=== PATIENT | female | born 1940 | race Caucasian/White ===

== ENCOUNTER 2016-11-22 22:32 | Emergency (ER) | payer MEDICARE, MEDICAID ==
--- NOTE | 2016-11-22 23:09 | ER Document Report ---
ED General - General Stated Complaint: FEVER Time Seen by Provider: 11/22/16 22:40 Notes: Patient is a 76-year-old female presents with complaint of fever. She had surgery done at [facility] on October 30. She has a history of a ileostomy. 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 She scheduled to have her rectum removed and then have it closed. They found when she was noted she also had a bowel obstruction therefore they also performed a surgery on the ileostomy itself. She was in the hospital for a week. She is on discharge on November 13. Since that she was therefore allowed for having issues with her blood pressure and she also developed UTI. She was discharged on antibiotics which she finished. Since than she has not been eating or drinking well since leaving [facility]. Denies she was more weak than usual and then developed a fever of. Fever for the paramedics was 101.8. She was given Tylenol by them. She denies any cough or congestion. She denies any dysuria but says she has been having difficulty getting urine out. She denies any change in ostomy output. She denies abdominal pain. No other complaints at this time. TRAVEL OUTSIDE OF THE [place] IN LAST 30 DAYS: No - Related Data Allergies/Adverse Reactions: ciprofloxacin [From Cipro] Allergy (Verified 04/07/15 13:57) diltiazem HCl [From Cardizem] Allergy (Verified 04/07/15 13:57) Unknown reaction ketorolac tromethamine [From Toradol] Allergy (Verified 04/07/15 13:57) levofloxacin [From Levaquin] Allergy (Verified 04/07/15 13:57) meperidine HCl [From Demerol] Allergy (Verified 04/07/15 13:57) nitrofurantoin macrocrystalline [From Macrodantin] Allergy (Verified 04/07/15 13 :57) propoxyphene napsylate [From Darvocet-N 100] Allergy (Verified 04/07/15 13:57) sumatriptan [From Imitrex] Allergy (Verified 04/07/15 13:57) Past Medical History - Social History Smoking Status: Unknown if Ever Smoked Frequency of alcohol use: None Drug Abuse: None Family History: Arthritis, CAD, DM, Hyperlipidemia, Hypertension - Past Medical History Cardiac Medical History: Reports: Hx Coronary Artery Disease, Hx Hypercholesterolemia, Hx Hypertension Pulmonary Medical History: Denies: Hx Tuberculosis Neurological Medical History: Reports: Hx Migraine, Hx Seizures Renal/ Medical History: Reports: Hx Renal Insufficiency GI Medical History: Reports: Hx Gastroesophageal Reflux Disease, Hx Irritable Bowel, Hx Colonoscopy, Hx Endoscopy Musculoskeltal Medical History: Reports Hx Arthritis, Reports Hx Musculoskeletal Deformity, Reports Hx Musculoskeletal Trauma Psychiatric Medical History: Reports: Hx Depression Traumatic Medical History: Reports: Hx Fractures - left shoulder Past Surgical History: Reports: Hx Appendectomy, Hx Bowel Surgery - 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 bowel injury, Hx Section, Hx Cholecystectomy, Hx Coronary Artery Bypass Graft, Hx Hysterectomy, Hx Ileostomy, Hx Orthopedic Surgery - left shoulder x2, Hx Tonsillectomy - Immunizations Immunizations up to date: Yes Hx Diphtheria, Pertussis, Tetanus Vaccination: Yes - 2012 Hx Pneumococcal Vaccination: 05/11/11 Review of Systems - Review of Systems Notes: My Normal Review Basic REVIEW OF SYSTEMS: CONSTITUTIONAL : Fevers EENT: Denies eye, ear, throat, or mouth pain or symptoms. Denies nasal or sinus congestion. CARDIOVASCULAR: Denies chest pain. RESPIRATORY: Denies cough, cold, or chest congestion. Denies shortness of breath, difficulty breathing, or wheezing. GASTROINTESTINAL: Denies abdominal pain. Denies nausea, vomiting, or diarrhea. GENITOURINARY: Denies painful urination, burning, frequency, or blood in urine. MUSCULOSKELETAL: Denies neck or back pain or joint pain or swelling. SKIN: Denies rash or skin lesions. NEUROLOGICAL: Denies altered mental status or loss of consciousness. Denies headache. Denies weakness or paralysis or loss of use of either side. Denies problems with gait or speech. Denies sensory or motor loss. ALL OTHER SYSTEMS REVIEWED AND NEGATIVE. Physical Exam - Vital signs Vitals: Temp Resp Pulse Ox 98.4 F 14 95 11/22/16 22:52 11/22/16 22:52 11/22/16 22:52 - Notes Notes: General Appearance: Thin, alert, cooperative, no acute distress, no obvious discomfort. Vitals: reviewed, See vital signs table. Head: no swelling or tenderness to the head Eyes: PERRL, EOMI, Conjuctiva clear Mouth: No decreasd moisture Neck: Supple, no neck tenderness, No thyromegaly Lungs: No wheezing, No rales, No rhonci, No accessory muscle use, good air exchange bilaterally. Heart: Normal rate, Regular rythm, No murmur, no rub Abdomen: Normal BS, soft, No rigidity, mild diffuse abdominal tenderness to palpation, No guarding, no rebound, no abdominal masses, no organomegaly. Ostomy bag in right lower quadrant has output of maroon colored stool. Rectal exam: Patient does have some whitish discharge from the surgical rectal site. The surgery of the rectum is slightly open. Sutures are still in place. There is no redness or spreading erythema from the area. Extremities: strength 5/5 in all extremities, good pulses in all extremities, no swelling or tenderness in the extremities, no edema. Skin: warm, dry, appropriate color, no rash Neuro: speech clear, oriented x 3, normal affect, responds appropriately to questions. Course - Re-evaluation Re-evalutation: 11/23/16 05:22 Spoke with [facility] over an hour ago for transfer. They said they would page out the surgeon. I called back to have not heard back. They said they are still try to get in touch with Dr. Jett, GI surgery. 11/23/16 05:30 Dr. Jett from [facility]. She accepts the patient on behalf of Dr. Hopson. 11/24/16 02:43 I have reevaluated the patient. She is resting comfortably. She is in no distress. Heart and lung marsh are clear. Vital signs are currently normal. I have ordered her vancomycin pharmacy to dose to start this morning. I have ordered Vanco peak and trough levels. Will order repeat CBC and BMP for the morning. She did spike a fever again. I have given her Tylenol. We are still awaiting transfer to [facility]. - Vital Signs Vital signs: Temp Pulse Resp BP Pulse Ox 98.6 F 59 L 15 95/65 L 97 11/24/16 02:41 11/23/16 08:40 11/24/16 02:01 11/24/16 02:00 11/24/16 02:01 - Laboratory Result Diagrams: 11/23/16 12:47 11/23/16 12:47 Laboratory results interpreted by me: 11/22/16 11/22/16 11/23/16 22:56 22:56 00:20 RBC 2.61 L Hgb 7.0 L Hct 21.9 L MCH 26.7 L MCHC 31.9 L RDW 16.5 H Seg Neutrophils % 79.0 H Lymphocytes % 7.1 L Sodium 133.4 L Carbon Dioxide 21 L BUN 25 H Creatinine 2.28 H Est GFR ( Amer) 25 L Est GFR (Non-Af Amer) 21 L Total Protein 6.2 L Albumin 2.9 L Urine Protein Urine Blood Ur Leukocyte Esterase Crossmatch See Detail 11/23/16 11/23/16 11/23/16 03:28 12:47 12:47 RBC Hgb 11.2 L D Hct 34.9 L MCH 26.9 L MCHC RDW 16.1 H Seg Neutrophils % 78.8 H Lymphocytes % 7.6 L Sodium Carbon Dioxide 20 L BUN 21 H Creatinine 1.95 H Est GFR ( Amer) 30 L Est GFR (Non-Af Amer) 25 L Total Protein Albumin Urine Protein 100 H Urine Blood MODERATE H Ur Leukocyte Esterase LARGE H Crossmatch - EKG Interpretation by Me Additional EKG results interpreted by me: 11/23/16 01:17 EKG is reviewed and interpreted by me. EKG shows normal sinus rhythm with rate of [address] segment elevation or depression. No ischemic T-wave inversions. OH interval, QRS duration, QTc intervals are within normal range. Old EKG for comparison is from January 25, 2016. Discharge - Discharge Clinical Impression: Rectal abscess Fever Qualifiers: Fever type: unspecified Qualified Code(s): R50.9 - Fever, unspecified Anemia Qualifiers: Anemia type: unspecified type Qualified Code(s): D64.9 - Anemia, unspecified Condition: Stable Disposition: [place] Referrals: BOBBI MACKAY DO [Primary Care Provider] - Follow up as needed
[2016-11-22 23:22] LABS: ABSOLUTE EOSINOPHILS # (AUTO) 0.1 10^3/uL (0.0-0.6); ABSOLUTE LYMPHOCYTES (AUTO) 0.5 10^3/uL (0.5-4.7); BASOPHILS % (AUTO) 0.4 % (0-2); EOSINOPHILS % (AUTO) 0.7 % (0-6); HEMATOCRIT 21.9 % (36.0-47.0); HGB HCT DIFFERENCE -0.9; LYMPHOCYTES % (AUTO) 7.1 % (13-45); MEAN CORPUSCULAR HEMOGLOBIN 26.7 pg (27.0-33.4); MEAN CORPUSCULAR HGB CONC 31.9 g/dL (32.0-36.0); MEAN CORPUSCULAR VOLUME 84 fl (80-97); MONOCYTES % (AUTO) 12.8 % (3-13); RED BLOOD COUNT 2.61 10^6/uL (3.72-5.28); RED CELL DISTRIBUTION WIDTH 16.5 % (11.5-14.0); WHITE BLOOD COUNT 7.6 10^3/uL (4.0-10.5)
[2016-11-22 23:40] LABS: ALANINE AMINOTRANSFERASE 28 U/L (9-52); ALBUMIN 2.9 g/dL (3.5-5.0); ALKALINE PHOSPHATASE 86 U/L (38-126); ANION GAP 12 (5-19); ASPARTATE AMINO TRANSFERASE 23 U/L (14-36); BILIRUBIN,DIRECT 0.3 mg/dL (0.0-0.4); BILIRUBIN,TOTAL 0.3 mg/dL (0.2-1.3); BLOOD UREA NITROGEN 25 mg/dL (7-20); CALCIUM 8.6 mg/dL (8.4-10.2); CARBON DIOXIDE 21 mmol/L (22-30); CHLORIDE 100 mmol/L (98-107); CREATININE RESULT 2.28 mg/dL (0.52-1.25); GLUCOSE 104 mg/dL (75-110); LIPASE 47.2 U/L (23-300); POTASSIUM 4.6 mmol/L (3.6-5.0); SODIUM 133.4 mmol/L (137-145); TOTAL PROTEIN 6.2 g/dL (6.3-8.2)
[2016-11-22] MEDS ORDERED: NORMAL SALINE 250 ML IV PRN (23:49)
[2016-11-23] MEDS ORDERED: PIPERACILLIN/TAZOBACTAM 3.375 GM VIAL IV ONE (00:23)
[2016-11-23] MEDS ORDERED: VANCOMYCIN HCL INJ 1000 MG VIAL IV ONE (00:23)
--- NOTE | 2016-11-23 00:54 | RADIOLOGY REPORT (SQ) ---
EXAM DESCRIPTION: CHEST SINGLE VIEW COMPLETED DATE/TIME: 11/23/2016 12:31 am REASON FOR STUDY: fever COMPARISON: Chest x-ray 01/25/2016 EXAM PARAMETERS: NUMBER OF VIEWS: One view. TECHNIQUE: Single frontal radiographic view of the chest acquired. RADIATION DOSE: NA LIMITATIONS: None. FINDINGS: LUNGS AND PLEURA: No consolidation, pneumothorax or pleural effusion. MEDIASTINUM AND HILAR STRUCTURES: No masses. Contour normal. HEART AND VASCULAR STRUCTURES: Heart normal in size. No overt vascular congestion. BONES: No acute findings. HARDWARE: None in the chest. IMPRESSION: No acute radiographic finding in the chest. TECHNICAL DOCUMENTATION: JOB ID: [id number]
[2016-11-23] MEDS ORDERED: NORMAL SALINE 1000 ML 1,000 ML IV ONE ×3 (01:25→21:17)
--- NOTE | 2016-11-23 01:51 | RADIOLOGY REPORT (SQ) ---
EXAM DESCRIPTION: CT ABD/PELVIS NO ORAL OR IV COMPLETED DATE/TIME: 11/23/2016 1:14 am REASON FOR STUDY: post op fever, h/o ileostomy, diffuse abdominal pain. Prior appendectomy, hystere ctomy and cholecystectomy. COMPARISON: CT abdomen and pelvis 12/19/2014. TECHNIQUE: CT scan of the abdomen and pelvis performed without intravenous or oral contrast. Images reviewed with lung, soft tissue, and bone windows. Reconstructed coronal and sagittal MPR images revi ewed. All images stored on PACS. All CT scanners at this facility use dose modulation, iterative reconstruction, and/or weight based d osing when appropriate to reduce radiation dose to as low as reasonably achievable (ALARA). [facility]: Dose Right [facility]: CareDose [facility]: Dose Right [facility]: Teradose 4D [facility]: [employer] RADIATION DOSE: Up-to-date CT equipment and radiation dose reduction techniques were employed. CTDIv ol: 4.8 mGy. DLP: 228 mGy-cm.mGy. LIMITATIONS: None. FINDINGS: LOWER CHEST: Mild bibasilar atelectasis. No pleural effusion. There is a moderate hiatal hernia. NON-CONTRASTED LIVER, SPLEEN, ADRENALS: Evaluation limited by lack of IV contrast. No identified sign ificant masses. PANCREAS: No peripancreatic inflammatory changes. GALLBLADDER: Surgically absent. RIGHT KIDNEY AND URETER: Assessment for masses limited by lack of IV contrast. No significant calci fications. No hydronephrosis or hydroureter. LEFT KIDNEY AND URETER: Assessment for masses limited by lack of IV contrast. No significant calcif ications. No hydronephrosis or hydroureter. AORTA AND RETROPERITONEUM: No abdominal aortic aneurysm. No retroperitoneal masses or hemorrhage. BOWEL AND PERITONEAL CAVITY: The stomach is partially distended. Multiple air-fluid levels are seen within small bowel loops. There is a right lower quadrant ostomy. No free fluid or free air. APPENDIX: Surgically absent. PELVIS, BLADDER, AND ABDOMINAL WALL:The urinary bladder is distended. The uterus is surgically absen t. No obvious pelvic mass. BONES: Multilevel degenerative changes in the spine. OTHER: There is presacral edema. Soft tissue stranding with small amount of subcutaneous emphysema in the soft tissues in the right perianal region, measuring approximately 1.9 x 1.2 cm. IMPRESSION: Presacral edema and soft tissue stranding with small amount of subcutaneous emphysema in the soft tissues in the right perianal region, worrisome for a fistula with abscess development. Th is can be better evaluated with dedicated MRI. Air-fluid levels within small bowel loops, may represent ileus; developing obstruction is not excluda ble. Clinical correlation recommended. Moderate hiatal hernia. Mild bibasilar atelectasis. TECHNICAL DOCUMENTATION: JOB ID: [id number] [facility] Quality ID # [id number]: Final reports with documentation of one or more dose reduction techniques (e.g., Au tomated exposure control, adjustment of the mA and/or kV according to patient size, use of iterative reconstruction technique) 2010 [employer]- All Rights Reserved
[2016-11-23 04:19] LABS: APPEARANCE,URINE TURBID; BILIRUBIN,URINE NEGATIVE (NEGATIVE); GLUCOSE, URINE NEGATIVE (NEGATIVE); KETONES,URINE NEGATIVE (NEGATIVE); LEUKOCYTE ESTERASE,URINE LARGE (NEGATIVE); NITRITE,URINE NEGATIVE (NEGATIVE); PROTEIN,URINE 100 mg/dL (NEGATIVE); URINE SPECIFIC GRAVITY 1.009; UROBILINOGEN,URINE NEGATIVE mg/dL (<2.0)
[2016-11-23] MEDS ORDERED: FENTANYL CITRATE INJ/PF 100 MCG/2 ML AMPUL IV ONE ×2 (06:13→10:52)
[2016-11-23] MEDS ORDERED: PIPERACILLIN/TAZOBACTAM 3.375 GM VIAL IV SCH (08:00)
--- NOTE | 2016-11-23 10:03 | EKG REPORT ---
SEVERITY:- NORMAL ECG - SINUS RHYTHM : Confirmed by: Ron Tinsley MD 23-Nov-2016 10:02:42
[2016-11-23 13:02] LABS: ABSOLUTE EOSINOPHILS # (AUTO) 0.2 10^3/uL (0.0-0.6); ABSOLUTE LYMPHOCYTES (AUTO) 0.7 10^3/uL (0.5-4.7); ABSOLUTE MONOCYTES (AUTO) 0.9 10^3/uL (0.1-1.4); ABSOLUTE NEUT (AUTO) 7.2 10^3/uL (1.7-8.2); BASOPHILS % (AUTO) 0.5 % (0-2); EOSINOPHILS % (AUTO) 2.7 % (0-6); HEMATOCRIT 34.9 % (36.0-47.0); HGB HCT DIFFERENCE -1.3; LYMPHOCYTES % (AUTO) 7.6 % (13-45); MEAN CORPUSCULAR HEMOGLOBIN 26.9 pg (27.0-33.4); MEAN CORPUSCULAR HGB CONC 32.1 g/dL (32.0-36.0); MEAN CORPUSCULAR VOLUME 84 fl (80-97); MONOCYTES % (AUTO) 10.4 % (3-13); RED BLOOD COUNT 4.16 10^6/uL (3.72-5.28); RED CELL DISTRIBUTION WIDTH 16.1 % (11.5-14.0); SEGMENTED NEUTROPHILS % (AUTO) 78.8 % (42-78); WHITE BLOOD COUNT 9.1 10^3/uL (4.0-10.5)
[2016-11-23 13:09] LABS: ANION GAP 14 (5-19); BLOOD UREA NITROGEN 21 mg/dL (7-20); CALCIUM 8.8 mg/dL (8.4-10.2); CARBON DIOXIDE 20 mmol/L (22-30); CHLORIDE 105 mmol/L (98-107); CREATININE RESULT 1.95 mg/dL (0.52-1.25); GLUCOSE 110 mg/dL (75-110); HEMOGLOBIN 11.2 g/dL (12.0-15.5); POTASSIUM 4.2 mmol/L (3.6-5.0); SODIUM 138.5 mmol/L (137-145)
[2016-11-23] MEDS: FENTANYL CITRATE INJ/PF 100 MCG/2 ML AMPUL IV PRN ×3 (14:10→22:51)
[2016-11-23] MEDS ORDERED: ACETAMINOPHEN 325 MG TABLET PO ONE (22:39)
[2016-11-24] MEDS: PIPERACILLIN/TAZOBACTAM 3.375 GM VIAL IV SCH ×2 (00:52→06:45)
[2016-11-24] MEDS ORDERED: PHARMACY COMMUNICATION ORDER MC NR (02:45)
[2016-11-24] MEDS ORDERED: VANCOMYCIN HCL INJ 1000 MG VIAL IV PRN (02:59)
[2016-11-24] MEDS ORDERED: VANCOMYCIN HCL 750 MG in DEXTROSE 5%-WATER 250 ML IV ONE (04:00)
[2016-11-24] MEDS: FENTANYL CITRATE INJ/PF 100 MCG/2 ML AMPUL IV PRN ×4 (07:11→20:13)
[2016-11-24 08:01] LABS: ABSOLUTE BASOPHILS # (AUTO) 0.1 10^3/uL (0.0-0.2); ABSOLUTE EOSINOPHILS # (AUTO) 0.2 10^3/uL (0.0-0.6); ABSOLUTE LYMPHOCYTES (AUTO) 1.6 10^3/uL (0.5-4.7); ABSOLUTE MONOCYTES (AUTO) 1.3 10^3/uL (0.1-1.4); BASOPHILS % (AUTO) 0.6 % (0-2); EOSINOPHILS % (AUTO) 2.1 % (0-6); HEMATOCRIT 34.2 % (36.0-47.0); HGB HCT DIFFERENCE -1.2; LYMPHOCYTES % (AUTO) 15.4 % (13-45); MEAN CORPUSCULAR VOLUME 84 fl (80-97); MONOCYTES % (AUTO) 12.8 % (3-13); RED BLOOD COUNT 4.05 10^6/uL (3.72-5.28); RED CELL DISTRIBUTION WIDTH 16.2 % (11.5-14.0); SEGMENTED NEUTROPHILS % (AUTO) 69.1 % (42-78); WHITE BLOOD COUNT 10.1 10^3/uL (4.0-10.5)
[2016-11-24 09:32] LABS: ANION GAP 11 (5-19); BLOOD UREA NITROGEN 14 mg/dL (7-20); CALCIUM 8.2 mg/dL (8.4-10.2); CARBON DIOXIDE 16 mmol/L (22-30); CHLORIDE 111 mmol/L (98-107); CREATININE RESULT 1.39 mg/dL (0.52-1.25); GLUCOSE 92 mg/dL (75-110); POTASSIUM 4.3 mmol/L (3.6-5.0); SODIUM 138.2 mmol/L (137-145)
[2016-11-24] MEDS ORDERED: PIPERACILLIN/TAZOBACTAM 2.25 GM VIAL IV SCH (12:00)
--- NOTE | 2016-11-24 20:29 | ER Document Report ---
Doctor's Note Notes: 11/24/16 20:00 Patient is resting comfortably. Vitals are stable. Patient lost IV access. Patient had a line started by nurse. Patient has been getting IV antibiotics and fluids. She does not have a fever at this time. 11/25/16 01:01 Patient is a 76-year-old female who is being transferred to [facility] for a colon infection versus fistula. Patient is stable for transfer. Resting comfortably.
[2016-11-25 00:26] VITALS: BP 123/55
[2016-11-25] MEDS ORDERED: VANCOMYCIN HCL 500 MG in DEXTROSE 5%-WATER 100 ML IV SCH (17:00)
== END 2016-11-25 00:40 | disposition short-term general hospital (02) ==
LOC: ER 22:32
DX: T81.4XXA Infection following a procedure, initial encounter (principal); K61.1 Rectal abscess; Y83.8 Other surgical procedures as the cause of abnormal reaction of the patient, or of later complication, without mention of misadventure at the time of the procedure; D64.9 Anemia, unspecified; R50.9 Fever, unspecified; R53.1 Weakness; R39.9 Unspecified symptoms and signs involving the genitourinary system; I25.10 Atherosclerotic heart disease of native coronary artery without angina pectoris; I10 Essential (primary) hypertension; Z90.49 Acquired absence of other specified parts of digestive tract; Z93.2 Ileostomy status; Z85.00 Personal history of malignant neoplasm of unspecified digestive organ; Z88.1 Allergy status to other antibiotic agents; Z88.8 Allergy status to other drugs, medicaments and biological substances; Z88.5 Allergy status to narcotic agent; Z88.6 Allergy status to analgesic agent; Z95.1 Presence of aortocoronary bypass graft
CPT/HCPCS: 93005; 96376; 99285; 96361; 96375; 96365; 96366; 96367; 86900; 86901; 36415; 87040; 87070; 87205; 36430; 86850; 83690; 85025; 82272; 87075; 87077; 80048; 80053; 81001; 87186; 80202 ×2; 86920; 83605; 71010; 74176; 93010; P9016; A9270; J3010 ×2; J3370 ×3; J7060; J7030; J2543 ×2

== ENCOUNTER 2017-06-13 12:24 | Emergency (ER) | payer MEDICARE, MEDICAID ==
--- NOTE | 2017-06-13 12:53 | ER Document Report ---
ED Medical Screen (RME) - General Chief Complaint: Flu Symptoms Stated Complaint: FLU LIKE SYMPTOMS Time Seen by Provider: 06/13/17 12:48 TRAVEL OUTSIDE OF THE [place] IN LAST 30 DAYS: No - HPI Patient complains to provider of: cough Onset: Yesterday Notes: 06/13/17 12:51 Patient presents with her son [facility] cough fever and chills for the last 2 days. Since T-max was 103. She states she has not been feeling well for several days with a cough and mild diarrhea. She lives at home with her son who is with her today. Has had mild diarrhea as well as decreased appetite and generalized malaise. Patient has a history of anxiety dementia and GERD she also has a history of a colostomy although she denies colon cancer. Vital signs urgent care included a blood pressure of 161/ 87 a heart rate of 99 a respiratory rate 18 and O2 sat of 81 a temperature of 100.1 patient was 92 pounds I have greeted and performed a rapid initial assessment of this patient. A comprehensive ED assessment and evaluation of the patient, analysis of test results and completion of the medical decision making process will be conducted by additional ED providers. PHYSICAL EXAMINATION: GENERAL: Frail ill-appearing elderly female HEAD: Atraumatic, normocephalic. EYES: Pupils equal round extraocular movements intact, conjunctiva are normal. ENT: Nares patent NECK: Normal range of motion LUNGS: Basilar crackles with rhonchi right greater than left chest Musculoskeletal: Normal range of motion NEUROLOGICAL: Normal speech, normal gait. PSYCH: Normal mood, normal affect. SKIN: Warm, Dry, normal turgor, no rashes or lesions noted. - Related Data Allergies/Adverse Reactions: ciprofloxacin [From Cipro] Allergy (Verified 06/13/17 12:26) diltiazem HCl [From Cardizem] Allergy (Verified 06/13/17 12:26) Unknown reaction ketorolac tromethamine [From Toradol] Allergy (Verified 06/13/17 12:26) levofloxacin [From Levaquin] Allergy (Verified 06/13/17 12:26) meperidine HCl [From Demerol] Allergy (Verified 06/13/17 12:26) nitrofurantoin macrocrystalline [From Macrodantin] Allergy (Verified 06/13/17 12 :26) propoxyphene napsylate [From Darvocet-N 100] Allergy (Verified 06/13/17 12:26) sumatriptan [From Imitrex] Allergy (Verified 06/13/17 12:26) Past Medical History - Social History Chew tobacco use (# tins/day): No Frequency of alcohol use: None Drug Abuse: None Family history: Reviewed & Not Pertinent - Past Medical History Cardiac Medical History: Reports: Hx Coronary Artery Disease, Hx Hypercholesterolemia, Hx Hypertension Pulmonary Medical History: Denies: Hx Tuberculosis Neurological Medical History: Reports: Hx Migraine, Hx Seizures Renal/ Medical History: Reports: Hx Renal Insufficiency. Denies: Hx Peritoneal Dialysis GI Medical History: Reports: Hx Gastroesophageal Reflux Disease, Hx Irritable Bowel, Hx Colonoscopy, Hx Endoscopy Musculoskeltal Medical History: Reports Hx Arthritis, Reports Hx Musculoskeletal Deformity, Reports Hx Musculoskeletal Trauma Psychiatric Medical History: Reports: Hx Depression Traumatic Medical History: Reports: Hx Fractures - left shoulder Past Surgical History: Reports: Hx Appendectomy, Hx Bowel Surgery - 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 bowel injury, Hx Section, Hx Cholecystectomy, Hx Coronary Artery Bypass Graft, Hx Hysterectomy, Hx Ileostomy, Hx Orthopedic Surgery - left shoulder x2, Hx Tonsillectomy - Immunizations Immunizations up to date: Yes Hx Diphtheria, Pertussis, Tetanus Vaccination: Yes - 2012 Physical Exam - Vital signs Vitals: Temp Pulse Resp BP Pulse Ox 98.1 F 97 16 150/76 H 95 06/13/17 12:33 06/13/17 12:33 06/13/17 12:33 06/13/17 12:33 06/13/17 12:33 Course - Vital Signs Vital signs: Temp Pulse Resp BP Pulse Ox 98.1 F 97 16 150/76 H 95 06/13/17 12:33 06/13/17 12:33 06/13/17 12:33 06/13/17 12:33 06/13/17 12:33
--- NOTE | 2017-06-13 13:46 | RADIOLOGY REPORT (SQ) ---
EXAM DESCRIPTION: CHEST PA/LAT COMPLETED DATE/TIME: 06/13/2017 1:05 pm REASON FOR STUDY: cough COMPARISON: 01/25/2016 NUMBER OF VIEWS: Two view TECHNIQUE: Frontal and lateral radiographic images of the chest acquired. LIMITATIONS: None. FINDINGS: LUNGS AND PLEURA: Emphysematous changes. Reticulonodular pattern in the lower right lung. No effusions. MEDIASTINUM AND HILAR STRUCTURES: Stable heart size and mediastinal structures. HEART AND VASCULAR STRUCTURES: Stable appearance. BONES: No acute findings. HARDWARE: None in the chest. OTHER: No other significant finding. IMPRESSION: COPD. Suspect superimposed pneumonia in the right lower lobe. Follow-up is recommended . TECHNICAL DOCUMENTATION: JOB ID: [id number] [employer]- All Rights Reserved
[2017-06-13] MEDS ORDERED: AZITHROMYCIN 250 MG TABLET PO ONE (14:36)
--- NOTE | 2017-06-13 14:39 | ER Document Report ---
ED General - General Chief Complaint: Flu Symptoms Stated Complaint: FLU LIKE SYMPTOMS Time Seen by Provider: 06/13/17 12:48 Mode of Arrival: Medic Information source: Patient, Relative Notes: 76-year-old female presents with complaints of productive cough over 3 day duration. Patient was sent in from urgent care with concerns of hypoxemia but was satting well on arrival, she was admitting to chills denies any nausea vomiting TRAVEL OUTSIDE OF THE [place] IN LAST 30 DAYS: No - HPI Onset: Other - 3 day duration Onset/Duration: Persistent Quality of pain: Achy Severity: Mild Pain Level: 1 Associated symptoms: Productive cough, Shortness of breath Exacerbated by: Walking Relieved by: Denies Similar symptoms previously: Yes Recently seen / treated by doctor: Yes - Related Data Allergies/Adverse Reactions: ciprofloxacin [From Cipro] Allergy (Verified 06/13/17 12:26) diltiazem HCl [From Cardizem] Allergy (Verified 06/13/17 12:26) Unknown reaction ketorolac tromethamine [From Toradol] Allergy (Verified 06/13/17 12:26) levofloxacin [From Levaquin] Allergy (Verified 06/13/17 12:26) meperidine HCl [From Demerol] Allergy (Verified 06/13/17 12:26) nitrofurantoin macrocrystalline [From Macrodantin] Allergy (Verified 06/13/17 12 :26) propoxyphene napsylate [From Darvocet-N 100] Allergy (Verified 06/13/17 12:26) sumatriptan [From Imitrex] Allergy (Verified 06/13/17 12:26) Past Medical History - Social History Smoking Status: Never Smoker Cigarette use (# per day): No Chew tobacco use (# tins/day): No Smoking Education Provided: No Frequency of alcohol use: None Drug Abuse: None Family History: Arthritis, CAD, DM, Hyperlipidemia, Hypertension Patient has suicidal ideation: No Patient has homicidal ideation: No - Past Medical History Cardiac Medical History: Reports: Hx Coronary Artery Disease, Hx Hypercholesterolemia, Hx Hypertension Pulmonary Medical History: Denies: Hx Tuberculosis Neurological Medical History: Reports: Hx Migraine, Hx Seizures Renal/ Medical History: Reports: Hx Renal Insufficiency. Denies: Hx Peritoneal Dialysis GI Medical History: Reports: Hx Gastroesophageal Reflux Disease, Hx Irritable Bowel, Hx Colonoscopy, Hx Endoscopy Musculoskeltal Medical History: Reports Hx Arthritis, Reports Hx Musculoskeletal Deformity, Reports Hx Musculoskeletal Trauma Psychiatric Medical History: Reports: Hx Depression Traumatic Medical History: Reports: Hx Fractures - left shoulder Past Surgical History: Reports: Hx Appendectomy, Hx Bowel Surgery - 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 bowel injury, Hx Section, Hx Cholecystectomy, Hx Coronary Artery Bypass Graft, Hx Hysterectomy, Hx Ileostomy, Hx Orthopedic Surgery - left shoulder x2, Hx Tonsillectomy - Immunizations Immunizations up to date: Yes Hx Diphtheria, Pertussis, Tetanus Vaccination: Yes - 2012 Hx Pneumococcal Vaccination: 05/11/11 Review of Systems - Review of Systems Notes: REVIEW OF SYSTEMS: CONSTITUTIONAL : Denies fever, chills, or sweats. Denies recent illness. EENT: Denies eye, ear, throat, or mouth pain or symptoms. Denies nasal or sinus congestion or discharge. Denies throat, tongue, or mouth swelling or difficulty swallowing. CARDIOVASCULAR: Denies chest pain. Denies palpitations or racing or irregular heart beat. Denies ankle edema. RESPIRATORY: Admits to cough shortness of breath GASTROINTESTINAL: Denies abdominal pain or distention. Denies nausea, vomiting , or diarrhea. Denies blood in vomitus, stools, or per rectum. Denies black, tarry stools. Denies constipation. GENITOURINARY: Denies difficulty urinating, painful urination, burning, frequency, blood in urine, or discharge. FEMALE GENITOURINARY: Denies vaginal bleeding, heavy or abnormal periods, irregular periods. Denies vaginal discharge or odor. MUSCULOSKELETAL: Denies back or neck pain or stiffness. Denies joint pain or swelling. SKIN: Denies rash, lesions or sores. HEMATOLOGIC : Denies easy bruising or bleeding. LYMPHATIC: Denies swollen, enlarged glands. NEUROLOGICAL: Denies confusion or altered mental status. Denies passing out or loss of consciousness. Denies dizziness or lightheadedness. Denies headache. Denies weakness or paralysis or loss of use of either side. Denies problems with gait or speech. Denies sensory loss, numbness, or tingling. Denies seizures. PSYCHIATRIC: Denies anxiety or stress. Denies depression, suicidal ideation, or homicidal ideation. ALL OTHER SYSTEMS REVIEWED AND NEGATIVE. PHYSICAL EXAMINATION: GENERAL: Well-appearing, well-nourished and in no acute distress. HEAD: Atraumatic, normocephalic. EYES: Pupils equal round and reactive to light, extraocular movements intact, conjunctiva are normal. ENT: Nares patent, oropharynx clear without exudates. Moist mucous membranes. NECK: Normal range of motion, supple without lymphadenopathy LUNGS: Coarse rhonchi in the right upper lobe HEART: Regular rate and rhythm without murmurs ABDOMEN: Soft, nontender, nondistended abdomen. No guarding, no rebound. No masses appreciated. Female : deferred Musculoskeletal: Normal range of motion, no pitting or edema. No cyanosis. NEUROLOGICAL: Cranial nerves grossly intact. Normal speech, normal gait. Normal sensory, motor exams PSYCH: Normal mood, normal affect. SKIN: Warm, Dry, normal turgor, no rashes or lesions noted. Dictation was performed using [employer] recognition software Physical Exam - Vital signs Vitals: Temp Pulse Resp BP Pulse Ox 98.1 F 97 16 150/76 H 95 06/13/17 12:33 06/13/17 12:33 06/13/17 12:33 06/13/17 12:33 06/13/17 12:33 Course - Re-evaluation Re-evalutation: 06/13/17 16:28 Patient's presentation is consistent with pneumonia this was confirmed on x-ray , patient was ambulated throughout the emergency department and her O2 sats went between 92-96% with no elevation in heart rate. Patient looks extremely well, we unfortunately failed to get IV access her blood work multiple times I did offer to continue attempts but family wishes to defer at this time, patient wishes to be discharged home, I explained to them that there is concerns that this may worsen in the respiratory distress or further renal failure could occur , family states they understand and son states she lives with him and he will bring her back immediately if there are any other concerns. I provided my business card and explained for them to return immediately if there are any other concerns After performing a Medical Screening Examination, I estimate there is LOW risk for ACUTE CORONARY SYNDROME, PULMONARY EMBOLI, RESPIRATORY FAILURE, SEPSIS OR MENINGITIS, thus I consider the discharge disposition reasonable. I have reevaluated this patient multiple times and no significant life threatening changes are noted. The patient and I have discussed the diagnosis and risks, and we agree with discharging home with close follow-up. We also discussed returning to the Emergency Department immediately if new or worsening symptoms occur. We have discussed the symptoms which are most concerning (e.g., changing or worsening pain, trouble swallowing or breathing, neck stiffness, fever) that necessitate immediate return. - Vital Signs Vital signs: Temp Pulse Resp BP Pulse Ox 98.0 F 83 18 111/66 94 06/13/17 15:07 06/13/17 15:07 06/13/17 15:07 06/13/17 15:07 06/13/17 15:07 - Laboratory Laboratory results interpreted by me: 06/13/17 14:32 Urine Protein 30 H - Diagnostic Test Radiology reviewed: Image reviewed, Reports reviewed - pneumonia Discharge - Discharge Clinical Impression: Pneumonia Qualifiers: Pneumonia type: due to unspecified organism Laterality: right Lung location: upper lobe of lung Qualified Code(s): J18.1 - Lobar pneumonia, unspecified organism Condition: Stable Disposition: HOME, SELF-CARE Instructions: Pneumonia ([facility]) Prescriptions: Azithromycin [Zithromax] 250 mg PO DAILY #4 tablet Referrals: BOBBI MACKAY DO [Primary Care Provider] - Follow up as needed
[2017-06-13 14:47] LABS: APPEARANCE,URINE CLOUDY; BILIRUBIN,URINE NEGATIVE (NEGATIVE); COLOR,URINE YELLOW; GLUCOSE, URINE NEGATIVE (NEGATIVE); KETONES,URINE NEGATIVE (NEGATIVE); LEUKOCYTE ESTERASE,URINE NEGATIVE (NEGATIVE); NITRITE,URINE NEGATIVE (NEGATIVE); PROTEIN,URINE 30 mg/dL (NEGATIVE); URINE SPECIFIC GRAVITY 1.012; UROBILINOGEN,URINE NEGATIVE mg/dL (<2.0)
[2017-06-13] MEDS ORDERED: ALBUTEROL SULFATE HFA (90 MCG/PUFF) 8 GM MDI (1 MDI/ER DISP) IH PRN (14:56)
[2017-06-13 15:10] VITALS: BP 111/66
--- NOTE | 2017-06-13 17:38 | EKG REPORT ---
SEVERITY:- NORMAL ECG - SINUS RHYTHM : Confirmed by: Ron Tinsley MD 13-Jun-2017 17:37:46
== END 2017-06-13 15:07 | disposition home or self-care (01) ==
LOC: ER 12:24
DX: J18.1 Lobar pneumonia, unspecified organism (principal); R05 Cough; R06.02 Shortness of breath
CPT/HCPCS: 93005; 99284; 87205; 81001; 71046; 93010; A9270; J3490; 87070

== ENCOUNTER 2017-06-14 14:32 | Inpatient (IN) | payer MEDICARE, MEDICAID ==
[2017-06-14] MEDS ORDERED: CEFTRIAXONE 1 GM/D5W RTU 1 GM/50 ML RTUPB IV ONE (14:35)
--- NOTE | 2017-06-14 14:35 | ER Document Report ---
ED General - General Stated Complaint: BREATHING DIFFICULTY Time Seen by Provider: 06/14/17 14:35 Mode of Arrival: Medic Information source: Patient, [facility] Records Cannot obtain history due to: Other Notes: 76-year-old female who was diagnosed by myself as pneumonia yesterday and given admission option but chose to leave presents with complaints of difficulty breathing. Patient was started on azithromycin notes the cough and shortness of breath is worsened patient has not been hydrating well TRAVEL OUTSIDE OF THE [place] IN LAST 30 DAYS: No - HPI Onset: Last week Onset/Duration: Persistent Quality of pain: Achy Severity: Mild Pain Level: 1 Associated symptoms: Body/muscle aches, Productive cough, Shortness of breath Exacerbated by: Movement, Walking Relieved by: Denies Similar symptoms previously: Yes Recently seen / treated by doctor: Yes - Related Data Allergies/Adverse Reactions: ciprofloxacin [From Cipro] Allergy (Verified 06/13/17 12:26) diltiazem HCl [From Cardizem] Allergy (Verified 06/13/17 12:26) Unknown reaction ketorolac tromethamine [From Toradol] Allergy (Verified 06/13/17 12:26) levofloxacin [From Levaquin] Allergy (Verified 06/13/17 12:26) meperidine HCl [From Demerol] Allergy (Verified 06/13/17 12:26) nitrofurantoin macrocrystalline [From Macrodantin] Allergy (Verified 06/13/17 12 :26) propoxyphene napsylate [From Darvocet-N 100] Allergy (Verified 06/13/17 12:26) sumatriptan [From Imitrex] Allergy (Verified 06/13/17 12:26) Past Medical History - Social History Smoking Status: Never Smoker Cigarette use (# per day): No Chew tobacco use (# tins/day): No Smoking Education Provided: No Family History: Arthritis, CAD, DM, Hyperlipidemia, Hypertension - Past Medical History Cardiac Medical History: Reports: Hx Coronary Artery Disease, Hx Hypercholesterolemia, Hx Hypertension Pulmonary Medical History: Denies: Hx Tuberculosis Neurological Medical History: Reports: Hx Migraine, Hx Seizures Renal/ Medical History: Reports: Hx Renal Insufficiency. Denies: Hx Peritoneal Dialysis GI Medical History: Reports: Hx Gastroesophageal Reflux Disease, Hx Irritable Bowel, Hx Colonoscopy, Hx Endoscopy Musculoskeltal Medical History: Reports Hx Arthritis, Reports Hx Musculoskeletal Deformity, Reports Hx Musculoskeletal Trauma Psychiatric Medical History: Reports: Hx Depression Traumatic Medical History: Reports: Hx Fractures - left shoulder Past Surgical History: Reports: Hx Appendectomy, Hx Bowel Surgery - 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 bowel injury, Hx Section, Hx Cholecystectomy, Hx Coronary Artery Bypass Graft, Hx Hysterectomy, Hx Ileostomy, Hx Orthopedic Surgery - left shoulder x2, Hx Tonsillectomy - Immunizations Immunizations up to date: Yes Hx Diphtheria, Pertussis, Tetanus Vaccination: Yes - 2012 Hx Pneumococcal Vaccination: 05/11/11 Review of Systems - Review of Systems Notes: REVIEW OF SYSTEMS: CONSTITUTIONAL : Denies fever, chills, or sweats. Denies recent illness. EENT: Denies eye, ear, throat, or mouth pain or symptoms. Denies nasal or sinus congestion or discharge. Denies throat, tongue, or mouth swelling or difficulty swallowing. CARDIOVASCULAR: Denies chest pain. Denies palpitations or racing or irregular heart beat. Denies ankle edema. RESPIRATORY: Admits to cough GASTROINTESTINAL: Denies abdominal pain or distention. Denies nausea, vomiting , or diarrhea. Denies blood in vomitus, stools, or per rectum. Denies black, tarry stools. Denies constipation. GENITOURINARY: Denies difficulty urinating, painful urination, burning, frequency, blood in urine, or discharge. FEMALE GENITOURINARY: Denies vaginal bleeding, heavy or abnormal periods, irregular periods. Denies vaginal discharge or odor. MUSCULOSKELETAL: Denies back or neck pain or stiffness. Denies joint pain or swelling. SKIN: Denies rash, lesions or sores. HEMATOLOGIC : Denies easy bruising or bleeding. LYMPHATIC: Denies swollen, enlarged glands. NEUROLOGICAL: Admits to generalized weakness PSYCHIATRIC: Denies anxiety or stress. Denies depression, suicidal ideation, or homicidal ideation. ALL OTHER SYSTEMS REVIEWED AND NEGATIVE. PHYSICAL EXAMINATION: GENERAL: Thin elderly female in mild respiratory distress HEAD: Atraumatic, normocephalic. EYES: Pupils equal round and reactive to light, extraocular movements intact, conjunctiva are normal. ENT: Nares patent, oropharynx clear without exudates. Moist mucous membranes. NECK: Normal range of motion, supple without lymphadenopathy LUNGS: Rhonchi right upper lobe HEART: Regular rate and rhythm without murmurs ABDOMEN: Soft, nontender, nondistended abdomen. No guarding, no rebound. No masses appreciated. Female : deferred Musculoskeletal: Normal range of motion, no pitting or edema. No cyanosis. NEUROLOGICAL: Cranial nerves grossly intact. Normal speech, normal gait. Normal sensory, motor exams baseline tremors PSYCH: Normal mood, normal affect. SKIN: Warm, Dry, normal turgor, no rashes or lesions noted. Dictation was performed using [employer] voice recognition software Course - Re-evaluation Re-evalutation: 06/14/17 16:14 I had attempted to contact the patient this morning to check on her, I expected her decompensation but she had refused to be admitted yesterday, she presents today now with the shortness of breath. Lab work notes worsening renal failure , ultrasound IV was placed by myself in the left antecubital given the difficulty that they had yesterday with blood work, she will be started on antibiotics and admitted to the hospitalist service - Laboratory Result Diagrams: 06/14/17 15:00 06/14/17 15:00 Laboratory results interpreted by me: 06/14/17 06/14/17 06/14/17 15:00 15:00 15:20 Hgb 11.2 L Hct 33.7 L RDW 15.7 H Seg Neuts % (Manual) 86 H Band Neutrophils % 7 H Lymphocytes % (Manual) 5 L Monocytes % (Manual) 2 L Abs Neuts (Manual) 8.8 H VBG pH 7.17 L* VBG HCO3 12.9 L Chloride 110 H Carbon Dioxide 12 L BUN 66 H Creatinine 2.77 H Est GFR ( Amer) 20 L Est GFR (Non-Af Amer) 17 L - Diagnostic Test Radiology reviewed: Image reviewed, Reports reviewed Discharge - Discharge Clinical Impression: Acute worsening of stage 3 chronic kidney disease, General weakness Pneumonia Qualifiers: Pneumonia type: due to unspecified organism Laterality: right Lung location: upper lobe of lung Qualified Code(s): J18.1 - Lobar pneumonia, unspecified organism Condition: Stable Disposition: ADMITTED INPATIENT Admitting Provider: Hospitalist Unit Admitted: Telemetry
[2017-06-14 15:14] LABS: HEMATOCRIT 33.7 % (36.0-47.0); HEMOGLOBIN 11.2 g/dL (12.0-15.5); MEAN CORPUSCULAR HEMOGLOBIN 29.2 pg (27.0-33.4); MEAN CORPUSCULAR HGB CONC 33.3 g/dL (32.0-36.0); MEAN CORPUSCULAR VOLUME 88 fl (80-97); PLATELET COUNT 210 10^3/uL (150-450); RED BLOOD COUNT 3.85 10^6/uL (3.72-5.28); RED CELL DISTRIBUTION WIDTH 15.7 % (11.5-14.0); WHITE BLOOD COUNT 9.5 10^3/uL (4.0-10.5)
[2017-06-14 15:21] LABS: INTERNATIONAL RATION (INR) 1.11; PROTHROMBIN TIME 15.1 SEC (11.4-15.4)
[2017-06-14 15:29] LABS: ALANINE AMINOTRANSFERASE 24 U/L (9-52); ALKALINE PHOSPHATASE 80 U/L (38-126); ANION GAP 17 (5-19); ASPARTATE AMINO TRANSFERASE 28 U/L (14-36); BILIRUBIN,DIRECT 0.4 mg/dL (0.0-0.4); BILIRUBIN,TOTAL 0.4 mg/dL (0.2-1.3); BLOOD UREA NITROGEN 66 mg/dL (7-20); CALCIUM 9.1 mg/dL (8.4-10.2); CARBON DIOXIDE 12 mmol/L (22-30); CHLORIDE 110 mmol/L (98-107); GLUCOSE 107 mg/dL (75-110); POTASSIUM 4.9 mmol/L (3.6-5.0); SODIUM 138.7 mmol/L (137-145); TOTAL PROTEIN 7.1 g/dL (6.3-8.2)
[2017-06-14] MEDS ORDERED: IPRATROPIUM/ALBUTEROL 0.5-2.5 MG/3 ML AMPUL NEB ONE ×2 (15:37→18:45)
[2017-06-14] MEDS ORDERED: NORMAL SALINE 1000 ML 1,000 ML IV ONE (15:37)
[2017-06-14 15:39] LABS: ABSOLUTE LYMPHOCYTES# (MANUAL) 0.5 10^3/uL (0.5-4.7); ABSOLUTE MONOCYTES # (MANUAL) 0.2 10^3/uL (0.1-1.4); ABSOLUTE NEUTROPHILS# (MANUAL) 8.8 10^3/uL (1.7-8.2); BAND NEUTROPHILS % (MANUAL) 7 % (3-5); BASOPHILS % (MANUAL) 0 % (0-2); EOSINOPHILS % (MANUAL) 0 % (0-6); LYMPHOCYTES % (MANUAL) 5 % (13-45); MONOCYTES % (MANUAL) 2 % (3-13); SEGMENTED NEUTROPHILS % (MAN) 86 % (42-78); TOTAL CELLS COUNTED 100
[2017-06-14 15:40] LABS: ANISOCYTOSIS SLIGHT; HYPOCHROMASIA SLIGHT; OVALOCYTES SLIGHT; POIKILOCYTOSIS 1+; TEAR DROP CELLS SLIGHT
[2017-06-14 15:41] LABS: PLATELET COMMENT ADEQUATE
[2017-06-14 15:42] LABS: VENOUS BLOOD BASE EXCESS -14.6 mmol/L; VENOUS BLOOD HCO3 12.9 mmol/L (20-32); VENOUS BLOOD PCO2 36.1 mmHg (35-63)
[2017-06-14 15:44] LABS: VENOUS BLOOD PH 7.17 (7.30-7.42)
[2017-06-14] MEDS ORDERED: MORPHINE SULFATE 10 MG/ML INJ IV ONE (16:10)
--- NOTE | 2017-06-14 16:12 | EKG REPORT ---
SEVERITY:- DEFECTIVE ECG - SINUS RHYTHM CONSIDER ANTEROSEPTAL INFARCT DEFECTIVE AVF LEAD. : Confirmed by: Ron Tinsley MD 14-Jun-2017 16:11:55
--- NOTE | 2017-06-14 16:49 | PDOC H&P ---
History of Present Illness Admission Date/PCP: BOBBI MACKAY DO Patient complains of: cough, fever, generalized weakness History of Present Illness: SHAKA GOMEZ is a 76 year old female with history of CKD and chornic pain who presents to ED on 06/14/17 with weakness, shortness of breath, and cough. Patient was in the ED on 06/13 and found to have a RLL pneumonia. Patient was offered to be admitted however chose to go home with [facility]. Over the last day, she has felt worse and developed worsening SOB. Associated symptom include subjective fevers and chills. She also feels weaker and has had poor PO intake over same period of time. Cough is productive with butcher sputum. Denies CP, abdominal pain, NV, urinary symptoms. Her son, who she lives with also had been sick. Hospitalist medicine to admit patient for further care. Past Medical History Cardiac Medical History: Reports: Coronary Artery Disease, Hyperlipidema, Hypertension Pulmonary Medical History: Denies: Tuberculosis Neurological Medical History: Reports: Migraine, Seizures GI Medical History: Reports: Gastroesophageal Reflux Disease Musculoskeltal Medical History: Reports: Arthritis Psychiatric Medical History: Reports: Depression Hematology: Reports: Anemia Past Surgical History Past Surgical History: Reports: Appendectomy, Section, Cholecystectomy , Coronary Artery Bypass Graft, Hysterectomy, Ileostomy, Orthopedic Surgery - left shoulder x2, Tonsillectomy Social History Smoking Status: Never Smoker Frequency of Alcohol Use: None Hx Recreational Drug Use: No Hx Prescription Drug Abuse: No Family History Family History: Arthritis, CAD, DM, Hyperlipidemia, Hypertension Family History: Non contributory Parental Family History Reviewed: No Children Family History Reviewed: Yes - Son who is also sick with URI symptoms Sibling(s) Family History Reviewed.: NA Medication/Allergy Home Medications: Clonazepam [Klonopin] 0.5 mg PO BIDP PRN 05/25/13 Esomeprazole Magnesium [Nexium] 40 mg PO BID 05/25/13 Ondansetron [Zofran Odt 4 mg Tablet] 8 mg PO DAILY PRN 05/25/13 Tizanidine HCl 4 mg PO Q8 PRN 05/25/13 Dicyclomine HCl 20 mg PO Q6HP PRN 12/21/14 Diphenoxylate HCl/Atropine [Diphenoxylate-Atrop 2.5-0.025] 1 tab PO Q4 PRN 12/21 Fluticasone Propionate [Flonase Nasal Holloway 50 Mcg/Holloway 16 gm] 1 spray NASL Q12 12/21/14 Gabapentin 400 mg PO BID 12/21/14 Hydrocodone Bit/Acetaminophen [Hydrocodon-Acetaminophen 5-325] 1 each PO BIDP PRN 12/21/14 Bacitracin [Bacitacin Oph Oint 3.5 gm] 1 applic OP Q4 #1 tube 03/26/15 Azithromycin [Zithromax] 250 mg PO DAILY #4 tablet 06/13/17 Allergies/Adverse Reactions: ciprofloxacin [From Cipro] Allergy (Verified 06/13/17 12:26) diltiazem HCl [From Cardizem] Allergy (Verified 06/13/17 12:26) Unknown reaction ketorolac tromethamine [From Toradol] Allergy (Verified 06/13/17 12:26) levofloxacin [From Levaquin] Allergy (Verified 06/13/17 12:26) meperidine HCl [From Demerol] Allergy (Verified 06/13/17 12:26) nitrofurantoin macrocrystalline [From Macrodantin] Allergy (Verified 06/13/17 12 :26) propoxyphene napsylate [From Darvocet-N 100] Allergy (Verified 06/13/17 12:26) sumatriptan [From Imitrex] Allergy (Verified 06/13/17 12:26) Review of Systems All systems: reviewed and no additional remarkable complaints except as stated Results Laboratory Results: 06/14/17 15:00 06/14/17 15:00 06/14/17 06/14/17 06/14/17 15:00 15:00 15:20 WBC 9.5 RBC 3.85 Hgb 11.2 L Hct 33.7 L MCV 88 MCH 29.2 MCHC 33.3 RDW 15.7 H Plt Count 210 Seg Neutrophils % Not Reportable Lymphocytes % Not Reportable Monocytes % Not Reportable Eosinophils % Not Reportable Basophils % Not Reportable Absolute Neutrophils Not Reportable Absolute Lymphocytes Not Reportable Absolute Monocytes Not Reportable Absolute Eosinophils Not Reportable Absolute Basophils Not Reportable VBG pH VBG pCO2 VBG HCO3 VBG Base Excess Sodium 138.7 Potassium 4.9 Chloride 110 H Carbon Dioxide 12 L Anion Gap 17 BUN 66 H Creatinine 2.77 H Est GFR ( Amer) 20 L Est GFR (Non-Af Amer) 17 L Glucose 107 Lactic Acid 0.7 Calcium 9.1 Total Bilirubin 0.4 AST 28 ALT 24 Alkaline Phosphatase 80 Total Protein 7.1 Albumin 4.0 06/14/17 15:20 WBC RBC Hgb Hct MCV MCH MCHC RDW Plt Count Seg Neutrophils % Lymphocytes % Monocytes % Eosinophils % Basophils % Absolute Neutrophils Absolute Lymphocytes Absolute Monocytes Absolute Eosinophils Absolute Basophils VBG pH 7.17 L* VBG pCO2 36.1 VBG HCO3 12.9 L VBG Base Excess -14.6 Sodium Potassium Chloride Carbon Dioxide Anion Gap BUN Creatinine Est GFR ( Amer) Est GFR (Non-Af Amer) Glucose Lactic Acid Calcium Total Bilirubin AST ALT Alkaline Phosphatase Total Protein Albumin Impressions: CXR: COPD and evidence of right lower lobe PNA Assessment & Plan - Diagnosis (1) CAP (community acquired pneumonia) Qualifiers: Laterality: right Lung location: lower lobe of lung Qualified Code(s): J18.1 - Lobar pneumonia, unspecified organism Is this a current diagnosis for this admission?: Yes Plan: CXR on 06/13 with RLL PNA. Was on PO Azithro without improvement in symptoms. Now with SOB and new O2 requirement - Will check Rapid Flu - Start on IV Ceftriaxone and IV Azithro - Follow up on blood cultures - Continue to wean O2 as tolerated, goal O2>90% - RT care, Duonebs q4 hours PRN, mucinex (2) JES (acute kidney injury) Is this a current diagnosis for this admission?: Yes Plan: Cr 2.77, baseline around 1.5 - Likely pre-renal due to poor PO intake and illness - Start IV NS 100cc/hour - Recheck BMP in AM (3) CKD (chronic kidney disease) Qualifiers: Chronic kidney disease stage: stage 3 (moderate) Qualified Code(s): N18.3 - Chronic kidney disease, stage 3 (moderate) Is this a current diagnosis for this admission?: Yes Plan: Per above (4) COPD (chronic obstructive pulmonary disease) Qualifiers: COPD type: unspecified COPD Qualified Code(s): J44.9 - Chronic obstructive pulmonary disease, unspecified Is this a current diagnosis for this admission?: Yes Plan: Seen on CXR from 06/13 - Pt denies smoking history to me today in ED - Unclear etiology, will need further evaluation - Dujoebs ordered - Time Time Spent: 30 to 50 Minutes Critical Time spent with patient: Less than 15 minutes Anticipated discharge: Home with Homehealth Within: within 72 hours
[2017-06-14 17:07] LABS: APPEARANCE,URINE SLIGHTLY-CLOUDY; BILIRUBIN,URINE NEGATIVE (NEGATIVE); COLOR,URINE YELLOW; GLUCOSE, URINE NEGATIVE (NEGATIVE); KETONES,URINE NEGATIVE (NEGATIVE); LEUKOCYTE ESTERASE,URINE MODERATE (NEGATIVE); NITRITE,URINE NEGATIVE (NEGATIVE); PROTEIN,URINE NEGATIVE (NEGATIVE); URINE SPECIFIC GRAVITY 1.013; UROBILINOGEN,URINE NEGATIVE mg/dL (<2.0)
[2017-06-14 17:48] LABS: A TYPE INFLUENZA AG NEGATIVE (NEGATIVE); B INFLUENZA AG NEGATIVE (NEGATIVE)
[2017-06-14] MEDS ORDERED: AZITHROMYCIN INJ 500 MG VIAL IV SCH (18:00)
[2017-06-14] MEDS ORDERED: CEFTRIAXONE INJ 1000 MG VIAL ONE (18:45)
[2017-06-14] MEDS: LANSOPRAZOLE 30 MG TAB.RAP.DR PO SCH (18:52)
[2017-06-14] MEDS: IPRATROPIUM/ALBUTEROL 0.5-2.5 MG/3 ML AMPUL NEB SCH (20:46)
[2017-06-14] MEDS ORDERED: ACETAMINOPHEN 325 MG TABLET PO PRN (21:57)
[2017-06-14] MEDS: GUAIFENESIN 600 MG TABLET.SA PO SCH (23:34)
[2017-06-14] MEDS: ZOLPIDEM TARTRATE 5 MG TABLET PO PRN (23:36)
[2017-06-14] MEDS: HEPARIN SOD (PORCINE) 5,000 UNIT/ML 1 ML SYRINGE SUBCUT SCH (23:37)
[2017-06-15] MEDS ORDERED: ACETAMINOPHEN 325 MG TABLET PO PRN (00:08)
[2017-06-15] MEDS: ACETAMINOPHEN 325 MG TABLET PO PRN ×2 (00:26→23:35)
[2017-06-15] MEDS: NORMAL SALINE 1000 ML 1,000 ML IV PRN ×2 (02:00→13:53)
[2017-06-15] MEDS: HEPARIN SOD (PORCINE) 5,000 UNIT/ML 1 ML SYRINGE SUBCUT SCH ×3 (05:16→23:37)
[2017-06-15 07:58] LABS: HEMATOCRIT 31.3 % (36.0-47.0); HEMOGLOBIN 10.2 g/dL (12.0-15.5); MEAN CORPUSCULAR HEMOGLOBIN 28.7 pg (27.0-33.4); MEAN CORPUSCULAR HGB CONC 32.7 g/dL (32.0-36.0); MEAN CORPUSCULAR VOLUME 88 fl (80-97); PLATELET COUNT 168 10^3/uL (150-450); RED BLOOD COUNT 3.57 10^6/uL (3.72-5.28); RED CELL DISTRIBUTION WIDTH 15.6 % (11.5-14.0); WHITE BLOOD COUNT 6.9 10^3/uL (4.0-10.5)
[2017-06-15] MEDS: IPRATROPIUM/ALBUTEROL 0.5-2.5 MG/3 ML AMPUL NEB SCH ×3 (09:02→20:17)
[2017-06-15] MEDS: GUAIFENESIN 600 MG TABLET.SA PO SCH ×2 (10:11→23:33)
[2017-06-15] MEDS: LANSOPRAZOLE 30 MG TAB.RAP.DR PO SCH ×2 (10:12→17:08)
[2017-06-15 10:22] LABS: ANION GAP 14 (5-19); BLOOD UREA NITROGEN 49 mg/dL (7-20); CALCIUM 8.3 mg/dL (8.4-10.2); CARBON DIOXIDE 11 mmol/L (22-30); CHLORIDE 112 mmol/L (98-107); GLUCOSE 142 mg/dL (75-110); POTASSIUM 4.2 mmol/L (3.6-5.0); SODIUM 136.7 mmol/L (137-145)
--- NOTE | 2017-06-15 11:43 | PDOC PROGRESS REPORT ---
Subjective Progress Note for:: 06/15/17 Subjective:: Patient refers still having cough and pain. Review of systems All organ systems evaluated and negative except as in subjective All significant diagnostics and laboratories have been checked Reason For Visit: PNEUMONIA Physical Exam Vital Signs: Temp Pulse Resp BP Pulse Ox 98.1 F 74 17 112/61 98 06/15/17 04:07 06/15/17 04:07 06/15/17 04:07 06/15/17 04:07 06/15/17 04:07 Intake & Output 06/14/17 06/15/17 06/16/17 06:59 06:59 06:59 Intake Total 520 Balance 520 Weight 39.9 kg Assessment & Plan - Diagnosis (1) Severe protein-calorie malnutrition Is this a current diagnosis for this admission?: Yes Plan: Date patient consulted (2) JES (acute kidney injury) Is this a current diagnosis for this admission?: Yes Plan: Continue IV fluids (3) CAP (community acquired pneumonia) Qualifiers: Laterality: right Lung location: lower lobe of lung Qualified Code(s): J18.1 - Lobar pneumonia, unspecified organism Is this a current diagnosis for this admission?: Yes Plan: To place on Rocephin and Zithromax (4) COPD (chronic obstructive pulmonary disease) Qualifiers: COPD type: unspecified COPD Qualified Code(s): J44.9 - Chronic obstructive pulmonary disease, unspecified Is this a current diagnosis for this admission?: Yes Plan: To place on DuoNeb's, Pulmicort and continue mucinex - Time Time Spent with patient: 15-24 minutes Medications reviewed and adjusted accordingly: Yes Anticipated discharge: Home Within: within 48 hours - Inpatient Certification Based on my medical assessment, after consideration of the patient's comorbidities, presenting symptoms, or acuity I expect that the services needed warrant INPATIENT care.: Yes I certify that my determination is in accordance with my understanding of Medicare's requirements for reasonable and necessary INPATIENT services [42 CFR 412.3e].: Yes Medical Necessity: Need Close Monitoring Due to Risk of Patient Decompensation, Need for Nebulizer Therapy and Monitoring of Response, Need for IV Antibiotics
[2017-06-15] MEDS ORDERED: CEFTRIAXONE 1 GM/D5W RTU 1 GM/50 ML RTUPB IV SCH (12:00)
[2017-06-15] MEDS ORDERED: AZITHROMYCIN 250 MG TABLET PO ONE (13:00)
[2017-06-15] MEDS: BENZONATATE 100 MG CAPSULE PO PRN ×2 (13:23→23:35)
[2017-06-15] MEDS ORDERED: CEFTRIAXONE SODIUM 1,000 MG in NORMAL SALINE 50 ML IV SCH (14:00)
[2017-06-15] MEDS ORDERED: BUDESONIDE NEB 0.5 MG/2 ML AMPUL NEB SCH (14:00)
[2017-06-15] MEDS: HYDROCODONE BIT/HOMATROPINE 5-1.5 MG TABLET PO PRN ×2 (14:10→20:09)
[2017-06-15] MEDS: BUDESONIDE NEB 0.5 MG/2 ML AMPUL NEB SCH (20:17)
[2017-06-15] MEDS: ZOLPIDEM TARTRATE 5 MG TABLET PO PRN (23:31)
[2017-06-16] MEDS: HYDROCODONE BIT/HOMATROPINE 5-1.5 MG TABLET PO PRN ×2 (01:52→13:58)
[2017-06-16 04:39] LABS: ABSOLUTE LYMPHOCYTES (AUTO) 0.7 10^3/uL (0.5-4.7); ABSOLUTE MONOCYTES (AUTO) 0.5 10^3/uL (0.1-1.4); ABSOLUTE NEUT (AUTO) 4.3 10^3/uL (1.7-8.2); BASOPHILS % (AUTO) 0.3 % (0-2); EOSINOPHILS % (AUTO) 0.2 % (0-6); HEMATOCRIT 26.9 % (36.0-47.0); HEMOGLOBIN 9.2 g/dL (12.0-15.5); LYMPHOCYTES % (AUTO) 13.4 % (13-45); MEAN CORPUSCULAR HEMOGLOBIN 29.2 pg (27.0-33.4); MEAN CORPUSCULAR VOLUME 86 fl (80-97); MONOCYTES % (AUTO) 8.5 % (3-13); PLATELET COUNT 183 10^3/uL (150-450); RED BLOOD COUNT 3.14 10^6/uL (3.72-5.28); RED CELL DISTRIBUTION WIDTH 15.5 % (11.5-14.0); SEGMENTED NEUTROPHILS % (AUTO) 77.6 % (42-78); TOTAL CELLS COUNTED % (AUTO) 100 %; WHITE BLOOD COUNT 5.5 10^3/uL (4.0-10.5)
[2017-06-16 05:03] LABS: ANION GAP 11 (5-19); BLOOD UREA NITROGEN 32 mg/dL (7-20); CALCIUM 8.6 mg/dL (8.4-10.2); CARBON DIOXIDE 12 mmol/L (22-30); CHLORIDE 116 mmol/L (98-107); GLUCOSE 97 mg/dL (75-110); MAGNESIUM 1.5 mg/dL (1.6-2.3); POTASSIUM 3.6 mmol/L (3.6-5.0)
[2017-06-16] MEDS: LANSOPRAZOLE 30 MG TAB.RAP.DR PO SCH ×2 (05:45→17:46)
[2017-06-16] MEDS: HEPARIN SOD (PORCINE) 5,000 UNIT/ML 1 ML SYRINGE SUBCUT SCH ×3 (05:45→21:44)
[2017-06-16] MEDS: IPRATROPIUM/ALBUTEROL 0.5-2.5 MG/3 ML AMPUL NEB SCH ×3 (08:54→20:54)
[2017-06-16] MEDS: BUDESONIDE NEB 0.5 MG/2 ML AMPUL NEB SCH ×2 (08:54→20:54)
[2017-06-16] MEDS ORDERED: PROMETHAZINE HCL 25 MG TABLET PO PRN (09:15)
[2017-06-16] MEDS ORDERED: ONDANSETRON HCL INJ/PF 4 MG/2 ML SDV IV PRN (09:15)
[2017-06-16] MEDS ORDERED: AZITHROMYCIN 250 MG TABLET PO SCH (10:00)
--- NOTE | 2017-06-16 13:09 | PDOC PROGRESS REPORT ---
Subjective Progress Note for:: 06/16/17 Subjective:: Patient refers is having nausea and having poor appetite. Nurse reported confusion at night and cleared up in AM Review of systems All organ systems evaluated and negative except as in subjective All significant diagnostics and laboratories have been checked Reason For Visit: PNEUMONIA Physical Exam Vital Signs: Temp Pulse Resp BP Pulse Ox 98.3 F 75 18 145/63 H 97 06/16/17 00:00 06/16/17 02:00 06/16/17 00:00 06/16/17 00:00 06/16/17 00:00 Intake & Output 06/15/17 06/16/17 06/17/17 06:59 06:59 06:59 Intake Total 520 2842 Balance 520 2842 Weight 39.9 kg 42.1 kg General appearance: PRESENT: cooperative, thin Head exam: PRESENT: atraumatic, normocephalic Eye exam: PRESENT: conjunctiva pink, EOMI, PERRLA Ear exam: PRESENT: normal external ear exam Mouth exam: PRESENT: moist Neck exam: PRESENT: full ROM. ABSENT: JVD, lymphadenopathy, tenderness Respiratory exam: PRESENT: clear to auscultation yamilet Cardiovascular exam: PRESENT: RRR. ABSENT: diastolic murmur, systolic murmur Vascular exam: PRESENT: normal capillary refill GI/Abdominal exam: PRESENT: normal bowel sounds, soft. ABSENT: tenderness Extremities exam: PRESENT: full ROM. ABSENT: clubbing Musculoskeletal exam: PRESENT: ambulatory Neurological exam: PRESENT: alert, awake, oriented to person, oriented to place , oriented to time, oriented to situation, CN II-XII grossly intact Psychiatric exam: PRESENT: appropriate affect, normal mood Skin exam: PRESENT: intact, normal color Results Laboratory Results: 06/16/17 04:11 06/16/17 04:11 06/15/17 06/15/17 06/16/17 07:19 09:26 04:11 WBC 6.9 5.5 RBC 3.57 L 3.14 L Hgb 10.2 L 9.2 L Hct 31.3 L 26.9 L MCV 88 86 MCH 28.7 29.2 MCHC 32.7 34.0 RDW 15.6 H 15.5 H Plt Count 168 183 Seg Neutrophils % 77.6 Lymphocytes % 13.4 Monocytes % 8.5 Eosinophils % 0.2 Basophils % 0.3 Absolute Neutrophils 4.3 Absolute Lymphocytes 0.7 Absolute Monocytes 0.5 Absolute Eosinophils 0.0 Absolute Basophils 0.0 Sodium 136.7 L Potassium 4.2 Chloride 112 H Carbon Dioxide 11 L Anion Gap 14 BUN 49 H Creatinine 1.66 H Est GFR ( Amer) 36 L Est GFR (Non-Af Amer) 30 L Glucose 142 H Calcium 8.3 L Magnesium 06/16/17 04:11 WBC RBC Hgb Hct MCV MCH MCHC RDW Plt Count Seg Neutrophils % Lymphocytes % Monocytes % Eosinophils % Basophils % Absolute Neutrophils Absolute Lymphocytes Absolute Monocytes Absolute Eosinophils Absolute Basophils Sodium 139.0 Potassium 3.6 Chloride 116 H Carbon Dioxide 12 L Anion Gap 11 BUN 32 H Creatinine 1.25 Est GFR ( Amer) 51 L Est GFR (Non-Af Amer) 42 L Glucose 97 Calcium 8.6 Magnesium 1.5 L Assessment & Plan - Diagnosis (1) Severe protein-calorie malnutrition Is this a current diagnosis for this admission?: Yes Plan: Dietitian consulted. Bouts of nausea contributing to poor oral intake (2) JES (acute kidney injury) Is this a current diagnosis for this admission?: Yes Plan: Continue IV fluids. Continues improving (3) CAP (community acquired pneumonia) Qualifiers: Laterality: right Lung location: lower lobe of lung Qualified Code(s): J18.1 - Lobar pneumonia, unspecified organism Is this a current diagnosis for this admission?: Yes Plan: Change to Ceftin due to poor IV access and continue Zithromax (4) COPD (chronic obstructive pulmonary disease) Qualifiers: COPD type: unspecified COPD Qualified Code(s): J44.9 - Chronic obstructive pulmonary disease, unspecified Is this a current diagnosis for this admission?: Yes Plan: Continue present treatment (5) Confusion Is this a current diagnosis for this admission?: Yes Plan: Trial of low dose zyprexa (6) Anemia Qualifiers: Anemia type: unspecified type Qualified Code(s): D64.9 - Anemia, unspecified Is this a current diagnosis for this admission?: Yes Plan: Downward trending likely relates to dilutional issues due to inital volume contraction. Trend - Time Time Spent with patient: 15-24 minutes Medications reviewed and adjusted accordingly: Yes Anticipated discharge: Home with Homehealth Within: within 48 hours - Inpatient Certification Based on my medical assessment, after consideration of the patient's comorbidities, presenting symptoms, or acuity I expect that the services needed warrant INPATIENT care.: Yes I certify that my determination is in accordance with my understanding of Medicare's requirements for reasonable and necessary INPATIENT services [42 CFR 412.3e].: Yes Medical Necessity: Need Close Monitoring Due to Risk of Patient Decompensation, Need For IV Fluids
[2017-06-16] MEDS ORDERED: HYDRALAZINE HCL INJ/PF 20 MG/1 ML SDV IV PRN (13:29)
[2017-06-16] MEDS: CEFUROXIME 500 MG TABLET PO SCH ×2 (13:58→21:43)
[2017-06-16] MEDS: GUAIFENESIN 600 MG TABLET.SA PO SCH ×2 (13:59→21:45)
[2017-06-16] MEDS ORDERED: LORATADINE 10 MG TABLET PO ONE (14:30)
[2017-06-16] MEDS ORDERED: AMLODIPINE BESYLATE 5 MG TABLET PO ONE (14:30)
[2017-06-16] MEDS ORDERED: TRAZODONE HCL 50 MG TABLET PO ONE (21:45)
[2017-06-16] MEDS ORDERED: OLANZAPINE 2.5 MG TABLET PO SCH (22:00)
[2017-06-16] MEDS: ACETAMINOPHEN 325 MG TABLET PO PRN (23:22)
[2017-06-17] MEDS: HEPARIN SOD (PORCINE) 5,000 UNIT/ML 1 ML SYRINGE SUBCUT SCH (05:15)
[2017-06-17] MEDS: LANSOPRAZOLE 30 MG TAB.RAP.DR PO SCH (05:47)
[2017-06-17 06:11] LABS: BASOPHILS % (AUTO) 0.5 % (0-2); EOSINOPHILS % (AUTO) 0.8 % (0-6); HEMATOCRIT 29.6 % (36.0-47.0); HEMOGLOBIN 10.1 g/dL (12.0-15.5); LYMPHOCYTES % (AUTO) 21.1 % (13-45); MEAN CORPUSCULAR HEMOGLOBIN 29.2 pg (27.0-33.4); MEAN CORPUSCULAR HGB CONC 34.2 g/dL (32.0-36.0); MEAN CORPUSCULAR VOLUME 85 fl (80-97); MONOCYTES % (AUTO) 10.5 % (3-13); PLATELET COUNT 247 10^3/uL (150-450); RED BLOOD COUNT 3.47 10^6/uL (3.72-5.28); RED CELL DISTRIBUTION WIDTH 15.4 % (11.5-14.0); SEGMENTED NEUTROPHILS % (AUTO) 67.1 % (42-78); TOTAL CELLS COUNTED % (AUTO) 100 %; WHITE BLOOD COUNT 3.7 10^3/uL (4.0-10.5)
[2017-06-17 06:12] LABS: ABSOLUTE LYMPHOCYTES (AUTO) 0.8 10^3/uL (0.5-4.7); ABSOLUTE MONOCYTES (AUTO) 0.4 10^3/uL (0.1-1.4); ABSOLUTE NEUT (AUTO) 2.5 10^3/uL (1.7-8.2)
[2017-06-17 06:32] LABS: ANION GAP 12 (5-19); BLOOD UREA NITROGEN 22 mg/dL (7-20); CALCIUM 9.4 mg/dL (8.4-10.2); CARBON DIOXIDE 13 mmol/L (22-30); CHLORIDE 119 mmol/L (98-107); GLUCOSE 112 mg/dL (75-110); MAGNESIUM 1.6 mg/dL (1.6-2.3); POTASSIUM 4.1 mmol/L (3.6-5.0); SODIUM 144.2 mmol/L (137-145)
[2017-06-17] MEDS: BENZONATATE 100 MG CAPSULE PO PRN (06:46)
[2017-06-17] MEDS ORDERED: (PENDING PHARMACY ID) (Clonazepam [Klonopin] 0.5 MG) PO PRN (06:53)
[2017-06-17] MEDS ORDERED: HYDROXYZINE HCL 50 MG PO PRN (06:53)
[2017-06-17] MEDS ORDERED: CLONAZEPAM 1 MG TABLET PO PRN (07:12)
[2017-06-17] MEDS ORDERED: HYDROXYZINE PAMOATE 50 MG CAPSULE PO PRN (07:14)
[2017-06-17] MEDS: BUDESONIDE NEB 0.5 MG/2 ML AMPUL NEB SCH (08:38)
[2017-06-17] MEDS: IPRATROPIUM/ALBUTEROL 0.5-2.5 MG/3 ML AMPUL NEB SCH (08:38)
[2017-06-17 09:36] VITALS: BP 149/75
[2017-06-17] MEDS ORDERED: AMLODIPINE BESYLATE 5 MG TABLET PO SCH (10:00)
[2017-06-17] MEDS ORDERED: GABAPENTIN 300 MG CAPSULE PO SCH (10:00)
[2017-06-17] MEDS ORDERED: PROMETHAZINE HCL 25 MG TABLET PO SCH (10:00)
[2017-06-17] MEDS ORDERED: LORATADINE 10 MG TABLET PO SCH (10:00)
[2017-06-17] MEDS ORDERED: DIPHENOXYLATE HCL/ATROP SULF 2.5-0.025 MG TABLET PO SCH (12:00)
[2017-06-17] MEDS ORDERED: DICYCLOMINE HCL 20 MG TABLET PO SCH (12:00)
--- NOTE | 2017-06-17 18:21 | PDOC DISCHARGE SUMMARY ---
General - Admit/Disc Date/PCP Admission Date/Primary Care Provider: 06/14/17 16:54 BOBBI THOMPSON, Discharge Date: 06/17/17 - Discharge Diagnosis (1) CAP (community acquired pneumonia) Is this a current diagnosis for this admission?: Yes (2) JES (acute kidney injury) Is this a current diagnosis for this admission?: Yes (3) COPD (chronic obstructive pulmonary disease) Is this a current diagnosis for this admission?: Yes (4) Severe protein-calorie malnutrition Is this a current diagnosis for this admission?: Yes (5) Confusion Is this a current diagnosis for this admission?: Yes (6) Anemia Is this a current diagnosis for this admission?: Yes - Additional Information Resuscitation Status: Full Code Discharge Diet: As Tolerated, Regular Discharge Activity: Activity As Tolerated Prescriptions: Amlodipine Besylate [Norvasc 5 mg Tablet] 5 mg PO DAILY #30 tablet Azithromycin [Zithromax 250 mg Tablet] 500 mg PO DAILY #6 tablet Cefuroxime Axetil [Ceftin 500 mg Tablet] 500 mg PO Q12 #14 tablet Home Medications: Clonazepam [Klonopin] 0.5 mg PO Q12HP PRN 06/15/17 Dicyclomine HCl [Bentyl 20 mg Tablet] 20 mg PO Q6 06/15/17 Diphenoxylate HCl/Atrop Sulf [Lomotil 2.5 mg Tablet] 2 tab PO Q6 06/15/17 Donepezil HCl [Aricept] 10 mg PO QHS 06/15/17 Ergocalciferol (Vitamin D2) [Drisdol 50,000 unit (1.25MG) Capsule] 50,000 unit PO BINGHAM@1000 06/15/17 Gabapentin [Neurontin 300 mg Capsule] 300 mg PO Q12 06/15/17 Hydroxyzine HCl [Atarax 25 mg Tablet] 50 mg PO HSP PRN 06/15/17 Promethazine HCl [Phenergan 25 mg Tablet] 25 mg PO Q12 06/15/17 Ramelteon [Rozerem] 8 mg PO HSP PRN 06/15/17 Sertraline HCl [Zoloft] 100 mg PO DAILY 06/15/17 Suvorexant [Belsomra] 15 mg PO HSP PRN 06/15/17 Tizanidine HCl [Zanaflex 4 mg Tablet] 4 mg PO QHS 06/15/17 Amlodipine Besylate [Norvasc 5 mg Tablet] 5 mg PO DAILY #30 tablet 06/17/17 Azithromycin [Zithromax 250 mg Tablet] 500 mg PO DAILY #6 tablet 06/17/17 Cefuroxime Axetil [Ceftin 500 mg Tablet] 500 mg PO Q12 #14 tablet 06/17/17 History of Present Illness History of Present Illness: SHAKA GOMEZ is a 76 year old female with a history of CKD and chornic pain who presented to ED on 06/14/17 with weakness, shortness of breath, and cough. Patient was in the ED on 06/13 and found to have a RLL pneumonia. Patient was offered to be admitted however chose to go home with [facility]. Patient felt worse felt worse and developed worsening shortness of breath. Associated symptoms included subjective fevers and chills. She also felt weaker and has had poor oral intake over same period of time. Cough was productive with butcher sputum. Patient denies chest pain, abdominal pain, nausea, vomiting or urinary symptoms. Hospitalist service was consulted to admit patient for further care. Hospital Course Hospital Course: Patient was admitted to med floor. She responded to hydration, nebulizer treatments and IV antibiotic. Patient was discharged on Zithromax and Ceftin for the treatment of pneumonia. The day prior to discharge she complained of having nausea however we found out this is a chronic problem that is a major contributor to her severe protein calorie malnutrition. While in-house patient was seen by the dietitian to address this issue. We also noted that patient experienced some confusion mostly at night and responded to Zyprexa. Patient overall medical condition improved and prompted to discharge. She has been advised as to follow-up with her primary care provider within 1 week. Physical Exam Vital Signs: Temp Pulse Resp BP Pulse Ox 97.6 F 68 16 149/75 H 97 06/17/17 09:28 06/17/17 09:28 06/17/17 09:28 06/17/17 09:28 06/17/17 09:28 Intake & Output 06/16/17 06/17/17 06/18/17 06:59 06:59 06:59 Intake Total 2842 2462 Balance 2842 2462 Weight 42.1 kg 41.1 kg General appearance: PRESENT: cooperative, thin Head exam: PRESENT: atraumatic, normocephalic Eye exam: PRESENT: conjunctiva pink, EOMI, PERRLA Ear exam: PRESENT: normal external ear exam Mouth exam: PRESENT: moist Neck exam: PRESENT: full ROM. ABSENT: JVD, lymphadenopathy, tenderness Respiratory exam: PRESENT: clear to auscultation yamilet Cardiovascular exam: PRESENT: RRR. ABSENT: diastolic murmur, systolic murmur Vascular exam: PRESENT: normal capillary refill GI/Abdominal exam: PRESENT: normal bowel sounds, soft. ABSENT: tenderness Extremities exam: PRESENT: full ROM. ABSENT: joint swelling, pedal edema Musculoskeletal exam: PRESENT: ambulatory Neurological exam: PRESENT: alert, awake, oriented to person, oriented to place , oriented to time, oriented to situation, CN II-XII grossly intact Skin exam: PRESENT: intact, normal color Results Laboratory Results: 06/17/17 05:30 06/17/17 05:30 06/17/17 06/17/17 05:30 05:30 WBC 3.7 L RBC 3.47 L Hgb 10.1 L Hct 29.6 L MCV 85 MCH 29.2 MCHC 34.2 RDW 15.4 H Plt Count 247 Seg Neutrophils % 67.1 Lymphocytes % 21.1 Monocytes % 10.5 Eosinophils % 0.8 Basophils % 0.5 Absolute Neutrophils 2.5 Absolute Lymphocytes 0.8 Absolute Monocytes 0.4 Absolute Eosinophils 0.0 Absolute Basophils 0.0 Sodium 144.2 Potassium 4.1 Chloride 119 H Carbon Dioxide 13 L Anion Gap 12 BUN 22 H Creatinine 1.12 Est GFR ( Amer) 57 L Est GFR (Non-Af Amer) 47 L Glucose 112 H Calcium 9.4 Magnesium 1.6 Plan Discharge Plan: Discharge home Time Spent: Less than 30 Minutes
[2017-06-17] MEDS ORDERED: TIZANIDINE HCL 4 MG TABLET PO SCH (22:00)
[2017-06-17] MEDS ORDERED: (PENDING PHARMACY ID) (Donepezil Hcl [Aricept] 10 MG) PO SCH (22:00)
[2017-06-17] MEDS ORDERED: DONEPEZIL HCL 5 MG TABLET PO SCH (22:00)
== END 2017-06-17 10:17 | disposition home or self-care (01) | DRG 193 ==
LOC: ER 14:32 → EH 16:54 → 5 06-15 01:53
PROVIDERS: ADMIT Student in an Organized Health Care Education/Training Program; ATTEND Student in an Organized Health Care Education/Training Program
DX: J18.1 Lobar pneumonia, unspecified organism (principal); E43 Unspecified severe protein-calorie malnutrition; N17.9 Acute kidney failure, unspecified; Z68.1 Body mass index [BMI] 19.9 or less, adult; G89.29 Other chronic pain; N18.3 Chronic kidney disease, stage 3 (moderate); J44.9 Chronic obstructive pulmonary disease, unspecified; I12.9 Hypertensive chronic kidney disease with stage 1 through stage 4 chronic kidney disease, or unspecified chronic kidney disease; D64.9 Anemia, unspecified; I25.10 Atherosclerotic heart disease of native coronary artery without angina pectoris; E78.2 Mixed hyperlipidemia; K21.9 Gastro-esophageal reflux disease without esophagitis; M19.90 Unspecified osteoarthritis, unspecified site; F32.9 Major depressive disorder, single episode, unspecified; Z90.49 Acquired absence of other specified parts of digestive tract; Z95.1 Presence of aortocoronary bypass graft; Z82.61 Family history of arthritis; Z82.49 Family history of ischemic heart disease and other diseases of the circulatory system; Z83.3 Family history of diabetes mellitus; Z88.1 Allergy status to other antibiotic agents; Z88.8 Allergy status to other drugs, medicaments and biological substances
CPT/HCPCS: 36415; 71046; 80048; 80053; 81001; 82803; 82962; 83605; 83735; 85025; 85027; 85610; 87040; 87086; 87088; 87205; 87804; 93005; 93010; 94640; 99285; J0696; J1644; J2270; J3490; J7030; J7620

== ENCOUNTER 2017-07-04 16:27 | Emergency (ER) | payer MEDICARE, MEDICAID ==
[2017-07-04] MEDS ORDERED: NORMAL SALINE 1000 ML 1,000 ML IV ONE (16:53)
[2017-07-04] MEDS ORDERED: ONDANSETRON HCL INJ/PF 4 MG/2 ML SDV IV ONE (16:53)
--- NOTE | 2017-07-04 16:58 | ER Document Report ---
ED Medical Screen (RME) - General Chief Complaint: Nausea/Vomiting Stated Complaint: NAUSEA,VOMITING Time Seen by Provider: 07/04/17 16:53 Mode of Arrival: Wheelchair Information source: Patient, Relative TRAVEL OUTSIDE OF THE [place] IN LAST 30 DAYS: No - HPI Patient complains to provider of: N/V/D Onset: This afternoon - pt. with recent h/o PNA with c/o N/V/D and weakness for the past few days. - Related Data Allergies/Adverse Reactions: ciprofloxacin [From Cipro] Allergy (Verified 06/13/17 12:26) diltiazem HCl [From Cardizem] Allergy (Verified 06/13/17 12:26) Unknown reaction ketorolac tromethamine [From Toradol] Allergy (Verified 06/13/17 12:26) levofloxacin [From Levaquin] Allergy (Verified 06/13/17 12:26) meperidine HCl [From Demerol] Allergy (Verified 06/13/17 12:26) nitrofurantoin macrocrystalline [From Macrodantin] Allergy (Verified 06/13/17 12 :26) propoxyphene napsylate [From Darvocet-N 100] Allergy (Verified 06/13/17 12:26) sumatriptan [From Imitrex] Allergy (Verified 06/13/17 12:26) Past Medical History - Social History Family history: Reviewed & Not Pertinent - Past Medical History Cardiac Medical History: Reports: Hx Coronary Artery Disease, Hx Hypercholesterolemia, Hx Hypertension Pulmonary Medical History: Denies: Hx Tuberculosis Neurological Medical History: Reports: Hx Migraine, Hx Seizures Renal/ Medical History: Reports: Hx Renal Insufficiency. Denies: Hx Peritoneal Dialysis GI Medical History: Reports: Hx Gastroesophageal Reflux Disease, Hx Irritable Bowel, Hx Colonoscopy, Hx Endoscopy Musculoskeltal Medical History: Reports Hx Arthritis, Reports Hx Musculoskeletal Deformity, Reports Hx Musculoskeletal Trauma Psychiatric Medical History: Reports: Hx Depression Traumatic Medical History: Reports: Hx Fractures - left shoulder Past Surgical History: Reports: Hx Appendectomy, Hx Bowel Surgery - 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 bowel injury, Hx Section, Hx Cholecystectomy, Hx Coronary Artery Bypass Graft, Hx Hysterectomy, Hx Ileostomy, Hx Orthopedic Surgery - left shoulder x2, Hx Tonsillectomy - Immunizations Immunizations up to date: Yes Hx Diphtheria, Pertussis, Tetanus Vaccination: Yes - 2012 History of Influenza Vaccine for 02/2017 - 07/2017 Season: Refused Physical Exam - Vital signs Vitals: Temp Pulse Resp BP Pulse Ox 98.4 F 80 16 122/65 95 07/04/17 16:33 07/04/17 16:33 07/04/17 16:33 07/04/17 16:33 07/04/17 16:33 Course - Vital Signs Vital signs: Temp Pulse Resp BP Pulse Ox 98.4 F 80 16 122/65 95 07/04/17 16:33 07/04/17 16:33 07/04/17 16:33 07/04/17 16:33 07/04/17 16:33
[2017-07-04 17:45] LABS: ABSOLUTE BASOPHILS # (AUTO) 0.1 10^3/uL (0.0-0.2); ABSOLUTE EOSINOPHILS # (AUTO) 0.1 10^3/uL (0.0-0.6); ABSOLUTE LYMPHOCYTES (AUTO) 1.1 10^3/uL (0.5-4.7); ABSOLUTE MONOCYTES (AUTO) 0.5 10^3/uL (0.1-1.4); ABSOLUTE NEUT (AUTO) 5.1 10^3/uL (1.7-8.2); BASOPHILS % (AUTO) 1.1 % (0-2); EOSINOPHILS % (AUTO) 0.9 % (0-6); HEMATOCRIT 37.6 % (36.0-47.0); HEMOGLOBIN 12.2 g/dL (12.0-15.5); LYMPHOCYTES % (AUTO) 16.4 % (13-45); MEAN CORPUSCULAR HEMOGLOBIN 28.8 pg (27.0-33.4); MEAN CORPUSCULAR HGB CONC 32.5 g/dL (32.0-36.0); MEAN CORPUSCULAR VOLUME 88 fl (80-97); MONOCYTES % (AUTO) 7.6 % (3-13); PLATELET COUNT 290 10^3/uL (150-450); RED BLOOD COUNT 4.26 10^6/uL (3.72-5.28); TOTAL CELLS COUNTED % (AUTO) 100 %; WHITE BLOOD COUNT 6.9 10^3/uL (4.0-10.5)
[2017-07-04 17:55] LABS: ALANINE AMINOTRANSFERASE 12 U/L (9-52); ALBUMIN 4.5 g/dL (3.5-5.0); ALKALINE PHOSPHATASE 105 U/L (38-126); ANION GAP 14 (5-19); ASPARTATE AMINO TRANSFERASE 17 U/L (14-36); BILIRUBIN,DIRECT 0.2 mg/dL (0.0-0.4); BILIRUBIN,TOTAL 0.2 mg/dL (0.2-1.3); BLOOD UREA NITROGEN 30 mg/dL (7-20); CALCIUM 9.9 mg/dL (8.4-10.2); CARBON DIOXIDE 13 mmol/L (22-30); CHLORIDE 116 mmol/L (98-107); GLUCOSE 130 mg/dL (75-110); POTASSIUM 5.9 mmol/L (3.6-5.0); SODIUM 142.9 mmol/L (137-145); TOTAL PROTEIN 7.4 g/dL (6.3-8.2)
[2017-07-04] MEDS ORDERED: PROMETHAZINE HCL INJ 25 MG/1 ML VIAL IV ONE (19:03)
--- NOTE | 2017-07-04 19:20 | RADIOLOGY REPORT (SQ) ---
EXAM DESCRIPTION: ACUTE ABDOMEN SERIES COMPLETED DATE/TIME: 07/04/2017 6:46 pm REASON FOR STUDY: weakness; abd pain COMPARISON: 12/21/2014 NUMBER OF VIEWS: Three views. TECHNIQUE: Frontal chest, supine abdomen and upright/decubitus abdomen radiographic images acquired. LIMITATIONS: None. FINDINGS: CHEST: Mild subsegmental atelectasis in the left medial lung base. FREE AIR: None. No abnormal gas collections. BOWEL GAS PATTERN: Nonobstructive pattern. No dilated loops or air fluid levels. CALCIFICATIONS: No suspicious calcifications. HARDWARE: Cholecystectomy and GE junction clips. Ostomy right lower quadrant. SOFT TISSUES: No gross mass or suggestion of organomegaly. BONES: No acute fracture. No worrisome bone lesions. OTHER: No other significant finding. IMPRESSION: NO RADIOGRAPHIC EVIDENCE FOR ACUTE ABDOMINAL DISEASE. Mild subsegmental atelectasis in the left medial lung base. TECHNICAL DOCUMENTATION: JOB ID: [id number] [employer]- All Rights Reserved Reading location - IP/workstation name: [email or web address]
[2017-07-04] MEDS ORDERED: ONDANSETRON ODT 4 MG TAB (6 TAB/ER DISP) PO PRN (21:41)
--- NOTE | 2017-07-04 21:41 | ER Document Report ---
ED General - General Chief Complaint: Nausea/Vomiting Stated Complaint: NAUSEA,VOMITING Time Seen by Provider: 07/04/17 16:53 Mode of Arrival: Wheelchair Notes: Patient is a 77-year-old female who presents with 3 days of persistent vomiting. Patient has an ostomy in place and notes that the ostomy output, contrary to triage assessment, has not actually worsened from baseline. She notes that the vomiting is been so severe that she is unable to tolerate any form of oral intake for the past 24 hours. Nothing improves or worsens her symptoms. She denies any history of similar symptoms in the past. She continues to pass flatus into the ostomy bag and have a normal quantity of stool output. She notes intermittent associated generalized abdominal cramping but denies any otherwise localized abdominal pain. She denies any pain at time of my assessment. She denies any fever, chest pain, shortness of breath, cough , or syncope. She has not followed up with her primary care doctor regarding today's concerns. No known sick contacts. TRAVEL OUTSIDE OF THE [place] IN LAST 30 DAYS: No - Related Data Allergies/Adverse Reactions: ciprofloxacin [From Cipro] Allergy (Verified 07/04/17 16:56) diltiazem HCl [From Cardizem] Allergy (Verified 07/04/17 16:56) Unknown reaction ketorolac tromethamine [From Toradol] Allergy (Verified 07/04/17 16:56) levofloxacin [From Levaquin] Allergy (Verified 07/04/17 16:56) meperidine HCl [From Demerol] Allergy (Verified 07/04/17 16:56) nitrofurantoin macrocrystalline [From Macrodantin] Allergy (Verified 07/04/17 16 :56) propoxyphene napsylate [From Darvocet-N 100] Allergy (Verified 07/04/17 16:56) sumatriptan [From Imitrex] Allergy (Verified 07/04/17 16:56) Past Medical History - General Information source: Patient, Relative - Social History Smoking Status: Never Smoker Chew tobacco use (# tins/day): No Frequency of alcohol use: None Drug Abuse: None Lives with: Family Family History: Arthritis, CAD, DM, Hyperlipidemia, Hypertension Patient has suicidal ideation: No Patient has homicidal ideation: No - Past Medical History Cardiac Medical History: Reports: Hx Coronary Artery Disease, Hx Hypercholesterolemia, Hx Hypertension Pulmonary Medical History: Denies: Hx Tuberculosis Neurological Medical History: Reports: Hx Migraine, Hx Seizures Renal/ Medical History: Reports: Hx Renal Insufficiency. Denies: Hx Peritoneal Dialysis GI Medical History: Reports: Hx Gastroesophageal Reflux Disease, Hx Irritable Bowel, Hx Colonoscopy, Hx Endoscopy Musculoskeltal Medical History: Reports Hx Arthritis, Reports Hx Musculoskeletal Deformity, Reports Hx Musculoskeletal Trauma Psychiatric Medical History: Reports: Hx Depression Traumatic Medical History: Reports: Hx Fractures - left shoulder Past Surgical History: Reports: Hx Appendectomy, Hx Bowel Surgery - 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 bowel injury, Hx Section, Hx Cholecystectomy, Hx Coronary Artery Bypass Graft, Hx Hysterectomy, Hx Ileostomy, Hx Orthopedic Surgery - left shoulder x2, Hx Tonsillectomy - Immunizations Immunizations up to date: Yes Hx Diphtheria, Pertussis, Tetanus Vaccination: Yes - 2012 Hx Pneumococcal Vaccination: 05/11/11 Review of Systems - Review of Systems Notes: Constitutional: Negative for fever. HENT: Negative for sore throat. Eyes: Negative for visual changes. Cardiovascular: Negative for chest pain. Respiratory: Negative for shortness of breath. Gastrointestinal: Positive for intermittent abdominal cramping and vomiting Genitourinary: Negative for dysuria. Musculoskeletal: Negative for back pain. Skin: Negative for rash. Neurological: Negative for headaches, weakness or numbness. 10 point ROS negative except as marked above and in HPI. Physical Exam - Vital signs Vitals: Temp Pulse Resp BP Pulse Ox 98.4 F 80 16 122/65 95 07/04/17 16:33 07/04/17 16:33 07/04/17 16:33 07/04/17 16:33 07/04/17 16:33 Interpretation: Normal Notes: PHYSICAL EXAMINATION: GENERAL: Cachectic, chronically ill in appearance but in no acute distress HEAD: Atraumatic, normocephalic. EYES: Pupils equal round and reactive to light, extraocular movements intact, sclera anicteric, conjunctiva are normal. ENT: nares patent, oropharynx clear without exudates. Moderately dry mucous membranes. NECK: Normal range of motion, supple without lymphadenopathy LUNGS: Breath sounds clear to auscultation bilaterally and equal. No wheezes rales or rhonchi. HEART: Regular rate and rhythm without murmurs ABDOMEN: Soft, nontender, normoactive bowel sounds. No guarding, no rebound. No masses appreciated. Ostomy in place with brown stool output EXTREMITIES: Normal range of motion, no pitting or edema. No cyanosis. NEUROLOGICAL: No focal neurological deficits. Moves all extremities spontaneously and on command. PSYCH: Normal mood, normal affect. SKIN: Warm, Dry, normal turgor, no rashes or lesions noted. Course - Re-evaluation Re-evalutation: 07/04/17 21:38 Patient presents with nausea and persistent vomiting over the last 3 days but no increased stool output from her ostomy. At time of my assessment patient states she overall feels much better and is actually asking to go home. Her exam is only notable for mild dehydration as well as right-sided CVA tenderness although patient denies any dysuria. Three-view of the abdomen does not demonstrate any evidence of an acute bowel obstruction and patient is now tolerating oral intake without difficulty. She also notes that she has continued to pass flatus into her ostomy bag and pass stool without difficulty making an acute obstruction unlikely. She has no focal abdominal tenderness and denies any abdominal pain that would suggest any acute appendicitis, biliary pathology or acute pancreatitis. Her labs are overall unremarkable with exception of mild hyperkalemia as well as mild acute kidney injury of which patient does have some underlying chronic kidney disease. BUN/creatinine ratio is consistent with a prerenal azotemia and she is receiving IV fluids here in the emergency department. Patient is also been able to tolerate oral intake after receiving IV promethazine. I have requested that she remain in the emergency department allow urinalysis today to be completed to it she is agreeable. If this is normal will plan for discharge home with close outpatient follow-up and return precautions. The patient and her son at the bedside are agreeable to this plan. 07/04/17 22:43 Patient is continuing to tolerate oral intake without difficulty. Urinalysis is clear. She continues to deny any abdominal pain. At this time will discharge with return precautions and follow-up recommendations. Verbal discharge instructions given a the bedside and opportunity for questions given. Medication warnings reviewed. Patient is in agreement with this plan and has verbalized understanding of return precautions and the need for primary care follow-up in the next 24-72 hours. - Vital Signs Vital signs: Temp Pulse Resp BP Pulse Ox 98.2 F 84 20 121/68 96 07/04/17 23:31 07/04/17 23:31 07/04/17 23:31 07/04/17 23:31 07/04/17 23:31 - Laboratory Result Diagrams: 07/04/17 17:10 07/04/17 17:10 Laboratory results interpreted by me: 07/04/17 07/04/17 07/04/17 17:10 17:10 22:05 RDW 16.0 H Potassium 5.9 H Chloride 116 H Carbon Dioxide 13 L BUN 30 H Creatinine 1.64 H Est GFR ( Amer) 37 L Est GFR (Non-Af Amer) 30 L Glucose 130 H Urine Blood SMALL H Ur Leukocyte Esterase SMALL H Urine Ascorbic Acid 20 H - Diagnostic Test Radiology reviewed: Image reviewed, Reports reviewed Radiology results interpreted by me: 07/04/17 21:40 Abdominal series: No evidence of obstruction or perforation Discharge - Discharge Clinical Impression: JES (acute kidney injury), Dehydration CKD (chronic kidney disease) Qualifiers: Chronic kidney disease stage: unspecified stage Qualified Code(s): N18.9 - Chronic kidney disease, unspecified Vomiting Qualifiers: Vomiting type: unspecified Vomiting Intractability: non-intractable Nausea presence: with nausea Qualified Code(s): R11.2 - Nausea with vomiting, unspecified Condition: Stable Disposition: HOME, SELF-CARE Additional Instructions: You have been seen in the Emergency Department (ED) today for nausea and vomiting. Your work up today has not shown a clear cause for your symptoms. You have been prescribed Zofran; please use as prescribed as needed for your nausea. Follow up with your doctor as soon as possible regarding today's emergent visit and your symptoms of nausea. Return to the Emergency Department (ED) if you develop abdominal pain, bloody vomiting, bloody diarrhea, if you are unable to tolerate fluids due to vomiting , or if you develop other symptoms that concern you. Referrals: NELLY MACKAY MD [Primary Care Provider] - Follow up as needed
[2017-07-04 22:30] LABS: APPEARANCE,URINE CLEAR; BILIRUBIN,URINE NEGATIVE (NEGATIVE); COLOR,URINE YELLOW; GLUCOSE, URINE NEGATIVE (NEGATIVE); KETONES,URINE NEGATIVE (NEGATIVE); LEUKOCYTE ESTERASE,URINE SMALL (NEGATIVE); NITRITE,URINE NEGATIVE (NEGATIVE); PROTEIN,URINE NEGATIVE (NEGATIVE); URINE SPECIFIC GRAVITY 1.012; UROBILINOGEN,URINE NEGATIVE mg/dL (<2.0)
[2017-07-04 23:32] VITALS: BP 121/68
== END 2017-07-04 23:32 | disposition home or self-care (01) ==
LOC: ER 16:27
DX: R11.2 Nausea with vomiting, unspecified (principal); E86.0 Dehydration; I12.9 Hypertensive chronic kidney disease with stage 1 through stage 4 chronic kidney disease, or unspecified chronic kidney disease; N18.9 Chronic kidney disease, unspecified; N17.9 Acute kidney failure, unspecified; R10.84 Generalized abdominal pain; I25.10 Atherosclerotic heart disease of native coronary artery without angina pectoris; Z93.2 Ileostomy status; Z90.49 Acquired absence of other specified parts of digestive tract; Z88.1 Allergy status to other antibiotic agents; Z88.8 Allergy status to other drugs, medicaments and biological substances; Z88.5 Allergy status to narcotic agent; Z88.6 Allergy status to analgesic agent; Z87.19 Personal history of other diseases of the digestive system; Z95.1 Presence of aortocoronary bypass graft
CPT/HCPCS: 99284; 96361; 96374; 96375; 36415; 85025; 80053; 81001; 74022; J2550; J2405; J7030; A9270

== ENCOUNTER 2017-09-24 21:44 | Inpatient (IN) | payer MEDICARE, MEDICAID ==
[2017-09-24] MEDS ORDERED: NORMAL SALINE 500 ML IV ONE (22:16)
--- NOTE | 2017-09-24 22:54 | RADIOLOGY REPORT (SQ) ---
EXAM DESCRIPTION: CHEST SINGLE VIEW COMPLETED DATE/TIME: 09/24/2017 10:44 pm REASON FOR STUDY: cough COMPARISON: 06/13/2017 EXAM PARAMETERS: NUMBER OF VIEWS: One view. TECHNIQUE: Single frontal radiographic view of the chest acquired. RADIATION DOSE: NA LIMITATIONS: None. FINDINGS: LUNGS AND PLEURA: Underlying emphysema. No new opacities, masses or pneumothorax. No pleu ral effusion. MEDIASTINUM AND HILAR STRUCTURES: No masses. Contour normal. HEART AND VASCULAR STRUCTURES: Heart normal in size. Normal vasculature. BONES: No acute findings. HARDWARE: None in the chest. OTHER: No other significant finding. IMPRESSION: NO ACUTE CARDIOPULMONARY PROCESS. NO SIGNIFICANT CHANGE FROM PRIOR STUDY. TECHNICAL DOCUMENTATION: JOB ID: [id number] [employer]- All Rights Reserved Reading location - IP/workstation name: [email or web address]
--- NOTE | 2017-09-24 22:59 | ER Document Report ---
ED General - General Chief Complaint: Weakness Stated Complaint: WEAKNESS Time Seen by Provider: 09/24/17 22:01 Notes: Patient is a 77-year-old female presents with complaint of weakness. She says she has been weak now for over a month. Is very unclear exactly what brought her to the ER today. She just says that she feels unwell. She complains of some dysuria. Some cough. No fevers. She does have history of colon cancer and does have a colostomy. She says she did vomit once earlier. Colostomy bag said normal output. No blood in the bag that she is aware of. She says she does have some abdominal pain but this does not appear to be new and appears to be chronic. She denies being on chemotherapy any longer. She thinks her oncologist is Dr. Jiménez. She lives with her son. TRAVEL OUTSIDE OF THE [place] IN LAST 30 DAYS: No - Related Data Allergies/Adverse Reactions: ciprofloxacin [From Cipro] Allergy (Verified 07/04/17 16:56) diltiazem HCl [From Cardizem] Allergy (Verified 07/04/17 16:56) Unknown reaction ketorolac tromethamine [From Toradol] Allergy (Verified 07/04/17 16:56) levofloxacin [From Levaquin] Allergy (Verified 07/04/17 16:56) meperidine HCl [From Demerol] Allergy (Verified 07/04/17 16:56) nitrofurantoin macrocrystalline [From Macrodantin] Allergy (Verified 07/04/17 16 :56) propoxyphene napsylate [From Darvocet-N 100] Allergy (Verified 07/04/17 16:56) sumatriptan [From Imitrex] Allergy (Verified 07/04/17 16:56) Past Medical History - Social History Smoking Status: Never Smoker Chew tobacco use (# tins/day): No Frequency of alcohol use: None Drug Abuse: None Family History: Arthritis, CAD, DM, Hyperlipidemia, Hypertension Patient has suicidal ideation: No Patient has homicidal ideation: No - Past Medical History Cardiac Medical History: Reports: Hx Coronary Artery Disease, Hx Hypercholesterolemia, Hx Hypertension Pulmonary Medical History: Denies: Hx Tuberculosis Neurological Medical History: Reports: Hx Migraine, Hx Seizures Renal/ Medical History: Reports: Hx Renal Insufficiency. Denies: Hx Peritoneal Dialysis GI Medical History: Reports: Hx Gastroesophageal Reflux Disease, Hx Irritable Bowel, Hx Colonoscopy, Hx Endoscopy Musculoskeltal Medical History: Reports Hx Arthritis, Reports Hx Musculoskeletal Deformity, Reports Hx Musculoskeletal Trauma Psychiatric Medical History: Reports: Hx Depression Traumatic Medical History: Reports: Hx Fractures - left shoulder Past Surgical History: Reports: Hx Appendectomy, Hx Bowel Surgery - 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 bowel injury, Hx Section, Hx Cholecystectomy, Hx Coronary Artery Bypass Graft, Hx Hysterectomy, Hx Ileostomy, Hx Orthopedic Surgery - left shoulder x2, Hx Tonsillectomy - Immunizations Immunizations up to date: Yes Hx Diphtheria, Pertussis, Tetanus Vaccination: Yes - 2012 Hx Pneumococcal Vaccination: 05/11/11 Review of Systems - Review of Systems Notes: My Normal Review Basic REVIEW OF SYSTEMS: CONSTITUTIONAL : Denies fever, chills, or sweats. Has felt weak. EENT: Denies eye, ear, throat, or mouth pain or symptoms. Denies nasal or sinus congestion. CARDIOVASCULAR: Denies chest pain. RESPIRATORY: Cough GASTROINTESTINAL: Denies abdominal pain. Denies nausea, vomiting, or diarrhea. GENITOURINARY: Dysuria. FEMALE GENITOURINARY: Denies vaginal bleeding, abnormal or irregular periods. LMP: MUSCULOSKELETAL: Denies neck or back pain or joint pain or swelling. SKIN: Denies rash or skin lesions. NEUROLOGICAL: Denies altered mental status or loss of consciousness. Denies headache. Denies weakness or paralysis or loss of use of either side. Denies problems with gait or speech. Denies sensory or motor loss. ALL OTHER SYSTEMS REVIEWED AND NEGATIVE. Physical Exam - Vital signs Vitals: Temp Pulse Resp BP Pulse Ox 98.9 F 80 20 133/78 H 91 L 09/24/17 21:51 09/24/17 21:51 09/24/17 21:51 09/24/17 21:51 09/24/17 21:51 Course - Re-evaluation Re-evalutation: 09/25/17 05:54 Patient initially did not want to be admitted. Then talked to the patient's son who was kind and came in and also spoke with the patient. Patient has significant dehydration determine what appears to be metabolic acidosis. Suspect is related to the fact she has not been eating or drinking probably has now high output from her ostomy. I did speak with Dr. Fountain, hospitalist, who agrees to admit the patient. Dictation of this chart was performed using voice recognition software; therefore, there may be some unintended grammatical errors. - Vital Signs Vital signs: Temp Pulse Resp BP Pulse Ox 97.9 F 80 16 111/55 L 94 09/25/17 03:18 09/24/17 21:51 09/25/17 04:03 09/25/17 03:01 09/25/17 04:03 - Laboratory Result Diagrams: 09/24/17 23:45 09/24/17 23:45 Laboratory results interpreted by me: 09/24/17 09/24/17 09/24/17 23:45 23:45 23:45 RBC 3.44 L Hgb 9.8 L Hct 30.7 L MCHC 31.8 L RDW 17.3 H VBG pH VBG HCO3 Chloride 119 H Carbon Dioxide 11 L BUN 22 H Creatinine 1.88 H Est GFR ( Amer) 31 L Est GFR (Non-Af Amer) 26 L Glucose 70 L Total Bilirubin 0.1 L Free T4 0.67 L Urine Protein Urine Blood Ur Leukocyte Esterase 09/25/17 09/25/17 01:16 01:33 RBC Hgb Hct MCHC RDW VBG pH 7.10 L* VBG HCO3 13.8 L Chloride Carbon Dioxide BUN Creatinine Est GFR ( Amer) Est GFR (Non-Af Amer) Glucose Total Bilirubin Free T4 Urine Protein 30 H Urine Blood SMALL H Ur Leukocyte Esterase TRACE H - EKG Interpretation by Me Additional EKG results interpreted by me: 09/24/17 22:59 EKG is reviewed and interpreted by me. EKG shows sinus arrhythmia with a rate of [address] segment elevation or depression. No ischemic T-wave inversions. VT interval slightly prolonged. QRS duration and QTc intervals are within normal range. Old EKG for comparison is from June 14, 2017.
--- NOTE | 2017-09-24 23:12 | EKG REPORT ---
SEVERITY:- OTHERWISE NORMAL ECG - SINUS RHYTHM LOW VOLTAGE IN FRONTAL LEADS : Confirmed by: Freedom Muro 24-Sep-2017 20:11:38
[2017-09-24 23:58] LABS: ABSOLUTE EOSINOPHILS # (AUTO) 0.2 10^3/uL (0.0-0.6); ABSOLUTE LYMPHOCYTES (AUTO) 1.2 10^3/uL (0.5-4.7); ABSOLUTE MONOCYTES (AUTO) 0.4 10^3/uL (0.1-1.4); ABSOLUTE NEUT (AUTO) 3.8 10^3/uL (1.7-8.2); BASOPHILS % (AUTO) 0.5 % (0-2); HEMATOCRIT 30.7 % (36.0-47.0); HEMOGLOBIN 9.8 g/dL (12.0-15.5); LYMPHOCYTES % (AUTO) 21.1 % (13-45); MEAN CORPUSCULAR HEMOGLOBIN 28.4 pg (27.0-33.4); MEAN CORPUSCULAR HGB CONC 31.8 g/dL (32.0-36.0); MEAN CORPUSCULAR VOLUME 89 fl (80-97); MONOCYTES % (AUTO) 7.6 % (3-13); PLATELET COUNT 158 10^3/uL (150-450); RED BLOOD COUNT 3.44 10^6/uL (3.72-5.28); RED CELL DISTRIBUTION WIDTH 17.3 % (11.5-14.0); SEGMENTED NEUTROPHILS % (AUTO) 67.8 % (42-78); TOTAL CELLS COUNTED % (AUTO) 100 %; WHITE BLOOD COUNT 5.6 10^3/uL (4.0-10.5)
[2017-09-25 00:14] LABS: ALANINE AMINOTRANSFERASE 23 U/L (9-52); ALBUMIN 3.8 g/dL (3.5-5.0); ALKALINE PHOSPHATASE 102 U/L (38-126); ANION GAP 13 (5-19); ASPARTATE AMINO TRANSFERASE 21 U/L (14-36); BILIRUBIN,DIRECT 0.1 mg/dL (0.0-0.4); BILIRUBIN,TOTAL 0.1 mg/dL (0.2-1.3); BLOOD UREA NITROGEN 22 mg/dL (7-20); CALCIUM 9.3 mg/dL (8.4-10.2); CARBON DIOXIDE 11 mmol/L (22-30); CHLORIDE 119 mmol/L (98-107); GLUCOSE 70 mg/dL (75-110); SODIUM 143.3 mmol/L (137-145); TOTAL PROTEIN 6.4 g/dL (6.3-8.2)
[2017-09-25 00:23] LABS: FREE T3 3.11 pg/mL (2.77-5.27); FREE T4 (FREE THYROXINE) 0.67 ng/dL (0.78-2.19)
[2017-09-25 00:36] LABS: THYROID STIMULATING HORMONE 2.37 uIU/mL (0.47-4.68)
[2017-09-25 01:35] LABS: APPEARANCE,URINE CLEAR; BILIRUBIN,URINE NEGATIVE (NEGATIVE); COLOR,URINE YELLOW; GLUCOSE, URINE NEGATIVE (NEGATIVE); KETONES,URINE NEGATIVE (NEGATIVE); LEUKOCYTE ESTERASE,URINE TRACE (NEGATIVE); NITRITE,URINE NEGATIVE (NEGATIVE); PROTEIN,URINE 30 mg/dL (NEGATIVE); URINE SPECIFIC GRAVITY 1.012; UROBILINOGEN,URINE NEGATIVE mg/dL (<2.0)
[2017-09-25 01:47] LABS: VENOUS BLOOD BASE EXCESS -15.3 mmol/L; VENOUS BLOOD HCO3 13.8 mmol/L (20-32); VENOUS BLOOD PCO2 45.7 mmHg (35-63)
[2017-09-25 01:54] LABS: VENOUS BLOOD PH 7.1 (7.30-7.42)
[2017-09-25] MEDS ORDERED: ONDANSETRON HCL INJ/PF 4 MG/2 ML SDV IV PRN (03:02)
--- NOTE | 2017-09-25 03:27 | PDOC H&P ---
History of Present Illness History of Present Illness: SHAKA GOMEZ is a 77 year old female patient brought by her son for acute confusional state. Due to her altered mental status patient is not source of history. History is obtained from the ER attending note and her son who lives with her. Her son reports this patient has been confused and she has decreased appetite and poor oral intake. At her baseline patient is independent for her activities of daily living but the last 3 days patient has decreased activity. There is report of dysuria and cough. No chills, fever, chest pain or palpitation. Past medical history significant for hypertension, hyperlipidemia, coronary artery disease and history of colon cancer and she is status post total colectomy and colostomy placement. Her son states, output from colostomy is normal. Her initial labs shows pH of 7.1 bicarb of 11 and creatinine of 1.88 higher than her baseline creatinine. Further detailed history and review of systems unobtainable. Past Medical History Cardiac Medical History: Reports: Coronary Artery Disease, Hyperlipidema, Hypertension Pulmonary Medical History: Denies: Tuberculosis Neurological Medical History: Reports: Migraine, Seizures GI Medical History: Reports: Gastroesophageal Reflux Disease Musculoskeltal Medical History: Reports: Arthritis Psychiatric Medical History: Reports: Depression Hematology: Reports: Anemia Past Surgical History Past Surgical History: Reports: Appendectomy, Section, Cholecystectomy , Coronary Artery Bypass Graft, Hysterectomy, Ileostomy, Orthopedic Surgery - left shoulder x2, Tonsillectomy Social History Smoking Status: Never Smoker Frequency of Alcohol Use: None Hx Recreational Drug Use: No Hx Prescription Drug Abuse: No - Advance Directive Resuscitation Status: Full Code Family History Family History: Arthritis, CAD, DM, Hyperlipidemia, Hypertension Parental Family History Reviewed: Yes Children Family History Reviewed: Yes Sibling(s) Family History Reviewed.: Yes Medication/Allergy Home Medications: Clonazepam [Klonopin] 0.5 mg PO Q12HP PRN 06/15/17 Dicyclomine HCl [Bentyl 20 mg Tablet] 20 mg PO Q6 06/15/17 Diphenoxylate HCl/Atrop Sulf [Lomotil 2.5 mg Tablet] 2 tab PO Q6 06/15/17 Donepezil HCl [Aricept] 10 mg PO QHS 06/15/17 Ergocalciferol (Vitamin D2) [Drisdol 50,000 unit (1.25MG) Capsule] 50,000 unit PO BINGHAM@1000 06/15/17 Gabapentin [Neurontin 300 mg Capsule] 300 mg PO Q12 06/15/17 Hydroxyzine HCl [Atarax 25 mg Tablet] 50 mg PO HSP PRN 06/15/17 Promethazine HCl [Phenergan 25 mg Tablet] 25 mg PO Q12 06/15/17 Ramelteon [Rozerem] 8 mg PO HSP PRN 06/15/17 Sertraline HCl [Zoloft] 100 mg PO DAILY 06/15/17 Suvorexant [Belsomra] 15 mg PO HSP PRN 06/15/17 Tizanidine HCl [Zanaflex 4 mg Tablet] 4 mg PO QHS 06/15/17 Amlodipine Besylate [Norvasc 5 mg Tablet] 5 mg PO DAILY #30 tablet 06/17/17 Azithromycin [Zithromax 250 mg Tablet] 500 mg PO DAILY #6 tablet 06/17/17 Cefuroxime Axetil [Ceftin 500 mg Tablet] 500 mg PO Q12 #14 tablet 06/17/17 Allergies/Adverse Reactions: ciprofloxacin [From Cipro] Allergy (Verified 07/04/17 16:56) diltiazem HCl [From Cardizem] Allergy (Verified 07/04/17 16:56) Unknown reaction ketorolac tromethamine [From Toradol] Allergy (Verified 07/04/17 16:56) levofloxacin [From Levaquin] Allergy (Verified 07/04/17 16:56) meperidine HCl [From Demerol] Allergy (Verified 07/04/17 16:56) nitrofurantoin macrocrystalline [From Macrodantin] Allergy (Verified 07/04/17 16 :56) propoxyphene napsylate [From Darvocet-N 100] Allergy (Verified 07/04/17 16:56) sumatriptan [From Imitrex] Allergy (Verified 07/04/17 16:56) Review of Systems ROS unobtainable: Due to mental status Physical Exam Vital Signs: Temp Pulse Resp BP Pulse Ox 98.9 F 80 24 H 114/69 94 09/24/17 21:51 09/24/17 21:51 09/25/17 01:00 09/25/17 02:01 09/25/17 02:01 General appearance: PRESENT: no acute distress Head exam: PRESENT: atraumatic, normocephalic Mouth exam: PRESENT: dry mucosa - Very dry oral mucous membranes Respiratory exam: PRESENT: clear to auscultation yamilet. ABSENT: rales, rhonchi, wheezes Cardiovascular exam: PRESENT: RRR. ABSENT: diastolic murmur, rubs, systolic murmur Results Laboratory Results: 09/24/17 23:45 09/24/17 23:45 09/24/17 09/24/17 09/24/17 23:45 23:45 23:45 WBC 5.6 RBC 3.44 L Hgb 9.8 L Hct 30.7 L MCV 89 MCH 28.4 MCHC 31.8 L RDW 17.3 H Plt Count 158 Seg Neutrophils % 67.8 Lymphocytes % 21.1 Monocytes % 7.6 Eosinophils % 3.0 Basophils % 0.5 Absolute Neutrophils 3.8 Absolute Lymphocytes 1.2 Absolute Monocytes 0.4 Absolute Eosinophils 0.2 Absolute Basophils 0.0 VBG pH VBG pCO2 VBG HCO3 VBG Base Excess Sodium 143.3 Potassium 5.0 Chloride 119 H Carbon Dioxide 11 L Anion Gap 13 BUN 22 H Creatinine 1.88 H Est GFR ( Amer) 31 L Est GFR (Non-Af Amer) 26 L Glucose 70 L Calcium 9.3 Total Bilirubin 0.1 L AST 21 ALT 23 Alkaline Phosphatase 102 Total Protein 6.4 Albumin 3.8 TSH 2.37 Free T4 0.67 L Free T3 pg/mL 3.11 Urine Color Urine Appearance Urine pH Ur Specific Swain Urine Protein Urine Glucose (UA) Urine Ketones Urine Blood Urine Nitrite Ur Leukocyte Esterase Urine WBC (Auto) Urine RBC (Auto) 09/25/17 09/25/17 01:16 01:33 WBC RBC Hgb Hct MCV MCH MCHC RDW Plt Count Seg Neutrophils % Lymphocytes % Monocytes % Eosinophils % Basophils % Absolute Neutrophils Absolute Lymphocytes Absolute Monocytes Absolute Eosinophils Absolute Basophils VBG pH 7.10 L* VBG pCO2 45.7 VBG HCO3 13.8 L VBG Base Excess -15.3 Sodium Potassium Chloride Carbon Dioxide Anion Gap BUN Creatinine Est GFR ( Amer) Est GFR (Non-Af Amer) Glucose Calcium Total Bilirubin AST ALT Alkaline Phosphatase Total Protein Albumin TSH Free T4 Free T3 pg/mL Urine Color YELLOW Urine Appearance CLEAR Urine pH 5.0 Ur Specific Swain 1.012 Urine Protein 30 H Urine Glucose (UA) NEGATIVE Urine Ketones NEGATIVE Urine Blood SMALL H Urine Nitrite NEGATIVE Ur Leukocyte Esterase TRACE H Urine WBC (Auto) 8 Urine RBC (Auto) 1 09/24/17 23:45 Troponin I < 0.012 Impressions: Chest X-Ray 09/24/17 22:16 IMPRESSION: NO ACUTE CARDIOPULMONARY PROCESS. NO SIGNIFICANT CHANGE FROM PRIOR STUDY. Assessment & Plan - Diagnosis (1) Metabolic acidosis Is this a current diagnosis for this admission?: Yes Plan: Cautiously hydrate her with bicarb D5W. BMP in a.m. (2) Dehydration Is this a current diagnosis for this admission?: Yes Plan: As #1 (3) Altered mental status Qualifiers: Altered mental status type: disorientation Qualified Code(s): R41.0 - Disorientation, unspecified Is this a current diagnosis for this admission?: Yes Plan: His most probably due to dehydration and metabolic acidosis (4) Hypertension Qualifiers: Hypertension type: essential hypertension Qualified Code(s): I10 - Essential (primary) hypertension Is this a current diagnosis for this admission?: Yes Plan: Continue her home medication (6) Acute worsening of stage 3 chronic kidney disease Is this a current diagnosis for this admission?: Yes Plan: Cautious hydration, avoid nephrotoxic agents and monitor renal function test - Time Time Spent: 30 to 50 Minutes - Inpatient Certification Medical Necessity: Need Close Monitoring Due to Risk of Patient Decompensation, Need For IV Fluids
--- NOTE | 2017-09-25 03:37 | RADIOLOGY REPORT (SQ) ---
EXAM DESCRIPTION: CT of the head without contrast CLINICAL HISTORY: confusion COMPARISON: 04/07/2015 TECHNIQUE: Axial CT of the head obtained from the skull apex to the skull base without contrast. FINDINGS: No acute intracranial hemorrhage identified. No mass, mass effect, shift of the midline, abnormal extra-axial fluid collection or CT evidence of acute ischemic change identified. The ventricular system and sulcal spaces are mildly enlarged compatible with mild cerebral atrophy. Scattered areas of hypodensity throughout the supratentorial white matter are nonspecific and may be related to chronic small vessel ischemic change. The visualized paranasal sinuses and the mastoids are clear. No skull fracture identified. Visualized orbits and globes are unremarkable. Atherosclerotic calcification of the intracranial internal carotid arteries. DLP: 973.56 mGy-cm IMPRESSION: 1. No acute intracranial abnormality by CT criteria. This exam was performed according to our departmental dose-optimization program, which includes automated exposure control, adjustment of the mA and/or kV according to patient size and/or use of iterative reconstruction technique.
[2017-09-25] MEDS ORDERED: SODIUM BICARBONATE 8.4% INJ 50 MEQ/50 ML DISP.SYRIN ONE ×2 (04:59→05:00)
[2017-09-25] MEDS: DEXTROSE 5%-WATER 1000 ML 1,000 ML with SODIUM BICARBONATE 150 MEQ IV PRN ×4 (05:16→20:31)
[2017-09-25] MEDS: LANSOPRAZOLE 30 MG TAB.RAP.DR PO SCH (06:22)
[2017-09-25] MEDS: HEPARIN SOD (PORCINE) 5,000 UNIT/ML 1 ML SYRINGE SUBCUT SCH ×3 (06:22→21:25)
[2017-09-25 06:59] LABS: ANION GAP 13 (5-19); BLOOD UREA NITROGEN 21 mg/dL (7-20); CARBON DIOXIDE 13 mmol/L (22-30); CHLORIDE 119 mmol/L (98-107); GLUCOSE 77 mg/dL (75-110); PHOSPHORUS 4.5 mg/dL (2.5-4.5); POTASSIUM 4.7 mmol/L (3.6-5.0); SODIUM 144.8 mmol/L (137-145)
[2017-09-25] MEDS ORDERED: (PENDING PHARMACY ID) (Clonazepam [Klonopin] 0.5 MG) PO PRN (10:07)
--- NOTE | 2017-09-25 11:46 | RADIOLOGY REPORT (SQ) ---
EXAM DESCRIPTION: PICC INSERTION; FLUORO/CV PLACEMENT; U/S GUIDE FOR VASCULAR ACCESS COMPLETED DATE/TIME: 09/25/2017 11:24 am REASON FOR STUDY: no iv access; IV ACCESS COMPARISON: Two-view chest 09/24/2017 FLUOROSCOPY TIME: 19 seconds 1 digital chest images and 1 ultrasound image saved to PACS. TECHNIQUE: Fluoroscopic and ultrasound guided PICC placement. LIMITATIONS: None. PROCEDURE: After written consent and assessment were obtained, the patient was brought into the fluo roscopy room and place supine on the table. Ultrasound evaluation of potential access sites were perf ormed. After successfully identifying a patent left basilic vein, the left arm was prepped and draped in a sterile fashion along with the ultrasound probe. The entry site was anesthetized with 1% lidoca ine. A 21 gauge 7 cm needle was advanced through the skin and into the basilic vein under live ultras ound guidance. An ultrasound image was saved to PACS confirming access site. A .018 guide wire was then inserted through the needle and into the venous system. The needle was the removed and an 11 shawn de scalpel was used to make a 1cm skin incision. A 5 fr peel-away sheath was advanced over the wire and into the venous system. A measurement was then made using the existing wire and live fluoroscopic guidance. The wire was then removed and the trimmed. The PICC was advanced through the peel-away she ath and into the venous system. The peel-away sheath was removed and the catheter was adhered to the patients arm with a stat lock. The catheter was then aspirated and flushed and a sterile bandage was placed over the access site. A fluoroscopic spot image was saved to PACS confirming the catheter tip within the superior vena cava. IMPRESSION: SUCCESSFUL PLACEMENT OF A 5 FR DUAL LUMEN 38 CM PICC IN THE LEFT BASILIC VEIN. COMMENT: Patient medication list reviewed: Yes- Quality ID# 130:Eligible professional attests to doc umenting in the medical record they obtained, updated, or reviewed the patient's current medications. . Quality ID 145: Final reports for procedures using fluoroscopy that document radiation exposure ceasar yen, or exposure time and number of fluorographic images (if radiation exposure indices are not avail able) Quality ID #76: The patient was prepped and draped using maximum sterile barrier technique including cap, mask, sterile gown, sterile gloves, a large sterile sheet, hand hygiene, and 2% Chlorhexidine fo r cutaneous antisepsis. When ultrasound is used, sterile ultrasound techniques are followed requiring sterile gel and sterile probes. TECHNICAL DOCUMENTATION: JOB ID: [id number] [employer]- All Rights Reserved rev-09/25 Reading location - IP/workstation name: [email or web address]
[2017-09-25] MEDS ORDERED: SERTRALINE HCL 50 MG TABLET PO ONE (12:00)
[2017-09-25 12:18] LABS: ARTERIAL BLOOD BASE EXCESS -10.2 mmol/L; ARTERIAL BLOOD HCO3 16.5 mmol/L (20-26); ARTERIAL BLOOD O2 SATURATION 95.6 % (94-98); ARTERIAL BLOOD PH 7.23 (7.35-7.45); ARTERIAL BLOOD PO2 91.5 mmHg (80-100); ARTERIAL BLOOD TOTAL CO2 17.8 mmol/L (21-25)
[2017-09-25 12:19] LABS: ARTERIAL BLOOD FIO2 ROOM AIR
[2017-09-25] MEDS ORDERED: LORAZEPAM INJ 2 MG/1 ML VIAL IV PRN (13:54)
[2017-09-25] MEDS ORDERED: LORAZEPAM INJ 2 MG/1 ML VIAL ONE (14:03)
[2017-09-25] MEDS ORDERED: HALOPERIDOL LACTATE INJ 5 MG/1 ML VIAL IV ONE (15:20)
[2017-09-25] MEDS ORDERED: (PENDING PHARMACY ID) (Ramelteon [Rozerem] 8 MG) PO PRN (15:27)
[2017-09-25] MEDS ORDERED: DIPHENHYDRAMINE HCL 50 MG/ML VIAL IV ONE (15:27)
[2017-09-25] MEDS ORDERED: HYDROXYZINE HCL 50 MG PO PRN (15:27)
[2017-09-25] MEDS ORDERED: DIPHENHYDRAMINE HCL 50 MG/ML VIAL ONE (15:30)
[2017-09-25] MEDS ORDERED: HALOPERIDOL LACTATE INJ 5 MG/1 ML VIAL ONE (15:31)
[2017-09-25] MEDS ORDERED: HYDROXYZINE HCL 10 MG TABLET PO PRN (15:50)
[2017-09-25] MEDS ORDERED: NORMAL SALINE 10 ML SDV (AFTER EACH USE) IV PRN (18:31)
[2017-09-25] MEDS: NORMAL SALINE 10 ML SDV (SCHEDULED) IV SCH (21:24)
[2017-09-25] MEDS: DONEPEZIL HCL 5 MG TABLET PO SCH (21:24)
[2017-09-25] MEDS: GABAPENTIN 300 MG CAPSULE PO SCH (21:25)
[2017-09-25] MEDS ORDERED: (PENDING PHARMACY ID) (Donepezil Hcl [Aricept] 10 MG) PO SCH (22:00)
[2017-09-26] MEDS: HALOPERIDOL LACTATE INJ 5 MG/1 ML VIAL IV PRN ×2 (03:49→21:16)
[2017-09-26 04:05] LABS: HEMATOCRIT 27.3 % (36.0-47.0); MEAN CORPUSCULAR HEMOGLOBIN 28.7 pg (27.0-33.4); MEAN CORPUSCULAR VOLUME 87 fl (80-97); PLATELET COUNT 156 10^3/uL (150-450); RED BLOOD COUNT 3.14 10^6/uL (3.72-5.28); RED CELL DISTRIBUTION WIDTH 16.6 % (11.5-14.0); WHITE BLOOD COUNT 4.6 10^3/uL (4.0-10.5)
[2017-09-26 04:20] LABS: ANION GAP 7 (5-19); BLOOD UREA NITROGEN 17 mg/dL (7-20); CALCIUM 8.7 mg/dL (8.4-10.2); CHLORIDE 108 mmol/L (98-107); GLUCOSE 127 mg/dL (75-110); SODIUM 143.2 mmol/L (137-145)
[2017-09-26 04:38] LABS: POTASSIUM 3.7 mmol/L (3.6-5.0)
[2017-09-26 04:39] LABS: CARBON DIOXIDE 28 mmol/L (22-30)
[2017-09-26] MEDS: LANSOPRAZOLE 30 MG TAB.RAP.DR PO SCH (05:32)
[2017-09-26] MEDS: HEPARIN SOD (PORCINE) 5,000 UNIT/ML 1 ML SYRINGE SUBCUT SCH ×3 (05:32→21:10)
[2017-09-26] MEDS: DEXTROSE 5%-WATER 1000 ML 1,000 ML with SODIUM BICARBONATE 150 MEQ IV PRN ×2 (08:20)
[2017-09-26] MEDS: SERTRALINE HCL 50 MG TABLET PO SCH (10:23)
[2017-09-26] MEDS: GABAPENTIN 300 MG CAPSULE PO SCH ×2 (10:24→21:11)
[2017-09-26] MEDS: NORMAL SALINE 10 ML SDV (SCHEDULED) IV SCH ×2 (10:27→21:12)
[2017-09-26] MEDS: NORMAL SALINE 1000 ML 1,000 ML IV PRN ×2 (10:31→20:57)
[2017-09-26] MEDS: HYDRALAZINE HCL INJ/PF 20 MG/1 ML SDV IV PRN ×2 (14:06→21:11)
--- NOTE | 2017-09-26 17:58 | PDOC PROGRESS REPORT ---
Subjective Progress Note for:: 09/26/17 Subjective:: SHAKA GOMEZ is a 77 year old female who presented with AMD secondary to metabolic acidosis stemming from poor PO intake, dehydration, and loose watery stool. PMH includes hypertension, hyperlipidemia, coronary artery disease and history of colon cancer and she is status post total colectomy and colostomy placement. The patient was seen this morning on rounds, she is resting comfortably in bed on room air. She is arousable and answers some questions appropriately (person, year), she is otherwise very confused. According to her son she is normally independent and able to care for herself, but her level of confusion has been getting worse over the last week. Last night, the patient was attempting to pull out her PICC line and was screaming "let me out of here." She required soft wrist restraints, IV haldol, and a sitter. Reason For Visit: ALTERED MENTAL STATUS, JES ON CKD, Physical Exam Vital Signs: Temp Pulse Resp BP Pulse Ox 97.8 F 79 14 168/77 H 97 09/26/17 15:21 09/26/17 15:21 09/26/17 15:21 09/26/17 15:21 09/26/17 15:21 Intake & Output 09/25/17 09/26/17 09/27/17 06:59 06:59 06:59 Intake Total 100 2409 150 Output Total 600 500 Balance 100 1809 -350 Weight 40.7 kg 45.1 kg General appearance: PRESENT: no acute distress, thin Eye exam: PRESENT: conjunctiva pink, PERRLA Mouth exam: PRESENT: moist Neck exam: PRESENT: full ROM Respiratory exam: PRESENT: clear to auscultation yamilet, symmetrical, unlabored Cardiovascular exam: PRESENT: +S1, +S2 Pulses: PRESENT: normal radial pulses, normal dorsalis pedis pul GI/Abdominal exam: PRESENT: normal bowel sounds, soft. ABSENT: tenderness Rectal exam: PRESENT: deferred Extremities exam: PRESENT: full ROM Musculoskeletal exam: PRESENT: ambulatory, full ROM Neurological exam: PRESENT: alert, awake, oriented to person, oriented to time. ABSENT: oriented to place, oriented to situation Psychiatric exam: PRESENT: anxious Skin exam: PRESENT: intact, normal color, other - poor skin turgor Results Laboratory Results: 09/26/17 03:55 09/26/17 03:55 09/26/17 09/26/17 09/26/17 03:55 03:55 03:55 WBC 4.6 RBC 3.14 L Hgb 9.0 L Hct 27.3 L MCV 87 MCH 28.7 MCHC 33.0 RDW 16.6 H Plt Count 156 Sodium 143.2 Potassium 3.7 D Chloride 108 H Carbon Dioxide 28 D Anion Gap 7 BUN 17 Creatinine 1.21 Est GFR ( Amer) 52 L Est GFR (Non-Af Amer) 43 L Glucose 127 H Calcium 8.7 Phosphorus 3.0 TSH 1.49 Impressions: Chest X-Ray 09/24/17 22:16 IMPRESSION: NO ACUTE CARDIOPULMONARY PROCESS. NO SIGNIFICANT CHANGE FROM PRIOR STUDY. Guidance Fluoroscopy 09/25/17 00:00 IMPRESSION: SUCCESSFUL PLACEMENT OF A 5 FR DUAL LUMEN 38 CM PICC IN THE LEFT BASILIC VEIN. Interventional Vascular Procedure 09/25/17 00:00 IMPRESSION: SUCCESSFUL PLACEMENT OF A 5 FR DUAL LUMEN 38 CM PICC IN THE LEFT BASILIC VEIN. PICC Line Insertion 09/25/17 00:00 IMPRESSION: SUCCESSFUL PLACEMENT OF A 5 FR DUAL LUMEN 38 CM PICC IN THE LEFT BASILIC VEIN. Head CT 09/25/17 02:34 IMPRESSION: 1. No acute intracranial abnormality by CT criteria. This exam was performed according to our departmental dose-optimization program, which includes automated exposure control, adjustment of the mA and/or kV according to patient size and/or use of iterative reconstruction technique. Status: Imported from PACS Assessment & Plan - Diagnosis (1) Metabolic acidosis Is this a current diagnosis for this admission?: Yes Plan: Resolving. pH 7.1 -> 7.23 Secondary to dehydration likely stemming from diarrhea. Stool output in colostomy bag is liquid brown. Initially rehydrated with Bicarb D5W, acidosis improving so switched to NS today Check ABG in AM to evaluate acidosis status (2) Dehydration Is this a current diagnosis for this admission?: Yes Plan: Improving. Dehydration as evidence by elevated BUN and JES (Cr 1.65) stemming from diarrhea, malabsorption symdrome, poor PO intake BUN and creatinine improved today following IV hydration. Stool negative for C.diff. Continue IVF hydration, evaluate chemistry in AM. Encourage PO intake (3) Altered mental status Qualifiers: Altered mental status type: disorientation Qualified Code(s): R41.0 - Disorientation, unspecified Is this a current diagnosis for this admission?: Yes Plan: Likely secondary to metabolic acidosis stemming from poor PO intake, malabsorption, and diarrhea. Head CT negative The patient is not taking any new medications that would result in AMS No signs of active infection to account for confusion Plan for rehydration, correction of metabolic acidosis, and encourage PO intake (4) Hypertension Qualifiers: Hypertension type: essential hypertension Qualified Code(s): I10 - Essential (primary) hypertension Is this a current diagnosis for this admission?: Yes Plan: Son endorses a history of HTN Continue home dose Norvasc PRN IV Hydralazine Patient has remained relatively NORMOtensive during admission - Time Time Spent with patient: 15-24 minutes Medications reviewed and adjusted accordingly: Yes Anticipated discharge: Home - Inpatient Certification Based on my medical assessment, after consideration of the patient's comorbidities, presenting symptoms, or acuity I expect that the services needed warrant INPATIENT care.: Yes I certify that my determination is in accordance with my understanding of Medicare's requirements for reasonable and necessary INPATIENT services [42 CFR 412.3e].: Yes Medical Necessity: Risk of Complication if Not Cared For in Hospital - Plan Summary Plan Summary: Ultimately, the plan is to discharge the patient home
[2017-09-26] MEDS: DONEPEZIL HCL 5 MG TABLET PO SCH (21:10)
[2017-09-26] MEDS: CLONAZEPAM 1 MG TABLET PO PRN (21:52)
[2017-09-27] MEDS: ACETAMINOPHEN 325 MG TABLET PO PRN (02:07)
[2017-09-27] MEDS: HEPARIN SOD (PORCINE) 5,000 UNIT/ML 1 ML SYRINGE SUBCUT SCH ×3 (05:35→21:28)
[2017-09-27] MEDS: LANSOPRAZOLE 30 MG TAB.RAP.DR PO SCH (05:35)
[2017-09-27 06:06] LABS: HEMATOCRIT 26.8 % (36.0-47.0); MEAN CORPUSCULAR HEMOGLOBIN 28.9 pg (27.0-33.4); MEAN CORPUSCULAR HGB CONC 33.6 g/dL (32.0-36.0); MEAN CORPUSCULAR VOLUME 86 fl (80-97); PLATELET COUNT 160 10^3/uL (150-450); RED BLOOD COUNT 3.12 10^6/uL (3.72-5.28); RED CELL DISTRIBUTION WIDTH 16.5 % (11.5-14.0); WHITE BLOOD COUNT 4.8 10^3/uL (4.0-10.5)
[2017-09-27 06:08] LABS: ARTERIAL BLOOD BASE EXCESS 1.5 mmol/L; ARTERIAL BLOOD FIO2 ROOM AIR; ARTERIAL BLOOD H2CO3 0.98 mmol/L (1.05-1.35); ARTERIAL BLOOD HCO3 24.5 mmol/L (20-26); ARTERIAL BLOOD O2 SATURATION 97.6 % (94-98); ARTERIAL BLOOD PCO2 32.7 mmHg (35-45); ARTERIAL BLOOD PH 7.49 (7.35-7.45); ARTERIAL BLOOD PO2 90.8 mmHg (80-100); ARTERIAL BLOOD TOTAL CO2 25.5 mmol/L (21-25)
[2017-09-27 06:21] LABS: ANION GAP 11 (5-19); BLOOD UREA NITROGEN 14 mg/dL (7-20); CALCIUM 8.5 mg/dL (8.4-10.2); CARBON DIOXIDE 26 mmol/L (22-30); CHLORIDE 107 mmol/L (98-107); GLUCOSE 123 mg/dL (75-110); POTASSIUM 3.6 mmol/L (3.6-5.0); SODIUM 143.9 mmol/L (137-145)
[2017-09-27] MEDS: HYDRALAZINE HCL INJ/PF 20 MG/1 ML SDV IV PRN ×3 (07:47→18:01)
[2017-09-27] MEDS: NORMAL SALINE 1000 ML 1,000 ML IV PRN ×2 (07:47→18:27)
[2017-09-27] MEDS: SERTRALINE HCL 50 MG TABLET PO SCH (09:13)
[2017-09-27] MEDS: GABAPENTIN 300 MG CAPSULE PO SCH ×2 (09:14→21:28)
[2017-09-27] MEDS: NORMAL SALINE 10 ML SDV (SCHEDULED) IV SCH ×2 (09:15→21:32)
[2017-09-27] MEDS ORDERED: ERGOCALCIFEROL (VITAMIN D2) 50000 UNIT (1.25 MG) CAPSULE PO SCH (10:00)
[2017-09-27] MEDS ORDERED: METOPROLOL SUCCINATE 25 MG TAB.SR.24H PO SCH (10:00)
[2017-09-27] MEDS ORDERED: LISINOPRIL 5 MG TABLET PO SCH ×2 (10:00→13:18)
[2017-09-27] MEDS ORDERED: METOPROLOL TARTRATE PF/INJ 5 MG/5 ML SDV IV ONE ×2 (11:40→11:57)
[2017-09-27] MEDS ORDERED: METOPROLOL TARTRATE PF/INJ 5 MG/5 ML SDV IV PRN (13:24)
[2017-09-27] MEDS ORDERED: CLONIDINE HCL 0.1 MG TABLET PO ONE (17:04)
--- NOTE | 2017-09-27 17:40 | PDOC PROGRESS REPORT ---
Subjective Progress Note for:: 09/27/17 Subjective:: SHAKA GOMEZ is a 77 year old female who presented with AMD secondary to metabolic acidosis stemming from poor PO intake, dehydration, and loose watery stool. PMH includes hypertension, hyperlipidemia, coronary artery disease and history of colon cancer and she is status post total colectomy and colostomy placement. The patient was seen this morning on rounds, she is resting comfortably in bed on room air. She is arousable and answers most questions appropriately (person, year, location), she is otherwise confused about why she is at the hospital. According to her son she is normally independent and able to care for herself, but her level of confusion has been getting worse over the last week. This morning, the patient's blood pressure was significantly elevated (SBP 180- 195). IV PRN medication initiated. Looking back through her old records, it appears the patient was prescribed amlodipine upon discharge from [facility] 06/17/2017 but it is not currently listed as a home medication. Unclear if the patient has been compliant with her antihypertensive medications. Reason For Visit: ALTERED MENTAL STATUS, JES ON CKD, Physical Exam Vital Signs: Temp Pulse Resp BP Pulse Ox 98.5 F 73 16 188/90 H 97 09/27/17 15:36 09/27/17 15:36 09/27/17 15:36 09/27/17 17:09 09/27/17 15:36 Intake & Output 09/26/17 09/27/17 09/28/17 06:59 06:59 06:59 Intake Total 2409 3409 Output Total 600 700 Balance 1809 2709 Weight 45.1 kg 49 kg General appearance: PRESENT: no acute distress, thin Eye exam: PRESENT: conjunctiva pink, PERRLA Teeth exam: PRESENT: poor dentation Neck exam: PRESENT: full ROM Respiratory exam: PRESENT: clear to auscultation yamilet, symmetrical, unlabored Cardiovascular exam: PRESENT: +S1, +S2 Pulses: PRESENT: normal radial pulses, +1 pedal pulses bilateral GI/Abdominal exam: PRESENT: normal bowel sounds, soft, other - Colostomy draining brown watery stool. ABSENT: tenderness Rectal exam: PRESENT: deferred Extremities exam: PRESENT: full ROM. ABSENT: pedal edema Musculoskeletal exam: PRESENT: ambulatory, full ROM Neurological exam: PRESENT: alert, awake, oriented to person, oriented to place , oriented to time. ABSENT: oriented to situation Skin exam: PRESENT: intact, warm Results Laboratory Results: 09/27/17 05:44 09/27/17 05:44 09/27/17 09/27/17 09/27/17 05:44 05:44 05:44 WBC 4.8 RBC 3.12 L Hgb 9.0 L Hct 26.8 L MCV 86 MCH 28.9 MCHC 33.6 RDW 16.5 H Plt Count 160 Carbonic Acid 0.98 L HCO3/H2CO3 Ratio 25:1 ABG pH 7.49 H ABG pCO2 32.7 L ABG pO2 90.8 ABG HCO3 24.5 ABG O2 Saturation 97.6 ABG Base Excess 1.5 FiO2 ROOM AIR Sodium 143.9 Potassium 3.6 Chloride 107 Carbon Dioxide 26 Anion Gap 11 BUN 14 Creatinine 0.98 Est GFR ( Amer) > 60 Est GFR (Non-Af Amer) 55 L Glucose 123 H Calcium 8.5 Impressions: Chest X-Ray 09/24/17 22:16 IMPRESSION: NO ACUTE CARDIOPULMONARY PROCESS. NO SIGNIFICANT CHANGE FROM PRIOR STUDY. Guidance Fluoroscopy 09/25/17 00:00 IMPRESSION: SUCCESSFUL PLACEMENT OF A 5 FR DUAL LUMEN 38 CM PICC IN THE LEFT BASILIC VEIN. Interventional Vascular Procedure 09/25/17 00:00 IMPRESSION: SUCCESSFUL PLACEMENT OF A 5 FR DUAL LUMEN 38 CM PICC IN THE LEFT BASILIC VEIN. PICC Line Insertion 09/25/17 00:00 IMPRESSION: SUCCESSFUL PLACEMENT OF A 5 FR DUAL LUMEN 38 CM PICC IN THE LEFT BASILIC VEIN. Head CT 09/25/17 02:34 IMPRESSION: 1. No acute intracranial abnormality by CT criteria. This exam was performed according to our departmental dose-optimization program, which includes automated exposure control, adjustment of the mA and/or kV according to patient size and/or use of iterative reconstruction technique. Status: Imported from PACS Assessment & Plan - Diagnosis (1) Metabolic acidosis Is this a current diagnosis for this admission?: Yes Plan: Resolved. pH 7.1 -> 7.4 Secondary to dehydration likely stemming from diarrhea. Stool output in colostomy bag is liquid brown. Initially rehydrated with Bicarb D5W, acidosis improving so switched to NS Patient's p.o. intake remains poor, requires quite a bit of encouragement. Will continue maintenance IV fluids at this time (2) Dehydration Is this a current diagnosis for this admission?: Yes Plan: Improving. Dehydration as evidence by elevated BUN and JES (Cr 1.65) stemming from diarrhea, malabsorption symdrome, poor PO intake BUN (14) and creatinine (0.98) continue to improve today Stool negative for C.diff. Patient's p.o. intake remains poor, requires quite a bit of encouragement Continue IVF hydration, evaluate chemistry in AM. (3) Altered mental status Qualifiers: Altered mental status type: disorientation Qualified Code(s): R41.0 - Disorientation, unspecified Is this a current diagnosis for this admission?: Yes Plan: Likely secondary to mild dementia exacerbated by metabolic acidosis stemming from poor PO intake, malabsorption, and diarrhea. Head CT negative The patient is not taking any new medications that would result in AMS No signs of active infection to account for confusion Plan for rehydration, correction of metabolic acidosis, and encourage PO intake (4) Hypertension Qualifiers: Hypertension type: essential hypertension Qualified Code(s): I10 - Essential (primary) hypertension Is this a current diagnosis for this admission?: Yes Plan: Patient has become increasingly hypertensive over the last 48 hours, this morning her SBP was 195. Spoke with Dr. Riggs of cardiology, who did not recommend echocardiogram, simply to treat the hypertension. Son endorses a history of HTN Patient was prescribed Norvasc upon discharge from [facility] on 06/17/2017, but it is not listed on her home medications. Will need to follow-up with son regarding compliance with antihypertensives. Continue Norvasc 5mg daily Initiate metoprolol 25 mg twice daily PRN IV Hydralazine PRN IV Lopressor If hypertension remains refractory to treatment, may need to consider Cardene gtt - Time Time Spent with patient: 15-24 minutes Medications reviewed and adjusted accordingly: Yes Anticipated discharge: Home - Inpatient Certification Based on my medical assessment, after consideration of the patient's comorbidities, presenting symptoms, or acuity I expect that the services needed warrant INPATIENT care.: Yes I certify that my determination is in accordance with my understanding of Medicare's requirements for reasonable and necessary INPATIENT services [42 CFR 412.3e].: Yes Medical Necessity: Risk of Complication if Not Cared For in Hospital - Plan Summary Plan Summary: Ultimately, the plan is to discharge the patient back to her home under the care of her son.
[2017-09-27] MEDS: HYDROXYZINE HCL 10 MG TABLET PO PRN (18:00)
[2017-09-27] MEDS: METOPROLOL TARTRATE 25 MG TABLET PO SCH (21:28)
[2017-09-27] MEDS: CLONAZEPAM 1 MG TABLET PO PRN (21:29)
[2017-09-27] MEDS: DONEPEZIL HCL 5 MG TABLET PO SCH (21:30)
[2017-09-28] MEDS: ACETAMINOPHEN 325 MG TABLET PO PRN (01:25)
[2017-09-28] MEDS: HALOPERIDOL LACTATE INJ 5 MG/1 ML VIAL IV PRN (01:26)
[2017-09-28] MEDS: HEPARIN SOD (PORCINE) 5,000 UNIT/ML 1 ML SYRINGE SUBCUT SCH ×3 (05:28→22:51)
[2017-09-28] MEDS: LANSOPRAZOLE 30 MG TAB.RAP.DR PO SCH (05:28)
[2017-09-28] MEDS: NORMAL SALINE 1000 ML 1,000 ML IV PRN (06:16)
[2017-09-28 06:35] LABS: HEMATOCRIT 25.3 % (36.0-47.0); HEMOGLOBIN 8.4 g/dL (12.0-15.5); MEAN CORPUSCULAR HEMOGLOBIN 28.7 pg (27.0-33.4); MEAN CORPUSCULAR HGB CONC 33.2 g/dL (32.0-36.0); MEAN CORPUSCULAR VOLUME 86 fl (80-97); PLATELET COUNT 166 10^3/uL (150-450); RED BLOOD COUNT 2.93 10^6/uL (3.72-5.28); RED CELL DISTRIBUTION WIDTH 16.7 % (11.5-14.0); WHITE BLOOD COUNT 4.5 10^3/uL (4.0-10.5)
[2017-09-28 06:57] LABS: ANION GAP 8 (5-19); BLOOD UREA NITROGEN 13 mg/dL (7-20); CALCIUM 8.5 mg/dL (8.4-10.2); CARBON DIOXIDE 24 mmol/L (22-30); CHLORIDE 110 mmol/L (98-107); GLUCOSE 119 mg/dL (75-110); POTASSIUM 3.4 mmol/L (3.6-5.0); SODIUM 142.2 mmol/L (137-145)
[2017-09-28] MEDS ORDERED: NORMAL SALINE 1000 ML 1,000 ML IV PRN (08:01)
[2017-09-28] MEDS: AMLODIPINE BESYLATE 10 MG TABLET PO SCH (08:20)
[2017-09-28] MEDS: METOPROLOL TARTRATE 25 MG TABLET PO SCH ×2 (08:20→22:38)
[2017-09-28] MEDS: SERTRALINE HCL 50 MG TABLET PO SCH (09:02)
[2017-09-28] MEDS: GABAPENTIN 300 MG CAPSULE PO SCH ×2 (09:02→22:39)
[2017-09-28] MEDS: NORMAL SALINE 10 ML SDV (SCHEDULED) IV SCH ×2 (09:03→22:50)
[2017-09-28] MEDS ORDERED: LISINOPRIL 10 MG TABLET PO SCH (10:00)
[2017-09-28] MEDS ORDERED: AMLODIPINE BESYLATE 5 MG TABLET PO SCH (10:00)
[2017-09-28] MEDS: HYDROXYZINE HCL 10 MG TABLET PO PRN ×2 (11:50→20:23)
[2017-09-28] MEDS ORDERED: POTASSIUM CHLORIDE 20 MEQ/15 ML UDCUP PO ONE (12:30)
[2017-09-28] MEDS ORDERED: CLONIDINE HCL 0.1 MG TABLET PO ONE (13:30)
--- NOTE | 2017-09-28 21:08 | PDOC PROGRESS REPORT ---
<MARISAISABELLA A - Last Filed: 09/28/17 21:01> Subjective Progress Note for:: 09/28/17 Subjective:: SHAKA GOMEZ is a 77 year old female who presented with AMS secondary to metabolic acidosis stemming from poor PO intake, dehydration, and loose watery stool. PMH includes hypertension, hyperlipidemia, coronary artery disease and history of colon cancer and she is status post total colectomy and colostomy placement. The patient was seen this morning on rounds, she is resting comfortably in bed on room air. She is arousable and answers most questions appropriately (person, location), she is otherwise confused about why she is at the hospital. According to her son she is normally independent and able to care for herself. This morning, the patient's blood pressure was elevated (SBP 170s), however it' s an improvement from yesterday. Her BID metoprolol dose was increased last night, as well as her daily lisinopril dose. Looking back through her old records, it appears the patient was prescribed amlodipine upon discharge from [facility] 06/17/2017 but it is not currently listed as a home medication. The patient states she would check her BP at home and "didn't think she needed to take" the amlodipine. Reason For Visit: ALTERED MENTAL STATUS, JES ON CKD, Physical Exam Vital Signs: Temp Pulse Resp BP Pulse Ox 98.0 F 55 L 22 H 167/78 H 100 09/28/17 19:59 09/28/17 19:59 09/28/17 19:59 09/28/17 19:59 09/28/17 19:59 Intake & Output 09/27/17 09/28/17 09/29/17 06:59 06:59 06:59 Intake Total 3409 3171 1944 Output Total 700 600 600 Balance 7829 7981 1344 Weight 49 kg 47.8 kg General appearance: PRESENT: no acute distress Eye exam: PRESENT: conjunctiva pink, PERRLA Mouth exam: PRESENT: moist Neck exam: PRESENT: full ROM Respiratory exam: PRESENT: clear to auscultation yamilet, symmetrical, unlabored Cardiovascular exam: PRESENT: +S1, +S2 Pulses: PRESENT: normal radial pulses, normal dorsalis pedis pul GI/Abdominal exam: PRESENT: soft, other - +ILEOSTOMY DRAINING LIQUID BROWN STOOL. ABSENT: tenderness Rectal exam: PRESENT: deferred Extremities exam: PRESENT: full ROM Musculoskeletal exam: PRESENT: ambulatory, full ROM Neurological exam: PRESENT: alert, awake, oriented to person, oriented to place. ABSENT: oriented to time, oriented to situation Psychiatric exam: PRESENT: appropriate affect Skin exam: PRESENT: dry, intact, normal color Results Laboratory Results: 09/28/17 05:30 09/28/17 05:30 18 09/28/17 05:30 05:30 WBC 4.5 RBC 2.93 L Hgb 8.4 L Hct 25.3 L MCV 86 MCH 28.7 MCHC 33.2 RDW 16.7 H Plt Count 166 Sodium 142.2 Potassium 3.4 L Chloride 110 H Carbon Dioxide 24 Anion Gap 8 BUN 13 Creatinine 1.04 Est GFR ( Amer) > 60 Est GFR (Non-Af Amer) 52 L Glucose 119 H Calcium 8.5 Impressions: Chest X-Ray 09/24/17 22:16 IMPRESSION: NO ACUTE CARDIOPULMONARY PROCESS. NO SIGNIFICANT CHANGE FROM PRIOR STUDY. Guidance Fluoroscopy 09/25/17 00:00 IMPRESSION: SUCCESSFUL PLACEMENT OF A 5 FR DUAL LUMEN 38 CM PICC IN THE LEFT BASILIC VEIN. Interventional Vascular Procedure 09/25/17 00:00 IMPRESSION: SUCCESSFUL PLACEMENT OF A 5 FR DUAL LUMEN 38 CM PICC IN THE LEFT BASILIC VEIN. PICC Line Insertion 09/25/17 00:00 IMPRESSION: SUCCESSFUL PLACEMENT OF A 5 FR DUAL LUMEN 38 CM PICC IN THE LEFT BASILIC VEIN. Head CT 09/25/17 02:34 IMPRESSION: 1. No acute intracranial abnormality by CT criteria. This exam was performed according to our departmental dose-optimization program, which includes automated exposure control, adjustment of the mA and/or kV according to patient size and/or use of iterative reconstruction technique. Status: Imported from PACS Assessment & Plan - Diagnosis (1) Metabolic acidosis Is this a current diagnosis for this admission?: Yes Plan: Resolved. pH 7.1 -> 7.4 Secondary to dehydration likely stemming from diarrhea. Stool output in colostomy bag is liquid brown. Initially rehydrated with Bicarb D5W, acidosis improving so switched to NS. Patient's p.o. intake remains poor, requires quite a bit of encouragement, but she is tolerating food/water. Continue IVF but decrease rate from 100mL/hr to 50mL/hr. (2) Dehydration Is this a current diagnosis for this admission?: Yes Plan: Resolved. Dehydration as evidence by elevated BUN and JES (Cr 1.65) stemming from diarrhea, malabsorption symdrome, poor PO intake BUN (13) and creatinine (1.04) continue to improve today Stool negative for C.diff. Patient's p.o. intake remains poor, requires quite a bit of encouragement Continue IVF hydration, evaluate chemistry in AM. (3) Altered mental status QualifierTitle: Altered mental status type: disorientation Qualified Code (s): R41.0 - Disorientation, unspecified Is this a current diagnosis for this admission?: Yes Plan: Improving, she is now A&O x 2 (person, location), occasionally oriented to year. Likely secondary to mild dementia exacerbated by metabolic acidosis stemming from poor PO intake, malabsorption, and diarrhea. Head CT negative The patient is not taking any new medications that would result in AMS No signs of active infection to account for confusion Plan for rehydration, correction of metabolic acidosis, and encourage PO intake (4) Hypertension QualifierTitle: Hypertension type: essential hypertension Qualified Code( s): I10 - Essential (primary) hypertension Is this a current diagnosis for this admission?: Yes Plan: Patient has become increasingly hypertensive over the last 48 hours, this morning her SBP was 170s (previously 190s). Spoke with Dr. Riggs of cardiology, who did not recommend echocardiogram, simply to treat the hypertension. Son endorses a history of HTN Patient was prescribed Norvasc upon discharge from [facility] on 06/17/2017, but was non- compliant with therapy because she "felt she didn't need" the medication. Has not seen her PMD since her last hospital discharge in June. Continue Norvasc 5mg daily Continue metoprolol 25 mg twice daily Inititate lisinopril 20mg BID PRN IV Hydralazine PRN IV Lopressor - Time Time Spent with patient: 15-24 minutes Smoking Cessation Education: 3 to 10 minutes Anticipated discharge: Home - Inpatient Certification Based on my medical assessment, after consideration of the patient's comorbidities, presenting symptoms, or acuity I expect that the services needed warrant INPATIENT care.: Yes I certify that my determination is in accordance with my understanding of Medicare's requirements for reasonable and necessary INPATIENT services [42 CFR 412.3e].: Yes Medical Necessity: Risk of Complication if Not Cared For in Hospital - Plan Summary Plan Summary: PLAN FOR BP CONTROL TODAY/TONIGHT WITH [facility], LIKELY D/C TOMORROW <AMADOUSEPTEMBER C - Last Filed: 09/29/17 15:22> Subjective Reason For Visit: ALTERED MENTAL STATUS, JES ON CKD, Physical Exam Vital Signs: Temp Pulse Resp BP Pulse Ox 97.4 F 64 16 154/67 H 95 09/29/17 12:19 09/29/17 14:00 09/29/17 12:19 09/29/17 12:19 09/29/17 12:19 Intake & Output 09/28/17 09/29/17 09/30/17 06:59 06:59 06:59 Intake Total 3171 2759 100 Output Total 600 700 Balance 2571 2059 100 Weight 47.8 kg 49 kg Results Laboratory Results: 09/29/17 04:45 09/29/17 04:45 09/29/17 09/29/17 04:45 04:45 WBC 6.7 RBC 3.34 L Hgb 9.6 L Hct 29.1 L MCV 87 MCH 28.6 MCHC 32.9 RDW 16.4 H Plt Count 208 Sodium 144.3 Potassium 3.9 Chloride 111 H Carbon Dioxide 24 Anion Gap 9 BUN 12 Creatinine 1.00 Est GFR ( Amer) > 60 Est GFR (Non-Af Amer) 54 L Glucose 120 H Calcium 9.4 Phosphorus 3.2 Magnesium 1.5 L Impressions: Chest X-Ray 09/24/17 22:16 IMPRESSION: NO ACUTE CARDIOPULMONARY PROCESS. NO SIGNIFICANT CHANGE FROM PRIOR STUDY. Guidance Fluoroscopy 09/25/17 00:00 IMPRESSION: SUCCESSFUL PLACEMENT OF A 5 FR DUAL LUMEN 38 CM PICC IN THE LEFT BASILIC VEIN. Interventional Vascular Procedure 09/25/17 00:00 IMPRESSION: SUCCESSFUL PLACEMENT OF A 5 FR DUAL LUMEN 38 CM PICC IN THE LEFT BASILIC VEIN. PICC Line Insertion 09/25/17 00:00 IMPRESSION: SUCCESSFUL PLACEMENT OF A 5 FR DUAL LUMEN 38 CM PICC IN THE LEFT BASILIC VEIN. Head CT 09/25/17 02:34 IMPRESSION: 1. No acute intracranial abnormality by CT criteria. This exam was performed according to our departmental dose-optimization program, which includes automated exposure control, adjustment of the mA and/or kV according to patient size and/or use of iterative reconstruction technique. Assessment & Plan - Plan Summary Plan Summary: Co signing the note for Isabella Sam NP.
[2017-09-28] MEDS: CLONAZEPAM 1 MG TABLET PO PRN (22:37)
[2017-09-28] MEDS: DONEPEZIL HCL 5 MG TABLET PO SCH (22:39)
[2017-09-28] MEDS: LISINOPRIL 10 MG TABLET PO SCH (22:39)
[2017-09-28] MEDS: HYDRALAZINE HCL INJ/PF 20 MG/1 ML SDV IV PRN (23:58)
[2017-09-29 05:18] LABS: HEMATOCRIT 29.1 % (36.0-47.0); HEMOGLOBIN 9.6 g/dL (12.0-15.5); MEAN CORPUSCULAR HEMOGLOBIN 28.6 pg (27.0-33.4); MEAN CORPUSCULAR HGB CONC 32.9 g/dL (32.0-36.0); MEAN CORPUSCULAR VOLUME 87 fl (80-97); PLATELET COUNT 208 10^3/uL (150-450); RED BLOOD COUNT 3.34 10^6/uL (3.72-5.28); RED CELL DISTRIBUTION WIDTH 16.4 % (11.5-14.0); WHITE BLOOD COUNT 6.7 10^3/uL (4.0-10.5)
[2017-09-29] MEDS: LANSOPRAZOLE 30 MG TAB.RAP.DR PO SCH (05:31)
[2017-09-29] MEDS: HEPARIN SOD (PORCINE) 5,000 UNIT/ML 1 ML SYRINGE SUBCUT SCH ×2 (05:33→13:47)
[2017-09-29 05:44] LABS: ANION GAP 9 (5-19); BLOOD UREA NITROGEN 12 mg/dL (7-20); CALCIUM 9.4 mg/dL (8.4-10.2); CARBON DIOXIDE 24 mmol/L (22-30); CHLORIDE 111 mmol/L (98-107); GLUCOSE 120 mg/dL (75-110); PHOSPHORUS 3.2 mg/dL (2.5-4.5); POTASSIUM 3.9 mmol/L (3.6-5.0); SODIUM 144.3 mmol/L (137-145)
[2017-09-29] MEDS: HYDROXYZINE HCL 10 MG TABLET PO PRN (06:46)
[2017-09-29] MEDS: HYDRALAZINE HCL INJ/PF 20 MG/1 ML SDV IV PRN (08:31)
[2017-09-29] MEDS: GABAPENTIN 300 MG CAPSULE PO SCH (10:27)
[2017-09-29] MEDS: SERTRALINE HCL 50 MG TABLET PO SCH (10:27)
[2017-09-29] MEDS: AMLODIPINE BESYLATE 10 MG TABLET PO SCH (10:27)
[2017-09-29] MEDS: LISINOPRIL 10 MG TABLET PO SCH (10:28)
[2017-09-29] MEDS: METOPROLOL TARTRATE 25 MG TABLET PO SCH (10:28)
[2017-09-29] MEDS: NORMAL SALINE 10 ML SDV (SCHEDULED) IV SCH (10:29)
[2017-09-29] MEDS: CLONAZEPAM 1 MG TABLET PO PRN (10:42)
[2017-09-29] MEDS ORDERED: CLONIDINE HCL 0.1 MG TABLET PO SCH (14:00)
[2017-09-29 16:17] VITALS: BP 151/67
--- NOTE | 2017-09-29 16:43 | PDOC DISCHARGE SUMMARY ---
General - Admit/Disc Date/PCP Admission Date/Primary Care Provider: 09/25/17 03:50 Discharge Date: 09/29/17 - Discharge Diagnosis (1) Altered mental status Is this a current diagnosis for this admission?: Yes Summary: Resolved. Secondary to metabolic acidosis and dehydration in the setting of dementia. The patient is now alert oriented to person and location, occasionally the year, and is reported to be at her baseline mental status per family member. Head CT was negative. No evidence of infectious process as a contributing cause of increased confusion ; afebrile with a normal white count. (2) Dehydration Is this a current diagnosis for this admission?: Yes Summary: Resolved. Dehydration was evidenced by an elevated BUN and AK I (creatinine 1.65) on admission related to diarrhea, malabsorption syndrome, and poor p.o. intake. Stool was negative for C. difficile. She received IV fluid rehydration. She continues to require encouragement for p.o. intake. This is likely related to her advanced dementia and will be an ongoing issue. At time of discharge, the patient's BUN is 12 and her creatinine is 1.00 (3) Hypertension Is this a current diagnosis for this admission?: Yes Summary: The patient has been persistently hypertensive throughout this admission with blood pressure elevated to 187/73. Cardiology was consulted; Dr. Riggs did not recommend echocardiogram at this time. Review of previous hospital admission demonstrates that the patient was noncompliant with antihypertensives at that time. She has not followed up with her primary care provider since her time of discharge in June. The patient was placed on Norvasc 10 mg daily, metoprolol 25 mg twice daily, and lisinopril 20 mg twice daily with resultant improvement in blood pressures, however, she remained hypertensive. Therefore, the patient was started on clonidine 0.1 mg 3 times daily with improved blood pressure control. At time of discharge, the patient's blood pressure is 151/67 with a heart rate of 61. She is agreeable to home health nursing to assist with disease management and medication compliance. (4) Metabolic acidosis Is this a current diagnosis for this admission?: Yes Summary: Resolved; secondary to dehydration resulting from poor p.o. intake and diarrhea. She was initially rehydrated with bicarb D5W and as acidosis improved was switched to normal saline. The patient's p.o. intake remains poor and she does require encouraging, however she is tolerating food and water without abdominal pain, nausea, and increased diarrhea. - Additional Information Resuscitation Status: Full Code Discharge Diet: Regular Discharge Activity: Activity As Tolerated, Balance Activity w/Rest Prescriptions: Amlodipine Besylate [Norvasc 10 mg Tablet] 10 mg PO DAILY #30 tablet Clonidine HCl [Catapres 0.1 mg Tablet] 0.1 mg PO Q8 #90 tablet Home Medications: Clonazepam [Klonopin] 0.5 mg PO Q12HP PRN 09/25/17 Dicyclomine HCl [Bentyl 20 mg Tablet] 20 mg PO Q6HP PRN 09/25/17 Diphenoxylate HCl/Atrop Sulf [Lomotil 2.5 mg Tablet] 2 tab PO QIDP PRN 09/25/17 Ergocalciferol (Vitamin D2) [Drisdol 50,000 unit (1.25MG) Capsule] 50,000 unit PO BINGHAM@1000 09/25/17 Gabapentin [Neurontin 300 mg Capsule] 300 mg PO Q12 09/25/17 Hydroxyzine HCl [Atarax 25 mg Tablet] 50 mg PO Q4HP PRN 09/25/17 Ibuprofen [Motrin 800 mg Tablet] 800 mg PO Q8HP PRN 09/25/17 Promethazine HCl [Phenergan 25 mg Tablet] 25 mg PO Q12HP PRN 09/25/17 Ramelteon [Rozerem] 8 mg PO HSP PRN 09/25/17 Sertraline HCl [Zoloft] 100 mg PO DAILY 09/25/17 Tizanidine HCl [Zanaflex 4 mg Tablet] 4 mg PO QHS 09/25/17 Acetaminophen [Tylenol 325 mg Tablet] 650 mg PO Q4HP PRN tablet 09/29/17 Amlodipine Besylate [Norvasc 10 mg Tablet] 10 mg PO DAILY #30 tablet 09/29/17 Clonidine HCl [Catapres 0.1 mg Tablet] 0.1 mg PO Q8 #90 tablet 09/29/17 Donepezil HCl [Aricept] 10 mg PO QHS #0 09/29/17 Lisinopril [Prinivil 10 mg Tablet] 20 mg PO Q12 tablet 09/29/17 Metoprolol Tartrate [Lopressor 25 mg Tablet] 25 mg PO Q12 tablet 09/29/17 History of Present Illness History of Present Illness: Per H&P by Dr. Ray: SHAKA GOMEZ is a 77 year old female patient brought by her son for acute confusional state. Due to her altered mental status patient is not source of history. History is obtained from the ER attending note and her son who lives with her. Her son reports this patient has been confused and she has decreased appetite and poor oral intake. At her baseline patient is independent for her activities of daily living but the last 3 days patient has decreased activity. There is report of dysuria and cough. No chills, fever, chest pain or palpitation. Past medical history significant for hypertension, hyperlipidemia, coronary artery disease and history of colon cancer and she is status post total colectomy and colostomy placement. Her son states, output from colostomy is normal. Her initial labs shows pH of 7.1 bicarb of 11 and creatinine of 1.88 higher than her baseline creatinine. Further detailed history and review of systems unobtainable. Hospital Course Hospital Course: The patient was admitted with altered mental status related to metabolic acidosis and dehydration. She was provided IV fluid hydration and is now tolerating p.o. fluids. Stool was negative for C. difficile. The patient was also hypertensive requiring multiple antihypertensive medications; she is discharged on amlodipine, lisinopril, metoprolol, and clonidine. She is strongly advised to follow-up with her primary care provider within 1 week of discharge. She is agreeable to home health nursing, physical therapy, and occupational therapy which hopefully will improve her compliance with medication regiment. At time of discharge, the patient is in stable condition, maintaining oxygen saturations on room air, and at her baseline mental status. Blood pressure at time of discharge is 151/67 with a HR of 61. Physical Exam Vital Signs: Temp Pulse Resp BP Pulse Ox 97.3 F 61 20 151/67 H 97 09/29/17 15:40 09/29/17 15:40 09/29/17 15:40 09/29/17 15:40 09/29/17 15:40 Intake & Output 09/28/17 09/29/17 09/30/17 06:59 06:59 06:59 Intake Total 3171 2759 100 Output Total 600 700 Balance 2571 2059 100 Weight 47.8 kg 49 kg General appearance: PRESENT: no acute distress, cooperative, thin, well- developed, well-nourished Head exam: PRESENT: atraumatic, normocephalic Eye exam: PRESENT: conjunctiva pink, EOMI, PERRLA. ABSENT: scleral icterus Ear exam: PRESENT: normal external ear exam Mouth exam: PRESENT: moist, tongue midline Neck exam: ABSENT: carotid bruit, JVD, lymphadenopathy, thyromegaly Respiratory exam: PRESENT: clear to auscultation yamilet, symmetrical, unlabored. ABSENT: rales, rhonchi, wheezes Cardiovascular exam: PRESENT: RRR, +S1, +S2. ABSENT: diastolic murmur, rubs, systolic murmur Pulses: PRESENT: normal dorsalis pedis pul Vascular exam: PRESENT: normal capillary refill GI/Abdominal exam: PRESENT: normal bowel sounds, soft, other - Ileostomy draining brown liquid stools. ABSENT: distended, guarding, mass, organolmegaly , rebound, tenderness Rectal exam: PRESENT: deferred Extremities exam: PRESENT: full ROM. ABSENT: calf tenderness, clubbing, pedal edema Neurological exam: PRESENT: alert, awake, oriented to person, oriented to place , CN II-XII grossly intact, other - At baseline per family member. ABSENT: oriented to time, oriented to situation, motor sensory deficit Psychiatric exam: PRESENT: appropriate affect, normal mood. ABSENT: homicidal ideation, suicidal ideation Skin exam: PRESENT: dry, intact, warm. ABSENT: cyanosis, rash Results Laboratory Results: 09/29/17 04:45 09/29/17 04:45 09/29/17 09/29/17 04:45 04:45 WBC 6.7 RBC 3.34 L Hgb 9.6 L Hct 29.1 L MCV 87 MCH 28.6 MCHC 32.9 RDW 16.4 H Plt Count 208 Sodium 144.3 Potassium 3.9 Chloride 111 H Carbon Dioxide 24 Anion Gap 9 BUN 12 Creatinine 1.00 Est GFR ( Amer) > 60 Est GFR (Non-Af Amer) 54 L Glucose 120 H Calcium 9.4 Phosphorus 3.2 Magnesium 1.5 L Impressions: Chest X-Ray 09/24/17 22:16 IMPRESSION: NO ACUTE CARDIOPULMONARY PROCESS. NO SIGNIFICANT CHANGE FROM PRIOR STUDY. Guidance Fluoroscopy 09/25/17 00:00 IMPRESSION: SUCCESSFUL PLACEMENT OF A 5 FR DUAL LUMEN 38 CM PICC IN THE LEFT BASILIC VEIN. Interventional Vascular Procedure 09/25/17 00:00 IMPRESSION: SUCCESSFUL PLACEMENT OF A 5 FR DUAL LUMEN 38 CM PICC IN THE LEFT BASILIC VEIN. PICC Line Insertion 09/25/17 00:00 IMPRESSION: SUCCESSFUL PLACEMENT OF A 5 FR DUAL LUMEN 38 CM PICC IN THE LEFT BASILIC VEIN. Head CT 09/25/17 02:34 IMPRESSION: 1. No acute intracranial abnormality by CT criteria. This exam was performed according to our departmental dose-optimization program, which includes automated exposure control, adjustment of the mA and/or kV according to patient size and/or use of iterative reconstruction technique. Qualifiers - * PATIENT BEING DISCHARGED WITH ANY OF THE FOLLOWING DIAGNOSIS: No Plan Discharge Plan: Discharge to home with home health nursing, physical therapy, and Occupational Therapy. Recommend follow-up with primary care provider within 1 week. Time Spent: Less than 30 Minutes
== END 2017-09-29 17:20 | disposition home health service (06) | DRG 641 ==
LOC: ER 21:44 → EH 09-25 03:50 → 3W 09-25 05:41
PROVIDERS: ADMIT Internal Medicine; ATTEND Internal Medicine
PROC: 02HV33Z Insertion of Infusion Device into Superior Vena Cava, Percutaneous Approach (ICD-10-PCS; principal; 2017-09-25)
PROC: B548ZZA Ultrasonography of Superior Vena Cava, Guidance (ICD-10-PCS; 2017-09-25)
DX: E87.2 Acidosis (principal); N17.9 Acute kidney failure, unspecified; K90.9 Intestinal malabsorption, unspecified; E86.0 Dehydration; N18.3 Chronic kidney disease, stage 3 (moderate); E78.5 Hyperlipidemia, unspecified; I12.9 Hypertensive chronic kidney disease with stage 1 through stage 4 chronic kidney disease, or unspecified chronic kidney disease; I25.10 Atherosclerotic heart disease of native coronary artery without angina pectoris; D64.9 Anemia, unspecified; F32.9 Major depressive disorder, single episode, unspecified; K21.9 Gastro-esophageal reflux disease without esophagitis; Z93.3 Colostomy status; Z85.038 Personal history of other malignant neoplasm of large intestine; Z92.21 Personal history of antineoplastic chemotherapy; Z90.49 Acquired absence of other specified parts of digestive tract; Z98.891 History of uterine scar from previous surgery; Z90.710 Acquired absence of both cervix and uterus; Z82.49 Family history of ischemic heart disease and other diseases of the circulatory system; Z82.61 Family history of arthritis; Z83.3 Family history of diabetes mellitus; Z79.899 Other long term (current) drug therapy; Z88.1 Allergy status to other antibiotic agents; Z88.8 Allergy status to other drugs, medicaments and biological substances; Z78.1 Physical restraint status
CPT/HCPCS: 36415; 36569; 70450; 71045; 76937; 77001; 80048; 80053; 81001; 82803; 82962; 83735; 84100; 84439; 84443; 84481; 84484; 85025; 85027; 93005; 93010; 96360; 99285; J0360; J1200; J1630; J1642; J1644; J2060; J3490; J7030; J7040; J7060

== ENCOUNTER 2018-05-24 14:38 | Emergency (ER) | payer MEDICARE, MEDICAID ==
[2018-05-24 14:56] VITALS: BP 133/67
--- NOTE | 2018-05-24 16:07 | ER Document Report ---
ED Medical Screen (RME) - General Chief Complaint: Urinary Problem Stated Complaint: PAINFUL URINATION Time Seen by Provider: 05/24/18 16:02 Mode of Arrival: Ambulatory Information source: Patient, Friend, [facility] Records Notes: This 77-year-old female patient comes emergency room complaining of a 2-day history of frequency and dysuria. She is a little confused, but her quarantine inspector with her states this is no different than her baseline. TRAVEL OUTSIDE OF THE [place] IN LAST 30 DAYS: No - Related Data Allergies/Adverse Reactions: ciprofloxacin [From Cipro] Allergy (Verified 05/24/18 15:43) diltiazem HCl [From Cardizem] Allergy (Verified 05/24/18 15:43) Unknown reaction ketorolac tromethamine [From Toradol] Allergy (Verified 05/24/18 15:43) levofloxacin [From Levaquin] Allergy (Verified 05/24/18 15:43) meperidine HCl [From Demerol] Allergy (Verified 05/24/18 15:43) nitrofurantoin macrocrystalline [From Macrodantin] Allergy (Verified 05/24/18 15:43) propoxyphene napsylate [From Darvocet-N 100] Allergy (Verified 05/24/18 15:43) sumatriptan [From Imitrex] Allergy (Verified 05/24/18 15:43) Past Medical History - General Information source: Patient, Friend - Social History Cigarette use (# per day): No - Unknown if ever smoked Chew tobacco use (# tins/day): No Frequency of alcohol use: None Drug Abuse: None Lives with: Family Family history: Reviewed & Not Pertinent - Past Medical History Cardiac Medical History: Reports: Hx Coronary Artery Disease, Hx Hypercholesterolemia, Hx Hypertension Neurological Medical History: Reports: Hx Migraine, Hx Seizures Renal/ Medical History: Reports: Hx Renal Insufficiency GI Medical History: Reports: Hx Gastroesophageal Reflux Disease, Hx Irritable Bowel, Hx Colonoscopy, Hx Endoscopy Musculoskeltal Medical History: Reports Hx Arthritis, Reports Hx Musculoskeletal Deformity, Reports Hx Musculoskeletal Trauma Psychiatric Medical History: Reports: Hx Depression Traumatic Medical History: Reports: Hx Fractures - left shoulder Past Surgical History: Reports: Hx Appendectomy, Hx Bowel Surgery - 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 bowel injury, Hx Section, Hx Cholecystectomy, Hx Coronary Artery Bypass Graft, Hx Hysterectomy, Hx Ileostomy, Hx Orthopedic Surgery - left shoulder x2, Hx Tonsillectomy - Immunizations Immunizations up to date: Yes Hx Diphtheria, Pertussis, Tetanus Vaccination: Yes - 2012 History of Influenza Vaccine for 02/2017 - 07/2017 Season: Refused Review of Systems - Review of Systems Constitutional: No symptoms reported EENT: No symptoms reported Cardiovascular: No symptoms reported Respiratory: No symptoms reported Gastrointestinal: No symptoms reported Genitourinary: See HPI, Burning, Dysuria, Frequency Female Genitourinary: Post menopausal Musculoskeletal: No symptoms reported Skin: No symptoms reported Hematologic/Lymphatic: No symptoms reported Neurological/Psychological: Confusion, Dementia Physical Exam - Vital signs Vitals: Temp Pulse Resp BP Pulse Ox 97.7 F 55 L 16 133/67 H 100 05/24/18 14:55 05/24/18 14:55 05/24/18 14:55 05/24/18 14:55 05/24/18 14:55 Interpretation: Normal - Notes Notes: PHYSICAL EXAMINATION: GENERAL: Well-appearing, well-nourished and in no acute distress. She does seem a little confused, but her quarantine inspector reports that she is at her baseline. HEAD: Atraumatic, normocephalic. EYES: Pupils equal round and reactive to light, extraocular movements intact, sclera anicteric, conjunctiva are normal. ENT: nares patent, oropharynx clear without exudates. Moist mucous membranes. NECK: Normal range of motion, supple without lymphadenopathy LUNGS: Breath sounds clear to auscultation bilaterally and equal. No wheezes rales or rhonchi. HEART: Regular rate and rhythm without murmurs ABDOMEN: Soft, minimal suprapubic tender, normoactive bowel sounds. No guarding, no rebound. No masses appreciated. EXTREMITIES: Normal range of motion, no pitting or edema. No cyanosis. NEUROLOGICAL: Cranial nerves grossly intact. Normal speech, normal gait. Normal sensory, motor, and reflex exams. PSYCH: Normal mood, normal affect. SKIN: Warm, Dry, normal turgor, no rashes or lesions noted. Course - Vital Signs Vital signs: Temp Pulse Resp BP Pulse Ox 97.7 F 55 L 16 133/67 H 100 05/24/18 14:55 05/24/18 14:55 05/24/18 15:39 05/24/18 14:55 05/24/18 14:55 - Laboratory Laboratory results interpreted by me: 05/24/18 16:31 Ur Leukocyte Esterase LARGE H Doctor's Discharge - Discharge Clinical Impression: Urinary tract infection Qualifiers: Urinary tract infection type: acute cystitis Hematuria presence: with hematuria Qualified Code(s): N30.01 - Acute cystitis with hematuria Condition: Stable Disposition: HOME, SELF-CARE Additional Instructions: Urinary Tract Infection Your evaluation indicates that you have a urinary tract infection. This is due to germs growing in the bladder. This is a common problem. This infection usually responds quickly to antibiotics. Your antibiotic should be taken exactly as prescribed. Drink plenty of fluids -- three to four quarts a day. Occasionally, a bladder anesthetic will be prescribed to help stop the feeling of urgency until the antibiotic has a chance to clear the infection. This may cause your urine to be dark orange. Certain urine infections require a culture. If the doctor obtained a culture, the results will be back in two days. You should call to see if a change in treatment is needed. A repeat urinalysis after you finish treatment is often recommended. The physician will let you know if further testing is required. Call the doctor if you develop fever, chills, flank pain, inability to urinate, or blood in the urine. Take the medication as prescribed. Drink plenty of fluids. Follow-up with your doctor this week if not improving. RETURN TO THE EMERGENCY ROOM IF ANY NEW OR WORSENING SYMPTOMS. Prescriptions: Cephalexin Monohydrate [Keflex 500 mg Capsule] 500 mg PO TID #15 capsule Phenazopyridine HCl [Pyridium 100 Mg Tablet] 100 mg PO Q8 #8 tablet
[2018-05-24 16:59] LABS: APPEARANCE,URINE SLIGHTLY-CLOUDY; BILIRUBIN,URINE NEGATIVE (NEGATIVE); COLOR,URINE YELLOW; GLUCOSE, URINE NEGATIVE (NEGATIVE); KETONES,URINE NEGATIVE (NEGATIVE); LEUKOCYTE ESTERASE,URINE LARGE (NEGATIVE); NITRITE,URINE NEGATIVE (NEGATIVE); PROTEIN,URINE NEGATIVE (NEGATIVE); URINE SPECIFIC GRAVITY 1.011; UROBILINOGEN,URINE NEGATIVE mg/dL (<2.0)
[2018-05-24] MEDS ORDERED: CEPHALEXIN 500 MG CAPSULE PO ONE (17:23)
[2018-05-24] MEDS ORDERED: PHENAZOPYRIDINE HCL 100 MG TABLET PO ONE (17:25)
== END 2018-05-24 18:07 | disposition home or self-care (01) ==
LOC: ER 14:38
DX: N30.01 Acute cystitis with hematuria (principal); R35.0 Frequency of micturition; R30.0 Dysuria; I25.10 Atherosclerotic heart disease of native coronary artery without angina pectoris; I10 Essential (primary) hypertension
CPT/HCPCS: 99283; 87086; 81001; A9270 ×2; J3490

== ENCOUNTER 2018-07-14 15:14 | Inpatient (IN) | payer MEDICARE, MEDICAID ==
--- NOTE | 2018-07-14 16:17 | ER Document Report ---
ED Medical Screen (RME) - General Chief Complaint: General Weakness Stated Complaint: WEAKNESS Time Seen by Provider: 07/14/18 16:16 Notes: 78-year-old female to emergency department for evaluation of generalized weakness. States that she was in the hospital recently in [place] for UTI but was discharged. Currently is on antibiotics. Keeps falling one side, no appetite. Getting weak. I have greeted and performed a rapid initial assessment of this patient. A comprehensive ED assessment and evaluation of the patient, analysis of test results and completion of the medical decision making process will be conducted by additional ED providers. TRAVEL OUTSIDE OF THE [place] IN LAST 30 DAYS: No - Related Data Allergies/Adverse Reactions: ciprofloxacin [From Cipro] Allergy (Verified 05/24/18 15:43) diltiazem HCl [From Cardizem] Allergy (Verified 05/24/18 15:43) Unknown reaction ketorolac tromethamine [From Toradol] Allergy (Verified 05/24/18 15:43) levofloxacin [From Levaquin] Allergy (Verified 05/24/18 15:43) meperidine HCl [From Demerol] Allergy (Verified 05/24/18 15:43) nitrofurantoin macrocrystalline [From Macrodantin] Allergy (Verified 05/24/18 15 :43) propoxyphene napsylate [From Darvocet-N 100] Allergy (Verified 05/24/18 15:43) sumatriptan [From Imitrex] Allergy (Verified 05/24/18 15:43) Past Medical History - Social History Family history: Reviewed & Not Pertinent - Past Medical History Cardiac Medical History: Reports: Hx Coronary Artery Disease, Hx Hypercholesterolemia, Hx Hypertension Pulmonary Medical History: Denies: Hx Tuberculosis Neurological Medical History: Reports: Hx Migraine, Hx Seizures Renal/ Medical History: Reports: Hx Renal Insufficiency. Denies: Hx Peritoneal Dialysis GI Medical History: Reports: Hx Gastroesophageal Reflux Disease, Hx Irritable Bowel, Hx Colonoscopy, Hx Endoscopy Musculoskeltal Medical History: Reports Hx Arthritis, Reports Hx Musculoskeletal Deformity, Reports Hx Musculoskeletal Trauma Psychiatric Medical History: Reports: Hx Depression Traumatic Medical History: Reports: Hx Fractures - left shoulder Past Surgical History: Reports: Hx Appendectomy, Hx Bowel Surgery - 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 bowel injury, Hx Section, Hx Cholecystectomy, Hx Coronary Artery Bypass Graft, Hx Hysterectomy, Hx Ileostomy, Hx Orthopedic Surgery - left shoulder x2, Hx Tonsillectomy - Immunizations Immunizations up to date: Yes Hx Diphtheria, Pertussis, Tetanus Vaccination: Yes - 2012 History of Influenza Vaccine for 02/2017 - 07/2017 Season: Refused Physical Exam - Vital signs Vitals: Temp Pulse Resp BP Pulse Ox 98.0 F 95 20 130/61 H 100 07/14/18 15:21 07/14/18 15:21 07/14/18 15:21 07/14/18 15:21 07/14/18 15:21 Course - Vital Signs Vital signs: Temp Pulse Resp BP Pulse Ox 98.0 F 95 20 130/61 H 100 07/14/18 15:21 07/14/18 15:21 07/14/18 15:21 07/14/18 15:21 07/14/18 15:21
[2018-07-14 18:34] LABS: ABSOLUTE EOSINOPHILS # (AUTO) 0.1 10^3/uL (0.0-0.6); ABSOLUTE LYMPHOCYTES (AUTO) 0.6 10^3/uL (0.5-4.7); ABSOLUTE MONOCYTES (AUTO) 0.5 10^3/uL (0.1-1.4); BASOPHILS % (AUTO) 0.3 % (0-2); EOSINOPHILS % (AUTO) 1.1 % (0-6); HEMATOCRIT 29.1 % (36.0-47.0); HEMOGLOBIN 9.4 g/dL (12.0-15.5); LYMPHOCYTES % (AUTO) 8.2 % (13-45); MEAN CORPUSCULAR HEMOGLOBIN 28.9 pg (27.0-33.4); MEAN CORPUSCULAR HGB CONC 32.2 g/dL (32.0-36.0); MEAN CORPUSCULAR VOLUME 90 fl (80-97); MONOCYTES % (AUTO) 6.6 % (3-13); PLATELET COUNT 186 10^3/uL (150-450); RED BLOOD COUNT 3.24 10^6/uL (3.72-5.28); SEGMENTED NEUTROPHILS % (AUTO) 83.8 % (42-78); TOTAL CELLS COUNTED % (AUTO) 100 %; WHITE BLOOD COUNT 7.2 10^3/uL (4.0-10.5)
[2018-07-14 19:09] LABS: ALANINE AMINOTRANSFERASE 23 U/L (9-52); ALBUMIN 3.9 g/dL (3.5-5.0); ALKALINE PHOSPHATASE 97 U/L (38-126); ANION GAP 13 (5-19); ASPARTATE AMINO TRANSFERASE 29 U/L (14-36); BILIRUBIN,TOTAL 0.3 mg/dL (0.2-1.3); BLOOD UREA NITROGEN 44 mg/dL (7-20); CALCIUM 8.8 mg/dL (8.4-10.2); CARBON DIOXIDE 13 mmol/L (22-30); CHLORIDE 117 mmol/L (98-107); GLUCOSE 85 mg/dL (75-110); POTASSIUM 4.5 mmol/L (3.6-5.0); SODIUM 143.2 mmol/L (137-145); TOTAL PROTEIN 6.5 g/dL (6.3-8.2)
[2018-07-14 20:44] LABS: APPEARANCE,URINE CLEAR; BILIRUBIN,URINE NEGATIVE (NEGATIVE); GLUCOSE, URINE NEGATIVE (NEGATIVE); KETONES,URINE NEGATIVE (NEGATIVE); LEUKOCYTE ESTERASE,URINE TRACE (NEGATIVE); NITRITE,URINE POSITIVE (NEGATIVE); PROTEIN,URINE NEGATIVE (NEGATIVE); URINE SPECIFIC GRAVITY 1.009
[2018-07-14 20:46] LABS: COLOR,URINE YELLOW
[2018-07-14] MEDS ORDERED: NORMAL SALINE 1000 ML 500 ML IV ONE (21:08)
[2018-07-14] MEDS ORDERED: CEFTRIAXONE 1 GM/D5W RTU 1 GM/50 ML RTUPB IV ONE (21:55)
--- NOTE | 2018-07-14 22:30 | RADIOLOGY REPORT (SQ) ---
EXAM DESCRIPTION: CT ABDOMEN PELVIS WITHOUT IV CONTRAST COMPLETED DATE/TME: 07/14/2018 21:07 CLINICAL HISTORY: 78 years, Female, pain. COMPARISON: 11/23/2016 CT TECHNIQUE: [id number] Images stored on PACS. All CT scanners at this facility use dose modulation, iterative reconstruction, and/or weight based dosing when appropriate to reduce radiation dose to as low as reasonably achievable (ALARA). [facility]: Dose Right [facility]: CareDose [facility]: Dose Right [facility]: Teradose 4D [facility]: [employer] LIMITATIONS: None. FINDINGS: Limited evaluation of the lung bases demonstrates areas of scarring and bronchiectasis within the left lung base. Subsegmental atelectasis bilaterally. Thick-walled, distended appearance to the distal esophagus/proximal stomach with surgical clips in the posterior mediastinum. Correlate with surgical history. Limited evaluation of the liver, spleen, adrenal glands, pancreas, kidneys is unremarkable. There is a hyperdense 5 x 5 mm nodular focus of the left kidney likely reflecting hyperdense/proteinaceous left renal cyst. Status post cholecystectomy. Moderate atheromatous changes. Right lower quadrant ostomy. No gross evidence for bowel obstruction. No free air or free fluid. Osseous structures of the abdomen/pelvis are grossly intact. IMPRESSION: Distended appearance to the distal esophagus/GE junction which has a thick-walled appearance as before. Multiple surgical clips. Correlate with surgical history. Fibrotic changes with bronchiectasis in the left lung base. Scarring in each lung base. Right lower quadrant ostomy. No gross evidence for bowel obstruction. 5 mm hyperdense left renal cyst. TECHNICAL DOCUMENTATION: Quality ID # [id number]: Final reports with documentation of one or more dose reduction techniques (e.g., Automated exposure control, adjustment of the mA and/or kV according to patient size, use of iterative reconstruction technique) copyright 2010 [employer]- All Rights Reserved
[2018-07-14] MEDS ORDERED: MAGNESIUM HYDROXIDE SUSP 30 ML UDCUP PO PRN (22:48)
[2018-07-14] MEDS ORDERED: ONDANSETRON 4 MG TAB.RAPDIS PO PRN (22:48)
[2018-07-14] MEDS ORDERED: MAG HYDROX/AL HYDROX/SIMETH SUSP 30 ML UDCUP PO PRN (22:48)
[2018-07-14] MEDS ORDERED: ONDANSETRON HCL INJ/PF 4 MG/2 ML SDV IV PRN (22:48)
--- NOTE | 2018-07-14 22:48 | ER Document Report ---
ED General - General Chief Complaint: General Weakness Stated Complaint: WEAKNESS Time Seen by Provider: 07/14/18 16:16 Notes: Patient is a 78-year-old female presents to the emergency department with her son chief complaint weakness, G, "not acting herself." Son states the patient was recently diagnosed with a urinary tract infection at [facility] 2 days ago. States she was given a dose of Rocephin and also prescribed Bactrim. Son states the patient has been taking her medications as prescribed but he feels as though she is not getting any better so they present to the emergency room. Patient is conscious alert and oriented x4 and currently denying all complaints. Patient does have a colonoscopy bag which has been placed "so many years ago." States it was due to a bowel obstruction. TRAVEL OUTSIDE OF THE [place] IN LAST 30 DAYS: No - Related Data Allergies/Adverse Reactions: ciprofloxacin [From Cipro] Allergy (Verified 05/24/18 15:43) diltiazem HCl [From Cardizem] Allergy (Verified 05/24/18 15:43) Unknown reaction ketorolac tromethamine [From Toradol] Allergy (Verified 05/24/18 15:43) levofloxacin [From Levaquin] Allergy (Verified 05/24/18 15:43) meperidine HCl [From Demerol] Allergy (Verified 05/24/18 15:43) nitrofurantoin macrocrystalline [From Macrodantin] Allergy (Verified 05/24/18 15:43) propoxyphene napsylate [From Darvocet-N 100] Allergy (Verified 05/24/18 15:43) sumatriptan [From Imitrex] Allergy (Verified 05/24/18 15:43) Past Medical History - General Information source: Patient - Social History Smoking Status: Never Smoker Family History: Arthritis, CAD, DM, Hyperlipidemia, Hypertension Patient has suicidal ideation: No Patient has homicidal ideation: No - Past Medical History Cardiac Medical History: Reports: Hx Coronary Artery Disease, Hx Hypercholesterolemia, Hx Hypertension Pulmonary Medical History: Denies: Hx Tuberculosis Neurological Medical History: Reports: Hx Migraine, Hx Seizures Renal/ Medical History: Reports: Hx Renal Insufficiency. Denies: Hx Peritoneal Dialysis GI Medical History: Reports: Hx Gastroesophageal Reflux Disease, Hx Irritable Bowel, Hx Colonoscopy, Hx Endoscopy Musculoskeletal Medical History: Reports Hx Arthritis, Reports Hx Musculoskeletal Deformity, Reports Hx Musculoskeletal Trauma Psychiatric Medical History: Reports: Hx Depression Traumatic Medical History: Reports: Hx Fractures - left shoulder Past Surgical History: Reports: Hx Appendectomy, Hx Bowel Surgery - 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 bowel injury, Hx Section, Hx Cholecystectomy, Hx Coronary Artery Bypass Graft, Hx Hysterectomy, Hx Ileostomy, Hx Orthopedic Surgery - left shoulder x2, Hx Tonsillectomy - Immunizations Immunizations up to date: Yes Hx Diphtheria, Pertussis, Tetanus Vaccination: Yes - 2012 Hx Pneumococcal Vaccination: 05/11/11 Review of Systems - Review of Systems Constitutional: See HPI, Weakness. denies: Fever EENT: No symptoms reported Cardiovascular: No symptoms reported Respiratory: No symptoms reported Gastrointestinal: No symptoms reported. denies: Vomiting Genitourinary: No symptoms reported Female Genitourinary: No symptoms reported Musculoskeletal: No symptoms reported Skin: No symptoms reported Hematologic/Lymphatic: No symptoms reported Neurological/Psychological: See HPI Physical Exam - Vital signs Vitals: Temp Pulse Resp BP Pulse Ox 98.0 F 95 20 130/61 H 100 07/14/18 15:21 07/14/18 15:21 07/14/18 15:21 07/14/18 15:21 07/14/18 15:21 - Notes Notes: GENERAL: Alert, interacts well. No acute distress. HEAD: Normocephalic, atraumatic. EYES: Pupils equal, round, and reactive to light. Extraocular movements intact. ENT: Oral mucosa moist, tongue midline. NECK: Full range of motion. Supple. Trachea midline. LUNGS: Clear to auscultation bilaterally, no wheezes, rales, or rhonchi. No respiratory distress. HEART: Regular rate and rhythm. No murmur ABDOMEN: Soft, non-tender. Non-distended. Bowel sounds present in all 4 quadrants. Colostomy noted right upper and lower abdomen marsh. EXTREMITIES: Moves all 4 extremities spontaneously. No edema, normal radial and dorsalis pedis pulses bilaterally. No cyanosis. BACK: no cervical, thoracic, lumbar midline tenderness. No saddle anesthesia, normal distal neurovascular exam. NEUROLOGICAL: Alert and oriented x3. Normal speech. cranial nerves II through XII grossly intact PSYCH: Normal affect, normal mood. SKIN: Warm, dry, normal turgor. No rashes or lesions noted. Course - Re-evaluation Re-evalutation: 07/14/18 22:55 Patient's labs reveal no signs of leukocytosis, she has been afebrile and non- tachycardic her entire stay in the emergency department. Patient's BUN, creatinine, GFR 44, 5.26, 10 respectively. Patient's urine does show signs of infection, sent for culture. Patient CT abdomen pelvis shows a 5 mm hyperdense left renal cyst but otherwise is relatively unremarkable. Discussed patient's elevated kidney function which patient has had elevated kidney function in the past but never this extensive. Patient's son states she used to see a Dr. Mahmood in [place] for kidney failure but states her kidneys had "recovered." Discussed this case with Dr. Kohli, my attending in the emergency department who suggests blood culture, 500 cc bolus and a dose of ceftriaxone. Discussed this case with hospitalist Dr. Ovalles who will admit the patient to the medical floor observation. Nursing staff states they will ask the patient to sign paperwork in order to get a urine cultures that were hopefully obtained at [facility]. - Vital Signs Vital signs: Temp Pulse Resp BP Pulse Ox 97.8 F 76 18 131/84 H 80 L 07/14/18 20:35 07/14/18 20:35 07/14/18 20:35 07/14/18 20:35 07/14/18 20:35 - Laboratory Result Diagrams: 07/14/18 18:18 07/14/18 18:18 Laboratory results interpreted by me: 07/14/18 07/14/18 07/14/18 18:18 18:18 18:18 RBC 3.24 L Hgb 9.4 L Hct 29.1 L RDW 17.0 H Seg Neutrophils % 83.8 H Lymphocytes % 8.2 L Chloride 117 H Carbon Dioxide 13 L BUN 44 H Creatinine 5.26 H Est GFR ( Amer) 10 L Est GFR (Non-Af Amer) 8 L Creatine Kinase 468 H Urine Blood Urine Nitrite Urine Urobilinogen Ur Leukocyte Esterase 07/14/18 20:20 RBC Hgb Hct RDW Seg Neutrophils % Lymphocytes % Chloride Carbon Dioxide BUN Creatinine Est GFR ( Amer) Est GFR (Non-Af Amer) Creatine Kinase Urine Blood SMALL H Urine Nitrite POSITIVE H Urine Urobilinogen 2.0 H Ur Leukocyte Esterase TRACE H Discharge - Discharge Clinical Impression: Acute renal failure Qualifiers: Acute renal failure type: unspecified Qualified Code(s): N17.9 - Acute kidney failure, unspecified Urinary tract infection Qualifiers: Urinary tract infection type: site unspecified Hematuria presence: without hematuria Qualified Code(s): N39.0 - Urinary tract infection, site not specified Condition: Stable Disposition: ADMITTED OBSERVATION Admitting Provider: Hospitalist - Dr. Ovalles Unit Admitted: Medical Floor
[2018-07-14] MEDS ORDERED: MEROPENEM 1 GM VIAL IV ONE (23:05)
[2018-07-14] MEDS ORDERED: ACETAMINOPHEN 325 MG TABLET PO PRN (23:05)
[2018-07-15] MEDS: RINGERS SOLUTION,LACTATED 1,000 ML IV PRN ×4 (02:43→19:30)
--- NOTE | 2018-07-15 03:11 | PDOC H&P ---
History of Present Illness Admission Date/PCP: 07/14/2018 Patient complains of: Lethargy and weakness History of Present Illness: SHAKA GOMEZ is a 78 year old female who presents the emergency room with her son and claims a 5-day history of gradually worsening lethargy and weakness. Her son took her to the emergency room in [facility] 2 days ago and she was treated for a urinary tract infection with a dose of Rocephin in the emergency room followed by oral Bactrim DS twice daily. She has not improved since that time and is continuing to show gradual worsening of symptoms. Associated with the lethargy and weakness which are becoming severe is mildly increased confusion over her baseline minimal dementia. She has experienced similar symptoms on numerous occasions, generally related to urinary tract infections and often associated with acute kidney failure. No known aggravating or ameliorating factors have been identified for her symptoms. In the emergency room she was found to have a BUN of 44 with a creatinine of 5.6 and a GFR of 8. Her urine was positive for nitrite. She was also noted to have a moderate anemia. With these findings patient was admitted to the hospital for further evaluation and treatment of her acute kidney injury and urinary tract infection. Past Medical History Cardiac Medical History: Reports: Coronary Artery Disease, Hyperlipidema, Hypertension Pulmonary Medical History: Denies: Asthma, Chronic Obstructive Pulmonary Disease (COPD), Tuberculosis EENT Medical History: Reports: None Neurological Medical History: Reports: Migraine, Seizures Denies: Hemorrhagic CVA, Ischemic CVA Endocrine Medical History: Denies: Diabetes Mellitus Type 1, Diabetes Mellitus Type 2, Hyperthyroidism, Hypothyroidism, Obesity Renal/ Medical History: Reports: Other - urinary tract infections with frequent episodes of acute renal failure Denies: Chronic Kidney Disease, Nephrolithiasis Malignancy Medical History: Reports: Colorectal Cancer - Had a total colectomy because there "was something wrong in her colon" GI Medical History: Reports: Gastroesophageal Reflux Disease Denies: Cirrhosis, Hepatitis Musculoskeltal Medical History: Reports: Arthritis Denies: Gout Skin Medical History: Denies: Eczema, Psoriasis Psychiatric Medical History: Reports: Depression Denies: Alcohol Dependency, Substance Abuse, Tobacco Dependency Traumatic Medical History: Reports: None Hematology: Reports: Anemia Denies: Bleeding Tendencies Infectious Medical History: Reports: None Past Surgical History Past Surgical History: Reports: Appendectomy, Section, Cholecystectomy, Coronary Artery Bypass Graft, Hysterectomy, Ileostomy - After a total colectomy, Orthopedic Surgery - left shoulder x2, Tonsillectomy Social History Information Source: Patient, Relative - Son Lives with: Family Smoking Status: Never Smoker Frequency of Alcohol Use: Rare Hx Recreational Drug Use: No Drugs: None Hx Prescription Drug Abuse: No - Advance Directive Resuscitation Status: Full Code Surrogate healthcare decision maker:: Sudden Family History Family History: Arthritis, CAD, DM, Hyperlipidemia, Hypertension Parental Family History Reviewed: Yes Children Family History Reviewed: No Sibling(s) Family History Reviewed.: Yes Medication/Allergy Home Medications: Clonazepam [Klonopin] 0.5 mg PO Q12HP PRN 09/25/17 Dicyclomine HCl [Bentyl 20 mg Tablet] 20 mg PO Q6HP PRN 09/25/17 Diphenoxylate HCl/Atrop Sulf [Lomotil 2.5 mg Tablet] 2 tab PO QIDP PRN 09/25/17 Ergocalciferol (Vitamin D2) [Drisdol 50,000 unit (1.25MG) Capsule] 50,000 unit PO BINGHAM@1000 09/25/17 Gabapentin [Neurontin 300 mg Capsule] 300 mg PO Q12 09/25/17 Hydroxyzine HCl [Atarax 25 mg Tablet] 50 mg PO Q4HP PRN 09/25/17 Ibuprofen [Motrin 800 mg Tablet] 800 mg PO Q8HP PRN 09/25/17 Promethazine HCl [Phenergan 25 mg Tablet] 25 mg PO Q12HP PRN 09/25/17 Ramelteon [Rozerem] 8 mg PO HSP PRN 09/25/17 Sertraline HCl [Zoloft] 100 mg PO DAILY 09/25/17 Tizanidine HCl [Zanaflex 4 mg Tablet] 4 mg PO QHS 09/25/17 Acetaminophen [Tylenol 325 mg Tablet] 650 mg PO Q4HP PRN tablet 09/29/17 Amlodipine Besylate [Norvasc 5 mg Tablet] 5 mg PO QHS #30 tablet 09/29/17 Clonidine HCl [Catapres 0.1 mg Tablet] 0.1 mg PO Q8 #90 tablet 09/29/17 Donepezil HCl [Aricept] 10 mg PO QHS #0 09/29/17 Lisinopril [Zestril] 20 mg PO BID #60 tablet 09/29/17 Metoprolol Tartrate 25 mg PO BID #60 tablet 09/29/17 Cephalexin Monohydrate [Keflex 500 mg Capsule] 500 mg PO TID #15 capsule 05/24/18 Phenazopyridine HCl [Pyridium 100 Mg Tablet] 100 mg PO Q8 #8 tablet 05/24/18 Allergies/Adverse Reactions: ciprofloxacin [From Cipro] Allergy (Verified 05/24/18 15:43) diltiazem HCl [From Cardizem] Allergy (Verified 05/24/18 15:43) Unknown reaction ketorolac tromethamine [From Toradol] Allergy (Verified 05/24/18 15:43) levofloxacin [From Levaquin] Allergy (Verified 05/24/18 15:43) meperidine HCl [From Demerol] Allergy (Verified 05/24/18 15:43) nitrofurantoin macrocrystalline [From Macrodantin] Allergy (Verified 05/24/18 15:43) propoxyphene napsylate [From Darvocet-N 100] Allergy (Verified 05/24/18 15:43) sumatriptan [From Imitrex] Allergy (Verified 05/24/18 15:43) Review of Systems Constitutional: PRESENT: as per HPI, fatigue, weakness, other - Lethargy. ABSENT: chills, fever(s) Eyes: ABSENT: visual disturbances, other - Eye pain Ears: ABSENT: hearing changes, other - Ear pain Nose, Mouth, and Throat: ABSENT: mouth pain, sore throat Cardiovascular: ABSENT: chest pain, palpitations Respiratory: ABSENT: cough, dyspnea Gastrointestinal: ABSENT: abdominal pain, constipation, diarrhea, nausea, vomiting Genitourinary: ABSENT: dysuria, hematuria Musculoskeletal: ABSENT: deformity, joint swelling Integumentary: ABSENT: pruritus, rash Neurological: PRESENT: as per HPI, confusion. ABSENT: convulsions, focal weakness, memory loss Psychiatric: ABSENT: anxiety, depression Endocrine: ABSENT: cold intolerance, heat intolerance Hematologic/Lymphatic: ABSENT: easy bleeding, easy bruising Physical Exam Vital Signs: Temp Pulse Resp BP Pulse Ox 97.8 F 76 18 131/84 H 80 L 07/14/18 20:35 07/14/18 20:35 07/14/18 20:35 07/14/18 20:35 03/06/19 20:35 Intake & Output 07/12/18 07/13/18 07/14/18 23:59 23:59 23:59 Intake Total 19 Balance 19 Weight 45.8 kg General appearance: PRESENT: no acute distress, cooperative, thin Head exam: PRESENT: atraumatic, normocephalic Eye exam: PRESENT: conjunctiva pink. ABSENT: scleral icterus Ear exam: PRESENT: normal external ear exam. ABSENT: bleeding, drainage Mouth exam: PRESENT: dry mucosa, neck supple Neck exam: ABSENT: thyromegaly, tracheal deviation Respiratory exam: PRESENT: clear to auscultation yamilet, symmetrical, unlabored Cardiovascular exam: PRESENT: RRR. ABSENT: clicks, gallop, rubs Pulses: PRESENT: normal radial pulses, normal dorsalis pedis pul Vascular exam: PRESENT: normal capillary refill. ABSENT: pallor GI/Abdominal exam: PRESENT: normal bowel sounds, soft Rectal exam: PRESENT: deferred Extremities exam: ABSENT: joint swelling, pedal edema Musculoskeletal exam: ABSENT: deformity, dislocation Neurological exam: PRESENT: alert, oriented to person, oriented to place, oriented to time, oriented to situation, CN II-XII grossly intact. ABSENT: motor sensory deficit Psychiatric exam: PRESENT: appropriate affect, normal mood Skin exam: PRESENT: dry, intact, warm. ABSENT: jaundice, rash, urticaria Results Laboratory Results: 07/14/18 18:18 07/14/18 18:18 07/14/18 07/14/18 07/14/18 18:18 18:18 20:20 WBC 7.2 RBC 3.24 L Hgb 9.4 L Hct 29.1 L MCV 90 MCH 28.9 MCHC 32.2 RDW 17.0 H Plt Count 186 Seg Neutrophils % 83.8 H Lymphocytes % 8.2 L Monocytes % 6.6 Eosinophils % 1.1 Basophils % 0.3 Absolute Neutrophils 6.0 Absolute Lymphocytes 0.6 Absolute Monocytes 0.5 Absolute Eosinophils 0.1 Absolute Basophils 0.0 Sodium 143.2 Potassium 4.5 Chloride 117 H Carbon Dioxide 13 L Anion Gap 13 BUN 44 H Creatinine 5.26 H Est GFR ( Amer) 10 L Est GFR (Non-Af Amer) 8 L Glucose 85 Calcium 8.8 Total Bilirubin 0.3 AST 29 ALT 23 Alkaline Phosphatase 97 Total Protein 6.5 Albumin 3.9 Urine Color YELLOW Urine Appearance CLEAR Urine pH 5.0 Ur Specific Griffin 1.009 Urine Protein NEGATIVE Urine Glucose (UA) NEGATIVE Urine Ketones NEGATIVE Urine Blood SMALL H Urine Nitrite POSITIVE H Ur Leukocyte Esterase TRACE H Urine WBC (Auto) 15 Urine RBC (Auto) 0 07/14/18 18:18 Creatine Kinase 468 H Impressions: Abdomen/Pelvis CT 07/14/18 21:07 IMPRESSION: Distended appearance to the distal esophagus/GE junction which has a thick-walled appearance as before. Multiple surgical clips. Correlate with surgical history. Fibrotic changes with bronchiectasis in the left lung base. Scarring in each lung base. Right lower quadrant ostomy. No gross evidence for bowel obstruction. 5 mm hyperdense left renal cyst. TECHNICAL DOCUMENTATION: Quality ID # 436: Final reports with documentation of one or more dose reduction techniques (e.g., Automated exposure control, adjustment of the mA and/or kV according to patient size, use of iterative reconstruction technique) copyright 2011 [employer]- All Rights Reserved Assessment & Plan - Diagnosis (1) Acute renal failure Qualifiers: Acute renal failure type: unspecified Qualified Code(s): N17.9 - Acute kidney failure, unspecified Is this a current diagnosis for this admission?: Yes Plan: Patient's acute renal failure be treated with IV fluid rehydration and careful monitoring of her electrolyte and renal status. Daily CBCs and metabolic profiles as well as serum magnesium levels will be obtained. Further intervention will be undertaken as required. (2) Urinary tract infection Qualifiers: Urinary tract infection type: site unspecified Hematuria presence: without hematuria Qualified Code(s): N39.0 - Urinary tract infection, site not specified Is this a current diagnosis for this admission?: Yes Plan: Patient's urinary tract infection was treated with symptomatic and supportive cares as well as IV antibiotics utilizing meropenem due to her history of frequent prior urinary tract infections resulting in acute renal failure. (3) Confusion Is this a current diagnosis for this admission?: Yes Plan: Patient's confusion will be treated with supportive and symptomatic care as required throughout her hospital course. Further evaluation and treatment will be provided as required. (4) General weakness Is this a current diagnosis for this admission?: Yes Plan: Patient's generalized weakness to be treated with IV fluids and other supportive and symptomatic cares as needed throughout her hospital course. (5) Lethargy Is this a current diagnosis for this admission?: Yes Plan: Patient's lethargy will be treated with IV fluids and other symptomatic and supportive care as is required throughout her hospital care. - Time Time Spent: 30 to 50 Minutes Critical Time spent with patient: Less than 15 minutes Medications reviewed and adjusted accordingly: Yes Anticipated discharge: Home - Inpatient Certification Based on my medical assessment, after consideration of the patient's comorbidities, presenting symptoms, or acuity I expect that the services needed warrant INPATIENT care.: Yes I certify that my determination is in accordance with my understanding of Medicare's requirements for reasonable and necessary INPATIENT services [42 CFR 412.3e].: Yes Medical Necessity: Failure to Improve With Outpatient Therapy, Significant Comorbidiites Make Outpatient Treatment Too Risky, Need Close Monitoring Due to Risk of Patient Decompensation, Need For IV Fluids, Need for IV Antibiotics, Risk of Complication if Not Cared For in Hospital
[2018-07-15] MEDS: HEPARIN SOD (PORCINE) 5,000 UNIT/ML 1 ML SYRINGE SUBCUT SCH ×3 (05:07→21:34)
[2018-07-15 06:41] LABS: HEMATOCRIT 25.6 % (36.0-47.0); HEMOGLOBIN 8.4 g/dL (12.0-15.5); MEAN CORPUSCULAR HEMOGLOBIN 29.3 pg (27.0-33.4); MEAN CORPUSCULAR HGB CONC 32.8 g/dL (32.0-36.0); MEAN CORPUSCULAR VOLUME 90 fl (80-97); PLATELET COUNT 180 10^3/uL (150-450); RED BLOOD COUNT 2.87 10^6/uL (3.72-5.28); WHITE BLOOD COUNT 6.4 10^3/uL (4.0-10.5)
[2018-07-15 07:07] LABS: ANION GAP 9 (5-19); BLOOD UREA NITROGEN 39 mg/dL (7-20); CARBON DIOXIDE 14 mmol/L (22-30); CHLORIDE 119 mmol/L (98-107); GLUCOSE 75 mg/dL (75-110); SODIUM 142.2 mmol/L (137-145)
[2018-07-15 07:24] LABS: FREE T3 2.88 pg/mL (2.77-5.27); FREE T4 (FREE THYROXINE) 0.85 ng/dL (0.78-2.19)
[2018-07-15 07:37] LABS: THYROID STIMULATING HORMONE 1.8 uIU/mL (0.47-4.68)
[2018-07-15] MEDS ORDERED: ACETAMINOPHEN 325 MG TABLET PO PRN (08:52)
[2018-07-15] MEDS ORDERED: ONDANSETRON 4 MG TAB.RAPDIS PO PRN (09:00)
[2018-07-15] MEDS ORDERED: ONDANSETRON HCL INJ/PF 4 MG/2 ML SDV IV PRN (09:00)
[2018-07-15] MEDS: DOCUSATE SODIUM 100 MG CAPSULE PO SCH ×2 (10:08→17:32)
--- NOTE | 2018-07-15 12:44 | EKG REPORT ---
SEVERITY:- NORMAL ECG - SINUS RHYTHM : Confirmed by: Teresa Riggs MD 15-Jul-2018 12:43:52
--- NOTE | 2018-07-15 12:46 | EKG REPORT ---
SEVERITY:- DEFECTIVE ECG - SINUS RHYTHM. BASELINE ARTIFACT.REPEAT EKG. : Confirmed by: Teresa Riggs MD 15-Jul-2018 12:45:07
[2018-07-15] MEDS: MEROPENEM 500 MG in NORMAL SALINE 50 ML IV SCH (21:34)
[2018-07-15] MEDS ORDERED: MEROPENEM 500 MG VIAL IV SCH (22:00)
[2018-07-15] MEDS: MELATONIN 5 MG TABLET PO PRN (23:20)
[2018-07-16] MEDS: DIAZEPAM INJ 10 MG/2 ML DISP.SYRIN IV PRN ×3 (01:14→21:46)
[2018-07-16] MEDS: HEPARIN SOD (PORCINE) 5,000 UNIT/ML 1 ML SYRINGE SUBCUT SCH ×3 (05:09→21:16)
--- NOTE | 2018-07-16 05:11 | PDOC PROGRESS REPORT ---
Subjective Progress Note for:: 07/16/18 Subjective:: 78 y.o. F with a PMH HTN, CAD, depression, dementia, presents to [facility] with AMS, UTI and ARF. She was admitted to the hospitalist service on IV meropenem and maintenance IVF. The patient was seen this morning on rounds, she is resting in bed on room air. She is A&O x 3 and remembers that her son brought her to the hospital, but she is unclear why. Physical exam is relatively benign. No history of kidney disease (per the patient) but her Creatinine remains eleva maryjo above 4.0 Reason For Visit: JES Physical Exam Vital Signs: Temp Pulse Resp BP Pulse Ox 98.4 F 71 17 125/52 L 94 07/16/18 00:46 07/16/18 00:46 07/16/18 00:46 07/16/18 00:46 07/16/18 00:46 Intake & Output 07/14/18 07/15/18 07/16/18 06:59 06:59 06:59 Intake Total 550 3164 Output Total 400 Balance 550 2764 Weight 46.4 kg General appearance: PRESENT: no acute distress, thin Head exam: PRESENT: atraumatic Eye exam: PRESENT: conjunctiva pink, PERRLA Mouth exam: PRESENT: tongue midline Teeth exam: PRESENT: poor dentation Respiratory exam: PRESENT: clear to auscultation yamilet, symmetrical, unlabored Cardiovascular exam: PRESENT: RRR Pulses: PRESENT: normal radial pulses, normal dorsalis pedis pul Vascular exam: PRESENT: normal capillary refill GI/Abdominal exam: PRESENT: soft. ABSENT: distended, tenderness Rectal exam: PRESENT: deferred Extremities exam: PRESENT: full ROM. ABSENT: pedal edema Musculoskeletal exam: PRESENT: ambulatory, full ROM Neurological exam: PRESENT: alert, awake, oriented to person, oriented to place, oriented to time, oriented to situation Psychiatric exam: PRESENT: appropriate affect Skin exam: PRESENT: dry, intact Results Laboratory Results: 07/15/18 06:18 07/15/18 06:18 07/15/18 07/15/18 07/15/18 06:18 06:18 06:18 WBC 6.4 RBC 2.87 L Hgb 8.4 L Hct 25.6 L MCV 90 MCH 29.3 MCHC 32.8 RDW 17.0 H Plt Count 180 Sodium 142.2 Potassium 4.0 Chloride 119 H Carbon Dioxide 14 L Anion Gap 9 BUN 39 H Creatinine 4.43 H Est GFR ( Amer) 12 L Est GFR (Non-Af Amer) 10 L Glucose 75 Calcium 8.0 L Magnesium 1.6 TSH 1.80 Free T4 0.85 Free T3 pg/mL 2.88 07/14/18 07/15/18 18:18 06:18 Creatine Kinase 468 H NT-Pro-B Natriuret Pep 4950 H Impressions: Abdomen/Pelvis CT 07/14/18 21:07 IMPRESSION: Distended appearance to the distal esophagus/GE junction which has a thick-walled appearance as before. Multiple surgical clips. Correlate with surgical history. Fibrotic changes with bronchiectasis in the left lung base. Scarring in each lung base. Right lower quadrant ostomy. No gross evidence for bowel obstruction. 5 mm hyperdense left renal cyst. TECHNICAL DOCUMENTATION: Quality ID # 436: Final reports with documentation of one or more dose reduction techniques (e.g., Automated exposure control, adjustment of the mA and/or kV according to patient size, use of iterative reconstruction technique) copyright 2011 [employer]- All Rights Reserved Status: Imported from PACS Assessment & Plan - Diagnosis (1) Urinary tract infection Qualifiers: Urinary tract infection type: site unspecified Hematuria presence: without hematuria Qualified Code(s): N39.0 - Urinary tract infection, site not sp ecified Is this a current diagnosis for this admission?: Yes Plan: UA (+) nitrites and small amount of leuk esterase Urine culture pending Patient with MANY drug allergies Will continue meropenem for now with a plan to downgrade to antibiotics once patient has clinically improved (2) Acute renal failure Qualifiers: Acute renal failure type: unspecified Qualified Code(s): N17.9 - Acute kidney failure, unspecified Is this a current diagnosis for this admission?: Yes Plan: Secondary to dehyration and poor nutritional status Treat with maintenance IVF Daily chemistries (3) Altered mental status Qualifiers: Altered mental status type: disorientation Qualified Code(s): R41.0 - Disorientation, unspecified Is this a current diagnosis for this admission?: Yes Plan: Resolved Secondary to infection Improved with appropriate abx treatment - Time Time Spent with patient: 15-24 minutes Medications reviewed and adjusted accordingly: Yes Anticipated discharge: Home Within: within 48 hours - Inpatient Certification Based on my medical assessment, after consideration of the patient's comorbidities, presenting symptoms, or acuity I expect that the services needed warrant INPATIENT care.: Yes I certify that my determination is in accordance with my understanding of Medicare's requirements for reasonable and necessary INPATIENT services [42 CFR 412.3e].: Yes Medical Necessity: Need for IV Antibiotics
[2018-07-16] MEDS: RINGERS SOLUTION,LACTATED 1,000 ML IV PRN ×2 (05:12→16:48)
[2018-07-16 05:40] LABS: HEMATOCRIT 23.8 % (36.0-47.0); MEAN CORPUSCULAR HEMOGLOBIN 29.9 pg (27.0-33.4); MEAN CORPUSCULAR HGB CONC 33.7 g/dL (32.0-36.0); MEAN CORPUSCULAR VOLUME 89 fl (80-97); PLATELET COUNT 189 10^3/uL (150-450); RED BLOOD COUNT 2.68 10^6/uL (3.72-5.28); RED CELL DISTRIBUTION WIDTH 16.3 % (11.5-14.0); WHITE BLOOD COUNT 5.2 10^3/uL (4.0-10.5)
[2018-07-16 06:29] LABS: BLOOD UREA NITROGEN 33 mg/dL (7-20); CALCIUM 8.6 mg/dL (8.4-10.2); CHLORIDE 122 mmol/L (98-107); GLUCOSE 79 mg/dL (75-110); POTASSIUM 4.3 mmol/L (3.6-5.0); SODIUM 142.1 mmol/L (137-145)
[2018-07-16 06:46] LABS: URINE CREATININE 76.8 mg/dL (15-278)
[2018-07-16 07:04] LABS: ANION GAP 11 (5-19)
[2018-07-16 07:07] LABS: CARBON DIOXIDE 9 mmol/L (22-30)
[2018-07-16] MEDS: DOCUSATE SODIUM 100 MG CAPSULE PO SCH ×2 (11:57→19:55)
[2018-07-16 14:44] LABS: ARTERIAL BLOOD BASE EXCESS -14.5 mmol/L; ARTERIAL BLOOD H2CO3 0.71 mmol/L (1.05-1.35); ARTERIAL BLOOD HCO3 10.7 mmol/L (20-24); ARTERIAL BLOOD O2 SATURATION 95.9 % (94-98); ARTERIAL BLOOD PCO2 23.7 mmHg (35-45); ARTERIAL BLOOD PH 7.27 (7.35-7.45); ARTERIAL BLOOD PO2 88.9 mmHg (80-100); ARTERIAL BLOOD TOTAL CO2 11.5 mmol/L (21-25)
[2018-07-16 14:46] LABS: ARTERIAL BLOOD FIO2 ROOM AIR
[2018-07-16] MEDS ORDERED: SODIUM BICARBONATE 8.4% INJ 50 MEQ/50 ML DISP.SYRIN IV ONE (17:20)
[2018-07-16] MEDS ORDERED: DEXTROSE 5%-1/2 NORMAL SALINE 1,000 ML IV PRN (17:22)
--- NOTE | 2018-07-16 17:27 | PDOC PROGRESS REPORT ---
Subjective Progress Note for:: 07/16/18 Subjective:: 78 y.o. F with a PMH HTN, CAD, depression, dementia, presents to [facility] with AMS, UTI and ARF. She was admitted to the hospitalist service on IV meropenem and maintenance IVF. The patient was seen this morning on rounds, she is resting in bed on room air. She is A&O x 3 and remembers that her son brought her to the hospital, but she is unclear why. Physical exam is relatively benign. No history of kidney disease (per the patient) but her Creatinine remains eleva maryjo to 3.08. Metabolic acidosis noted on lab work (see below), changed IVF today. Reason For Visit: JES Physical Exam Vital Signs: Temp Pulse Resp BP Pulse Ox 98.2 F 61 16 154/65 H 96 07/16/18 15:40 07/16/18 15:40 07/16/18 15:40 07/16/18 15:40 07/16/18 15:40 Intake & Output 07/15/18 07/16/18 07/17/18 06:59 06:59 06:59 Intake Total 550 4164 1000 Output Total 400 Balance 550 3764 1000 Weight 46.4 kg 48.1 kg General appearance: PRESENT: thin Eye exam: PRESENT: conjunctiva pink, PERRLA Mouth exam: PRESENT: moist Teeth exam: PRESENT: poor dentation Neck exam: PRESENT: full ROM Respiratory exam: PRESENT: clear to auscultation yamilet, symmetrical, unlabored Cardiovascular exam: PRESENT: RRR Pulses: PRESENT: normal radial pulses, normal dorsalis pedis pul GI/Abdominal exam: PRESENT: soft. ABSENT: distended, tenderness Rectal exam: PRESENT: deferred Extremities exam: PRESENT: full ROM. ABSENT: pedal edema Musculoskeletal exam: PRESENT: ambulatory, full ROM, normal inspection Neurological exam: PRESENT: alert, awake, oriented to person, oriented to place, oriented to time, oriented to situation Psychiatric exam: PRESENT: appropriate affect Skin exam: PRESENT: dry, intact, normal color Results Laboratory Results: 07/16/18 04:28 07/16/18 04:28 07/16/18 07/16/18 07/16/18 04:28 04:28 14:30 WBC 5.2 RBC 2.68 L Hgb 8.0 L Hct 23.8 L MCV 89 MCH 29.9 MCHC 33.7 RDW 16.3 H Plt Count 189 Carbonic Acid 0.71 L HCO3/H2CO3 Ratio 15:1 ABG pH 7.27 L ABG pCO2 23.7 L ABG pO2 88.9 ABG HCO3 10.7 L ABG O2 Saturation 95.9 ABG Base Excess -14.5 FiO2 ROOM AIR Sodium 142.1 Potassium 4.3 Chloride 122 H Carbon Dioxide 9 L* Anion Gap 11 BUN 33 H Creatinine 3.08 H Est GFR ( Amer) 18 L Est GFR (Non-Af Amer) 15 L Glucose 79 Calcium 8.6 Magnesium 1.5 L 07/14/18 20:20 Clean Catch Midstream Urine Culture - Final NO GROWTH 2 DAYS 07/14/18 07/15/18 18:18 06:18 Creatine Kinase 468 H NT-Pro-B Natriuret Pep 4950 H Impressions: Abdomen/Pelvis CT 07/14/18 21:07 IMPRESSION: Distended appearance to the distal esophagus/GE junction which has a thick-walled appearance as before. Multiple surgical clips. Correlate with surgical history. Fibrotic changes with bronchiectasis in the left lung base. Scarring in each lung base. Right lower quadrant ostomy. No gross evidence for bowel obstruction. 5 mm hyperdense left renal cyst. TECHNICAL DOCUMENTATION: Quality ID # 436: Final reports with documentation of one or more dose reduction techniques (e.g., Automated exposure control, adjustment of the mA and/or kV according to patient size, use of iterative reconstruction technique) copyright 2011 [employer]- All Rights Reserved Status: Imported from PACS Assessment & Plan - Diagnosis (1) Metabolic acidosis Is this a current diagnosis for this admission?: Yes Plan: Metabolic acidosis pH7.27 HCO3 10.7 Calculated anion gap 15.3 Delta-delta is only 0.22 suggesting hyperchloremic normal anion gap acidosis Switched IVF from LR to D5 1/2 NS @ 75ml/hr (2) Urinary tract infection Qualifiers: Urinary tract infection type: site unspecified Hematuria presence: without hematuria Qualified Code(s): N39.0 - Urinary tract infection, site not specified Is this a current diagnosis for this admission?: Yes Plan: UA (+) nitrites and small amount of leuk esterase Urine culture pending Patient with MANY drug allergies Will continue meropenem for now with a plan to downgrade to antibiotics once patient has clinically improved (3) Acute renal failure Qualifiers: Acute renal failure type: unspecified Qualified Code(s): N17.9 - Acute kidney failure, unspecified Is this a current diagnosis for this admission?: Yes Plan: Secondary to dehyration and poor nutritional status Treat with maintenance IVF Daily chemistries Patient's son reports that the patient has a history of CKD, unclear of staging. 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 (4) Altered mental status Qualifiers: Altered mental status type: disorientation Qualified Code(s): R41.0 - Disorientation, unspecified Is this a current diagnosis for this admission?: Yes Plan: Resolved Secondary to infection and uremia Improved with appropriate abx treatment - Time Time Spent with patient: 15-24 minutes Medications reviewed and adjusted accordingly: Yes Anticipated discharge: Home Within: within 72 hours - Inpatient Certification Based on my medical assessment, after consideration of the patient's comorbidities, presenting symptoms, or acuity I expect that the services needed warrant INPATIENT care.: Yes I certify that my determination is in accordance with my understanding of Medicare's requirements for reasonable and necessary INPATIENT services [42 CFR 412.3e].: Yes Medical Necessity: Need For IV Fluids, Need for IV Antibiotics, Risk of Complication if Not Cared For in Hospital
[2018-07-16] MEDS ORDERED: SODIUM BICARBONATE 8.4% INJ 50 MEQ/50 ML DISP.SYRIN ONE (19:56)
[2018-07-16] MEDS: MELATONIN 5 MG TABLET PO PRN (21:17)
[2018-07-16] MEDS: MEROPENEM 500 MG in NORMAL SALINE 50 ML IV SCH (21:19)
[2018-07-16] MEDS ORDERED: DIAZEPAM INJ 10 MG/2 ML DISP.SYRIN ONE (21:34)
[2018-07-17] MEDS: HEPARIN SOD (PORCINE) 5,000 UNIT/ML 1 ML SYRINGE SUBCUT SCH (05:53)
[2018-07-17 06:36] LABS: HEMATOCRIT 24.3 % (36.0-47.0); HEMOGLOBIN 8.2 g/dL (12.0-15.5); MEAN CORPUSCULAR HEMOGLOBIN 29.5 pg (27.0-33.4); MEAN CORPUSCULAR HGB CONC 33.8 g/dL (32.0-36.0); MEAN CORPUSCULAR VOLUME 87 fl (80-97); PLATELET COUNT 222 10^3/uL (150-450); RED BLOOD COUNT 2.79 10^6/uL (3.72-5.28); RED CELL DISTRIBUTION WIDTH 15.9 % (11.5-14.0); WHITE BLOOD COUNT 3.9 10^3/uL (4.0-10.5)
[2018-07-17 07:04] LABS: ANION GAP 10 (5-19); BLOOD UREA NITROGEN 28 mg/dL (7-20); CALCIUM 8.7 mg/dL (8.4-10.2); CARBON DIOXIDE 13 mmol/L (22-30); CHLORIDE 117 mmol/L (98-107); GLUCOSE 119 mg/dL (75-110); SODIUM 140.4 mmol/L (137-145)
[2018-07-17] MEDS ORDERED: MAGNESIUM SULFATE 4 GM/100 ML RTUPB IV ONE (09:00)
[2018-07-17] MEDS: DOCUSATE SODIUM 100 MG CAPSULE PO SCH (12:04)
[2018-07-17 13:58] VITALS: BP 177/71
--- NOTE | 2018-07-23 08:28 | PDOC DISCHARGE SUMMARY ---
General - Admit/Disc Date/PCP Admission Date/Primary Care Provider: 07/14/18 23:04 Discharge Date: 07/17/18 - Discharge Diagnosis (1) Metabolic acidosis Is this a current diagnosis for this admission?: Yes (2) Urinary tract infection Is this a current diagnosis for this admission?: Yes (3) Acute renal failure Is this a current diagnosis for this admission?: Yes (4) Altered mental status Is this a current diagnosis for this admission?: Yes - Additional Information Resuscitation Status: Full Code Discharge Diet: As Tolerated Discharge Activity: Activity As Tolerated Prescriptions: Amoxicillin/Potassium Clav [Augmentin 500-125 Tablet] 1 each PO Q12 #10 tablet Home Medications: Betamet Diprop/Prop Gly [Betamethasone Dp Aug 0.05% Cream] 1 applic TP BID 07/15/18 Clonazepam [Klonopin] 0.5 mg PO BIDP PRN 07/15/18 Donepezil HCl [Aricept] 10 mg PO QHS 07/15/18 Gabapentin [Neurontin 300 mg Capsule] 300 mg PO Q12 07/15/18 Omeprazole 40 mg PO DAILY 07/15/18 Promethazine HCl [Phenergan 25 mg Tablet] 25 mg PO BID 07/15/18 Ramelteon [Rozerem] 8 mg PO HSP PRN 07/15/18 Sertraline HCl [Zoloft] 100 mg PO DAILY 07/15/18 Tizanidine HCl [Zanaflex 4 mg Tablet] 4 mg PO QHS 07/15/18 Amoxicillin/Potassium Clav [Augmentin 500-125 Tablet] 1 each PO Q12 #10 tablet 07/17/18 History of Present Illness History of Present Illness: SHAKA GOMEZ is a 78 year old female who presents the emergency room with her son and claims a 5-day history of gradually worsening lethargy and weakness. Her son took her to the emergency room in [facility] 2 days ago and she was treated for a urinary tract infection with a dose of Rocephin in the emergency room followed by oral Bactrim DS twice daily. She has not improved since that time and is continuing to show gradual worsening of symptoms. Associated with the lethargy and weakness which are becoming severe is mildly increased confusion over her baseline minimal dementia. She has experienced similar symptoms on numerous occasions, generally related to urinary tract infections and often associated with acute kidney failure. No known aggravating or ameliorating factors have been identified for her symptoms. In the emergency room she was found to have a BUN of 44 with a creatinine of 5.6 and a GFR of 8. Her urine was positive for nitrite. She was also noted to have a moderate anemia. With these findings patient was admitted to the hospital for further evaluation and treatment of her acute kidney injury and urinary tract infection. Hospital Course Hospital Course: 78 y.o. F with a PMH HTN, CAD, depression, dementia, presents to [facility] with AMS, UTI and ARF. The patient was previously seen at [facility] for a UTI and was treated with Bactrim. According to her son, her symptoms continued to get worse, so he brought her to [facility]. She was treated with Meropenem based on her history of fr equent UTIs and many antibiotic allergies. Her creatinine upon admission was 5.2, significantly higher than her baseline (based on previous records). Her Creatinine range has been anywhere from 1.1- 3.5. The son reports a history of kidney disease but unclear about the stage of her disease. Her creatinine of 5.2 is likely the result of acute on chronic renal failure. It resolved with IVF and by hospital day #4 it had decreased to 1.9. As her JES resolved, so did her AMS. Upon the day of discharge, the son reported that the patient was 'back to her normal self,' which meant she was alert & oriented but occasionally had periods of confusion (repeating the same questions/difficulty recalling details about medical history/etc). On hospital day 4 the patient was deemed safe for discharge. Her mental status and renal function were back to baseline. The patient and son were very eager to go home. The patient was sent home with a prescription for Augmentin to finish her antibiotic regimen (again, based on her many antibiotic allergies). She was instructed to follow up with her PCP and a valve technician. For further information regarding this patient's hospitalization, please refer to the EMR. Physical Exam Vital Signs: Temp Pulse Resp BP Pulse Ox 98.4 F 66 16 177/71 H 95 07/17/18 13:53 07/17/18 13:53 07/17/18 13:53 07/17/18 13:53 07/17/18 13:53 Results Laboratory Results: 07/17/18 05:56 07/17/18 05:56 07/14/18 07/15/18 18:18 06:18 Creatine Kinase 468 H NT-Pro-B Natriuret Pep 4950 H Impressions: Abdomen/Pelvis CT 07/14/18 21:07 IMPRESSION: Distended appearance to the distal esophagus/GE junction which has a thick-walled appearance as before. Multiple surgical clips. Correlate with surgical history. Fibrotic changes with bronchiectasis in the left lung base. Scarring in each lung base. Right lower quadrant ostomy. No gross evidence for bowel obstruction. 5 mm hyperdense left renal cyst. TECHNICAL DOCUMENTATION: Quality ID # 436: Final reports with documentation of one or more dose reduction techniques (e.g., Automated exposure control, adjustment of the mA and/or kV according to patient size, use of iterative reconstruction technique) copyright 2011 [employer]- All Rights Reserved Status: Imported from PACS Qualifiers - * PATIENT BEING DISCHARGED WITH ANY OF THE FOLLOWING DIAGNOSIS: No
== END 2018-07-17 14:12 | disposition home or self-care (01) | DRG 683 ==
LOC: ER 15:14 → EH 23:04 → OBSVTOIN 23:04 → 5 07-15 02:00
PROVIDERS: ADMIT Emergency Medicine; ATTEND Emergency Medicine
DX: N17.9 Acute kidney failure, unspecified (principal); N39.0 Urinary tract infection, site not specified; E87.2 Acidosis; E86.0 Dehydration; F03.90 Unspecified dementia, unspecified severity, without behavioral disturbance, psychotic disturbance, mood disturbance, and anxiety; D64.9 Anemia, unspecified; I25.10 Atherosclerotic heart disease of native coronary artery without angina pectoris; F32.9 Major depressive disorder, single episode, unspecified; I12.9 Hypertensive chronic kidney disease with stage 1 through stage 4 chronic kidney disease, or unspecified chronic kidney disease; N18.9 Chronic kidney disease, unspecified; E78.5 Hyperlipidemia, unspecified; K21.9 Gastro-esophageal reflux disease without esophagitis; M19.90 Unspecified osteoarthritis, unspecified site; Z87.440 Personal history of urinary (tract) infections; Z88.1 Allergy status to other antibiotic agents; Z85.038 Personal history of other malignant neoplasm of large intestine; Z90.49 Acquired absence of other specified parts of digestive tract; Z95.1 Presence of aortocoronary bypass graft; Z82.61 Family history of arthritis; Z82.49 Family history of ischemic heart disease and other diseases of the circulatory system; Z88.6 Allergy status to analgesic agent; Z88.8 Allergy status to other drugs, medicaments and biological substances; Z93.3 Colostomy status
CPT/HCPCS: 36415; 36600; 74176; 80048; 80053; 81001; 82550; 82570; 82803; 83735; 83880; 84300; 84439; 84443; 84481; 85025; 85027; 87040; 87086; 93005; 93010; 96361; 96365; 96366; 96367; 99285; J0696; J1644; J2185; J3360; J3475; J3490; J7030; J7120

== ENCOUNTER 2019-01-23 02:12 | Emergency (ER) | payer MEDICARE, MEDICAID ==
[2019-01-23] MEDS ORDERED: NORMAL SALINE 1000 ML 1,000 ML IV ONE (02:34)
--- NOTE | 2019-01-23 02:39 | ER Document Report ---
ED GI/ - General Stated Complaint: GI ISSUES Time Seen by Provider: 01/23/19 02:33 Mode of Arrival: Ambulatory Information source: Patient Notes: Chief complaint: abdominal pain: History of complain:( obtained from----patient) 78 years old female with a history of an ileostomy, performed 15 years ago, presents today with no drainage from the ileostomy bag since this morning. Also having diffuse abdominal discom fort/pain. Denies any nausea vomiting. Denies any fever chills or other constitutional symptoms. Onset: As above Duration: As above Severity: Moderate Quality: Crampy Context: As above Exacerbating factor and relieving factors: None REVIEW OF SYSTEMS: CONSTITUTIONAL : Denies fever, chills, or sweats. Denies recent illness. EENT: Denies eye, ear, throat, or mouth pain or symptoms. Denies nasal or sinus congestion or discharge. Denies throat, tongue, or mouth swelling or difficulty swallowing. CARDIOVASCULAR: Denies chest pain. Denies palpitations or racing or irregular heart beat. Denies ankle edema. RESPIRATORY: Denies cough, cold, or chest congestion. Denies shortness of breath, difficulty breathing, or wheezing. GASTROINTESTINAL: Denies distention. Denies nausea, vomiting, or diarrhea. Denies blood in vomitus, stools, or per rectum. Denies black, tarry stools. Denies constipation. GENITOURINARY: Denies difficulty urinating, painful urination, burning, frequ ency, blood in urine, or discharge. FEMALE GENITOURINARY: Denies vaginal bleeding, heavy or abnormal periods, irregular periods. Denies vaginal discharge or odor. MUSCULOSKELETAL: Denies back or neck pain or stiffness. Denies joint pain or swelling. SKIN: Denies rash, lesions or sores. HEMATOLOGIC : Denies easy bruising or bleeding. LYMPHATIC: Denies swollen, enlarged glands. NEUROLOGICAL: Denies confusion or altered mental status. Denies passing out or loss of consciousness. Denies dizziness or lightheadedness. Denies headache. Denies weakness or paralysis or loss of use of either side. Denies problems with gait or speech. Denies sensory loss, numbness, or tingling. Denies seizures. PSYCHIATRIC: Denies anxiety or stress. Denies depression, suicidal ideation, or homicidal ideation. ALL OTHER SYSTEMS REVIEWED AND NEGATIVE. PHYSICAL EXAMINATION: GENERAL: Well-appearing, well-nourished and in no acute distress. HEAD: Atraumatic, normocephalic. EYES: Pupils equal round and reactive to light, extraocular movements intact, conjunctiva are normal. ENT: Nares patent, oropharynx clear without exudates. Moist mucous membranes. NECK: Normal range of motion, supple without lymphadenopathy LUNGS: Breath sounds clear to auscultation bilaterally and equal. No wheezes rales or rhonchi. HEART: Regular rate and rhythm without murmurs ABDOMEN: Soft, high ileostomy bag is on the right side, no drainage noted. Stoma appears normal. No bleeding or extensive erythema noted. Abdomen is diffusely tender with mild to moderate. Positive bowel sounds no guarding, no rebound. No masses appreciated. Female : deferred Musculoskeletal: Normal range of motion, no pitting or edema. No cyanosis. NEUROLOGICAL: Cranial nerves grossly intact. Normal speech, normal gait. Normal sensory, motor exams PSYCH: Normal mood, normal affect. SKIN: Warm, Dry, normal turgor, no rashes or lesions noted. Dictation was performed using [employer] voice recognition software TRAVEL OUTSIDE OF THE [place] IN LAST 30 DAYS: No - HPI Notes: 01/23/19 02:38 Dictated - Related Data Allergies/Adverse Reactions: ciprofloxacin [From Cipro] Allergy (Verified 01/23/19 04:08) diltiazem HCl [From Cardizem] Allergy (Verified 01/23/19 04:08) Unknown reaction ketorolac tromethamine [From Toradol] Allergy (Verified 01/23/19 04:08) levofloxacin [From Levaquin] Allergy (Verified 01/23/19 04:08) meperidine HCl [From Demerol] Allergy (Verified 01/23/19 04:08) nitrofurantoin macrocrystalline [From Macrodantin] Allergy (Verified 01/23/19 04:08) propoxyphene napsylate [From Darvocet-N 100] Allergy (Verified 01/23/19 04:08) sumatriptan [From Imitrex] Allergy (Verified 01/23/19 04:08) Past Medical History - Social History Smoking Status: Never Smoker Frequency of alcohol use: None Drug Abuse: None Lives with: Family Family History: Arthritis, CAD, DM, Hyperlipidemia, Hypertension - Past Medical History Cardiac Medical History: Reports: Hx Coronary Artery Disease, Hx Hypercholesterolemia, Hx Hypertension Pulmonary Medical History: Denies: Hx Asthma, Hx COPD, Hx Tuberculosis Neurological Medical History: Reports: Hx Migraine, Hx Seizures Endocrine Medical History: Denies: Hx Diabetes Mellitus Type 1, Hx Diabetes Mellitus Type 2, Hx Hyperthyroidism, Hx Hypothyroidism Renal/ Medical History: Reports: Hx Renal Insufficiency. Denies: Hx Periton eal Dialysis Malignancy Medical History: Reports: Hx Colorectal Cancer - Had a total colectomy because there "was something wrong in her colon" GI Medical History: Reports: Hx Gastroesophageal Reflux Disease, Hx Irritable Bowel, Hx Colonoscopy, Hx Endoscopy. Denies: Hx Cirrhosis, Hx Hepatitis Musculoskeletal Medical History: Reports Hx Arthritis, Denies Hx Gout, Reports Hx Musculoskeletal Deformity, Reports Hx Musculoskeletal Trauma Skin Medical History: Denies Hx Eczema, Denies Hx Psoriasis Psychiatric Medical History: Reports: Hx Depression Traumatic Medical History: Reports: Hx Fractures - left shoulder Infectious Medical History: Denies: Hx Hepatitis Past Surgical History: Reports: Hx Appendectomy, Hx Bowel Surgery - 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 bowel injury, Hx Section, Hx Cholecystectomy, Hx Coronary Artery Bypass Graft, Hx Hysterectomy, Hx Ileostomy, Hx Orthopedic Surgery - left shoulder x2, Hx Tonsillectomy - Immunizations Immunizations up to date: Yes Hx Diphtheria, Pertussis, Tetanus Vaccination: Yes - 2012 Hx Pneumococcal Vaccination: 05/11/11 Review of Systems - Review of Systems Notes: Dictated Physical Exam - Vital signs Vitals: Resp BP Pulse Ox 14 159/99 H 97 01/23/19 02:28 01/23/19 02:28 01/23/19 02:28 - Notes Notes: Dictated Course - Re-evaluation Re-evalutation: 01/23/19 06:37 Patient started to pass stool from the ileostomy bag and feeling comfortable wish to go home - Vital Signs Vital signs: Temp Pulse Resp BP Pulse Ox 10 L 148/70 H 96 01/23/19 06:31 01/23/19 06:31 01/23/19 06:31 - Laboratory Result Diagrams: 01/23/19 03:36 01/23/19 03:36 Laboratory results interpreted by me: 01/23/19 01/23/19 01/23/19 03:04 03:36 03:36 RBC 3.53 L Hgb 10.3 L Hct 30.9 L RDW 15.7 H Chloride 110 H Carbon Dioxide 19 L BUN 21 H Creatinine 1.51 H Est GFR ( Amer) 40 L Est GFR (MDRD) Non-Af 33 L Ur Leukocyte Esterase MODERATE H - Diagnostic Test Radiology reviewed: Reports reviewed - Abdominal series reported by radiologist as unremarkable. Discharge - Discharge Clinical Impression: Abdominal pain Qualifiers: Abdominal location: generalized Qualified Code(s): R10.84 - Generalized abdominal pain Condition: Fair Disposition: HOME, SELF-CARE Instructions: Abdominal Pain ([facility])
[2019-01-23 03:27] LABS: APPEARANCE,URINE CLEAR; BILIRUBIN,URINE NEGATIVE (NEGATIVE); COLOR,URINE YELLOW; GLUCOSE, URINE NEGATIVE (NEGATIVE); KETONES,URINE NEGATIVE (NEGATIVE); LEUKOCYTE ESTERASE,URINE MODERATE (NEGATIVE); NITRITE,URINE NEGATIVE (NEGATIVE); PROTEIN,URINE NEGATIVE (NEGATIVE); URINE SPECIFIC GRAVITY 1.005; UROBILINOGEN,URINE NEGATIVE mg/dL (<2.0)
[2019-01-23 03:53] LABS: ABSOLUTE EOSINOPHILS # (AUTO) 0.2 10^3/uL (0.0-0.6); ABSOLUTE LYMPHOCYTES (AUTO) 1.2 10^3/uL (0.5-4.7); ABSOLUTE MONOCYTES (AUTO) 0.5 10^3/uL (0.1-1.4); BASOPHILS % (AUTO) 0.7 % (0-2); EOSINOPHILS % (AUTO) 3.5 % (0-6); HEMATOCRIT 30.9 % (36.0-47.0); HEMOGLOBIN 10.3 g/dL (12.0-15.5); LYMPHOCYTES % (AUTO) 24.7 % (13-45); MEAN CORPUSCULAR HEMOGLOBIN 29.2 pg (27.0-33.4); MEAN CORPUSCULAR HGB CONC 33.3 g/dL (32.0-36.0); MEAN CORPUSCULAR VOLUME 88 fl (80-97); MONOCYTES % (AUTO) 10.3 % (3-13); PLATELET COUNT 190 10^3/uL (150-450); RED BLOOD COUNT 3.53 10^6/uL (3.72-5.28); RED CELL DISTRIBUTION WIDTH 15.7 % (11.5-14.0); SEGMENTED NEUTROPHILS % (AUTO) 60.8 % (42-78); TOTAL CELLS COUNTED % (AUTO) 100 %
[2019-01-23 04:15] LABS: ALKALINE PHOSPHATASE 91 U/L (38-126); ANION GAP 10 (5-19); ASPARTATE AMINO TRANSFERASE 24 U/L (14-36); BILIRUBIN,DIRECT 0.2 mg/dL (0.0-0.4); BILIRUBIN,TOTAL 0.2 mg/dL (0.2-1.3); BLOOD UREA NITROGEN 21 mg/dL (7-20); CALCIUM 9.2 mg/dL (8.4-10.2); CARBON DIOXIDE 19 mmol/L (22-30); CHLORIDE 110 mmol/L (98-107); GLUCOSE 81 mg/dL (75-110); TOTAL PROTEIN 6.5 g/dL (6.3-8.2)
--- NOTE | 2019-01-23 04:21 | RADIOLOGY REPORT (SQ) ---
EXAM DESCRIPTION: XR ABDOMEN SUPINE AND ERECT WITH CHEST (ABD ACUTE SERIES) COMPLETED DATE/TME: 01/23/2019 02:35 CLINICAL HISTORY: 78 years Female, Acute abdominal pain Comparison: None. NUMBER OF VIEWS/TECHNIQUE: 3 LIMITATIONS: None. FINDINGS: Atherosclerotic vascular disease. Upper abdominal clips. Cardiac/mediastinal hardware/clips. Mild gaseous bowel prominence. No suspicious calcification. Grossly intact skeletal structures. No acute cardiopulmonary findings. IMPRESSION: No acute findings.
[2019-01-23] MEDS ORDERED: MORPHINE SULFATE 10 MG/ML INJ IV ONE (04:30)
[2019-01-23] MEDS ORDERED: ONDANSETRON HCL INJ/PF 4 MG/2 ML SDV IV ONE (04:30)
[2019-01-23 07:08] VITALS: BP 155/77
== END 2019-01-23 07:16 | disposition home or self-care (01) ==
LOC: ER 02:12
DX: R10.84 Generalized abdominal pain (principal); Z93.2 Ileostomy status; I25.10 Atherosclerotic heart disease of native coronary artery without angina pectoris; I10 Essential (primary) hypertension
CPT/HCPCS: 99283; 96361; 96374; 96375; 36415; 83690; 85025; 80053; 81001; 74022; J2270; J2405; J7030

== ENCOUNTER 2019-01-28 12:39 | Inpatient (IN) | payer MEDICARE, MEDICAID ==
[2019-01-28] MEDS ORDERED: NORMAL SALINE 1000 ML 1,000 ML IV ONE ×3 (13:00→22:26)
[2019-01-28] MEDS ORDERED: MORPHINE SULFATE 10 MG/ML INJ IV ONE (13:00)
[2019-01-28] MEDS ORDERED: ONDANSETRON HCL INJ/PF 4 MG/2 ML SDV IV ONE (13:00)
--- NOTE | 2019-01-28 13:59 | ER Document Report ---
Entered by CAITIE POWERS SCRIBE 01/28/19 [id number] Acting as scribe for:LG YATES MD ED GI/ - General TRAVEL OUTSIDE OF THE [place] IN LAST 30 DAYS: No <LG YATES - Last Filed: 01/28/19 16:36> <SARAH MCKINLEY - Last Filed: 01/28/19 17:19> - General Chief Complaint: Abdominal Pain Stated Complaint: ABDOMINAL DISCOMFORT Time Seen by Provider: 01/28/19 12:52 Primary Care Provider: BOBBI MACKAY DO [Primary Care Provider] - Follow up as needed Notes: Patient is a 78-year-old female who presents to the emergency department today with complaints of complications with her ileostomy that was performed roughly 15 years ago. Patient states that she has not had any drainage from the ileostomy since yesterday morning. This patient was seen for these exact same symptoms 5 days ago here in this emergency department. At that time the patient was treated with 1L of fluid and morphine. After receiving these interventions, the patient's ileostomy began draining as it should and she was sent home. Patient complains of some associated abdominal pain today which was also present 5 days ago. (LG YATES) - Related Data Allergies/Adverse Reactions: ciprofloxacin [From Cipro] Allergy (Verified 01/23/19 04:08) diltiazem HCl [From Cardizem] Allergy (Verified 01/23/19 04:08) Unknown reaction ketorolac tromethamine [From Toradol] Allergy (Verified 01/23/19 04:08) levofloxacin [From Levaquin] Allergy (Verified 01/23/19 04:08) meperidine HCl [From Demerol] Allergy (Verified 01/23/19 04:08) nitrofurantoin macrocrystalline [From Macrodantin] Allergy (Verified 01/23/19 04:08) propoxyphene napsylate [From Darvocet-N 100] Allergy (Verified 01/23/19 04:08) sumatriptan [From Imitrex] Allergy (Verified 01/23/19 04:08) Past Medical History - Social History Smoking Status: Never Smoker Chew tobacco use (# tins/day): No Frequency of alcohol use: None Drug Abuse: None Family History: Arthritis, CAD, DM, Hyperlipidemia, Hypertension Patient has suicidal ideation: No Patient has homicidal ideation: No - Past Medical History Cardiac Medical History: Reports: Hx Coronary Artery Disease, Hx Hypercholesterolemia, Hx Hypertension Pulmonary Medical History: Denies: Hx Asthma, Hx COPD, Hx Tuberculosis Neurological Medical History: Reports: Hx Migraine, Hx Seizures Endocrine Medical History: Denies: Hx Diabetes Mellitus Type 1, Hx Diabetes Mellitus Type 2, Hx Hyperthyroidism, Hx Hypothyroidism Renal/ Medical History: Reports: Hx Renal Insufficiency. Denies: Hx Perit devine Dialysis Malignancy Medical History: Reports: Hx Colorectal Cancer - Had a total colectomy because there "was something wrong in her colon" GI Medical History: Reports: Hx Gastroesophageal Reflux Disease, Hx Irritable Bowel, Hx Colonoscopy, Hx Endoscopy. Denies: Hx Cirrhosis, Hx Hepatitis Musculoskeletal Medical History: Reports Hx Arthritis, Denies Hx Gout, Reports Hx Musculoskeletal Deformity, Reports Hx Musculoskeletal Trauma Skin Medical History: Denies Hx Eczema, Denies Hx Psoriasis Psychiatric Medical History: Reports: Hx Depression Traumatic Medical History: Reports: Hx Fractures - left shoulder Infectious Medical History: Denies: Hx Hepatitis Past Surgical History: Reports: Hx Appendectomy, Hx Bowel Surgery - 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 bowel injury, Hx Section, Hx Cholecystectomy, Hx Coronary Artery Bypass Graft, Hx Hysterectomy, Hx Ileostomy, Hx Orthopedic Surgery - left shoulder x2, Hx Tonsillectomy - Immunizations Immunizations up to date: Yes Hx Diphtheria, Pertussis, Tetanus Vaccination: Yes - 2012 Hx Pneumococcal Vaccination: 05/11/11 <LG YATES - Last Filed: 01/28/19 16:36> Review of Systems - Review of Systems Constitutional: No symptoms reported EENT: No symptoms reported Cardiovascular: No symptoms reported Respiratory: No symptoms reported Gastrointestinal: See HPI, Abdominal pain, Other - Ileostomy not draining Genitourinary: No symptoms reported Female Genitourinary: No symptoms reported Musculoskeletal: No symptoms reported Skin: No symptoms reported Hematologic/Lymphatic: No symptoms reported Neurological/Psychological: No symptoms reported -: Yes All other systems reviewed and negative <LG YATES - Last Filed: 01/28/19 16:36> Physical Exam <LG YATES - Last Filed: 01/28/19 16:36> - Vital signs Vitals: Temp Pulse Resp BP Pulse Ox 97.9 F 67 16 132/80 H 98 01/28/19 12:45 01/28/19 12:45 01/28/19 12:45 01/28/19 12:45 01/28/19 12:45 - Notes Notes: Physical Exam: General: Alert, cachectic, malnourished. HEENT: Normocephalic. Atraumatic. PERRL. Extraocular movements intact. Or opharynx clear. Neck: Supple. Non-tender. Respiratory: No respiratory distress. Clear and equal breath sounds bilaterally. Cardiovascular: Regular rate and rhythm. Abdominal: Ileostomy in place, no drainage in bag. Diffuse tenderness upon palpation. Normal Bowel Sounds. Back: No gross abnormalities. Extremities: Moves all four extremities. Upper extremities: Normal inspection. Normal ROM. Lower extremities: Normal inspection. No edema. Normal ROM. Neurological: Normal cognition. AAOx4. Normal speech. Psychological: Normal affect. Normal Mood. Skin: Warm. Dry. Normal color. (LG YATES) Course - Laboratory Result Diagrams: 01/28/19 14:59 01/28/19 14:59 - Diagnostic Test Radiology reviewed: Image reviewed, Reports reviewed - Acute abdominal series shows dilated loops of small bowel with air-fluid levels consistent with small bowel obstruction. - Transfer of Care Care transferred to following provider: Dr. Mckinley <LG YATES - Last Filed: 01/28/19 16:36> - Laboratory Result Diagrams: 01/28/19 14:59 01/28/19 14:59 <SARAH MCKINLEY - Last Filed: 01/28/19 17:19> - Vital Signs Vital signs: Temp Pulse Resp BP Pulse Ox 97.9 F 67 16 132/80 H 98 01/28/19 12:45 01/28/19 12:45 01/28/19 12:45 01/28/19 12:45 01/28/19 12:45 - Laboratory Laboratory results interpreted by me: 01/28/19 01/28/19 01/28/19 13:35 14:59 14:59 Hgb 11.4 L Hct 34.6 L RDW 15.7 H Sodium 136.8 L Carbon Dioxide 18 L BUN 34 H Creatinine 1.86 H Est GFR ( Amer) 32 L Est GFR (MDRD) Non-Af 26 L Creatine Kinase 324 H Ur Leukocyte Esterase MODERATE H - Transfer of Care Notes: 01/28/19 16:36 Acute abdominal series suggest small bowel obstruction. The patient is drinking contrast now for a CT scan abdomen and pelvis with oral contrast only. She does have renal insufficiency. She has had a total colectomy, so the contrast should not take long to opacify down to the obstruction. (LG YATES) Critical Care Note - Critical Care Note Total time excluding time spent on procedures (mins): 30 <SARAH MCKINLEY - Last Filed: 01/28/19 17:19> Discharge <LG AYTES - Last Filed: 01/28/19 16:36> - Discharge Admitting Provider: Brittany (Hospitalist) Unit Admitted: Medical Floor <SARAH MCKINLEY - Last Filed: 01/28/19 17:19> - Discharge Clinical Impression: Small bowel obstruction Condition: Fair Disposition: ADMITTED OBSERVATION Referrals: BOBBI MACKAY, [Primary Care Provider] - Follow up as needed I personally performed the services described in the documentation, reviewed and edited the documentation which was dictated to the scribe in my presence, and it accurately records my words and actions.
[2019-01-28 14:11] LABS: APPEARANCE,URINE CLEAR; BILIRUBIN,URINE NEGATIVE (NEGATIVE); COLOR,URINE YELLOW; GLUCOSE, URINE NEGATIVE (NEGATIVE); KETONES,URINE NEGATIVE (NEGATIVE); LEUKOCYTE ESTERASE,URINE MODERATE (NEGATIVE); NITRITE,URINE NEGATIVE (NEGATIVE); PROTEIN,URINE NEGATIVE (NEGATIVE); URINE SPECIFIC GRAVITY 1.012; UROBILINOGEN,URINE NEGATIVE mg/dL (<2.0)
--- NOTE | 2019-01-28 14:20 | RADIOLOGY REPORT (SQ) ---
EXAM DESCRIPTION: ACUTE ABDOMEN SERIES COMPLETED DATE/TIME: 01/28/2019 2:11 pm REASON FOR STUDY: No output from ileostomy today. COMPARISON: 01/23/2019 NUMBER OF VIEWS: Three views. TECHNIQUE: Frontal chest, supine abdomen and upright/decubitus abdomen radiographic images acquired. LIMITATIONS: None. FINDINGS: CHEST: Lungs clear of infiltrates. FREE AIR: None. No abnormal gas collections. BOWEL GAS PATTERN: There is small-bowel distention with scattered air-fluid levels on the upright vie w. Findings are consistent with small-bowel obstruction. CALCIFICATIONS: No suspicious calcifications. HARDWARE: None in the abdomen. SOFT TISSUES: No gross mass or suggestion of organomegaly. BONES: No acute fracture. No worrisome bone lesions. OTHER: No other significant finding. IMPRESSION: Findings are consistent with small-bowel obstruction. TECHNICAL DOCUMENTATION: JOB ID: [id number] [employer]- All Rights Reserved Reading location - IP/workstation name: [email or web address]
[2019-01-28 15:09] LABS: ABSOLUTE EOSINOPHILS # (AUTO) 0.1 10^3/uL (0.0-0.6); ABSOLUTE LYMPHOCYTES (AUTO) 0.7 10^3/uL (0.5-4.7); ABSOLUTE MONOCYTES (AUTO) 0.4 10^3/uL (0.1-1.4); ABSOLUTE NEUT (AUTO) 4.2 10^3/uL (1.7-8.2); BASOPHILS % (AUTO) 0.6 % (0-2); EOSINOPHILS % (AUTO) 1.6 % (0-6); HEMATOCRIT 34.6 % (36.0-47.0); HEMOGLOBIN 11.4 g/dL (12.0-15.5); LYMPHOCYTES % (AUTO) 13.2 % (13-45); MEAN CORPUSCULAR HEMOGLOBIN 29.2 pg (27.0-33.4); MEAN CORPUSCULAR VOLUME 88 fl (80-97); MONOCYTES % (AUTO) 7.3 % (3-13); PLATELET COUNT 219 10^3/uL (150-450); RED BLOOD COUNT 3.92 10^6/uL (3.72-5.28); RED CELL DISTRIBUTION WIDTH 15.7 % (11.5-14.0); SEGMENTED NEUTROPHILS % (AUTO) 77.3 % (42-78); TOTAL CELLS COUNTED % (AUTO) 100 %; WHITE BLOOD COUNT 5.4 10^3/uL (4.0-10.5)
[2019-01-28 15:32] LABS: ALBUMIN 4.2 g/dL (3.5-5.0); ALKALINE PHOSPHATASE 113 U/L (38-126); ANION GAP 12 (5-19); ASPARTATE AMINO TRANSFERASE 25 U/L (14-36); BILIRUBIN,DIRECT 0.2 mg/dL (0.0-0.4); BILIRUBIN,TOTAL 0.2 mg/dL (0.2-1.3); BLOOD UREA NITROGEN 34 mg/dL (7-20); CALCIUM 9.4 mg/dL (8.4-10.2); CARBON DIOXIDE 18 mmol/L (22-30); CHLORIDE 107 mmol/L (98-107); CREATINE KINASE 324 U/L (30-135); GLUCOSE 107 mg/dL (75-110); POTASSIUM 4.9 mmol/L (3.6-5.0); TOTAL PROTEIN 6.8 g/dL (6.3-8.2)
--- NOTE | 2019-01-28 17:17 | ER Document Report ---
Doctor's Note Notes: 01/28/19 17:15 I was signed out this pt. by Judy Vega. She has a SBO and I have explained to her that we need to put an NGT down to help her bowels start moving again. I have spoken to Mr. Leslie and he will see pt. in ED for admission (Dr. Soto to admit)
--- NOTE | 2019-01-28 17:20 | ER Document Report ---
ED GI/ - General Chief Complaint: Abdominal Pain Stated Complaint: ABDOMINAL DISCOMFORT Time Seen by Provider: 01/28/19 12:52 Primary Care Provider: BOBBI MACKAY DO [Primary Care Provider] - Follow up as needed TRAVEL OUTSIDE OF THE [place] IN LAST 30 DAYS: No - Related Data Allergies/Adverse Reactions: ciprofloxacin [From Cipro] Allergy (Verified 01/23/19 04:08) diltiazem HCl [From Cardizem] Allergy (Verified 01/23/19 04:08) Unknown reaction ketorolac tromethamine [From Toradol] Allergy (Verified 01/23/19 04:08) levofloxacin [From Levaquin] Allergy (Verified 01/23/19 04:08) meperidine HCl [From Demerol] Allergy (Verified 01/23/19 04:08) nitrofurantoin macrocrystalline [From Macrodantin] Allergy (Verified 01/23/19 04:08) propoxyphene napsylate [From Darvocet-N 100] Allergy (Verified 01/23/19 04:08) sumatriptan [From Imitrex] Allergy (Verified 01/23/19 04:08) Past Medical History - Social History Smoking Status: Never Smoker Chew tobacco use (# tins/day): No Frequency of alcohol use: None Drug Abuse: None Family History: Arthritis, CAD, DM, Hyperlipidemia, Hypertension Patient has suicidal ideation: No Patient has homicidal ideation: No - Past Medical History Cardiac Medical History: Reports: Hx Coronary Artery Disease, Hx Hypercholesterolemia, Hx Hypertension Pulmonary Medical History: Denies: Hx Asthma, Hx COPD, Hx Tuberculosis Neurological Medical History: Reports: Hx Migraine, Hx Seizures Endocrine Medical History: Denies: Hx Diabetes Mellitus Type 1, Hx Diabetes Mellitus Type 2, Hx Hyperthyroidism, Hx Hypothyroidism Renal/ Medical History: Reports: Hx Renal Insufficiency. Denies: Hx Peritoneal Dialysis Malignancy Medical History: Reports: Hx Colorectal Cancer - Had a total colectomy because there "was something wrong in her colon" GI Medical History: Reports: Hx Gastroesophageal Reflux Disease, Hx Irritable Bowel, Hx Colonoscopy, Hx Endoscopy. Denies: Hx Cirrhosis, Hx Hepatitis Musculoskeletal Medical History: Reports Hx Arthritis, Denies Hx Gout, Reports Hx Musculoskeletal Deformity, Reports Hx Musculoskeletal Trauma Skin Medical History: Denies Hx Eczema, Denies Hx Psoriasis Psychiatric Medical History: Reports: Hx Depression Traumatic Medical History: Reports: Hx Fractures - left shoulder Infectious Medical History: Denies: Hx Hepatitis Past Surgical History: Reports: Hx Appendectomy, Hx Bowel Surgery - 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 bowel injury, Hx Section, Hx Cholecystectomy, Hx Coronary Artery Bypass Graft, Hx Hysterectomy, Hx Ileostomy, Hx Orthopedic Surgery - left shoulder x2, Hx Tonsillectomy - Immunizations Immunizations up to date: Yes Hx Diphtheria, Pertussis, Tetanus Vaccination: Yes - 2012 Hx Pneumococcal Vaccination: 05/11/11 Physical Exam - Vital signs Vitals: Temp Pulse Resp BP Pulse Ox 97.9 F 67 16 132/80 H 98 01/28/19 12:45 01/28/19 12:45 01/28/19 12:45 01/28/19 12:45 01/28/19 12:45 Course - Vital Signs Vital signs: Temp Pulse Resp BP Pulse Ox 97.9 F 67 16 132/80 H 98 01/28/19 12:45 01/28/19 12:45 01/28/19 12:45 01/28/19 12:45 01/28/19 12:45 - Laboratory Result Diagrams: 01/28/19 14:59 01/28/19 14:59 Laboratory results interpreted by me: 01/28/19 01/28/19 01/28/19 13:35 14:59 14:59 Hgb 11.4 L Hct 34.6 L RDW 15.7 H Sodium 136.8 L Carbon Dioxide 18 L BUN 34 H Creatinine 1.86 H Est GFR ( Amer) 32 L Est GFR (MDRD) Non-Af 26 L Creatine Kinase 324 H Ur Leukocyte Esterase MODERATE H Discharge - Discharge Clinical Impression: Small bowel obstruction Condition: Fair Disposition: ADMITTED OBSERVATION Admitting Provider: Brittany (Hospitalist) Unit Admitted: Medical Floor Referrals: BOBBI MACKAY DO [Primary Care Provider] - Follow up as needed
[2019-01-28] MEDS ORDERED: HYDROMORPHONE HCL INJ/PF 2 MG/ML AMPULE IV ONE (17:43)
[2019-01-28] MEDS ORDERED: PHARMACY COMMUNICATION ORDER MC NR (17:45)
[2019-01-28] MEDS ORDERED: PROMETHAZINE HCL INJ 25 MG/1 ML VIAL IV PRN (17:51)
--- NOTE | 2019-01-28 17:59 | PDOC H&P ---
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 Patient presented to ER with the complaint of no drainage from the ileostomy since yesterday morning. Patient was seen for the exact same symptoms 5 days ago in the ER. At that time patient was treated with IV hydration and morphine. After these interventions at times patient ileostomy began draining as it should and she was sent home. At this time the ileostomy is not draining and patient's abdominal series showing a small bowel obstruction. Patient had no treatment prior to arrival all other oral intake been aggravating factor Past Medical History Cardiac Medical History: Reports: Coronary Artery Disease, Hyperlipidema, Hyper tension Pulmonary Medical History: Denies: Asthma, Chronic Obstructive Pulmonary Disease (COPD), Tuberculosis Neurological Medical History: Reports: Migraine, Seizures Endocrine Medical History: Denies: Diabetes Mellitus Type 1, Diabetes Mellitus Type 2, Hyperthyroidism, Hypothyroidism Malignancy Medical History: Reports: Colorectal Cancer - Had a total colectomy because there "was something wrong in her colon" GI Medical History: Reports: Gastroesophageal Reflux Disease Denies: Cirrhosis, Hepatitis Musculoskeltal Medical History: Reports: Arthritis Denies: Gout Skin Medical History: Denies: Eczema, Psoriasis Psychiatric Medical History: Reports: Depression Hematology: Reports: Anemia Denies: Bleeding Tendencies Past Surgical History Past Surgical History: Reports: Appendectomy, Section, Cholecystectomy, Coronary Artery Bypass Graft, Hysterectomy, Ileostomy, Orthopedic Surgery - left shoulder x2, Tonsillectomy Social History Information Source: Patient Lives with: Family Smoking Status: Never Smoker Frequency of Alcohol Use: Rare Hx Recreational Drug Use: No Drugs: None Hx Prescription Drug Abuse: No - Advance Directive Resuscitation Status: Full Code Family History Family History: Arthritis, CAD, DM, Hyperlipidemia, Hypertension Parental Family History Reviewed: Yes Children Family History Reviewed: Yes Sibling(s) Family History Reviewed.: Yes Medication/Allergy Allergies/Adverse Reactions: ciprofloxacin [From Cipro] Allergy (Verified 01/23/19 04:08) diltiazem HCl [From Cardizem] Allergy (Verified 01/23/19 04:08) Unknown reaction ketorolac tromethamine [From Toradol] Allergy (Verified 01/23/19 04:08) levofloxacin [From Levaquin] Allergy (Verified 01/23/19 04:08) meperidine HCl [From Demerol] Allergy (Verified 01/23/19 04:08) nitrofurantoin macrocrystalline [From Macrodantin] Allergy (Verified 01/23/19 04:08) propoxyphene napsylate [From Darvocet-N 100] Allergy (Verified 01/23/19 04:08) sumatriptan [From Imitrex] Allergy (Verified 01/23/19 04:08) Review of Systems Constitutional: ABSENT: chills, fever(s), headache(s), weight gain, weight loss Eyes: ABSENT: visual disturbances Ears: ABSENT: hearing changes Cardiovascular: ABSENT: chest pain, dyspnea on exertion, edema, orthropnea, palpitations Respiratory: ABSENT: cough, hemoptysis Gastrointestinal: PRESENT: abdominal pain, nausea, vomiting. ABSENT: consti pation, diarrhea, hematemesis, hematochezia Genitourinary: ABSENT: dysuria, hematuria Musculoskeletal: ABSENT: joint swelling Integumentary: ABSENT: rash, wounds Neurological: ABSENT: abnormal gait, abnormal speech, confusion, dizziness, focal weakness, syncope Psychiatric: ABSENT: anxiety, depression, homidical ideation, suicidal ideation Endocrine: ABSENT: cold intolerance, heat intolerance, polydipsia, polyuria Hematologic/Lymphatic: ABSENT: easy bleeding, easy bruising Physical Exam Vital Signs: Temp Pulse Resp BP Pulse Ox 97.9 F 67 16 132/80 H 98 01/28/19 12:45 01/28/19 12:45 01/28/19 12:45 01/28/19 12:45 01/28/19 12:45 Intake & Output 01/27/19 01/28/19 01/29/19 06:59 06:59 06:59 Intake Total 1000 Balance 1000 Weight 39.463 kg General appearance: PRESENT: no acute distress, well-developed, well-nourished Head exam: PRESENT: atraumatic, normocephalic Eye exam: PRESENT: conjunctiva pink, EOMI, PERRLA. ABSENT: scleral icterus Ear exam: PRESENT: normal external ear exam Mouth exam: PRESENT: moist, tongue midline Neck exam: ABSENT: carotid bruit, JVD, lymphadenopathy, thyromegaly Respiratory exam: PRESENT: clear to auscultation yamilet. ABSENT: rales, rhonchi, wheezes Cardiovascular exam: PRESENT: RRR. ABSENT: diastolic murmur, rubs, systolic murmur Pulses: PRESENT: normal dorsalis pedis pul Vascular exam: PRESENT: normal capillary refill GI/Abdominal exam: PRESENT: firm, tenderness, other - Absent bowel sounds. A BSENT: distended, guarding, mass, organolmegaly, rebound Rectal exam: PRESENT: deferred Extremities exam: PRESENT: full ROM. ABSENT: calf tenderness, clubbing, pedal edema Neurological exam: PRESENT: alert, awake, oriented to person, oriented to place, oriented to time, oriented to situation, CN II-XII grossly intact. ABSENT: motor sensory deficit Psychiatric exam: PRESENT: appropriate affect, normal mood. ABSENT: homicidal ideation, suicidal ideation Skin exam: PRESENT: dry, intact, warm. ABSENT: cyanosis, rash Results Laboratory Results: 01/28/19 14:59 01/28/19 14:59 01/28/19 01/28/19 01/28/19 13:35 14:59 14:59 WBC 5.4 RBC 3.92 Hgb 11.4 L Hct 34.6 L MCV 88 MCH 29.2 MCHC 33.0 RDW 15.7 H Plt Count 219 Seg Neutrophils % 77.3 Sodium 136.8 L Potassium 4.9 Chloride 107 Carbon Dioxide 18 L Anion Gap 12 BUN 34 H Creatinine 1.86 H Est GFR ( Amer) 32 L Glucose 107 Calcium 9.4 Total Bilirubin 0.2 AST 25 Alkaline Phosphatase 113 Total Protein 6.8 Albumin 4.2 Urine Color YELLOW Urine Appearance CLEAR Urine pH 6.0 Ur Specific [place] 1.012 Urine Protein NEGATIVE Urine Glucose (UA) NEGATIVE Urine Ketones NEGATIVE Urine Blood NEGATIVE Urine Nitrite NEGATIVE Ur Leukocyte Esterase MODERATE H Urine WBC (Auto) 2 Urine RBC (Auto) 0 01/28/19 01/28/19 01/28/19 14:59 14:59 14:59 Creatine Kinase 324 H Cancelled Troponin I < 0.012 Impressions: Acute Abdomen Series 01/28/19 13:00 IMPRESSION: Findings are consistent with small-bowel obstruction. Assessment and Plan - Diagnosis (1) Small bowel obstruction Is this a current diagnosis for this admission?: Yes Plan: 01/28/2019-admit patient to IMCU. Hydrate with D5 one half normal saline at 100 mL an hour. NG tube to intermittent low wall suction. Dilaudid 0.5 mill grams IV every 3 hours PRN pain (2) Abdominal pain Is this a current diagnosis for this admission?: Yes Plan: 01/28/2019-Dilaudid 0.5 mg IV every 3 hours PRN (3) Nausea & vomiting Is this a current diagnosis for this admission?: Yes Plan: 01/28/2019-Zofran 4 mill grams IV every 8 hours as needed and Phenergan 12.5 mill grams IV every 6 hours as needed (4) Chronic renal failure, stage 3 (moderate) Is this a current diagnosis for this admission?: Yes Plan: 01/28/2019-stable at this time we will continue to follow daily BMPs - Time Time Spent with patient: 35 or more minutes - Inpatient Certification Based on my medical assessment, after consideration of the patient's comorbidities, presenting symptoms, or acuity I expect that the services needed warrant INPATIENT care.: Yes I certify that my determination is in accordance with my understanding of Medicare's requirements for reasonable and necessary INPATIENT services [42 CFR 412.3e].: Yes Medical Necessity: Other - IV fluids, IV pain control, NG tube
--- NOTE | 2019-01-28 18:36 | RADIOLOGY REPORT (SQ) ---
EXAM DESCRIPTION: CT ABD/PELVIS ORAL ONLY COMPLETED DATE/TIME: 01/28/2019 6:05 pm REASON FOR STUDY: SBO COMPARISON: 07/14/2018 TECHNIQUE: CT scan of the abdomen and pelvis performed with oral contrast and no intravenous contras t. Images reviewed with lung, soft tissue, and bone windows. Reconstructed coronal and sagittal MPR i mages reviewed. All images stored on PACS. All CT scanners at this facility use dose modulation, iterative reconstruction, and/or weight based d osing when appropriate to reduce radiation dose to as low as reasonably achievable (ALARA). [facility]: Dose Right [facility]: CareDose [facility]: Dose Right [facility]: Teradose 4D [facility]: Smart [employer] RADIATION DOSE: CT Rad equipment meets quality standard of care and radiation dose reduction techniq ues were employed. CTDIvol: 4.8 mGy. DLP: 214 mGy-cm.mGy. LIMITATIONS: None. FINDINGS: LOWER CHEST: No acute findings. Similar hiatus hernia. NON-CONTRASTED LIVER, SPLEEN, ADRENALS: Evaluation limited by lack of IV contrast. No identified sign ificant masses. PANCREAS: No masses. No peripancreatic inflammatory changes. GALLBLADDER: Surgically absent. RIGHT KIDNEY AND URETER: No solid masses. No significant calcification. No hydronephrosis or hydroure ter. LEFT KIDNEY AND URETER: No solid masses. No significant calcification. No hydronephrosis or hydrouret er. AORTA AND RETROPERITONEUM: No aneurysm. No retroperitoneal masses or adenopathy. BOWEL AND PERITONEAL CAVITY: Multiple mildly dilated loops of bowel scattered throughout the abdomen with mesenteric inflammatory changes - free fluid suggesting early obstruction. Right lower quadrant colostomy. APPENDIX: Surgically absent. PELVIS, BLADDER, AND ABDOMINAL WALL: Prior hysterectomy. No abdominal wall hernias. Bladder unremarka ble. BONES: No acute findings. OTHER: No other significant finding. IMPRESSION: Multiple mildly dilated loops of bowel scattered throughout the abdomen with mesenteric inflammatory changes - free fluid suggesting early obstruction. TECHNICAL DOCUMENTATION: JOB ID: [id number] [place]-72 Quality ID # [id number]: Final reports with documentation of one or more dose reduction techniques (e.g., Au tomated exposure control, adjustment of the mA and/or kV according to patient size, use of iterative reconstruction technique) 2010 [employer]- All Rights Reserved Reading location - IP/workstation name: [email or web address]
--- NOTE | 2019-01-28 19:14 | RADIOLOGY REPORT (SQ) ---
EXAM DESCRIPTION: KUB/ABDOMEN (SINGLE VIEW) COMPLETED DATE/TIME: 01/28/2019 7:00 pm REASON FOR STUDY: Check Placement of NG Tube COMPARISON: Earlier exam same date NUMBER OF VIEWS: One view. TECHNIQUE: Supine radiographic image of the abdomen acquired. LIMITATIONS: None. FINDINGS: New nasogastric catheter coiled in the stomach tip overlying the antral-pyloric region of the stomach. No other acute changes. OTHER: No other significant finding. IMPRESSION: New nasogastric catheter coiled in the stomach tip overlying the antral-pyloric region o f the stomach. TECHNICAL DOCUMENTATION: JOB ID: [id number] [place]-72 2010 [employer]- All Rights Reserved Reading location - IP/workstation name: [email or web address]
[2019-01-28] MEDS ORDERED: PROMETHAZINE HCL INJ 25 MG/1 ML VIAL IM ONE (21:04)
[2019-01-28] MEDS ORDERED: LORAZEPAM INJ 2 MG/1 ML VIAL IM ONE (21:06)
[2019-01-28] MEDS ORDERED: MORPHINE SULFATE 10 MG/ML INJ ONE (21:38)
[2019-01-28] MEDS ORDERED: LIDOCAINE 1% INJ-PF (10 MG/ML) 30 ML SDV ONE (21:59)
[2019-01-28] MEDS ORDERED: MORPHINE SULFATE 10 MG/ML INJ IM ONE (22:07)
[2019-01-28] MEDS ORDERED: LIDOCAINE 1% INJ (10 MG/ML) 10 ML MDV INJ ONE (22:09)
[2019-01-28] MEDS ORDERED: RINGERS SOLUTION,LACTATED 1,000 ML IV ONE ×2 (22:26→23:28)
--- NOTE | 2019-01-28 22:32 | EKG REPORT ---
SEVERITY:- ABNORMAL ECG - SINUS RHYTHM ATRIAL PREMATURE COMPLEX CONSIDER ANTEROSEPTAL INFARCT : Confirmed by: Ron Tinsley MD 28-Jan-2019 22:32:04
--- NOTE | 2019-01-28 22:33 | Operative Report ---
Nonrecallable Operative Report DATE OF SURGERY: 01/28/19 PREOPERATIVE DIAGNOSIS: small bowel obstruction, dehydration POSTOPERATIVE DIAGNOSIS: small bowel obstruction, dehydration OPERATION: central line placment SURGEON: CHARLI GONSALES ANESTHESIA: Local TISSUE REMOVED OR ALTERED: none COMPLICATIONS: none ESTIMATED BLOOD LOSS: 0 INTRAOPERATIVE FINDINGS: see note PROCEDURE: Patient was placed on the emergency room [facility] in a Trendelenburg position and the right neck was prepped and draped in usual sterile fashion After appropriate timeout and site verification the right neck was anesthetized with 1% lidocaine plain over the sternocleidomastoid muscle. Using a 22-gauge needle and attempt was made at accessing the internal jugular vein. Ultrasound we were able to identify the internal jugular vein but could not access it with the 22-gauge needle. She was extremely dehydrated. Th erefore this route was abandoned. She was taken out of Trendelenburg position. Right groin was prepped and draped in usual sterile fashion. A 22-gauge needle the area over the femoral vein was anesthetized with 1% lidocaine plain. The femoral vein was easily accessed with a 22-gauge needle and then with a 16- gauge needle. The needle a J-wire was placed into the inferior vena cava. A small incision was made with a 11 blade and the skin and the tract was then dilated with a dilator supplied with the central line kit. A triple-lumen 16-gauge central line was then placed over the wire into the inferior vena cava. Good flow resulted. Fixed in place with 2-0 silk suture in the skin. Patient tolerated the procedure well.
--- NOTE | 2019-01-28 22:39 | PDOC CONSULTATION ---
Consultation Consult Date: 01/28/19 Attending physician:: MARQUES DUKES Provider Consulted: CHARLI GONSALES Consult reason:: bowel obstruction History of Present Illness Admission Date/PCP: 01/28/19 17:38 BOBBI MACKAY DO History of Present Illness: SHAKA GOMEZ is a 78 year old female Patient is a 78-year-old female who presents to the emergency department today with complaints of complications with her ileostomy that was performed roughly 15 years ago. Patient states that she has not had any drainage from the ileostomy since yesterday morning. This patient was seen for these exact same symptoms 5 days ago here in this emergency department. At that time the patient was treated with 1L of fluid and morphine. After receiving these interventions, the patient's ileostomy began draining as it should and she was sent home. Patient complains of some associated abdominal pain today which was also present 5 days ago She also complains of nausea and vomiting ileostomy was revised 2 years ago when she had the completion proctectomy. Past Medical History Cardiac Medical History: Reports: Coronary Artery Disease, Hyperlipidema, Hypertension Pulmonary Medical History: Denies: Asthma, Chronic Obstructive Pulmonary Disease (COPD), Tuberculosis Neurological Medical History: Reports: Migraine, Seizures Endocrine Medical History: Denies: Diabetes Mellitus Type 1, Diabetes Mellitus Type 2, Hyperthyroidism, Hypothyroidism Malignancy Medical History: Reports: Colorectal Cancer - Had a total colectomy because there "was something wrong in her colon" GI Medical History: Reports: Gastroesophageal Reflux Disease Denies: Cirrhosis, Hepatitis Musculoskeltal Medical History: Reports: Arthritis Denies: Gout Skin Medical History: Denies: Eczema, Psoriasis Psychiatric Medical History: Reports: Depression Hematology: Reports: Anemia Denies: Bleeding Tendencies Past Surgical History Past Surgical History: Reports: Appendectomy, Section, Cholecystectomy, Coronary Artery Bypass Graft, Hysterectomy, Ileostomy, Orthopedic Surgery - left shoulder x2, Tonsillectomy, Other - Total abdominal colectomy for ulcerative colitis Social History Lives with: Family Smoking Status: Never Smoker Frequency of Alcohol Use: Rare Hx Recreational Drug Use: No Drugs: None Hx Prescription Drug Abuse: No - Advance Directive Resuscitation Status: Full Code Family History Family History: Arthritis, CAD, DM, Hyperlipidemia, Hypertension Parental Family History Reviewed: No Children Family History Reviewed: NA Sibling(s) Family History Reviewed.: NA Medication/Allergy Home Medications: Clonazepam [Klonopin 0.125 mg Tablet Rapid Dissolve] 0.125 mg PO BIDP PRN 01/28/19 Donepezil HCl [Aricept] 10 mg PO QHS 01/28/19 Doxycycline Hyclate [Vibramycin 100 mg Tablet] 100 mg PO BID 01/28/19 Gabapentin [Neurontin 100 mg Capsule] 100 mg PO QHS 01/28/19 Mupirocin [Bactroban 2% Ointment 22 gm] 1 applic TOP TID 01/28/19 Omeprazole 40 mg PO DAILY 01/28/19 Promethazine HCl [Phenergan 25 mg Tablet] 25 mg PO BIDP PRN 01/28/19 Ramelteon [Rozerem] 8 mg PO HSP PRN 01/28/19 Sertraline HCl [Zoloft] 100 mg PO DAILY 01/28/19 Tizanidine HCl [Zanaflex 4 mg Tablet] 4 mg PO HSP PRN 01/28/19 Allergies/Adverse Reactions: ciprofloxacin [From Cipro] Allergy (Verified 01/23/19 04:08) diltiazem HCl [From Cardizem] Allergy (Verified 01/23/19 04:08) Unknown reaction ketorolac tromethamine [From Toradol] Allergy (Verified 01/23/19 04:08) levofloxacin [From Levaquin] Allergy (Verified 01/23/19 04:08) meperidine HCl [From Demerol] Allergy (Verified 01/23/19 04:08) nitrofurantoin macrocrystalline [From Macrodantin] Allergy (Verified 01/23/19 04:08) propoxyphene napsylate [From Darvocet-N 100] Allergy (Verified 01/23/19 04:08) sumatriptan [From Imitrex] Allergy (Verified 01/23/19 04:08) Review of Systems Constitutional: PRESENT: fatigue Eyes: ABSENT: as per HPI, visual disturbances, other Ears: ABSENT: as per HPI, hearing changes, other Nose, Mouth, and Throat: ABSENT: as per HPI, headache(s), mouth pain, sore throat, vertigo, other Breasts: ABSENT: as per HPI, other Cardiovascular: ABSENT: as per HPI, chest pain, dyspnea on exertion, edema, orthropnea, palpitations, other Respiratory: ABSENT: as per HPI, cough, dyspnea, hemoptysis, sputum, other Gastrointestinal: PRESENT: abdominal pain, bloating Genitourinary: ABSENT: as per HPI, difficulty urinating, dysuria, hematuria, nocturia, other Musculoskeletal: ABSENT: as per HPI, back pain, deformity, joint swelling, muscle weakness, other Integumentary: ABSENT: as per HPI, diaphoresis, erythema, lesions, pruritus, rash, wounds, other Neurological: ABSENT: as per HPI, abnormal gait, abnormal movements, abnormal speech, confusion, convulsions, dizziness, focal weakness, frequent falls, lack of coordination, memory loss, numbness, paresthesias, restless legs, syncope, tingling, tremor(s), vertigo, weakness, other Endocrine: ABSENT: as per HPI, cold intolerance, flushing, heat intolerance, menstrual abnormalities, polydipsia, polyphagia, polyuria, other Hematologic/Lymphatic: ABSENT: as per HPI, easy bleeding, easy bruising, l ymphadenopathy, other Allergic/Immunologic: ABSENT: as per HPI, seasonal rhinorrhea, other Physical Exam Vital Signs: Temp Pulse Resp BP Pulse Ox 98.2 F 67 15 169/80 H 99 01/28/19 19:01 01/28/19 12:45 01/28/19 20:02 01/28/19 20:02 01/28/19 20:02 Intake & Output 01/27/19 01/28/19 01/29/19 06:59 06:59 06:59 Intake Total 1000 Output Total 75 Balance 925 Weight 39.463 kg General appearance: PRESENT: mild distress, thin Head exam: PRESENT: normocephalic Eye exam: PRESENT: EOMI Ear exam: PRESENT: normal external ear exam Mouth exam: PRESENT: dry mucosa Teeth exam: PRESENT: poor dentation Neck exam: PRESENT: full ROM Respiratory exam: PRESENT: clear to auscultation yamilet Cardiovascular exam: PRESENT: RRR Pulses: PRESENT: normal radial pulses, normal femoral pulses GI/Abdominal exam: PRESENT: distended, soft, other - Stoma in the right lower quadrant, dry Rectal exam: PRESENT: deferred Extremities exam: PRESENT: full ROM Musculoskeletal exam: PRESENT: full ROM Neurological exam: PRESENT: alert, awake, oriented to person, oriented to place Psychiatric exam: PRESENT: appropriate affect Skin exam: PRESENT: dry Results Laboratory Results: 01/28/19 14:59 01/28/19 14:59 01/28/19 01/28/19 01/28/19 13:35 14:59 14:59 WBC 5.4 RBC 3.92 Hgb 11.4 L Hct 34.6 L MCV 88 MCH 29.2 MCHC 33.0 RDW 15.7 H Plt Count 219 Seg Neutrophils % 77.3 Sodium 136.8 L Potassium 4.9 Chloride 107 Carbon Dioxide 18 L Anion Gap 12 BUN 34 H Creatinine 1.86 H Est GFR ( Amer) 32 L Glucose 107 Calcium 9.4 Total Bilirubin 0.2 AST 25 Alkaline Phosphatase 113 Total Protein 6.8 Albumin 4.2 Urine Color YELLOW Urine Appearance CLEAR Urine pH 6.0 Ur Specific [place] 1.012 Urine Protein NEGATIVE Urine Glucose (UA) NEGATIVE Urine Ketones NEGATIVE Urine Blood NEGATIVE Urine Nitrite NEGATIVE Ur Leukocyte Esterase MODERATE H Urine WBC (Auto) 2 Urine RBC (Auto) 0 01/28/19 01/28/19 01/28/19 14:59 14:59 14:59 Creatine Kinase 324 H Cancelled Troponin I < 0.012 Impressions: Acute Abdomen Series 01/28/19 13:00 IMPRESSION: Findings are consistent with small-bowel obstruction. Abdomen/Pelvis CT 01/28/19 16:01 IMPRESSION: Multiple mildly dilated loops of bowel scattered throughout the abdomen with mesenteric inflammatory changes - free fluid suggesting early obstruction. KUB X-Ray 01/28/19 17:43 IMPRESSION: New nasogastric catheter coiled in the stomach tip overlying the antral-pyloric region of the stomach. Assessment & Plan - Diagnosis (1) Small bowel obstruction Is this a current diagnosis for this admission?: Yes - Plan Summary Plan Summary: Patient is being admitted to the medicine service at this time for IV hydration NG suction and observation. We will follow
[2019-01-28] MEDS ORDERED: DEXTROSE 40% GEL 15 GM TUBE PO PRN ×2 (23:22)
[2019-01-28] MEDS ORDERED: DEXTROSE 50%-WATER 25 GM/50 ML DISP.SYRIN IV PRN ×2 (23:22)
[2019-01-28] MEDS ORDERED: GLUCAGON,HUMAN RECOMB 1 MG INJ SUBCUT PRN (23:22)
[2019-01-29] MEDS: DEXTROSE 5%-LACTATED RINGERS 1,000 ML IV PRN ×2 (00:42→07:08)
[2019-01-29] MEDS: HYDRALAZINE HCL INJ/PF 20 MG/1 ML SDV IV PRN (00:51)
[2019-01-29] MEDS: PROMETHAZINE HCL INJ 25 MG/1 ML VIAL IV PRN ×3 (01:15→14:43)
[2019-01-29] MEDS: HEPARIN SOD (PORCINE) 5,000 UNIT/ML 1 ML VIAL SUBCUT SCH ×3 (05:38→21:45)
[2019-01-29] MEDS: HYDROMORPHONE HCL INJ/PF 2 MG/ML AMPULE IV PRN ×4 (06:01→16:57)
[2019-01-29 06:05] LABS: HEMOGLOBIN 10.1 g/dL (12.0-15.5); MEAN CORPUSCULAR HEMOGLOBIN 29.4 pg (27.0-33.4); MEAN CORPUSCULAR HGB CONC 33.6 g/dL (32.0-36.0); MEAN CORPUSCULAR VOLUME 88 fl (80-97); PLATELET COUNT 207 10^3/uL (150-450); RED BLOOD COUNT 3.43 10^6/uL (3.72-5.28); RED CELL DISTRIBUTION WIDTH 15.6 % (11.5-14.0); WHITE BLOOD COUNT 5.2 10^3/uL (4.0-10.5)
[2019-01-29 06:24] LABS: ANION GAP 6 (5-19); BLOOD UREA NITROGEN 24 mg/dL (7-20); CALCIUM 8.2 mg/dL (8.4-10.2); CARBON DIOXIDE 19 mmol/L (22-30); CHLORIDE 114 mmol/L (98-107); GLUCOSE 179 mg/dL (75-110); POTASSIUM 4.4 mmol/L (3.6-5.0)
--- NOTE | 2019-01-29 08:33 | PDOC PROGRESS REPORT ---
Subjective Progress Note for:: 01/29/19 Subjective:: 01/29/2019-no complaints this a.m. Reason For Visit: SMALL BOWEL OBSTRUCTION Physical Exam Vital Signs: Temp Pulse Resp BP Pulse Ox 98.9 F 77 16 134/66 H 97 01/29/19 07:51 01/29/19 07:51 01/29/19 07:51 01/29/19 07:51 01/29/19 07:51 Intake & Output 01/28/19 01/29/19 01/30/19 06:59 06:59 06:59 Intake Total 4000 Output Total 675 50 Balance 3325 -50 Weight 44.3 kg General appearance: PRESENT: no acute distress, well-developed, well-nourished Neck exam: ABSENT: carotid bruit, JVD, lymphadenopathy, thyromegaly Respiratory exam: PRESENT: clear to auscultation yamilet. ABSENT: rales, rhonchi, wheezes Cardiovascular exam: PRESENT: RRR. ABSENT: diastolic murmur, rubs, systolic murmur Pulses: PRESENT: +1 pedal pulses bilateral Vascular exam: PRESENT: normal capillary refill GI/Abdominal exam: PRESENT: other - Absent bowel sounds, ileostomy with beefy r ed stoma Extremities exam: PRESENT: full ROM. ABSENT: calf tenderness, clubbing, pedal edema Neurological exam: PRESENT: alert, awake, oriented to person, oriented to place, oriented to time, oriented to situation, CN II-XII grossly intact. ABSENT: motor sensory deficit Psychiatric exam: PRESENT: appropriate affect, normal mood. ABSENT: homicidal ideation, suicidal ideation Skin exam: PRESENT: dry, intact, warm. ABSENT: cyanosis, rash Results Laboratory Results: 01/29/19 05:43 01/29/19 05:43 01/28/19 01/28/19 01/28/19 13:35 14:59 14:59 WBC 5.4 RBC 3.92 Hgb 11.4 L Hct 34.6 L MCV 88 MCH 29.2 MCHC 33.0 RDW 15.7 H Plt Count 219 Seg Neutrophils % 77.3 Sodium 136.8 L Potassium 4.9 Chloride 107 Carbon Dioxide 18 L Anion Gap 12 BUN 34 H Creatinine 1.86 H Est GFR ( Amer) 32 L Glucose 107 Calcium 9.4 Magnesium Total Bilirubin 0.2 AST 25 Alkaline Phosphatase 113 Total Protein 6.8 Albumin 4.2 Urine Color YELLOW Urine Appearance CLEAR Urine pH 6.0 Ur Specific [place] 1.012 Urine Protein NEGATIVE Urine Glucose (UA) NEGATIVE Urine Ketones NEGATIVE Urine Blood NEGATIVE Urine Nitrite NEGATIVE Ur Leukocyte Esterase MODERATE H Urine WBC (Auto) 2 Urine RBC (Auto) 0 01/29/19 01/29/19 05:43 05:43 WBC 5.2 RBC 3.43 L Hgb 10.1 L Hct 30.0 L MCV 88 MCH 29.4 MCHC 33.6 RDW 15.6 H Plt Count 207 Seg Neutrophils % Sodium 138.6 Potassium 4.4 Chloride 114 H Carbon Dioxide 19 L Anion Gap 6 BUN 24 H Creatinine 1.28 H Est GFR ( Amer) 49 L Glucose 179 H Calcium 8.2 L Magnesium 1.3 L Total Bilirubin AST Alkaline Phosphatase Total Protein Albumin Urine Color Urine Appearance Urine pH Ur Specific [place] Urine Protein Urine Glucose (UA) Urine Ketones Urine Blood Urine Nitrite Ur Leukocyte Esterase Urine WBC (Auto) Urine RBC (Auto) 01/28/19 01/28/19 01/28/19 14:59 14:59 14:59 Creatine Kinase 324 H Cancelled Troponin I < 0.012 Impressions: Acute Abdomen Series 01/28/19 13:00 IMPRESSION: Findings are consistent with small-bowel obstruction. Abdomen/Pelvis CT 01/28/19 16:01 IMPRESSION: Multiple mildly dilated loops of bowel scattered throughout the abdomen with mesenteric inflammatory changes - free fluid suggesting early obstruction. KUB X-Ray 01/28/19 17:43 IMPRESSION: New nasogastric catheter coiled in the stomach tip overlying the antral-pyloric region of the stomach. Assessment and Plan - Diagnosis (1) Small bowel obstruction Is this a current diagnosis for this admission?: Yes Plan: 01/28/2019-admit patient to IMCU. Hydrate with D5 one half normal saline at 100 mL an hour. NG tube to intermittent low wall suction. Dilaudid 0.5 mill grams IV every 3 hours PRN pain 01/29/2019-NG tube remains in place. Absent bowel sounds at this time. Continue to follow continue NG tube. Continue hydration D5 normal saline at 75 mL an ho ur (2) Abdominal pain Is this a current diagnosis for this admission?: Yes Plan: 01/28/2019-Dilaudid 0.5 mg IV every 3 hours PRN 01/29/2019-improved. Continue Dilaudid as needed (3) Nausea & vomiting Is this a current diagnosis for this admission?: Yes Plan: 01/28/2019-Zofran 4 mill grams IV every 8 hours as needed and Phenergan 12.5 mill grams IV every 6 hours as needed 01/29/2019-improved continue Zofran and Phenergan as needed (4) Chronic renal failure, stage 3 (moderate) Is this a current diagnosis for this admission?: Yes Plan: 01/28/2019-stable at this time we will continue to follow daily BMPs 01/29/2019-improved this a.m. continue to follow daily BMPs continue hydration (5) Hyperglycemia Is this a current diagnosis for this admission?: Yes Plan: 01/29/2019-most likely from dextrose and IV fluids. Continue current insulin therapy - Time Time Spent with patient: 15-24 minutes - Inpatient Certification Based on my medical assessment, after consideration of the patient's comorbidities, presenting symptoms, or acuity I expect that the services needed warrant INPATIENT care.: Yes I certify that my determination is in accordance with my understanding of Medicare's requirements for reasonable and necessary INPATIENT services [42 CFR 412.3e].: Yes Medical Necessity: Other - IV fluids, IV pain control
[2019-01-29] MEDS: MAGNESIUM SULFATE/D5W 1 GM/100 ML RTUPB IV SCH ×2 (09:01→14:00)
[2019-01-29] MEDS: FAMOTIDINE INJ/PF 20 MG/2 ML SDV IV SCH ×2 (09:30→21:45)
--- NOTE | 2019-01-29 12:46 | RADIOLOGY REPORT (SQ) ---
EXAM DESCRIPTION: CHEST SINGLE VIEW COMPLETED DATE/TIME: 01/29/2019 11:48 am REASON FOR STUDY: central line placement COMPARISON: 06/13/2017. EXAM PARAMETERS: NUMBER OF VIEWS: One view. TECHNIQUE: Single frontal radiographic view of the chest acquired. RADIATION DOSE: NA LIMITATIONS: None. FINDINGS: LUNGS AND PLEURA: Hyperinflation lungs consistent with COPD. No pneumothorax seen. MEDIASTINUM AND HILAR STRUCTURES: No masses. Contour normal. HEART AND VASCULAR STRUCTURES: The heart is normal with normal pulmonary vasculature. BONES: No acute findings. HARDWARE: Left IJ line with tip coiled in prox SVC. OTHER: NG tube overlying stomach. Hiatal hernia. IMPRESSION: COPD. Chronic left basilar pleuroparenchymal change. NG tube overlying stomach. Left IJ line coiled within proximal SVC hairy TECHNICAL DOCUMENTATION: JOB ID: [id number] [employer]- All Rights Reserved Reading location - IP/workstation name: [email or web address]
[2019-01-29] MEDS: DEXTROSE 5%-1/2 NORMAL SALINE 1,000 ML IV PRN (13:47)
[2019-01-29] MEDS ORDERED: MAGNESIUM SULFATE/D5W 1 GM/100 ML RTUPB IV ONE (14:00)
--- NOTE | 2019-01-29 16:52 | Operative Report ---
Operative Report DATE OF SURGERY: 01/29/19 PREOPERATIVE DIAGNOSIS: poor peripheral veins for IV access POSTOPERATIVE DIAGNOSIS: same OPERATION: placement of left IJ vein catheter under ultrasound guidance SURGEON: DAMION HAM ANESTHESIA: Local TISSUE REMOVED OR ALTERED: none COMPLICATIONS: none ESTIMATED BLOOD LOSS: 2 ccs QUANTITATIVE BLOOD LOSS: 2 INTRAOPERATIVE FINDINGS: left IJ bigger than right IJ on ultrasound PROCEDURE: After informed consent obtained from patient's son on the phone the left neck area was then prepped and draped in the usual sterile fashion while patient was on a slight Trendelenburg position. With the use of the ultrasound the left internal jugular vein was then identified and local anesthesia infiltrated on the skin. The right internal jugular vein was checked prior to draping and noted to be smaller than the left side. The left internal jugular vein was then punctured with ultrasound guidance and the guidewire passed through the needle. The needle was removed and the insertion site dilated. A triple-lumen catheter was inserted through the guidewire to a distance of about 28 cm. It was pulled back about 3 cm until blood could really be aspirated on the distal port. The the 2 other ports aspirated blood easily and instilled saline easily. The catheter was then anchored to the skin with 3-0 silk and Biopatch placed at the insertion site and transparent sterile dressing placed over the Biopatch and catheter. A chest x-ray was obtained which showed partial kinking of the tip of the catheter in the inferior and the superior vena cava. However since blood could easily be instilled in all the 3 ports and blood can be aspirated to suggest left in place. Patient tolerated procedure well.
--- NOTE | 2019-01-29 16:55 | PDOC PROGRESS REPORT ---
Subjective Progress Note for:: 01/29/19 Subjective:: Denies any pains Reason For Visit: SMALL BOWEL OBSTRUCTION Physical Exam Vital Signs: Temp Pulse Resp BP Pulse Ox 98.4 F 73 16 175/81 H 98 01/29/19 15:48 01/29/19 15:48 01/29/19 15:48 01/29/19 15:48 01/29/19 15:48 Intake & Output 01/28/19 01/29/19 01/30/19 06:59 06:59 06:59 Intake Total 4000 589 Output Total 675 50 Balance 3325 539 Weight 44.3 kg Exam: Abdomen is soft and just mildly distended and nontender. The NG tube just drained about 100 cc since this morning and there is some bowel sounds noted on auscultation Results Laboratory Results: 01/29/19 05:43 01/29/19 05:43 01/29/19 01/29/19 05:43 05:43 WBC 5.2 RBC 3.43 L Hgb 10.1 L Hct 30.0 L MCV 88 MCH 29.4 MCHC 33.6 RDW 15.6 H Plt Count 207 Sodium 138.6 Potassium 4.4 Chloride 114 H Carbon Dioxide 19 L Anion Gap 6 BUN 24 H Creatinine 1.28 H Est GFR ( Amer) 49 L Glucose 179 H Calcium 8.2 L Magnesium 1.3 L 01/28/19 01/28/19 01/28/19 14:59 14:59 14:59 Creatine Kinase 324 H Cancelled Troponin I < 0.012 Impressions: Acute Abdomen Series 01/28/19 13:00 IMPRESSION: Findings are consistent with small-bowel obstruction. Abdomen/Pelvis CT 01/28/19 16:01 IMPRESSION: Multiple mildly dilated loops of bowel scattered throughout the abdomen with mesenteric inflammatory changes - free fluid suggesting early obstruction. KUB X-Ray 01/28/19 17:43 IMPRESSION: New nasogastric catheter coiled in the stomach tip overlying the antral-pyloric region of the stomach. Chest X-Ray 01/29/19 00:00 IMPRESSION: COPD. Chronic left basilar pleuroparenchymal change. NG tube overlying stomach. Left IJ line coiled within proximal SVC hairy Assessment & Plan - Diagnosis (1) Chronic renal failure, stage 3 (moderate) Is this a current diagnosis for this admission?: Yes (2) Nausea & vomiting Is this a current diagnosis for this admission?: Yes (3) Small bowel obstruction Is this a current diagnosis for this admission?: Yes - Time Time Spent with patient: 15-24 minutes - Inpatient Certification Medical Necessity: Need Close Monitoring Due to Risk of Patient Decompensation, Need For IV Fluids - Plan Summary Plan Summary: Keep n.p.o. and leave NG tube under suction today. If still not opened up by tomorrow we will also order small bowel follow-through with Gastrografin Continue hydration
[2019-01-30] MEDS: PROMETHAZINE HCL INJ 25 MG/1 ML VIAL IV PRN ×4 (02:29→20:50)
[2019-01-30] MEDS: HYDRALAZINE HCL INJ/PF 20 MG/1 ML SDV IV PRN (04:52)
[2019-01-30] MEDS: DEXTROSE 5%-1/2 NORMAL SALINE 1,000 ML IV PRN ×2 (04:53→17:59)
[2019-01-30] MEDS: HEPARIN SOD (PORCINE) 5,000 UNIT/ML 1 ML VIAL SUBCUT SCH ×3 (05:00→21:20)
[2019-01-30] MEDS: HYDROMORPHONE HCL INJ/PF 2 MG/ML AMPULE IV PRN ×3 (05:24→20:13)
[2019-01-30 05:51] LABS: HEMATOCRIT 31.6 % (36.0-47.0); HEMOGLOBIN 10.5 g/dL (12.0-15.5); MEAN CORPUSCULAR HEMOGLOBIN 29.3 pg (27.0-33.4); MEAN CORPUSCULAR HGB CONC 33.2 g/dL (32.0-36.0); MEAN CORPUSCULAR VOLUME 88 fl (80-97); PLATELET COUNT 182 10^3/uL (150-450); RED BLOOD COUNT 3.58 10^6/uL (3.72-5.28); RED CELL DISTRIBUTION WIDTH 15.5 % (11.5-14.0); WHITE BLOOD COUNT 5.3 10^3/uL (4.0-10.5)
[2019-01-30 06:12] LABS: ANION GAP 6 (5-19); BLOOD UREA NITROGEN 16 mg/dL (7-20); CALCIUM 8.8 mg/dL (8.4-10.2); CARBON DIOXIDE 20 mmol/L (22-30); CHLORIDE 112 mmol/L (98-107); GLUCOSE 120 mg/dL (75-110); POTASSIUM 4.1 mmol/L (3.6-5.0)
--- NOTE | 2019-01-30 08:44 | PDOC PROGRESS REPORT ---
Subjective Progress Note for:: 01/30/19 Subjective:: 01/29/2019-no complaints this a.m. 01/30/2019-abdominal pain, nausea vomiting Reason For Visit: SMALL BOWEL OBSTRUCTION Physical Exam Vital Signs: Temp Pulse Resp BP Pulse Ox 98.7 F 81 16 203/89 H 98 01/30/19 04:12 01/30/19 07:00 01/30/19 04:12 01/30/19 04:15 01/30/19 04:12 Intake & Output 01/29/19 01/30/19 01/31/19 06:59 06:59 06:59 Intake Total 4000 2300 Output Total 675 360 Balance 3325 1940 Weight 44.3 kg 39.1 kg General appearance: PRESENT: no acute distress, well-developed, well-nourished Neck exam: ABSENT: carotid bruit, JVD, lymphadenopathy, thyromegaly Respiratory exam: PRESENT: clear to auscultation yamilet. ABSENT: rales, rhonchi, wheezes Cardiovascular exam: PRESENT: RRR. ABSENT: diastolic murmur, rubs, systolic murmur Pulses: PRESENT: normal dorsalis pedis pul Vascular exam: PRESENT: normal capillary refill GI/Abdominal exam: PRESENT: soft, tenderness, other - Absent bowel sounds ostomy with beefy red stoma Extremities exam: PRESENT: full ROM. ABSENT: calf tenderness, clubbing, pedal edema Neurological exam: PRESENT: alert, awake, oriented to person, oriented to place, oriented to time, oriented to situation, CN II-XII grossly intact. ABSENT: motor sensory deficit Psychiatric exam: PRESENT: appropriate affect, normal mood. ABSENT: homicidal ideation, suicidal ideation Skin exam: PRESENT: dry, intact, warm. ABSENT: cyanosis, rash Results Laboratory Results: 01/30/19 05:05 01/30/19 05:05 01/30/19 01/30/19 05:05 05:05 WBC 5.3 RBC 3.58 L Hgb 10.5 L Hct 31.6 L MCV 88 MCH 29.3 MCHC 33.2 RDW 15.5 H Plt Count 182 Sodium 137.9 Potassium 4.1 Chloride 112 H Carbon Dioxide 20 L Anion Gap 6 BUN 16 Creatinine 1.10 Est GFR ( Amer) 58 L Glucose 120 H Calcium 8.8 01/28/19 01/28/19 01/28/19 14:59 14:59 14:59 Creatine Kinase 324 H Cancelled Troponin I < 0.012 Impressions: Acute Abdomen Series 01/28/19 13:00 IMPRESSION: Findings are consistent with small-bowel obstruction. Abdomen/Pelvis CT 01/28/19 16:01 IMPRESSION: Multiple mildly dilated loops of bowel scattered throughout the abdomen with mesenteric inflammatory changes - free fluid suggesting early obstruction. KUB X-Ray 01/28/19 17:43 IMPRESSION: New nasogastric catheter coiled in the stomach tip overlying the antral-pyloric region of the stomach. Chest X-Ray 01/29/19 00:00 IMPRESSION: COPD. Chronic left basilar pleuroparenchymal change. NG tube overlying stomach. Left IJ line coiled within proximal SVC hairy Assessment and Plan - Diagnosis (1) Small bowel obstruction Is this a current diagnosis for this admission?: Yes Plan: 01/28/2019-admit patient to IMCU. Hydrate with D5 one half normal saline at 100 mL an hour. NG tube to intermittent low wall suction. Dilaudid 0.5 mill grams IV every 3 hours PRN pain 01/29/2019-NG tube remains in place. Absent bowel sounds at this time. Continue to follow continue NG tube. Continue hydration D5 normal saline at 75 mL an hour 01/30/2019-NG tube remains in place with bile type material. Patient remains with absent bowel sounds. I will repeat a KUB this morning to see if there is any resolution of this small bowel obstruction as patient had increased nausea vomiting abdominal pain at this time. She does not have an acute abdomen at this time. (2) Abdominal pain Is this a current diagnosis for this admission?: Yes Plan: 01/28/2019-Dilaudid 0.5 mg IV every 3 hours PRN 01/29/2019-improved. Continue Dilaudid as needed 01/30/2019-abdominal pain increased this a.m. Continue Dilaudid as needed. Will obtain a KUB to determine if this is worsening (3) Nausea & vomiting Is this a current diagnosis for this admission?: Yes Plan: 01/28/2019-Zofran 4 mill grams IV every 8 hours as needed and Phenergan 12.5 mill grams IV every 6 hours as needed 01/29/2019-improved continue Zofran and Phenergan as needed 01/30/2019-continue Zofran and Phenergan as needed. Stat KUB to evaluate small bowel obstruction (4) Chronic renal failure, stage 3 (moderate) Is this a current diagnosis for this admission?: Yes Plan: 01/28/2019-stable at this time we will continue to follow daily BMPs 01/29/2019-improved this a.m. continue to follow daily BMPs continue hydration 01/30/2019-continue to show improvement with hydration. Continue to follow daily BMP (5) Hyperglycemia Is this a current diagnosis for this admission?: Yes Plan: 01/29/2019-most likely from dextrose and IV fluids. Continue current insulin therapy 01/30/2019-stable at this time continue to follow with current insulin therapy - Time Time Spent with patient: 15-24 minutes - Inpatient Certification Based on my medical assessment, after consideration of the patient's comorbidities, presenting symptoms, or acuity I expect that the services needed warrant INPATIENT care.: Yes I certify that my determination is in accordance with my understanding of Medicare's requirements for reasonable and necessary INPATIENT services [42 CFR 412.3e].: Yes Medical Necessity: Other - IV fluid, NG tube, IV pain control
[2019-01-30] MEDS: FAMOTIDINE INJ/PF 20 MG/2 ML SDV IV SCH ×2 (09:21→21:20)
--- NOTE | 2019-01-30 10:12 | PDOC PROGRESS REPORT ---
Subjective Progress Note for:: 01/30/19 Subjective:: mild abdominal pains Reason For Visit: SMALL BOWEL OBSTRUCTION Physical Exam Vital Signs: Temp Pulse Resp BP Pulse Ox 98.7 F 81 16 203/89 H 98 01/30/19 04:12 01/30/19 07:00 01/30/19 04:12 01/30/19 04:15 01/30/19 04:12 Intake & Output 01/29/19 01/30/19 01/31/19 06:59 06:59 06:59 Intake Total 4000 2300 Output Total 675 360 Balance 3325 1940 Weight 44.3 kg 39.1 kg Exam: NGT drained 250 ccs of bilious fluid Ileostomy hasminimal air Abdomen is flat with mild tenderness around ileostomy Results Laboratory Results: 01/30/19 05:05 01/30/19 05:05 01/30/19 01/30/19 05:05 05:05 WBC 5.3 RBC 3.58 L Hgb 10.5 L Hct 31.6 L MCV 88 MCH 29.3 MCHC 33.2 RDW 15.5 H Plt Count 182 Sodium 137.9 Potassium 4.1 Chloride 112 H Carbon Dioxide 20 L Anion Gap 6 BUN 16 Creatinine 1.10 Est GFR ( Amer) 58 L Glucose 120 H Calcium 8.8 01/28/19 01/28/19 01/28/19 14:59 14:59 14:59 Creatine Kinase 324 H Cancelled Troponin I < 0.012 Impressions: Acute Abdomen Series 01/28/19 13:00 IMPRESSION: Findings are consistent with small-bowel obstruction. Abdomen/Pelvis CT 01/28/19 16:01 IMPRESSION: Multiple mildly dilated loops of bowel scattered throughout the abdomen with mesenteric inflammatory changes - free fluid suggesting early obstruction. Chest X-Ray 01/29/19 00:00 IMPRESSION: COPD. Chronic left basilar pleuroparenchymal change. NG tube overlying stomach. Left IJ line coiled within proximal SVC hairy Assessment & Plan - Diagnosis (1) Chronic renal failure, stage 3 (moderate) Is this a current diagnosis for this admission?: Yes (2) Nausea & vomiting Is this a current diagnosis for this admission?: Yes (3) Small bowel obstruction Is this a current diagnosis for this admission?: Yes - Time Time Spent with patient: 15-24 minutes - Inpatient Certification Medical Necessity: Need Close Monitoring Due to Risk of Patient Decompensation, Need For IV Fluids, Need for Surgery - Plan Summary Plan Summary: Ordered SBFT to check area of obstruction but also may open up Continue NGT and hydration May need exploratory laparotomy depending on SBFT results
--- NOTE | 2019-01-30 10:33 | RADIOLOGY REPORT (SQ) ---
EXAM DESCRIPTION: KUB/ABDOMEN (SINGLE VIEW) COMPLETED DATE/TIME: 01/30/2019 9:57 am REASON FOR STUDY: SBO R10.819 ABDOMINAL TENDERNESS, UNSPECIFIED SITE D64.9 ANEMIA, UNSPECIFIED COMPARISON: 01/28/2019. NUMBER OF VIEWS: One view. TECHNIQUE: Supine radiographic image of the abdomen acquired. LIMITATIONS: None. FINDINGS: BOWEL GAS PATTERN: Persistent but slightly decreased small bowel distention consistent wit h improvement in small bowel obstruction seen on 01/28/2019. CALCIFICATIONS: No suspicious calcifications. SOFT TISSUES: No gross mass or suggestion of organomegaly. HARDWARE: Surgical clips right upper quadrant. BONES: No acute fracture. No worrisome bone lesions. OTHER: NG tube overlying stomach with tip directed toward duodenum. IMPRESSION: Persistent small bowel obstruction. TECHNICAL DOCUMENTATION: JOB ID: [id number] SC-[id number] 2010 [employer]- All Rights Reserved Reading location - IP/workstation name: [email or web address]
--- NOTE | 2019-01-30 13:59 | RADIOLOGY REPORT (SQ) ---
EXAM DESCRIPTION: SMALL BOWEL SERIES COMPLETED DATE/TIME: 01/30/2019 1:08 pm REASON FOR STUDY: R/O small bowel obstruction R10.819 ABDOMINAL TENDERNESS, UNSPECIFIED SITE D64.9 ANEMIA, UNSPECIFIED COMPARISON: None. FLUOROSCOPY TIME: NA. 4 AP views of the abdomen obtained. LIMITATIONS: None. PROCEDURE: Initial greenkeeper image of abdomen acquired, followed by administration of dilute Gastrografi n . Serial radiographic images acquired. Fluoroscopic images recorded of the terminal ileum and oth er indicated areas. All images stored on PACS. FINDINGS: NURSING STAFFING COORDINATOR KUB: NG tube overlying stomach and duodenum. Surgical clips right upper quadrant. Surgical clip overlying ostomy site right lower quadrant. Dilatation of small bowel. Minimal contra st noted at site of ostomy. Serial AP view of the abdomen obtained at 15, 30, and 45 minutes after administration of dilute Gastr ografin. By history the patient has had a colectomy. There is dilatation of small bowel loops noted with cont rast noted by a technologist within the ostomy bag at 45 minutes. No transition zone is identified. Follow-up with AP view the abdomen could be obtained in 4 hours if indicated. IMPRESSION: Status post colectomy. Diffuse dilatation of small bowel with no definite point of obst ruction identified. A follow-up delayed film will be obtained in 4 hours as further evaluation. COMMENT: Quality ID [id number]: Final reports for procedures using fluoroscopy that document radiation exp osure indices, or exposure time and number of fluorographic images (if radiation exposure indices are not available) TECHNICAL DOCUMENTATION: JOB ID: [id number] SC-[id number] 2010 [employer] ([employer] All Rights Reserved Reading location - IP/workstation name: [email or web address]
[2019-01-30] MEDS ORDERED: HYDROMORPHONE HCL INJ/PF 2 MG/ML AMPULE IV ONE (17:30)
[2019-01-31] MEDS: PROMETHAZINE HCL INJ 25 MG/1 ML VIAL IV PRN ×2 (02:31→11:25)
[2019-01-31] MEDS: HYDROMORPHONE HCL INJ/PF 2 MG/ML AMPULE IV PRN (04:12)
[2019-01-31] MEDS: HYDRALAZINE HCL INJ/PF 20 MG/1 ML SDV IV PRN ×3 (04:12→21:28)
[2019-01-31] MEDS: HEPARIN SOD (PORCINE) 5,000 UNIT/ML 1 ML VIAL SUBCUT SCH ×3 (05:37→21:14)
--- NOTE | 2019-01-31 08:25 | RADIOLOGY REPORT (SQ) ---
EXAM DESCRIPTION: KUB/ABDOMEN (SINGLE VIEW) COMPLETED DATE/TIME: 01/31/2019 8:08 am REASON FOR STUDY: R/O obstruction R10.819 ABDOMINAL TENDERNESS, UNSPECIFIED SITE D64.9 ANEMIA, UNS PECIFIED COMPARISON: Small bowel series from 01/30/2019. NUMBER OF VIEWS: One view. TECHNIQUE: Supine radiographic image of the abdomen acquired. LIMITATIONS: None. FINDINGS: BOWEL GAS PATTERN: Status post colectomy. There is unchanged dilatation of the small ozzy l with retained oral contrast from the prior small bowel series. There is no pneumatosis or portal v enous gas. Evaluation for free intraperitoneal air is limited due to supine technique. CALCIFICATIONS: None. SOFT TISSUES: Ostomy in the right lower quadrant and surgical clips in the gallbladder fossa and near the gastroesophageal junction. HARDWARE: The tip of the enteric tube projects past the gastroesophageal junction and to the right of midline in the mid abdomen. BONES: No acute fracture. OTHER: No other finding. IMPRESSION: Unchanged dilatation of the small bowel with retained oral contrast from the prior small bowel series. TECHNICAL DOCUMENTATION: JOB ID: [id number] [employer]- All Rights Reserved Reading location - IP/workstation name: [email or web address]
[2019-01-31 08:32] LABS: HEMATOCRIT 34.1 % (36.0-47.0); HEMOGLOBIN 11.3 g/dL (12.0-15.5); MEAN CORPUSCULAR HEMOGLOBIN 28.9 pg (27.0-33.4); MEAN CORPUSCULAR HGB CONC 33.1 g/dL (32.0-36.0); MEAN CORPUSCULAR VOLUME 87 fl (80-97); PLATELET COUNT 212 10^3/uL (150-450); RED BLOOD COUNT 3.91 10^6/uL (3.72-5.28); RED CELL DISTRIBUTION WIDTH 15.1 % (11.5-14.0); WHITE BLOOD COUNT 7.7 10^3/uL (4.0-10.5)
[2019-01-31 08:47] LABS: ANION GAP 8 (5-19); BLOOD UREA NITROGEN 20 mg/dL (7-20); CALCIUM 9.4 mg/dL (8.4-10.2); CARBON DIOXIDE 22 mmol/L (22-30); CHLORIDE 109 mmol/L (98-107); GLUCOSE 115 mg/dL (75-110)
--- NOTE | 2019-01-31 09:38 | PDOC PROGRESS REPORT ---
Subjective Progress Note for:: 01/31/19 Subjective:: 01/29/2019-no complaints this a.m. 01/30/2019-abdominal pain, nausea vomiting 01/31/2019-no complaints this a.m. Reason For Visit: SMALL BOWEL OBSTRUCTION Physical Exam Vital Signs: Temp Pulse Resp BP Pulse Ox 99.3 F 87 20 175/98 H 97 01/31/19 03:49 01/31/19 07:00 01/31/19 03:49 01/31/19 03:59 01/31/19 03:49 Intake & Output 01/30/19 01/31/19 02/01/19 06:59 06:59 06:59 Intake Total 2300 983 Output Total 360 2875 Balance 1940 -1892 Weight 39.1 kg 42 kg General appearance: PRESENT: no acute distress, well-developed, well-nourished Neck exam: ABSENT: carotid bruit, JVD, lymphadenopathy, thyromegaly Respiratory exam: PRESENT: clear to auscultation yamilet. ABSENT: rales, rhonchi, wheezes Cardiovascular exam: PRESENT: RRR. ABSENT: diastolic murmur, rubs, systolic murmur Pulses: PRESENT: +1 pedal pulses bilateral Vascular exam: PRESENT: normal capillary refill GI/Abdominal exam: PRESENT: hypoactive bowel sounds, other - Ostomy with liquid stool Extremities exam: PRESENT: full ROM. ABSENT: calf tenderness, clubbing, pedal edema Neurological exam: PRESENT: alert, awake, oriented to person, oriented to place, oriented to time, oriented to situation, CN II-XII grossly intact. ABSENT: motor sensory deficit Psychiatric exam: PRESENT: appropriate affect, normal mood. ABSENT: homicidal ideation, suicidal ideation Skin exam: PRESENT: dry, intact, warm. ABSENT: cyanosis, rash Results Laboratory Results: 01/31/19 07:28 01/31/19 07:28 01/31/19 01/31/19 07:28 07:28 WBC 7.7 RBC 3.91 Hgb 11.3 L Hct 34.1 L MCV 87 MCH 28.9 MCHC 33.1 RDW 15.1 H Plt Count 212 Sodium 138.9 Potassium 4.0 Chloride 109 H Carbon Dioxide 22 Anion Gap 8 BUN 20 Creatinine 1.29 H Est GFR ( Amer) 48 L Glucose 115 H Calcium 9.4 01/28/19 01/28/19 01/28/19 14:59 14:59 14:59 Creatine Kinase 324 H Cancelled Troponin I < 0.012 Impressions: Acute Abdomen Series 01/28/19 13:00 IMPRESSION: Findings are consistent with small-bowel obstruction. Abdomen/Pelvis CT 01/28/19 16:01 IMPRESSION: Multiple mildly dilated loops of bowel scattered throughout the abdomen with mesenteric inflammatory changes - free fluid suggesting early obstruction. Chest X-Ray 01/29/19 00:00 IMPRESSION: COPD. Chronic left basilar pleuroparenchymal change. NG tube overlying stomach. Left IJ line coiled within proximal SVC hairy Small Bowel X-Ray 01/30/19 00:00 IMPRESSION: Status post colectomy. Diffuse dilatation of small bowel with no definite point of obstruction identified. A follow-up delayed film will be obtained in 4 hours as further evaluation. KUB X-Ray 01/31/19 00:00 IMPRESSION: Unchanged dilatation of the small bowel with retained oral contrast from the prior small bowel series. Assessment and Plan - Diagnosis (1) Small bowel obstruction Is this a current diagnosis for this admission?: Yes Plan: 01/28/2019-admit patient to IMCU. Hydrate with D5 one half normal saline at 100 mL an hour. NG tube to intermittent low wall suction. Dilaudid 0.5 mill grams IV every 3 hours PRN pain 01/29/2019-NG tube remains in place. Absent bowel sounds at this time. Continue to follow continue NG tube. Continue hydration D5 normal saline at 75 mL an hour 01/30/2019-NG tube remains in place with bile type material. Patient remains with absent bowel sounds. I will repeat a KUB this morning to see if there is any resolution of this small bowel obstruction as patient had increased nausea vomiting abdominal pain at this time. She does not have an acute abdomen at this time. 01/31/2019-NG tube remains in place bile type material. Hypoactive bowel sounds this time. Patient is having liquid stool through her ostomy. KUB was repeated with continuing of small bowel obstruction at this time. We will continue NG tube continue n.p.o. status reassess tomorrow. (2) Abdominal pain Is this a current diagnosis for this admission?: Yes Plan: 01/28/2019-Dilaudid 0.5 mg IV every 3 hours PRN 01/29/2019-improved. Continue Dilaudid as needed 01/30/2019-abdominal pain increased this a.m. Continue Dilaudid as needed. Will obtain a KUB to determine if this is worsening 01/31/2019-improved. Continue Dilaudid as needed (3) Nausea & vomiting Is this a current diagnosis for this admission?: Yes Plan: 01/28/2019-Zofran 4 mill grams IV every 8 hours as needed and Phenergan 12.5 mill grams IV every 6 hours as needed 01/29/2019-improved continue Zofran and Phenergan as needed 01/30/2019-continue Zofran and Phenergan as needed. Stat KUB to evaluate small bowel obstruction 01/31/2019-continue Zofran and Phenergan as needed. (4) Chronic renal failure, stage 3 (moderate) Is this a current diagnosis for this admission?: Yes Plan: 01/28/2019-stable at this time we will continue to follow daily BMPs 01/29/2019-improved this a.m. continue to follow daily BMPs continue hydration 01/30/2019-continue to show improvement with hydration. Continue to follow daily BMP 01/31/2019-stable continue daily BMP (5) Hyperglycemia Is this a current diagnosis for this admission?: Yes Plan: 01/29/2019-most likely from dextrose and IV fluids. Continue current insulin therapy 01/30/2019-stable at this time continue to follow with current insulin therapy 01/31/2019-stable - Time Time Spent with patient: 15-24 minutes - Inpatient Certification Based on my medical assessment, after consideration of the patient's co morbidities, presenting symptoms, or acuity I expect that the services needed warrant INPATIENT care.: Yes I certify that my determination is in accordance with my understanding of Medicare's requirements for reasonable and necessary INPATIENT services [42 CFR 412.3e].: Yes Medical Necessity: Other - IV fluids, NG tube
--- NOTE | 2019-01-31 10:02 | PDOC PROGRESS REPORT ---
Subjective Progress Note for:: 01/31/19 Subjective:: Minimal output from nasogastric tube; tolerated the upper GI with small bowel follow-through. Abdominal film this morning shows persisting dilated loops of small bowel. Patient currently having significant ileostomy output Reason For Visit: SMALL BOWEL OBSTRUCTION Physical Exam Vital Signs: Temp Pulse Resp BP Pulse Ox 99.3 F 87 20 175/98 H 97 01/31/19 03:49 01/31/19 07:00 01/31/19 03:49 01/31/19 03:59 01/31/19 03:49 Intake & Output 01/30/19 01/31/19 02/01/19 06:59 06:59 06:59 Intake Total 2300 983 Output Total 360 2875 Balance 1940 -1892 Weight 39.1 kg 42 kg General appearance: PRESENT: no acute distress, other - Feels better, abdomen less discomforting GI/Abdominal exam: PRESENT: other - Abdomen not distended; copious amount of liquid and particulate stool in the ostomy bag: Minimal drainage out NG tube Results Laboratory Results: 01/31/19 07:28 01/31/19 07:28 01/31/19 01/31/19 07:28 07:28 WBC 7.7 RBC 3.91 Hgb 11.3 L Hct 34.1 L MCV 87 MCH 28.9 MCHC 33.1 RDW 15.1 H Plt Count 212 Sodium 138.9 Potassium 4.0 Chloride 109 H Carbon Dioxide 22 Anion Gap 8 BUN 20 Creatinine 1.29 H Est GFR ( Amer) 48 L Glucose 115 H Calcium 9.4 01/28/19 01/28/19 01/28/19 14:59 14:59 14:59 Creatine Kinase 324 H Cancelled Troponin I < 0.012 Impressions: Acute Abdomen Series 01/28/19 13:00 IMPRESSION: Findings are consistent with small-bowel obstruction. Abdomen/Pelvis CT 01/28/19 16:01 IMPRESSION: Multiple mildly dilated loops of bowel scattered throughout the abdomen with mesenteric inflammatory changes - free fluid suggesting early obstruction. Chest X-Ray 01/29/19 00:00 IMPRESSION: COPD. Chronic left basilar pleuroparenchymal change. NG tube overlying stomach. Left IJ line coiled within proximal SVC hairy Small Bowel X-Ray 01/30/19 00:00 IMPRESSION: Status post colectomy. Diffuse dilatation of small bowel with no definite point of obstruction identified. A follow-up delayed film will be obtained in 4 hours as further evaluation. KUB X-Ray 01/31/19 00:00 IMPRESSION: Unchanged dilatation of the small bowel with retained oral contrast from the prior small bowel series. Assessment & Plan - Diagnosis (1) Small bowel obstruction Is this a current diagnosis for this admission?: Yes Plan: Impression: Clinically improved, and confirmatory radiographic evidence of contrast moving through small bowel; still has some dilated small bowel loops. Ileostomy with significant output. No evidence of acute abdomen. Recommendations: 1. We will clamp nasogastric tube and see if patient tolerates 2. Patient understands the improvement may be temporary, and set back is possible; at this moment, no indication for surgical intervention.\ B. We will continue to follow with you.
[2019-01-31] MEDS: FAMOTIDINE INJ/PF 20 MG/2 ML SDV IV SCH ×2 (11:00→21:13)
[2019-01-31] MEDS ORDERED: ACETAMINOPHEN 325 MG TABLET PO PRN (21:25)
[2019-01-31] MEDS ORDERED: ACETAMINOPHEN 325 MG TABLET ONE (21:26)
[2019-01-31] MEDS: DEXTROSE 5%-1/2 NORMAL SALINE 1,000 ML IV PRN (21:28)
[2019-02-01] MEDS: HEPARIN SOD (PORCINE) 5,000 UNIT/ML 1 ML VIAL SUBCUT SCH ×3 (05:54→21:07)
[2019-02-01 06:59] LABS: HEMATOCRIT 30.1 % (36.0-47.0); HEMOGLOBIN 10.1 g/dL (12.0-15.5); MEAN CORPUSCULAR HEMOGLOBIN 29.3 pg (27.0-33.4); MEAN CORPUSCULAR HGB CONC 33.6 g/dL (32.0-36.0); MEAN CORPUSCULAR VOLUME 87 fl (80-97); PLATELET COUNT 185 10^3/uL (150-450); RED BLOOD COUNT 3.44 10^6/uL (3.72-5.28); RED CELL DISTRIBUTION WIDTH 15.3 % (11.5-14.0); WHITE BLOOD COUNT 5.8 10^3/uL (4.0-10.5)
[2019-02-01 07:29] LABS: ANION GAP 8 (5-19); BLOOD UREA NITROGEN 20 mg/dL (7-20); CALCIUM 9.4 mg/dL (8.4-10.2); CARBON DIOXIDE 20 mmol/L (22-30); CHLORIDE 111 mmol/L (98-107); GLUCOSE 98 mg/dL (75-110); POTASSIUM 3.8 mmol/L (3.6-5.0)
[2019-02-01] MEDS: FAMOTIDINE INJ/PF 20 MG/2 ML SDV IV SCH ×2 (09:26→21:07)
--- NOTE | 2019-02-01 10:02 | PDOC PROGRESS REPORT ---
Subjective Progress Note for:: 02/01/19 Subjective:: Tolerated removal of NGT last night. Tolerating clear liquids. leostomy draining well Reason For Visit: SMALL BOWEL OBSTRUCTION Physical Exam Vital Signs: Temp Pulse Resp BP Pulse Ox 99.0 F 76 14 181/81 H 99 01/31/19 19:38 02/01/19 07:00 01/31/19 19:38 01/31/19 19:38 01/31/19 19:38 Intake & Output 01/31/19 02/01/19 02/02/19 06:59 06:59 06:59 Intake Total 983 1100 Output Total 2875 700 Balance -1892 400 Weight 42 kg 44 kg Exam: flat soft and non tender. Ileostomy draining well. Results Laboratory Results: 02/01/19 05:41 02/01/19 05:41 02/01/19 02/01/19 05:41 05:41 WBC 5.8 RBC 3.44 L Hgb 10.1 L Hct 30.1 L MCV 87 MCH 29.3 MCHC 33.6 RDW 15.3 H Plt Count 185 Sodium 138.6 Potassium 3.8 Chloride 111 H Carbon Dioxide 20 L Anion Gap 8 BUN 20 Creatinine 1.22 Est GFR ( Amer) 52 L Glucose 98 Calcium 9.4 01/28/19 01/28/19 01/28/19 14:59 14:59 14:59 Creatine Kinase 324 H Cancelled Troponin I < 0.012 Impressions: Acute Abdomen Series 01/28/19 13:00 IMPRESSION: Findings are consistent with small-bowel obstruction. Abdomen/Pelvis CT 01/28/19 16:01 IMPRESSION: Multiple mildly dilated loops of bowel scattered throughout the abdomen with mesenteric inflammatory changes - free fluid suggesting early obstruction. Chest X-Ray 01/29/19 00:00 IMPRESSION: COPD. Chronic left basilar pleuroparenchymal change. NG tube overlying stomach. Left IJ line coiled within proximal SVC hairy Small Bowel X-Ray 01/30/19 00:00 IMPRESSION: Status post colectomy. Diffuse dilatation of small bowel with no definite point of obstruction identified. A follow-up delayed film will be obtained in 4 hours as further evaluation. KUB X-Ray 01/31/19 00:00 IMPRESSION: Unchanged dilatation of the small bowel with retained oral contrast from the prior small bowel series. Assessment & Plan - Diagnosis (1) Chronic renal failure, stage 3 (moderate) Is this a current diagnosis for this admission?: Yes (2) Nausea & vomiting Is this a current diagnosis for this admission?: Yes (3) Small bowel obstruction Is this a current diagnosis for this admission?: Yes - Time Time Spent with patient: 15-24 minutes - Inpatient Certification Medical Necessity: Need Close Monitoring Due to Risk of Patient Decompensation, Need For IV Fluids, Risk of Complication if Not Cared For in Hospital - Plan Summary Plan Summary: Go slow with po intake but will increse to full liquids today Should eventually be on low residue diet since obstruction appears to be in the tight opening of ileostomy at the skin level. May eventually need revision of ileostomy.
[2019-02-01] MEDS: HYDRALAZINE HCL INJ/PF 20 MG/1 ML SDV IV PRN (13:22)
[2019-02-01] MEDS ORDERED: HYDROCODONE/ACETAMINOPHEN 5-325 MG TABLET PO PRN (15:34)
[2019-02-01] MEDS ORDERED: CLONAZEPAM 0.125 MG PO PRN ×2 (16:56→18:32)
--- NOTE | 2019-02-01 17:10 | PDOC PROGRESS REPORT ---
Subjective Progress Note for:: 02/01/19 Subjective:: The patient is a 78-year-old female with a past medical history of ileostomy, CAD, hypertension, hyperlipidemia, migraine, seizure, GERD, arthritis, anxiety and depression who was admitted 01/28/2019 for small bowel obstruction to the surgical team. Hospitalist services consulted for medical management. Patient was seen on afternoon rounds with family member present. She is found resting in bed comfortably on room air. She reports continued slight nausea, although this is significantly improved and she is now tolerating a full liquid diet. She has stool and gas output to her ileostomy. Her only concern today is resuming her home medication regiment of Klonopin, Zanaflex, and sleep aid. She also reports that she takes antidiarrheal on a regular basis and requests to have this resumed; patient is informed that this should not be done until cleared by surgery. She denies fever, chills, chest pain, palpitations. She has no other questions or concerns. No concerns per nursing. Reason For Visit: SMALL BOWEL OBSTRUCTION Physical Exam Vital Signs: Temp Pulse Resp BP Pulse Ox 98.8 F 84 16 158/66 H 97 02/01/19 06:58 02/01/19 14:00 02/01/19 06:58 02/01/19 06:58 02/01/19 06:58 Intake & Output 01/31/19 02/01/19 02/02/19 06:59 06:59 06:59 Intake Total 983 1100 275 Output Total 2875 700 Balance -1892 400 275 Weight 42 kg 44 kg General appearance: PRESENT: no acute distress, cooperative, disheveled, thin, well-developed Head exam: PRESENT: atraumatic, normocephalic Eye exam: PRESENT: conjunctiva pink, EOMI, PERRLA. ABSENT: scleral icterus Ear exam: PRESENT: normal external ear exam Mouth exam: PRESENT: moist, tongue midline Teeth exam: PRESENT: poor dentation Neck exam: ABSENT: carotid bruit, JVD, lymphadenopathy, thyromegaly Respiratory exam: PRESENT: clear to auscultation yamilet, symmetrical, unlabored. ABSENT: rales, rhonchi, wheezes Cardiovascular exam: PRESENT: RRR, +S1, +S2. ABSENT: diastolic murmur, rubs, systolic murmur Pulses: PRESENT: normal dorsalis pedis pul Vascular exam: PRESENT: normal capillary refill GI/Abdominal exam: PRESENT: diminished bowel sounds, distended, normal bowel sounds, soft, other - Ileostomy. ABSENT: guarding, mass, organolmegaly, rebound, tenderness Rectal exam: PRESENT: deferred Extremities exam: PRESENT: full ROM. ABSENT: calf tenderness, clubbing, pedal edema Neurological exam: PRESENT: alert, awake, oriented to person, oriented to place, oriented to time, oriented to situation, CN II-XII grossly intact. ABSENT: motor sensory deficit Psychiatric exam: PRESENT: anxious, appropriate affect. ABSENT: homicidal ideation, suicidal ideation Skin exam: PRESENT: dry, intact, warm. ABSENT: cyanosis, rash Results Laboratory Results: 02/01/19 05:41 02/01/19 05:41 02/01/19 02/01/19 05:41 05:41 WBC 5.8 RBC 3.44 L Hgb 10.1 L Hct 30.1 L MCV 87 MCH 29.3 MCHC 33.6 RDW 15.3 H Plt Count 185 Sodium 138.6 Potassium 3.8 Chloride 111 H Carbon Dioxide 20 L Anion Gap 8 BUN 20 Creatinine 1.22 Est GFR ( Amer) 52 L Glucose 98 Calcium 9.4 01/28/19 01/28/19 01/28/19 14:59 14:59 14:59 Creatine Kinase 324 H Cancelled Troponin I < 0.012 Impressions: Acute Abdomen Series 01/28/19 13:00 IMPRESSION: Findings are consistent with small-bowel obstruction. Abdomen/Pelvis CT 01/28/19 16:01 IMPRESSION: Multiple mildly dilated loops of bowel scattered throughout the abdomen with mesenteric inflammatory changes - free fluid suggesting early obstruction. Chest X-Ray 01/29/19 00:00 IMPRESSION: COPD. Chronic left basilar pleuroparenchymal change. NG tube overlying stomach. Left IJ line coiled within proximal SVC hairy Small Bowel X-Ray 01/30/19 00:00 IMPRESSION: Status post colectomy. Diffuse dilatation of small bowel with no definite point of obstruction identified. A follow-up delayed film will be obtained in 4 hours as further evaluation. KUB X-Ray 01/31/19 00:00 IMPRESSION: Unchanged dilatation of the small bowel with retained oral contrast from the prior small bowel series. Assessment and Plan - Diagnosis (1) Small bowel obstruction Is this a current diagnosis for this admission?: Yes Plan: Improved. Small bowel follow-through does show continued dilated loops of small bowel, though, patient does have increased stool and gas output through her ileostomy. Surgeries primary; they have discontinued NG tube and advanced patient to a full liquid diet. Encourage mobility/ambulation; PT/OT ordered. (2) Abdominal pain, generalized Is this a current diagnosis for this admission?: Yes Plan: Significantly improved; secondary to #1. IV morphine has been discontinued. Will allow for Crockett 3 times daily as needed pain; avoid narcotics as able due to concern for worsened SBO. (3) Nausea & vomiting Is this a current diagnosis for this admission?: Yes Plan: Resolved; secondary #1. Evaluation management as above. Antiemetics as needed. (4) Chronic renal failure, stage 3 (moderate) Is this a current diagnosis for this admission?: Yes Plan: Stable; creatinine 1.22/BUN 20. Patient now tolerating p.o.; IV fluids have been discontinued. Avoid nephrotoxic medications as able. Continue to monitor with daily chemistry. (5) Hyperglycemia Is this a current diagnosis for this admission?: Yes Plan: Resolved; secondary to dextrose and IV fluids. We will continue to monitor Accu-Cheks before meals and at bedtime with sliding scale insulin and hypoglycemia protocol in place. (6) Depression Is this a current diagnosis for this admission?: Yes Plan: Stable; patient is tolerating p.o. we will resume her home dose Zoloft. - Time Time Spent with patient: 35 or more minutes Medications reviewed and adjusted accordingly: Yes Anticipated discharge: Home with Homehealth Within: Other - Medically cleared for d/c home w/ HH services per hospitalist service. Will continue to follow.
[2019-02-01] MEDS ORDERED: LORAZEPAM INJ 2 MG/1 ML VIAL ONE (18:14)
[2019-02-01] MEDS: PROMETHAZINE HCL INJ 25 MG/1 ML VIAL IV PRN ×2 (18:22→18:29)
[2019-02-01] MEDS ORDERED: LORAZEPAM INJ 2 MG/1 ML VIAL IV ONE (19:00)
[2019-02-01] MEDS ORDERED: DONEPEZIL HCL 5 MG TABLET PO SCH (22:00)
[2019-02-01] MEDS ORDERED: GABAPENTIN 100 MG CAPSULE PO SCH (22:00)
[2019-02-01] MEDS ORDERED: TEMAZEPAM 7.5 MG CAPSULE PO SCH (22:00)
[2019-02-01] MEDS ORDERED: (PENDING PHARMACY ID) (Donepezil Hcl [Aricept] 10 MG) PO SCH (22:00)
[2019-02-02] MEDS: HEPARIN SOD (PORCINE) 5,000 UNIT/ML 1 ML VIAL SUBCUT SCH (05:37)
[2019-02-02] MEDS: FAMOTIDINE INJ/PF 20 MG/2 ML SDV IV SCH (09:38)
[2019-02-02] MEDS ORDERED: PANTOPRAZOLE SODIUM 40 MG TABLET.DR PO SCH (10:00)
[2019-02-02] MEDS ORDERED: SERTRALINE HCL 50 MG TABLET PO SCH (10:00)
--- NOTE | 2019-02-02 10:44 | PDOC DISCHARGE SUMMARY ---
Impression - Admit/DC Date/PCP Admission Date/Primary Care Provider: 01/30/19 15:09 BOBBI MACKAY DO Discharge Date: 02/02/19 - Discharge Diagnosis (1) Small bowel obstruction Is this a current diagnosis for this admission?: Yes (2) Abdominal pain, generalized Is this a current diagnosis for this admission?: Yes (3) Nausea & vomiting Is this a current diagnosis for this admission?: Yes (4) Chronic renal failure, stage 3 (moderate) Is this a current diagnosis for this admission?: Yes (5) Hyperglycemia Is this a current diagnosis for this admission?: Yes (6) Depression Is this a current diagnosis for this admission?: Yes - Additional Information Resuscitation Status: Full Code Discharge Diet: Other (Comments) - Low residue Discharge Activity: Activity As Tolerated, Balance Activity w/Rest, Slowly Increase Activity Referrals: BOBBI MACKAY DO [Primary Care Provider] - 02/09/19 2:00 pm CRISTINA ALLISON MD [ACTIVE STAFF] - 02/08/19 2:30 pm Home Medications: Clonazepam [Klonopin 0.125 mg Tablet Rapid Dissolve] 0.125 mg PO BIDP PRN 01/10 Donepezil HCl [Aricept] 10 mg PO QHS 01/28/19 Gabapentin [Neurontin 100 mg Capsule] 100 mg PO QHS 01/28/19 Mupirocin [Bactroban 2% Ointment 22 gm] 1 applic TOP TID 01/28/19 Omeprazole 40 mg PO DAILY 01/28/19 Promethazine HCl [Phenergan 25 mg Tablet] 25 mg PO BIDP PRN 01/28/19 Ramelteon [Rozerem] 8 mg PO HSP PRN 01/28/19 Sertraline HCl [Zoloft] 100 mg PO DAILY 01/28/19 Tizanidine HCl [Zanaflex 4 mg Tablet] 4 mg PO HSP PRN 01/28/19 Acetaminophen [Tylenol 325 mg Tablet] 650 mg PO Q4HP PRN tablet 02/02/19 History of Present Illiness History of Present Illness: Per H&P by Brandt Leslie NP-C: SHAKA GOMEZ is a 78 year old female with a 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 Patient presented to ER with the complaint of no drainage from the ileostomy since yesterday morning. Patient was seen for the exact same symptoms 5 days ago in the ER. At that time patient was treated with IV hydration and morphine. After these interventions at times patient ileostomy began draining as it should and she was sent home. At this time the ileostomy is not draining and patient's abdominal series showing a small bowel obstruction. Patient had no treatment prior to arrival all other oral intake been aggravating factor Hospital Course Hospital Course: The patient was admitted to [facility] on continuous cardiac telemetry. Surgical services were consulted and followed along with the patient. They did provide assistance with ensuring IV access as nursing had difficulty maintaining peripheral lines. She did not require operative intervention for her small bowel obstruction. The patient was placed in n.p.o. status and NG tube was inserted and attached to low wall suction. She was supported with IV fluids; lites were monitored daily and replace as necessary. The patient symptoms gradually improved. Her progress was monitored with small bowel and KUB imaging studies. The patient did experience return of bowel function with copious amounts of gas and stool production to her ileostomy bag. NG tube was clamped for observational period; Patient tolerated well and so her diet was gradually advanced. At time of discharge, patient is in stable condition, asymptomatic, tolerating a full liquid diet, with adequate stool and gas production through her functioning ileostomy. Discussed with surgery prior to discharge; she is clear this time to return home to self-care and continue gradually advancing her diet to low residue. She is advised to follow-up with her primary care provider in the [facility] as scheduled next week. Physical Exam Vital Signs: Temp Pulse Resp BP Pulse Ox 98.7 F 59 L 18 151/70 H 98 02/02/19 08:37 02/02/19 08:37 02/02/19 08:37 02/02/19 08:37 02/02/19 08:37 Intake & Output 02/01/19 02/02/19 02/03/19 06:59 06:59 06:59 Intake Total 1100 725 Output Total 700 200 Balance 400 525 Weight 44 kg 44.7 kg General appearance: PRESENT: no acute distress, cooperative, thin, well- developed Head exam: PRESENT: atraumatic, normocephalic Eye exam: PRESENT: conjunctiva pink, EOMI, PERRLA. ABSENT: scleral icterus Ear exam: PRESENT: normal external ear exam Mouth exam: PRESENT: moist, tongue midline Teeth exam: PRESENT: poor dentation Neck exam: ABSENT: carotid bruit, JVD, lymphadenopathy, thyromegaly Respiratory exam: PRESENT: clear to auscultation yamilet, symmetrical, unlabored. ABSENT: rales, rhonchi, wheezes Cardiovascular exam: PRESENT: RRR, +S1, +S2. ABSENT: diastolic murmur, rubs, systolic murmur Pulses: PRESENT: normal dorsalis pedis pul Vascular exam: PRESENT: normal capillary refill GI/Abdominal exam: PRESENT: normal bowel sounds, soft, other - (+) stool/gas output to ostomy. ABSENT: distended, guarding, mass, organolmegaly, rebound, tenderness Rectal exam: PRESENT: deferred Extremities exam: PRESENT: full ROM. ABSENT: calf tenderness, clubbing, pedal edema Musculoskeletal exam: PRESENT: ambulatory Neurological exam: PRESENT: alert, awake, oriented to person, oriented to place, oriented to time, oriented to situation, CN II-XII grossly intact. ABSENT: motor sensory deficit Psychiatric exam: PRESENT: appropriate affect, normal mood. ABSENT: homicidal ideation, suicidal ideation Skin exam: PRESENT: dry, intact, warm. ABSENT: cyanosis, rash Results Laboratory Results: WBC 5.8 10^3/uL (4.0-10.5) 02/01/19 05:41 RBC 3.44 10^6/uL (3.72-5.28) L 02/01/19 05:41 Hgb 10.1 g/dL (12.0-15.5) L 02/01/19 05:41 Hct 30.1 % (36.0-47.0) L 02/01/19 05:41 MCV 87 fl (80-97) 02/01/19 05:41 MCH 29.3 pg (27.0-33.4) 02/01/19 05:41 MCHC 33.6 g/dL (32.0-36.0) 02/01/19 05:41 RDW 15.3 % (11.5-14.0) H 02/01/19 05:41 Plt Count 185 10^3/uL (150-450) 02/01/19 05:41 Lymph % (Auto) 13.2 % (13-45) 01/28/19 14:59 Bertie % (Auto) 7.3 % (3-13) 01/28/19 14:59 Eos % (Auto) 1.6 % (0-6) 01/28/19 14:59 Baso % (Auto) 0.6 % (0-2) 01/28/19 14:59 Absolute Neuts (auto) 4.2 10^3/uL (1.7-8.2) 01/28/19 14:59 Absolute Lymphs (auto) 0.7 10^3/uL (0.5-4.7) 01/28/19 14:59 Absolute Monos (auto) 0.4 10^3/uL (0.1-1.4) 01/28/19 14:59 Absolute Eos (auto) 0.1 10^3/uL (0.0-0.6) 01/28/19 14:59 Absolute Basos (auto) 0.0 10^3/uL (0.0-0.2) 01/28/19 14:59 Seg Neutrophils % 77.3 % (42-78) 01/28/19 14:59 Sodium 138.6 mmol/L (137-145) 02/01/19 05:41 Potassium 3.8 mmol/L (3.6-5.0) 02/01/19 05:41 Chloride 111 mmol/L (98-107) H 02/01/19 05:41 Carbon Dioxide 20 mmol/L (22-30) L 02/01/19 05:41 Anion Gap 8 (5-19) 02/01/19 05:41 BUN 20 mg/dL (7-20) 02/01/19 05:41 Creatinine 1.22 mg/dL (0.52-1.25) 02/01/19 05:41 Est GFR ( Amer) 52 (>60) L 02/01/19 05:41 Est GFR (MDRD) Non-Af 43 (>60) L 02/01/19 05:41 Glucose 98 mg/dL (75-110) 02/01/19 05:41 POC Glucose 81 mg/dL (70-110) 02/02/19 07:40 Calcium 9.4 mg/dL (8.4-10.2) 02/01/19 05:41 Magnesium 1.3 mg/dL (1.6-2.3) L 01/29/19 05:43 Total Bilirubin 0.2 mg/dL (0.2-1.3) 01/28/19 14:59 Direct Bilirubin 0.2 mg/dL (0.0-0.4) 01/28/19 14:59 Neonat Total Bilirubin Not Reportable 01/28/19 14:59 Neonat Direct Bilirubin Not Reportable 01/28/19 14:59 Neonat Indirect Bili Not Reportable 01/28/19 14:59 AST 25 U/L (14-36) 01/28/19 14:59 ALT 10 U/L (<35) 01/28/19 14:59 Alkaline Phosphatase 113 U/L (38-126) 01/28/19 14:59 Creatine Kinase 324 U/L (30-135) H 01/28/19 14:59 Creatine Kinase Cancelled 01/28/19 14:59 Troponin I < 0.012 ng/mL 01/28/19 14:59 Total Protein 6.8 g/dL (6.3-8.2) 01/28/19 14:59 Albumin 4.2 g/dL (3.5-5.0) 01/28/19 14:59 Urine Color YELLOW 01/28/19 13:35 Urine Appearance CLEAR 01/28/19 13:35 Urine pH 6.0 (5.0-9.0) 01/28/19 13:35 Ur Specific [place] 1.012 01/28/19 13:35 Urine Protein NEGATIVE mg/dL (NEGATIVE) 01/28/19 13:35 Urine Glucose (UA) NEGATIVE mg/dL (NEGATIVE) 01/28/19 13:35 Urine Ketones NEGATIVE mg/dL (NEGATIVE) 01/28/19 13:35 Urine Blood NEGATIVE (NEGATIVE) 01/28/19 13:35 Urine Nitrite NEGATIVE (NEGATIVE) 01/28/19 13:35 Urine Bilirubin NEGATIVE (NEGATIVE) 01/28/19 13:35 Urine Urobilinogen NEGATIVE mg/dL (<2.0) 01/28/19 13:35 Ur Leukocyte Esterase MODERATE (NEGATIVE) H 01/28/19 13:35 Urine WBC (Auto) 2 /HPF 01/28/19 13:35 Urine RBC (Auto) 0 /HPF 01/28/19 13:35 U Hyaline Cast (Auto) 67 /LPF 01/28/19 13:35 Squamous Epi Cells Auto 2 /HPF 01/28/19 13:35 Urine Mucus (Auto) RARE /LPF 01/28/19 13:35 Urine Ascorbic Acid NEGATIVE (NEGATIVE) 01/28/19 13:35 01/28/19 14:59 Troponin I < 0.012 Impressions: Acute Abdomen Series 01/28/19 13:00 IMPRESSION: Findings are consistent with small-bowel obstruction. Abdomen/Pelvis CT 01/28/19 16:01 IMPRESSION: Multiple mildly dilated loops of bowel scattered throughout the abdomen with mesenteric inflammatory changes - free fluid suggesting early obstruction. KUB X-Ray 01/28/19 17:43 IMPRESSION: New nasogastric catheter coiled in the stomach tip overlying the antral-pyloric region of the stomach. Chest X-Ray 01/29/19 00:00 IMPRESSION: COPD. Chronic left basilar pleuroparenchymal change. NG tube overlying stomach. Left IJ line coiled within proximal SVC hairy KUB X-Ray 01/30/19 00:00 IMPRESSION: Persistent small bowel obstruction. Small Bowel X-Ray 01/30/19 00:00 IMPRESSION: Status post colectomy. Diffuse dilatation of small bowel with no definite point of obstruction identified. A follow-up delayed film will be obtained in 4 hours as further evaluation. KUB X-Ray 01/31/19 00:00 IMPRESSION: Unchanged dilatation of the small bowel with retained oral contrast from the prior small bowel series. Plan Plan of Treatment: Patient was discharged to home, in stable condition, into self care. She is instructed to follow-up with her primary care provider and the [facility] as scheduled next week. She is advised to to avoid medications to prevent diarrhea until cleared for at her follow-up appointment. She is instructed to continue her other medications as prescribed. She is instructed to eat a low residue diet. She is encouraged to return to the emergency department as needed for concerning symptoms. Time Spent: Greater than 30 Minutes Stroke Is this a Stroke Patient?: No Acute Heart Failure - Is this a Heart Failure Patient?: No
--- NOTE | 2019-02-02 11:26 | PDOC PROGRESS REPORT ---
Subjective Progress Note for:: 02/02/19 Subjective:: 78-year-old female with an ileostomy, and a small bowel obstruction. The patient reports that she feels well today. Her ileostomy is functioning. She is tolerating a liquid diet. She denies chest pain, shortness of breath, fevers, chills, nausea, vomiting, abdominal pain, dizziness, orthostasis, fatigue, headache. Reason For Visit: SMALL BOWEL OBSTRUCTION Physical Exam Vital Signs: Temp Pulse Resp BP Pulse Ox 98.7 F 59 L 18 151/70 H 98 02/02/19 08:37 02/02/19 08:37 02/02/19 08:37 02/02/19 08:37 02/02/19 08:37 Intake & Output 02/01/19 02/02/19 02/03/19 06:59 06:59 06:59 Intake Total 1100 725 Output Total 700 200 Balance 400 525 Weight 44 kg 44.7 kg General appearance: PRESENT: no acute distress, cooperative Head exam: PRESENT: atraumatic, normocephalic Eye exam: PRESENT: PERRLA. ABSENT: scleral icterus Mouth exam: PRESENT: moist, neck supple Neck exam: ABSENT: tenderness, thyromegaly, tracheal deviation, tracheostomy Respiratory exam: PRESENT: clear to auscultation yamilet, unlabored. ABSENT: chest wall tenderness, tachypnea, wheezes Pulses: PRESENT: normal radial pulses Vascular exam: PRESENT: normal capillary refill. ABSENT: pallor GI/Abdominal exam: PRESENT: soft. ABSENT: distended, firm, guarding, tenderness Rectal exam: PRESENT: deferred Extremities exam: ABSENT: clubbing Neurological exam: PRESENT: alert, awake Psychiatric exam: ABSENT: agitated, anxious, depressed Focused psych exam: ABSENT: delusional Skin exam: ABSENT: cyanosis, erythema, jaundice Results Laboratory Results: 02/01/19 05:41 02/01/19 05:41 01/28/19 01/28/19 01/28/19 14:59 14:59 14:59 Creatine Kinase 324 H Cancelled Troponin I < 0.012 Impressions: Acute Abdomen Series 01/28/19 13:00 IMPRESSION: Findings are consistent with small-bowel obstruction. Abdomen/Pelvis CT 01/28/19 16:01 IMPRESSION: Multiple mildly dilated loops of bowel scattered throughout the abdomen with mesenteric inflammatory changes - free fluid suggesting early obstruction. Chest X-Ray 01/29/19 00:00 IMPRESSION: COPD. Chronic left basilar pleuroparenchymal change. NG tube overlying stomach. Left IJ line coiled within proximal SVC hairy Small Bowel X-Ray 01/30/19 00:00 IMPRESSION: Status post colectomy. Diffuse dilatation of small bowel with no definite point of obstruction identified. A follow-up delayed film will be obtained in 4 hours as further evaluation. KUB X-Ray 01/31/19 00:00 IMPRESSION: Unchanged dilatation of the small bowel with retained oral contrast from the prior small bowel series. Assessment & Plan - Diagnosis (1) Small bowel obstruction Is this a current diagnosis for this admission?: Yes - Plan Summary Plan Summary: This is a 78-year-old female admitted with a small bowel obstruction. Her obstruction has resolved. She is tolerating a diet, and her ileostomy is functioning normally. She is fit for discharge from a surgical standpoint. Surgery will sign off at this time. She may follow-up with [facility] on an as-needed basis. Please call with any questions or concerns.
[2019-02-02 13:21] VITALS: BP 147/85
== END 2019-02-02 13:25 | disposition home health service (06) | DRG 390 ==
LOC: ER 12:39 → EH 17:38 → 3S 23:05 → OBSVTOIN 01-30 15:09
PROVIDERS: ADMIT Hospitalist; ATTEND Hospitalist
PROC: 02HV33Z Insertion of Infusion Device into Superior Vena Cava, Percutaneous Approach (ICD-10-PCS; principal; 2019-01-28)
PROC: 02HV33Z Insertion of Infusion Device into Superior Vena Cava, Percutaneous Approach (ICD-10-PCS; 2019-01-29)
PROC: B548ZZA Ultrasonography of Superior Vena Cava, Guidance (ICD-10-PCS; 2019-01-29)
DX: K56.699 Other intestinal obstruction unspecified as to partial versus complete obstruction (principal); N18.3 Chronic kidney disease, stage 3 (moderate); E86.0 Dehydration; K21.9 Gastro-esophageal reflux disease without esophagitis; I10 Essential (primary) hypertension; R73.9 Hyperglycemia, unspecified; E78.00 Pure hypercholesterolemia, unspecified; I25.2 Old myocardial infarction; Z93.2 Ileostomy status; Z90.49 Acquired absence of other specified parts of digestive tract
CPT/HCPCS: 36415; 71045; 74018; 74022; 74176; 74250; 80048; 80053; 81001; 82550; 82962; 83735; 84484; 85025; 85027; 93005; 93010; 96361; 96372; 96374; 96375; 99285; C1751; J0360; J1170; J1642; J1644; J2060; J2270; J2405; J2550; J3475; J3490; J7030; J7120; J7121; S0028

== ENCOUNTER 2019-03-20 17:02 | Inpatient (IN) | payer MEDICARE, MEDICAID ==
[2019-03-20] MEDS ORDERED: IPRATROPIUM/ALBUTEROL 0.5-2.5 MG/3 ML AMPUL NEB ONE (18:05)
--- NOTE | 2019-03-20 18:07 | ER Document Report ---
ED Medical Screen (RME) - General Chief Complaint: Nonproductive Cough Stated Complaint: COUGH Time Seen by Provider: 03/20/19 18:01 Primary Care Provider: BOBBI MACKAY DO [Primary Care Provider] - Follow up as needed Information source: Relative Notes: Patient presents with cough for the past week. Patient reports decreased appetite generalized weakness and a 12 pound weight loss over the past week. Family reports low-grade fever. No nausea or vomiting. I have greeted and performed a rapid initial assessment of this patient. A comprehensive ED assessment and evaluation of the patient, analysis of test results and completion of the medical decision making process will be conducted by additional ED providers. TRAVEL OUTSIDE OF THE [place] IN LAST 30 DAYS: No - Related Data Allergies/Adverse Reactions: ciprofloxacin [From Cipro] Allergy (Verified 01/23/19 04:08) diltiazem HCl [From Cardizem] Allergy (Verified 01/23/19 04:08) Unknown reaction ketorolac tromethamine [From Toradol] Allergy (Verified 01/23/19 04:08) levofloxacin [From Levaquin] Allergy (Verified 01/23/19 04:08) meperidine HCl [From Demerol] Allergy (Verified 01/23/19 04:08) nitrofurantoin macrocrystalline [From Macrodantin] Allergy (Verified 01/23/19 04:08) propoxyphene napsylate [From Darvocet-N 100] Allergy (Verified 01/23/19 04:08) sumatriptan [From Imitrex] Allergy (Verified 01/23/19 04:08) Past Medical History - Social History Family history: Reviewed & Not Pertinent - Past Medical History Cardiac Medical History: Reports: Hx Coronary Artery Disease, Hx Hypercholesterolemia, Hx Hypertension Pulmonary Medical History: Denies: Hx Asthma, Hx COPD, Hx Tuberculosis Neurological Medical History: Reports: Hx Migraine, Hx Seizures Endocrine Medical History: Denies: Hx Diabetes Mellitus Type 1, Hx Diabetes Mellitus Type 2, Hx Hyperthyroidism, Hx Hypothyroidism Renal/ Medical History: Reports: Hx Renal Insufficiency. Denies: Hx Peritoneal Dialysis Malignancy Medical History: Reports: Hx Colorectal Cancer - Had a total colectomy because there "was something wrong in her colon" GI Medical History: Reports: Hx Gastroesophageal Reflux Disease, Hx Irritable Bowel, Hx Colonoscopy, Hx Endoscopy. Denies: Hx Cirrhosis, Hx Hepatitis Musculoskeltal Medical History: Reports Hx Arthritis, Denies Hx Gout, Reports Hx Musculoskeletal Deformity, Reports Hx Musculoskeletal Trauma Skin Medical History: Denies Hx Eczema, Denies Hx Psoriasis Psychiatric Medical History: Reports: Hx Depression Traumatic Medical History: Reports: Hx Fractures - left shoulder Infectious Medical History: Denies: Hx Hepatitis Past Surgical History: Reports: Hx Appendectomy, Hx Bowel Surgery - 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 bowel injury, Hx Section, Hx Cholecystectomy, Hx Coronary Artery Bypass Graft, Hx Hysterectomy, Hx Ileostomy, Hx Orthopedic Surgery - left shoulder x2, Hx Tonsillectomy, Other - Total abdominal colectomy for ulcerative colitis - Immunizations Immunizations up to date: Yes Hx Diphtheria, Pertussis, Tetanus Vaccination: Yes - 2012 Physical Exam - Vital signs Vitals: Temp Pulse Resp BP Pulse Ox 97.6 F 83 18 138/71 H 100 03/20/19 17:17 03/20/19 17:17 03/20/19 17:17 03/20/19 17:17 03/20/19 17:17 - General General appearance: Alert Notes: Cachectic - Respiratory Respiratory status: No respiratory distress Breath sounds: Nonproductive cough, Rhonchi Course - Vital Signs Vital signs: Temp Pulse Resp BP Pulse Ox 97.6 F 83 18 138/71 H 100 03/20/19 17:17 03/20/19 17:17 03/20/19 17:17 03/20/19 17:17 03/20/19 17:17 Doctor's Discharge - Discharge Referrals: BOBBI MACKAY DO [Primary Care Provider] - Follow up as needed
--- NOTE | 2019-03-20 19:04 | RADIOLOGY REPORT (SQ) ---
EXAM DESCRIPTION: CHEST 2 VIEWS COMPLETED DATE/TIME: 03/20/2019 6:33 pm REASON FOR STUDY: cough COMPARISON: 06/21/2012. 01/29/2019. EXAM PARAMETERS: NUMBER OF VIEWS: two views TECHNIQUE: Digital Frontal and Lateral radiographic views of the chest acquired. RADIATION DOSE: NA LIMITATIONS: none FINDINGS: LUNGS AND PLEURA: There is evidence of bilateral perihilar and basilar interstitial and ai rspace type infiltrates. Hyperinflation consistent with COPD. MEDIASTINUM AND HILAR STRUCTURES: No masses or contour abnormalities. HEART AND VASCULAR STRUCTURES: The heart is normal with aortic atherosclerosis. . BONES: No acute findings. HARDWARE: None in the chest. OTHER: Postsurgical changes proximal left humerus. IMPRESSION: There is evidence of bilateral perihilar interstitial and airspace type infiltrates whic h are compatible with pneumonia. COPD. TECHNICAL DOCUMENTATION: JOB ID: [id number] [employer]- All Rights Reserved Reading location - IP/workstation name: [email or web address]
[2019-03-20 19:24] LABS: HEMATOCRIT 34.6 % (36.0-47.0); HEMOGLOBIN 11.1 g/dL (12.0-15.5); MEAN CORPUSCULAR VOLUME 91 fl (80-97); PLATELET COUNT 413 10^3/uL (150-450); RED BLOOD COUNT 3.82 10^6/uL (3.72-5.28); RED CELL DISTRIBUTION WIDTH 17.5 % (11.5-14.0)
[2019-03-20 19:42] LABS: ALBUMIN 3.1 g/dL (3.5-5.0); ALKALINE PHOSPHATASE 134 U/L (38-126); ANION GAP 16 (5-19); ASPARTATE AMINO TRANSFERASE 22 U/L (14-36); BILIRUBIN,DIRECT 0.4 mg/dL (0.0-0.4); BILIRUBIN,TOTAL 0.5 mg/dL (0.2-1.3); BLOOD UREA NITROGEN 62 mg/dL (7-20); CALCIUM 9.3 mg/dL (8.4-10.2); CHLORIDE 113 mmol/L (98-107); GLUCOSE 133 mg/dL (75-110); POTASSIUM 5.8 mmol/L (3.6-5.0); TOTAL PROTEIN 6.4 g/dL (6.3-8.2)
[2019-03-20 19:44] LABS: ABSOLUTE LYMPHOCYTES# (MANUAL) 1.3 10^3/uL (0.5-4.7); ABSOLUTE MONOCYTES # (MANUAL) 1.5 10^3/uL (0.1-1.4); ANISOCYTOSIS 1+; BAND NEUTROPHILS % (MANUAL) 6 % (3-5); BASOPHILS % (MANUAL) 0 % (0-2); BURR CELLS 3+; EOSINOPHILS % (MANUAL) 0 % (0-6); LYMPHOCYTES % (MANUAL) 5 % (13-45); MONOCYTES % (MANUAL) 6 % (3-13); SEGMENTED NEUTROPHILS % (MAN) 83 % (42-78); TOTAL CELLS COUNTED 100
[2019-03-20 19:45] LABS: PLATELET COMMENT ADEQUATE
[2019-03-20 19:54] LABS: CARBON DIOXIDE 9 mmol/L (22-30)
[2019-03-20] MEDS ORDERED: NORMAL SALINE 1000 ML 1,000 ML IV ONE (20:26)
[2019-03-20] MEDS ORDERED: CEFTRIAXONE 1 GM/D5W RTU 1 GM/50 ML RTUPB IV ONE (20:26)
[2019-03-20] MEDS ORDERED: AZITHROMYCIN INJ 500 MG VIAL IV ONE (20:27)
--- NOTE | 2019-03-20 20:31 | ER Document Report ---
ED Respiratory Problem - General Chief Complaint: Nonproductive Cough Stated Complaint: COUGH Time Seen by Provider: 03/20/19 18:01 Notes: Patient is a 78-year-old female that comes to the emergency department for chief complaint of cough for 1 week, generalized weakness, chills, shortness of breath, and no appetite for the past 2 days. She also states she has not urinated in over a day. She was at home with her son, past medical history includes ileostomy and chronic kidney disease but she denies history of smoking, asthma, COPD, CAD. She is up-to-date on vaccinations. She denies chest pain, nausea vomiting, pain. No recent hospitalization reported. TRAVEL OUTSIDE OF THE [place] IN LAST 30 DAYS: No - Related Data Allergies/Adverse Reactions: ciprofloxacin [From Cipro] Allergy (Verified 01/23/19 04:08) diltiazem HCl [From Cardizem] Allergy (Verified 01/23/19 04:08) Unknown reaction ketorolac tromethamine [From Toradol] Allergy (Verified 01/23/19 04:08) levofloxacin [From Levaquin] Allergy (Verified 01/23/19 04:08) meperidine HCl [From Demerol] Allergy (Verified 01/23/19 04:08) nitrofurantoin macrocrystalline [From Macrodantin] Allergy (Verified 01/23/19 04:08) propoxyphene napsylate [From Darvocet-N 100] Allergy (Verified 01/23/19 04:08) sumatriptan [From Imitrex] Allergy (Verified 01/23/19 04:08) Past Medical History - General Information source: Patient, Relative - Social History Smoking Status: Never Smoker Frequency of alcohol use: None Drug Abuse: None Lives with: Family Family History: Arthritis, CAD, DM, Hyperlipidemia, Hypertension Patient has suicidal ideation: No Patient has homicidal ideation: No - Past Medical History Cardiac Medical History: Reports: Hx Coronary Artery Disease, Hx Hypercholesterolemia, Hx Hypertension Pulmonary Medical History: Denies: Hx Asthma, Hx COPD, Hx Tuberculosis Neurological Medical History: Reports: Hx Migraine, Hx Seizures Endocrine Medical History: Denies: Hx Diabetes Mellitus Type 1, Hx Diabetes Mellitus Type 2, Hx Hyperthyroidism, Hx Hypothyroidism Renal/ Medical History: Reports: Hx Renal Insufficiency. Denies: Hx Peritoneal Dialysis Malignancy Medical History: Reports: Hx Colorectal Cancer - Had a total colectomy because there "was something wrong in her colon" GI Medical History: Reports: Hx Gastroesophageal Reflux Disease, Hx Irritable Bowel, Hx Colonoscopy, Hx Endoscopy. Denies: Hx Cirrhosis, Hx Hepatitis Musculoskeletal Medical History: Reports Hx Arthritis, Denies Hx Gout, Reports Hx Musculoskeletal Deformity, Reports Hx Musculoskeletal Trauma Skin Medical History: Denies Hx Eczema, Denies Hx Psoriasis Psychiatric Medical History: Reports: Hx Depression Traumatic Medical History: Reports: Hx Fractures - left shoulder Infectious Medical History: Denies: Hx Hepatitis Past Surgical History: Reports: Hx Appendectomy, Hx Bowel Surgery - 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 bowel injury, Hx Section, Hx Cholecystectomy, Hx Coronary Artery Bypass Graft, Hx Hysterectomy, Hx Ileostomy, Hx Orthopedic Surgery - left shoulder x2, Hx Tonsillectomy, Other - Total abdominal colectomy for ulcerative colitis - Immunizations Immunizations up to date: Yes Hx Diphtheria, Pertussis, Tetanus Vaccination: Yes - 2012 Hx Pneumococcal Vaccination: 05/11/11 Review of Systems - Review of Systems Constitutional: See HPI EENT: No symptoms reported Cardiovascular: No symptoms reported Respiratory: See HPI Gastrointestinal: No symptoms reported Genitourinary: No symptoms reported Female Genitourinary: No symptoms reported Musculoskeletal: No symptoms reported Skin: No symptoms reported Hematologic/Lymphatic: No symptoms reported Neurological/Psychological: No symptoms reported Physical Exam - Vital signs Vitals: Temp Pulse Resp BP Pulse Ox 97.6 F 83 18 138/71 H 100 03/20/19 17:17 03/20/19 17:17 03/20/19 17:17 03/20/19 17:17 03/20/19 17:17 - Notes Notes: GENERAL: Alert, cooperative, no distress, however she is cachectic HEAD: Normocephalic, atraumatic. EYES: Pupils equal, round, and reactive to light. Extraocular movements intact. ENT: Oral mucosa very dry, tongue midline. Oropharynx unremarkable. Airway patent. NECK: Full range of motion. Supple. Trachea midline. LUNGS: Scattered rhonchi throughout both lungs but no tachypnea or labored breathing. Unremarkable otherwise. HEART: Regular rate and rhythm. No murmur ABDOMEN: Soft, non-tender. Non-distended. There is an ileostomy bag noted, unremarkable otherwise. EXTREMITIES: Moves all 4 extremities spontaneously. No edema, normal radial and dorsalis pedis pulses bilaterally. No cyanosis. BACK: no cervical, thoracic, lumbar midline tenderness. No saddle anesthesia, normal distal neurovascular exam. Moves all extremities in full range of motion. NEUROLOGICAL: Alert and oriented x3. Normal speech. Cranial nerves II through XII grossly intact. PSYCH: Normal affect, normal mood. SKIN: Warm, dry, normal turgor. No rashes or lesions noted. Course - Re-evaluation Re-evalutation: Patient is actually well-appearing but she does have scattered rhonchi, occasional cough, and she is unable to urinate for me telling me this is been a while. She is not tachycardic, hypotensive, febrile, or in distress. Abdomen seems benign including area around her ileostomy. CBC shows leukocytosis at 25,000 with noted left shift. Chemistry shows low bicarbonate at 9, acute renal failure compared to prior at 2.63, hyperkalemia at 5.8. Chest x-ray indicating bilateral pneumonia. Started on Rocephin and azithromycin, cultures pending. Lactic acid unremarkable. Venous blood gas showing metabolic acidosis. Patient has been treated with calcium gluconate, insulin, dextrose, IV fluids. On reevaluation she remains with actually well-appearing. We have placed a Sequeira and after IV fluids patient did have good urine output. Does not appear to be obstructed. I did discuss patient and care with Dr. Hernandez. Discussed with patient and son. Will discuss with hospitalist for admission. Unfortunately I now see that patient was admitted around a month ago and will require antibiotics covering hospital- acquired pneumonia. Discussed with Dr. Kolb, internal medicine, he accepts patient to [facility] full admission. - Vital Signs Vital signs: Temp Pulse Resp BP Pulse Ox 97.8 F 84 20 123/54 L 97 03/21/19 03:46 03/21/19 03:46 03/21/19 03:46 03/21/19 03:46 03/21/19 03:46 - Laboratory Result Diagrams: 03/20/19 19:08 03/20/19 19:08 Laboratory results interpreted by me: 03/20/19 03/20/19 03/20/19 19:08 19:08 21:30 WBC 25.0 H Hgb 11.1 L Hct 34.6 L RDW 17.5 H Seg Neuts % (Manual) 83 H Band Neutrophils % 6 H Lymphocytes % (Manual) 5 L Abs Neuts (Manual) 22.3 H Abs Monocytes (Manual) 1.5 H VBG pH 7.14 L* VBG pCO2 32.8 L VBG HCO3 10.9 L Potassium 5.8 H Chloride 113 H Carbon Dioxide 9 L* BUN 62 H Creatinine 2.38 H Est GFR ( Amer) 24 L Est GFR (MDRD) Non-Af 20 L Glucose 133 H Alkaline Phosphatase 134 H Albumin 3.1 L Urine Protein Urine Ketones Urine Blood 03/20/19 23:04 WBC Hgb Hct RDW Seg Neuts % (Manual) Band Neutrophils % Lymphocytes % (Manual) Abs Neuts (Manual) Abs Monocytes (Manual) VBG pH VBG pCO2 VBG HCO3 Potassium Chloride Carbon Dioxide BUN Creatinine Est GFR ( Amer) Est GFR (MDRD) Non-Af Glucose Alkaline Phosphatase Albumin Urine Protein 30 H Urine Ketones TRACE H Urine Blood SMALL H - EKG Interpretation by Me Additional EKG results interpreted by me: EKG shows sinus rhythm at a rate of 89, QTC of 448, normal axis, no T wave inversions or ST segment changes in consecutive leads. There are some T waves, however patient is very thin and patient has appearance of peaked T waves on previous EKG. Critical Care Note - Critical Care Note Total time excluding time spent on procedures (mins): 35 - Acute renal failure, hyperkalemia, bilateral pneumonia Comments: Please allow 35 minutes of critical care time for evaluation and management of patient with metabolic acidosis, acute renal failure, hyperkalemia, bilateral pneumonia. Interventions including IV fluids, insulin, calcium gluconate, dextrose, and IV antibiotics. Multiple re-evaluations performed, time spent dis cussing with family, consulting, admitting to the hospital. Discharge - Discharge Clinical Impression: Bandemia, Hyperkalemia Pneumonia Qualifiers: Pneumonia type: due to unspecified organism Laterality: bilateral Lung location: lower lobe of lung Qualified Code(s): J18.9 - Pneumonia, unspecified organism Acute renal failure Qualifiers: Acute renal failure type: unspecified Qualified Code(s): N17.9 - Acute kidney failure, unspecified Condition: Stable Disposition: ADMITTED INPATIENT Admitting Provider: Cortes (Hospitalist) Unit Admitted: [facility]
[2019-03-20] MEDS ORDERED: INSULIN REG, HUMAN 100 UNIT/ML 3 ML VIAL (PYX) IV ONE (21:58)
[2019-03-20] MEDS ORDERED: CALCIUM GLUCONATE 1000 MG/10 ML INJ IV ONE (21:58)
[2019-03-20] MEDS ORDERED: DEXTROSE 50%-WATER 25 GM/50 ML DISP.SYRIN IV ONE (21:59)
[2019-03-20 22:00] LABS: VENOUS BLOOD BASE EXCESS -16.9 mmol/L; VENOUS BLOOD HCO3 10.9 mmol/L (20-32); VENOUS BLOOD PCO2 32.8 mmHg (35-63)
[2019-03-20 22:23] LABS: VENOUS BLOOD PH 7.14 (7.30-7.42)
[2019-03-20 23:33] LABS: APPEARANCE,URINE CLEAR; BILIRUBIN,URINE NEGATIVE (NEGATIVE); COLOR,URINE YELLOW; GLUCOSE, URINE NEGATIVE (NEGATIVE); KETONES,URINE TRACE mg/dL (NEGATIVE); PROTEIN,URINE 30 mg/dL (NEGATIVE); URINE SPECIFIC GRAVITY 1.012; UROBILINOGEN,URINE NEGATIVE mg/dL (<2.0)
[2019-03-21] MEDS ORDERED: LACTULOSE SYRUP 20 GM/30 ML UDCUP PO ONE (00:11)
[2019-03-21] MEDS ORDERED: HYDRALAZINE HCL INJ/PF 20 MG/1 ML SDV IV PRN (00:11)
[2019-03-21] MEDS ORDERED: IPRATROPIUM/ALBUTEROL 0.5-2.5 MG/3 ML AMPUL NEB PRN (00:14)
[2019-03-21] MEDS ORDERED: MAG HYDROX/AL HYDROX/SIMETH SUSP 30 ML UDCUP PO PRN (00:14)
--- NOTE | 2019-03-21 00:17 | EKG REPORT ---
SEVERITY:- OTHERWISE NORMAL ECG - SINUS RHYTHM ATRIAL PREMATURE COMPLEX : Confirmed by: Freedom Muro 21-Mar-2019 00:17:14
[2019-03-21] MEDS ORDERED: VANCOMYCIN HCL INJ 1000 MG VIAL IV PRN (00:26)
[2019-03-21] MEDS ORDERED: VANCOMYCIN HCL 0 MG in DEXTROSE 5%-WATER 250 ML IV NR (00:30)
[2019-03-21] MEDS ORDERED: FLUTICASONE NASAL SPRAY 50 MCG/SPRY 120 SPRAY/16 GM NASL ONE (00:30)
[2019-03-21] MEDS ORDERED: VANCOMYCIN HCL 750 MG in DEXTROSE 5%-WATER 250 ML IV ONE (00:30)
[2019-03-21] MEDS ORDERED: CEFEPIME 2 GM/D5W RTU 2 GM/50 ML RTUPB IV ONE (00:45)
[2019-03-21] MEDS ORDERED: FLUTICASONE NASAL SPRAY 50 MCG/SPRY 120 SPRAY/16 GM ONE (01:01)
[2019-03-21] MEDS: IPRATROPIUM/ALBUTEROL 0.5-2.5 MG/3 ML AMPUL NEB SCH ×2 (02:49→08:28)
--- NOTE | 2019-03-21 06:07 | PDOC H&P ---
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 Patient presents with 2 days of anorexia, shortness of breath and nonproductive cough prompting evaluation emergency room where she is found to have tachypnea with retractions, leukocytosis with bandemia, metabolic acidosis and acute on chronic renal failure. She started on empiric antibiotics and referred to the hospitalist for admission. Patient is awake and alert stating she feels much better after oxygen and breathing treatments. Past Medical History Cardiac Medical History: Reports: Coronary Artery Disease, Hyperlipidema, Hypertension Pulmonary Medical History: Reports: Chronic Obstructive Pulmonary Disease (COPD) Denies: Asthma, Tuberculosis Neurological Medical History: Reports: Migraine, Seizures Endocrine Medical History: Denies: Diabetes Mellitus Type 1, Diabetes Mellitus Type 2, Hyperthyroidism, Hypothyroidism Malignancy Medical History: Reports: Colorectal Cancer - Had a total colectomy because there "was something wrong in her colon" GI Medical History: Reports: Gastroesophageal Reflux Disease Denies: Cirrhosis, Hepatitis Musculoskeltal Medical History: Reports: Arthritis Denies: Gout Skin Medical History: Denies: Eczema, Psoriasis Psychiatric Medical History: Reports: Depression Hematology: Reports: Anemia Denies: Bleeding Tendencies Past Surgical History Past Surgical History: Reports: Appendectomy, Section, Cholecystectomy, Coronary Artery Bypass Graft, Hysterectomy, Ileostomy, Orthopedic Surgery - left shoulder x2, Tonsillectomy, Other - Total abdominal colectomy for ulcerative colitis Social History Information Source: Patient, [facility] Records Lives with: Family Smoking Status: Unknown if Ever Smoked Frequency of Alcohol Use: None Hx Recreational Drug Use: No Drugs: Cocaine Hx Prescription Drug Abuse: No - Advance Directive Resuscitation Status: Full Code Family History Family History: Arthritis, CAD, DM, Hyperlipidemia, Hypertension Parental Family History Reviewed: Yes Children Family History Reviewed: Yes Sibling(s) Family History Reviewed.: Yes Medication/Allergy Home Medications: Clonazepam [Klonopin 0.125 mg Tablet Rapid Dissolve] 0.125 mg PO BIDP PRN 01/28/19 Donepezil HCl [Aricept] 10 mg PO QHS 01/28/19 Gabapentin [Neurontin 100 mg Capsule] 100 mg PO QHS 01/28/19 Mupirocin [Bactroban 2% Ointment 22 gm] 1 applic TOP TID 01/28/19 Omeprazole 40 mg PO DAILY 01/28/19 Promethazine HCl [Phenergan 25 mg Tablet] 25 mg PO BIDP PRN 01/28/19 Ramelteon [Rozerem] 8 mg PO HSP PRN 01/28/19 Sertraline HCl [Zoloft] 100 mg PO DAILY 01/28/19 Tizanidine HCl [Zanaflex 4 mg Tablet] 4 mg PO HSP PRN 01/28/19 Acetaminophen [Tylenol 325 mg Tablet] 650 mg PO Q4HP PRN tablet 02/02/19 Allergies/Adverse Reactions: ciprofloxacin [From Cipro] Allergy (Verified 01/23/19 04:08) diltiazem HCl [From Cardizem] Allergy (Verified 01/23/19 04:08) Unknown reaction ketorolac tromethamine [From Toradol] Allergy (Verified 01/23/19 04:08) levofloxacin [From Levaquin] Allergy (Verified 01/23/19 04:08) meperidine HCl [From Demerol] Allergy (Verified 01/23/19 04:08) nitrofurantoin macrocrystalline [From Macrodantin] Allergy (Verified 01/23/19 04:08) propoxyphene napsylate [From Darvocet-N 100] Allergy (Verified 01/23/19 04:08) sumatriptan [From Imitrex] Allergy (Verified 01/23/19 04:08) Review of Systems Constitutional: PRESENT: as per HPI, anorexia, chills, fatigue, fever(s). ABSENT: headache(s), night sweats, weight gain, weight loss Eyes: ABSENT: visual disturbances Ears: ABSENT: hearing changes Cardiovascular: ABSENT: chest pain, dyspnea on exertion, edema, orthropnea, palpitations Respiratory: PRESENT: as per HPI, cough, dyspnea. ABSENT: hemoptysis, sputum Gastrointestinal: ABSENT: abdominal pain, constipation, diarrhea, hematemesis, hematochezia, nausea, vomiting Genitourinary: ABSENT: dysuria, hematuria Musculoskeletal: ABSENT: joint swelling Integumentary: ABSENT: rash, wounds Neurological: ABSENT: abnormal gait, abnormal speech, confusion, dizziness, focal weakness, syncope Psychiatric: ABSENT: anxiety, depression, homidical ideation, suicidal ideation Endocrine: ABSENT: cold intolerance, heat intolerance, polydipsia, polyuria Hematologic/Lymphatic: ABSENT: easy bleeding, easy bruising Physical Exam Vital Signs: Temp Pulse Resp BP Pulse Ox 97.8 F 84 20 123/54 L 97 03/21/19 03:46 03/21/19 03:46 03/21/19 03:46 03/21/19 03:46 03/21/19 03:46 Intake & Output 03/19/19 03/20/19 03/21/19 11:59 11:59 11:59 Weight 38.3 kg General appearance: PRESENT: cooperative, mild distress, thin, well-developed, other - Extremely frail appearing with global muscular atrophy, temporal wasting. ABSENT: disheveled Head exam: PRESENT: atraumatic, normocephalic Eye exam: PRESENT: conjunctiva pink, EOMI, PERRLA. ABSENT: scleral icterus Ear exam: PRESENT: normal external ear exam Mouth exam: PRESENT: moist, tongue midline Neck exam: ABSENT: carotid bruit, JVD, lymphadenopathy, thyromegaly Respiratory exam: PRESENT: accessory muscle use, crackles, prolonged expiratory phas, rales, retraction, symmetrical, tachypnea Cardiovascular exam: PRESENT: RRR, tachycardia. ABSENT: diastolic murmur, rubs, systolic murmur Pulses: PRESENT: normal dorsalis pedis pul Vascular exam: PRESENT: normal capillary refill GI/Abdominal exam: PRESENT: normal bowel sounds, soft. ABSENT: distended, guarding, mass, organolmegaly, rebound, tenderness Rectal exam: PRESENT: deferred Extremities exam: PRESENT: full ROM. ABSENT: calf tenderness, clubbing, pedal edema Neurological exam: PRESENT: alert, awake, oriented to person, oriented to place, oriented to time, oriented to situation, CN II-XII grossly intact. ABSENT: motor sensory deficit Psychiatric exam: PRESENT: appropriate affect, normal mood. ABSENT: homicidal ideation, suicidal ideation Skin exam: PRESENT: dry, intact, warm. ABSENT: cyanosis, rash Results Laboratory Results: 03/20/19 19:08 03/20/19 19:08 03/20/19 03/20/19 03/20/19 19:08 19:08 21:11 WBC 25.0 H RBC 3.82 Hgb 11.1 L Hct 34.6 L MCV 91 MCH 29.0 MCHC 32.0 RDW 17.5 H Plt Count 413 Seg Neutrophils % Not Reportable VBG pH VBG pCO2 VBG HCO3 VBG Base Excess Sodium 138.2 Potassium 5.8 H Chloride 113 H Carbon Dioxide 9 L* Anion Gap 16 BUN 62 H Creatinine 2.38 H Est GFR ( Amer) 24 L Glucose 133 H Lactic Acid 1.2 Calcium 9.3 Total Bilirubin 0.5 AST 22 Alkaline Phosphatase 134 H Total Protein 6.4 Albumin 3.1 L Urine Color Urine Appearance Urine pH Ur Specific [place] Urine Protein Urine Glucose (UA) Urine Ketones Urine Blood Urine RBC (Auto) 03/20/19 03/20/19 21:30 23:04 WBC RBC Hgb Hct MCV MCH MCHC RDW Plt Count Seg Neutrophils % VBG pH 7.14 L* VBG pCO2 32.8 L VBG HCO3 10.9 L VBG Base Excess -16.9 Sodium Potassium Chloride Carbon Dioxide Anion Gap BUN Creatinine Est GFR ( Amer) Glucose Lactic Acid Calcium Total Bilirubin AST Alkaline Phosphatase Total Protein Albumin Urine Color YELLOW Urine Appearance CLEAR Urine pH 5.0 Ur Specific [place] 1.012 Urine Protein 30 H Urine Glucose (UA) NEGATIVE Urine Ketones TRACE H Urine Blood SMALL H Urine RBC (Auto) 1 Impressions: Chest X-Ray 03/20/19 18:04 IMPRESSION: There is evidence of bilateral perihilar interstitial and airspace type infiltrates which are compatible with pneumonia. COPD. Assessment and Plan - Diagnosis (1) Pneumonia Qualifiers: Pneumonia type: due to unspecified organism Laterality: bilateral Lung location: lower lobe of lung Qualified Code(s): J18.9 - Pneumonia, unspecified organism Is this a current diagnosis for this admission?: Yes Plan: Complicated by recent discharge from [facility]. Pneumonia care set, cefepime and vancomycin initiated with pharmacy dosing. Follow-up blood culture, CBC and chemistry (2) Acute renal failure Qualifiers: Acute renal failure type: unspecified Qualified Code(s): N17.9 - Acute kidney failure, unspecified Is this a current diagnosis for this admission?: Yes Plan: Likely secondary to #1, IV fluid challenge, avoid nephrotoxic meds and doses follow-up chemistry (3) Bandemia Is this a current diagnosis for this admission?: Yes Plan: Secondary to #1, follow-up CBC and blood culture (4) Hyperkalemia Is this a current diagnosis for this admission?: Yes Plan: Secondary to #1 with metabolic acidosis, follow-up chemistry - Time Time Spent with patient: 25-34 minutes - Inpatient Certification Medical Necessity: Need Close Monitoring Due to Risk of Patient Decompensation
[2019-03-21] MEDS: HEPARIN SOD (PORCINE) 5,000 UNIT/ML 1 ML VIAL SUBCUT SCH ×3 (06:33→21:55)
[2019-03-21 07:04] LABS: ANION GAP 13 (5-19); BLOOD UREA NITROGEN 53 mg/dL (7-20); CALCIUM 8.8 mg/dL (8.4-10.2); CHLORIDE 113 mmol/L (98-107); GLUCOSE 144 mg/dL (75-110)
[2019-03-21 07:16] LABS: POTASSIUM 4.2 mmol/L (3.6-5.0)
[2019-03-21 07:18] LABS: CARBON DIOXIDE 10 mmol/L (22-30)
[2019-03-21 08:37] LABS: ARTERIAL BLOOD BASE EXCESS -14.8 mmol/L; ARTERIAL BLOOD H2CO3 0.81 mmol/L (1.05-1.35); ARTERIAL BLOOD HCO3 11.2 mmol/L (20-24); ARTERIAL BLOOD O2 SATURATION 95.9 % (94-98); ARTERIAL BLOOD PH 7.24 (7.35-7.45); ARTERIAL BLOOD PO2 92.7 mmHg (80-100)
[2019-03-21 08:38] LABS: ARTERIAL BLOOD FIO2 21%
[2019-03-21] MEDS: NORMAL SALINE 1000 ML 1,000 ML IV PRN (08:40)
[2019-03-21] MEDS: FLUTICASONE NASAL SPRAY 50 MCG/SPRY 120 SPRAY/16 GM NASL SCH ×2 (09:14→22:07)
[2019-03-21] MEDS ORDERED: DEXTROSE 5%-WATER 1000 ML 1,000 ML with SODIUM BICARBONATE 100 MEQ IV PRN ×2 (09:59)
[2019-03-21] MEDS ORDERED: CEFEPIME 2 GM/D5W RTU 50 ML IV SCH (10:00)
[2019-03-21 10:20] LABS: PHOSPHORUS 5.4 mg/dL (2.5-4.5)
--- NOTE | 2019-03-21 11:10 | RADIOLOGY REPORT (SQ) ---
EXAM DESCRIPTION: KUB/ABDOMEN (SINGLE VIEW) COMPLETED DATE/TIME: 03/21/2019 10:44 am REASON FOR STUDY: Abd pain; poor appetite, fever/leukocystosis COMPARISON: 01/31/2019 NUMBER OF VIEWS: One view. TECHNIQUE: Supine radiographic image of the abdomen acquired. LIMITATIONS: None. FINDINGS: BOWEL GAS PATTERN: Normal bowel gas pattern. No dilated loops. CALCIFICATIONS: No suspicious calcifications. SOFT TISSUES: No gross mass or suggestion of organomegaly. Increased density over the right upper qu adrant likely related to technique. HARDWARE: Surgical clips over right upper quadrant. Additional clips over the upper abdomen. Sequeira catheter overlies bladder. BONES: No acute fracture. No worrisome bone lesions. OTHER: Bibasilar chronic interstitial changes. IMPRESSION: No evidence of intestinal obstruction or other acute process. TECHNICAL DOCUMENTATION: JOB ID: [id number] [employer]- All Rights Reserved Reading location - IP/workstation name: [email or web address]
[2019-03-21] MEDS: ACETAMINOPHEN 325 MG TABLET PO PRN ×2 (11:50→18:14)
[2019-03-21] MEDS ORDERED: LEVALBUTEROL HCL NEB 1.25 MG/3 ML AMPUL NEB PRN (11:54)
--- NOTE | 2019-03-21 13:22 | PDOC PROGRESS REPORT ---
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 The patient was seen on morning rounds with her son present. She was found r esting in bed comfortably on room air. She reports that she is feeling well today; does continue to have slight shortness of breath with activity, nonproductive cough, and fatigue; overall improved. Patient and son report that she had a proximally 1 week of progressively worsening weakness and shortness of breath. They do report low-grade fevers at home. Patient confirms that she is also had difficulty urinating and intermittent dysuria during that time. Otherwise she denies chest pain, palpitations, abdominal pain, nausea vomiting diarrhea and constipation. She reports that her ileostomy has been working well. She does admit to decreased oral intake over the last week due to malaise. All questions and concerns addressed. No concerns per nursing. Reason For Visit: PNUEMONIA Physical Exam Vital Signs: Temp Pulse Resp BP Pulse Ox 97.9 F 74 17 121/54 L 97 03/21/19 11:00 03/21/19 11:00 03/21/19 11:00 03/21/19 11:00 03/21/19 11:00 Intake & Output 03/20/19 03/21/19 03/22/19 06:59 06:59 06:59 Intake Total 2271 Output Total 325 400 Balance -325 1871 Weight 39.7 kg General appearance: PRESENT: no acute distress, cooperative, thin - Cachectic, well-developed Head exam: PRESENT: atraumatic, normocephalic Eye exam: PRESENT: conjunctiva pink, EOMI, PERRLA. ABSENT: scleral icterus Ear exam: PRESENT: normal external ear exam Mouth exam: PRESENT: moist, tongue midline Respiratory exam: PRESENT: clear to auscultation yamilet, prolonged expiratory phas, symmetrical, unlabored. ABSENT: rales, rhonchi, wheezes Cardiovascular exam: PRESENT: RRR, +S1, +S2. ABSENT: diastolic murmur, rubs, systolic murmur Pulses: PRESENT: normal dorsalis pedis pul Vascular exam: PRESENT: normal capillary refill GI/Abdominal exam: PRESENT: normal bowel sounds, soft, other - Ileostomy. ABSENT: distended, guarding, mass, organolmegaly, rebound, tenderness Rectal exam: PRESENT: deferred Extremities exam: PRESENT: full ROM. ABSENT: calf tenderness, clubbing, pedal edema Neurological exam: PRESENT: alert, awake, oriented to person, oriented to place, oriented to time, oriented to situation, CN II-XII grossly intact. ABSENT: motor sensory deficit Psychiatric exam: PRESENT: appropriate affect, normal mood. ABSENT: homicidal ideation, suicidal ideation Skin exam: PRESENT: dry, intact, warm. ABSENT: cyanosis, rash Results Laboratory Results: 03/20/19 19:08 03/21/19 06:37 03/20/19 03/20/19 03/20/19 19:08 19:08 21:11 WBC 25.0 H RBC 3.82 Hgb 11.1 L Hct 34.6 L MCV 91 MCH 29.0 MCHC 32.0 RDW 17.5 H Plt Count 413 Seg Neutrophils % Not Reportable Carbonic Acid HCO3/H2CO3 Ratio ABG pH ABG pCO2 ABG pO2 ABG HCO3 ABG O2 Saturation ABG Base Excess VBG pH VBG pCO2 VBG HCO3 VBG Base Excess FiO2 Sodium 138.2 Potassium 5.8 H Chloride 113 H Carbon Dioxide 9 L* Anion Gap 16 BUN 62 H Creatinine 2.38 H Est GFR ( Amer) 24 L Glucose 133 H Lactic Acid 1.2 Calcium 9.3 Phosphorus Magnesium Total Bilirubin 0.5 AST 22 Alkaline Phosphatase 134 H Total Protein 6.4 Albumin 3.1 L Lipase Urine Color Urine Appearance Urine pH Ur Specific [place] Urine Protein Urine Glucose (UA) Urine Ketones Urine Blood Urine RBC (Auto) 03/20/19 03/20/19 03/21/19 21:30 23:04 06:37 WBC RBC Hgb Hct MCV MCH MCHC RDW Plt Count Seg Neutrophils % Carbonic Acid HCO3/H2CO3 Ratio ABG pH ABG pCO2 ABG pO2 ABG HCO3 ABG O2 Saturation ABG Base Excess VBG pH 7.14 L* VBG pCO2 32.8 L VBG HCO3 10.9 L VBG Base Excess -16.9 FiO2 Sodium 135.8 L Potassium 4.2 D Chloride 113 H Carbon Dioxide 10 L* Anion Gap 13 BUN 53 H Creatinine 1.80 H Est GFR ( Amer) 33 L Glucose 144 H Lactic Acid Calcium 8.8 Phosphorus Magnesium Total Bilirubin AST Alkaline Phosphatase Total Protein Albumin Lipase Urine Color YELLOW Urine Appearance CLEAR Urine pH 5.0 Ur Specific [place] 1.012 Urine Protein 30 H Urine Glucose (UA) NEGATIVE Urine Ketones TRACE H Urine Blood SMALL H Urine RBC (Auto) 1 03/21/19 03/21/19 03/21/19 06:37 08:15 10:10 WBC RBC Hgb Hct MCV MCH MCHC RDW Plt Count Seg Neutrophils % Carbonic Acid 0.81 L HCO3/H2CO3 Ratio 13:1 ABG pH 7.24 L ABG pCO2 27.0 L ABG pO2 92.7 ABG HCO3 11.2 L ABG O2 Saturation 95.9 ABG Base Excess -14.8 VBG pH VBG pCO2 VBG HCO3 VBG Base Excess FiO2 21% Sodium Potassium Chloride Carbon Dioxide Anion Gap BUN Creatinine Est GFR ( Amer) Glucose Lactic Acid 0.7 Calcium Phosphorus 5.4 H Magnesium 1.8 Total Bilirubin AST Alkaline Phosphatase Total Protein Albumin Lipase 192.1 Urine Color Urine Appearance Urine pH Ur Specific [place] Urine Protein Urine Glucose (UA) Urine Ketones Urine Blood Urine RBC (Auto) Impressions: Chest X-Ray 03/20/19 18:04 IMPRESSION: There is evidence of bilateral perihilar interstitial and airspace type infiltrates which are compatible with pneumonia. COPD. KUB X-Ray 03/21/19 00:00 IMPRESSION: No evidence of intestinal obstruction or other acute process. Assessment and Plan - Diagnosis (1) Healthcare-associated pneumonia Is this a current diagnosis for this admission?: Yes Plan: Blood cultures pending The patient is admitted to [facility] on continuous cardiac telemetry. Supplemental oxygen as needed to maintain saturations greater than 89%. Scheduled as needed nebulizer treatments. She is empirically placed on IV vancomycin and cefepime secondary to multiple recent hospital admissions and antibiotic use. Encourage pulmonary toilet. (2) Acute renal failure Qualifiers: Acute renal failure type: unspecified Qualified Code(s): N17.9 - Acute kidney failure, unspecified Is this a current diagnosis for this admission?: Yes Plan: Improved; likely secondary to #1 Creatinine has trended down from 2.38-1.80. Continue IV fluids. Sequeira catheter. Strict I&O's. Avoid nephrotoxic medications; renally dose when appropriate. Daily chemistries. (3) Bandemia Is this a current diagnosis for this admission?: Yes Plan: Secondary to #1 Blood and urine cultures pending. KUB negative for bowel obstruction (4) Hyperkalemia Is this a current diagnosis for this admission?: Yes Plan: Resolved. Secondary to #1 with metabolic acidosis Daily chemistries. (5) COPD (chronic obstructive pulmonary disease) Qualifiers: COPD type: unspecified COPD Qualified Code(s): J44.9 - Chronic obstructive pulmonary disease, unspecified Is this a current diagnosis for this admission?: Yes Plan: Stable and without exacerbation at this time, however, patient is admitted with healthcare associated pneumonia and so could potentially worsen throughout the course of admission. Supplemental oxygen as needed. Scheduled and as needed nebulizer treatments. Antibiotics as above. No indications for steroids at this time. (6) Metabolic acidosis Is this a current diagnosis for this admission?: Yes Plan: Secondary to acute renal failure and hyperkalemia. Lactic acid is normal. Anion gap closed ABG confirms uncompensated metabolic acidosis. Given pH of 7.24 and acute renal failure, will start IV bicarb 100 M EQ's and D5 W over 10 hours. Follow-up chemistry (7) Urinary retention Is this a current diagnosis for this admission?: Yes Plan: Patient reports 1 week of intermittent difficulty urinating and dysuria. Noted to have acute urinary retention while in the emergency department. Urinalysis is negative for UTI. Urine culture is pending. Maintain Sequeira catheter while acutely ill (8) Chronic renal failure, stage 3 (moderate) Is this a current diagnosis for this admission?: Yes Plan: Acutely worsened secondary to pneumonia and dehydration. Management as above. - Time Time Spent with patient: 35 or more minutes Medications reviewed and adjusted accordingly: Yes Anticipated discharge: Home with Homehealth - Inpatient Certification Based on my medical assessment, after consideration of the patient's comorbidities, presenting symptoms, or acuity I expect that the services needed warrant INPATIENT care.: Yes I certify that my determination is in accordance with my understanding of Medicare's requirements for reasonable and necessary INPATIENT services [42 CFR 412.3e].: Yes Medical Necessity: Need Close Monitoring Due to Risk of Patient Decompensation, Need For IV Fluids, Need for IV Antibiotics, Risk of Complication if Not Cared For in Hospital, Risk of Diagnosis Which Will Require Inpatient Eval/Care/Monitoring
[2019-03-21 16:02] LABS: BLOOD UREA NITROGEN 45 mg/dL (7-20); CALCIUM 8.3 mg/dL (8.4-10.2); CHLORIDE 111 mmol/L (98-107); GLUCOSE 249 mg/dL (75-110); POTASSIUM 4.1 mmol/L (3.6-5.0)
[2019-03-21 16:31] LABS: ANION GAP 13 (5-19)
[2019-03-21 16:44] LABS: CARBON DIOXIDE 9 mmol/L (22-30)
[2019-03-21] MEDS: DIPHENOXYLATE HCL/ATROP SULF 2.5-0.025 MG TABLET PO SCH (18:13)
[2019-03-21] MEDS ORDERED: LIDOCAINE 1% INJ-PF (10 MG/ML) 30 ML SDV ONE (18:42)
--- NOTE | 2019-03-21 19:36 | PDOC CONSULTATION ---
Consultation Consult Date: 03/21/19 Provider Consulted: DAVE BEDOLLA Consult reason:: need IV access History of Present Illness Admission Date/PCP: 03/21/19 00:12 BOBBI MACKAY DO History of Present Illness: SHAKA GOMEZ is a 78 year old female admitted for pneumonia in need of venous access for IV medications and IV fluids. Past Medical History Cardiac Medical History: Reports: Coronary Artery Disease, Hyperlipidema, Hypertension Pulmonary Medical History: Denies: Asthma, Chronic Obstructive Pulmonary Disease (COPD), Tuberculosis Neurological Medical History: Reports: Migraine, Seizures Endocrine Medical History: Denies: Diabetes Mellitus Type 1, Diabetes Mellitus Type 2, Hyperthyroidism, Hypothyroidism Malignancy Medical History: Reports: Colorectal Cancer - Had a total colectomy because there "was something wrong in her colon" GI Medical History: Reports: Gastroesophageal Reflux Disease Denies: Cirrhosis, Hepatitis Musculoskeltal Medical History: Reports: Arthritis Denies: Gout Skin Medical History: Denies: Eczema, Psoriasis Psychiatric Medical History: Reports: Depression Hematology: Reports: Anemia Denies: Bleeding Tendencies Past Surgical History Past Surgical History: Reports: Appendectomy, Section, Cholecystectomy, Coronary Artery Bypass Graft, Hysterectomy, Ileostomy, Orthopedic Surgery - left shoulder x2, Tonsillectomy, Other - Total abdominal colectomy for ulcerative colitis Social History Lives with: Family Smoking Status: Never Smoker Frequency of Alcohol Use: None Hx Recreational Drug Use: No Drugs: Cocaine Hx Prescription Drug Abuse: No - Advance Directive Resuscitation Status: Full Code Family History Family History: Arthritis, CAD, DM, Hyperlipidemia, Hypertension Parental Family History Reviewed: No Children Family History Reviewed: No Sibling(s) Family History Reviewed.: No Medication/Allergy Home Medications: Acetaminophen with Codeine [Tylenol #3 Tablet] 1 tab PO Q6HP PRN 03/21/19 Benzonatate 200 mg PO TID 03/21/19 Clonazepam [Klonopin 0.125 mg Tablet Rapid Dissolve] 0.125 mg PO Q12 03/21/19 Dicyclomine HCl [Bentyl 10 mg Capsule] 20 mg PO MEALS 03/21/19 Diphenoxylate HCl/Atropine [Lomotil 2.5-0.025 mg Tablet] 4 tab PO BID 03/21/19 Donepezil HCl [Aricept] 10 mg PO QHS 03/21/19 Doxycycline Monohydrate [Mondoxyne Nl] 100 mg PO Q12 03/21/19 Gabapentin [Neurontin 100 mg Capsule] 100 mg PO QHS 03/21/19 Omeprazole 40 mg PO DAILY 03/21/19 Ramelteon [Rozerem] 8 mg PO HSP PRN 03/21/19 Sertraline HCl [Zoloft] 100 mg PO DAILY 03/21/19 Tizanidine HCl [Zanaflex 4 mg Tablet] 4 mg PO QHS 03/21/19 Allergies/Adverse Reactions: ciprofloxacin [From Cipro] Allergy (Verified 01/23/19 04:08) diltiazem HCl [From Cardizem] Allergy (Verified 01/23/19 04:08) Unknown reaction ketorolac tromethamine [From Toradol] Allergy (Verified 01/23/19 04:08) levofloxacin [From Levaquin] Allergy (Verified 01/23/19 04:08) meperidine HCl [From Demerol] Allergy (Verified 01/23/19 04:08) nitrofurantoin macrocrystalline [From Macrodantin] Allergy (Verified 01/23/19 04:08) propoxyphene napsylate [From Darvocet-N 100] Allergy (Verified 01/23/19 04:08) sumatriptan [From Imitrex] Allergy (Verified 01/23/19 04:08) Physical Exam Vital Signs: Temp Pulse Resp BP Pulse Ox 97.9 F 75 17 155/69 H 98 03/21/19 14:58 03/21/19 14:58 03/21/19 14:58 03/21/19 14:58 03/21/19 14:58 Intake & Output 03/20/19 03/21/19 03/22/19 06:59 06:59 06:59 Intake Total 2296 Output Total 325 600 Balance -325 7706 Weight 39.7 kg 39.7 kg General appearance: PRESENT: no acute distress, thin Mouth exam: PRESENT: dry mucosa, neck supple Neck exam: PRESENT: full ROM Results Laboratory Results: 03/20/19 19:08 03/21/19 15:30 03/20/19 03/20/19 03/20/19 19:08 19:08 21:11 WBC 25.0 H RBC 3.82 Hgb 11.1 L Hct 34.6 L MCV 91 MCH 29.0 MCHC 32.0 RDW 17.5 H Plt Count 413 Carbonic Acid HCO3/H2CO3 Ratio ABG pH ABG pCO2 ABG pO2 ABG HCO3 ABG O2 Saturation ABG Base Excess VBG pH VBG pCO2 VBG HCO3 VBG Base Excess FiO2 Sodium 138.2 Potassium 5.8 H Chloride 113 H Carbon Dioxide 9 L* Anion Gap 16 BUN 62 H Creatinine 2.38 H Est GFR ( Amer) 24 L Glucose 133 H Lactic Acid 1.2 Calcium 9.3 Phosphorus Magnesium Total Bilirubin 0.5 AST 22 Alkaline Phosphatase 134 H Total Protein 6.4 Albumin 3.1 L Lipase Urine Color Urine Appearance Urine pH Ur Specific Craig Urine Protein Urine Glucose (UA) Urine Ketones Urine Blood Urine RBC (Auto) 03/20/19 03/20/19 03/21/19 21:30 23:04 06:37 WBC RBC Hgb Hct MCV MCH MCHC RDW Plt Count Carbonic Acid HCO3/H2CO3 Ratio ABG pH ABG pCO2 ABG pO2 ABG HCO3 ABG O2 Saturation ABG Base Excess VBG pH 7.14 L* VBG pCO2 32.8 L VBG HCO3 10.9 L VBG Base Excess -16.9 FiO2 Sodium 135.8 L Potassium 4.2 D Chloride 113 H Carbon Dioxide 10 L* Anion Gap 13 BUN 53 H Creatinine 1.80 H Est GFR ( Amer) 33 L Glucose 144 H Lactic Acid Calcium 8.8 Phosphorus Magnesium Total Bilirubin AST Alkaline Phosphatase Total Protein Albumin Lipase Urine Color YELLOW Urine Appearance CLEAR Urine pH 5.0 Ur Specific [place] 1.012 Urine Protein 30 H Urine Glucose (UA) NEGATIVE Urine Ketones TRACE H Urine Blood SMALL H Urine RBC (Auto) 1 03/21/19 03/21/19 03/21/19 06:37 08:15 10:10 WBC RBC Hgb Hct MCV MCH MCHC RDW Plt Count Carbonic Acid 0.81 L HCO3/H2CO3 Ratio 13:1 ABG pH 7.24 L ABG pCO2 27.0 L ABG pO2 92.7 ABG HCO3 11.2 L ABG O2 Saturation 95.9 ABG Base Excess -14.8 VBG pH VBG pCO2 VBG HCO3 VBG Base Excess FiO2 21% Sodium Potassium Chloride Carbon Dioxide Anion Gap BUN Creatinine Est GFR ( Amer) Glucose Lactic Acid 0.7 Calcium Phosphorus 5.4 H Magnesium 1.8 Total Bilirubin AST Alkaline Phosphatase Total Protein Albumin Lipase 192.1 Urine Color Urine Appearance Urine pH Ur Specific Craig Urine Protein Urine Glucose (UA) Urine Ketones Urine Blood Urine RBC (Auto) 03/21/19 15:30 WBC RBC Hgb Hct MCV MCH MCHC RDW Plt Count Carbonic Acid HCO3/H2CO3 Ratio ABG pH ABG pCO2 ABG pO2 ABG HCO3 ABG O2 Saturation ABG Base Excess VBG pH VBG pCO2 VBG HCO3 VBG Base Excess FiO2 Sodium 133.2 L Potassium 4.1 Chloride 111 H Carbon Dioxide 9 L* Anion Gap 13 BUN 45 H Creatinine 1.61 H Est GFR ( Amer) 38 L Glucose 249 H Lactic Acid Calcium 8.3 L Phosphorus Magnesium Total Bilirubin AST Alkaline Phosphatase Total Protein Albumin Lipase Urine Color Urine Appearance Urine pH Ur Specific Craig Urine Protein Urine Glucose (UA) Urine Ketones Urine Blood Urine RBC (Auto) Impressions: Chest X-Ray 03/20/19 18:04 IMPRESSION: There is evidence of bilateral perihilar interstitial and airspace type infiltrates which are compatible with pneumonia. COPD. KUB X-Ray 03/21/19 00:00 IMPRESSION: No evidence of intestinal obstruction or other acute process. Assessment & Plan - Diagnosis (1) Need for intravenous access Is this a current diagnosis for this admission?: Yes - Plan Summary Plan Summary: Assessment: Pneumonia Needle IV access for administration of medication and fluids Plan: Plan placement of subclavian or IJ triple-lumen central venous line at bedside Procedure risks benefits complications explained to the patient she understands and decides to proceed
--- NOTE | 2019-03-21 19:39 | Operative Report ---
Operative Report DATE OF SURGERY: 03/21/19 PREOPERATIVE DIAGNOSIS: Need of IV access for medications and fluids POSTOPERATIVE DIAGNOSIS: Same OPERATION: Right IJ triple-lumen central venous line SURGEON: DAVE BEDOLLA ANESTHESIA: Local - 10 mL's of 1% lidocaine TISSUE REMOVED OR ALTERED: None COMPLICATIONS: None ESTIMATED BLOOD LOSS: Less than 5 mL INTRAOPERATIVE FINDINGS: As above PROCEDURE: The procedure was done at bedside: The patient was placed in a supine position, the patient neck and chest were prepped and draped in the usual fashion. The right apex of the sternocleidomastoid anterior triangle was infiltrated with lidocaine, a 16-gauge needle was then used to cannulate the right jugular vein without difficulty with good blood return; a guidewire was inserted through the needle into the subclavian vein vein without difficulty the needle was removed. The insertion point of the guidewire was enlarged with a #11 blade and a tissue dilator which was then removed. A triple-lumen catheter was inserted without difficulty over the guidewire into the right/left subclavian/jugular vein without difficulty up to 16 cm, the guidewire was removed. Each port was aspirated and flushed with normal saline without difficulty. The catheter was secured to the skin with 3-0 nylon sutures and sterile dressing applied. The patient tolerated the procedure well and portable chest-ray was obtained to confirm good position of the line.
--- NOTE | 2019-03-21 20:21 | RADIOLOGY REPORT (SQ) ---
XR CHEST 1 VIEW CLINICAL STATEMENT: s/p CVL placement COMPARISON: 03/20/2019 FINDINGS: Heart is moderately enlarged. Patchy airspace disease in left lung base. No pneumothorax. Right IJ CVC with catheter tip at the SVC/right atrial junction. No pleural effusions. No pneumothorax. IMPRESSION: Patchy left basilar pneumonia appears mildly worse. Patchy multifocal pneumonia noted bilaterally as well. Right IJ CVC is in place with no pneumothorax.
[2019-03-21] MEDS: CEFEPIME 1 GM/D5W RTU 1 GM/50 ML RTUPB IV SCH (21:57)
[2019-03-21] MEDS ORDERED: CLONAZEPAM 0.125 MG PO SCH (22:00)
[2019-03-21] MEDS: GABAPENTIN 100 MG CAPSULE PO SCH (22:08)
[2019-03-21] MEDS ORDERED: DIAZEPAM 2 MG TABLET PO ONE (22:15)
[2019-03-22] MEDS: ACETAMINOPHEN 325 MG TABLET PO PRN (04:21)
[2019-03-22] MEDS: NORMAL SALINE 1000 ML 1,000 ML IV PRN ×2 (04:25→10:44)
[2019-03-22] MEDS: HEPARIN SOD (PORCINE) 5,000 UNIT/ML 1 ML VIAL SUBCUT SCH ×3 (06:03→23:08)
[2019-03-22 06:26] LABS: HEMATOCRIT 24.7 % (36.0-47.0); MEAN CORPUSCULAR HEMOGLOBIN 29.1 pg (27.0-33.4); MEAN CORPUSCULAR HGB CONC 33.6 g/dL (32.0-36.0); PLATELET COUNT 353 10^3/uL (150-450); RED BLOOD COUNT 2.85 10^6/uL (3.72-5.28); RED CELL DISTRIBUTION WIDTH 16.4 % (11.5-14.0); WHITE BLOOD COUNT 11.3 10^3/uL (4.0-10.5)
[2019-03-22 06:39] LABS: ANION GAP 9 (5-19); BLOOD UREA NITROGEN 38 mg/dL (7-20); CALCIUM 8.1 mg/dL (8.4-10.2); CARBON DIOXIDE 15 mmol/L (22-30); CHLORIDE 117 mmol/L (98-107); GLUCOSE 118 mg/dL (75-110); POTASSIUM 3.9 mmol/L (3.6-5.0)
[2019-03-22 07:10] LABS: HEMOGLOBIN 8.3 g/dL (12.0-15.5)
[2019-03-22 07:11] LABS: MEAN CORPUSCULAR VOLUME 87 fl (80-97)
[2019-03-22 07:13] LABS: ABSOLUTE LYMPHOCYTES# (MANUAL) 0.7 10^3/uL (0.5-4.7); ABSOLUTE MONOCYTES # (MANUAL) 0.7 10^3/uL (0.1-1.4); BAND NEUTROPHILS % (MANUAL) 3 % (3-5); BASOPHILS % (MANUAL) 1 % (0-2); EOSINOPHILS % (MANUAL) 1 % (0-6); LYMPHOCYTES % (MANUAL) 6 % (13-45); MONOCYTES % (MANUAL) 6 % (3-13); SEGMENTED NEUTROPHILS % (MAN) 83 % (42-78); TOTAL CELLS COUNTED 100
[2019-03-22 07:15] LABS: ANISOCYTOSIS 1+; BURR CELLS 2+; OVALOCYTES 2+; PLATELET COMMENT ADEQUATE; POIKILOCYTOSIS 2+; TEAR DROP CELLS 2+; TOXIC GRANULATION 1+; TOXIC VACUOLATION PRESENT
[2019-03-22] MEDS ORDERED: DIAZEPAM 2 MG TABLET PO SCH (10:00)
[2019-03-22] MEDS: DIPHENOXYLATE HCL/ATROP SULF 2.5-0.025 MG TABLET PO SCH ×2 (10:45→17:53)
[2019-03-22] MEDS: VANCOMYCIN HCL 500 MG in DEXTROSE 5%-WATER 100 ML IV SCH (10:45)
[2019-03-22] MEDS: FLUTICASONE NASAL SPRAY 50 MCG/SPRY 120 SPRAY/16 GM NASL SCH ×2 (10:46→23:10)
--- NOTE | 2019-03-22 10:55 | PDOC PROGRESS REPORT ---
Subjective Progress Note for:: 03/22/19 Subjective:: Patient was coughing earlier. She is resting comfortably now. She has no acute complaints and reports feeling better. She walks to the bathroom and does not get short of breath. Reason For Visit: PNUEMONIA Physical Exam Vital Signs: Temp Pulse Resp BP Pulse Ox 97.9 F 71 16 162/66 H 96 03/22/19 07:08 03/22/19 10:33 03/22/19 10:33 03/22/19 07:08 03/22/19 10:33 Intake & Output 03/21/19 03/22/19 03/23/19 06:59 06:59 06:59 Intake Total 3675 1000 Output Total 325 1075 Balance -325 2600 1000 Weight 39.7 kg 42.4 kg General appearance: PRESENT: no acute distress, thin, well-developed Head exam: PRESENT: atraumatic, normocephalic Eye exam: PRESENT: conjunctiva pink. ABSENT: scleral icterus Ear exam: PRESENT: normal external ear exam. ABSENT: bleeding, drainage Respiratory exam: PRESENT: rhonchi - Left base, symmetrical, unlabored. ABSENT: accessory muscle use, rales, tachypnea, wheezes Cardiovascular exam: PRESENT: RRR, +S1, +S2. ABSENT: diastolic murmur, systolic murmur GI/Abdominal exam: PRESENT: normal bowel sounds, soft. ABSENT: distended, tenderness Rectal exam: PRESENT: deferred Extremities exam: ABSENT: pedal edema Musculoskeletal exam: PRESENT: normal inspection Neurological exam: PRESENT: alert, awake, oriented to person, oriented to place, oriented to situation Psychiatric exam: PRESENT: flat affect. ABSENT: agitated, anxious Focused psych exam: ABSENT: delusional, restlessness Skin exam: PRESENT: dry, warm. ABSENT: rash Results Laboratory Results: 03/22/19 06:08 03/22/19 06:08 03/21/19 03/21/19 03/22/19 10:10 15:30 06:08 WBC 11.3 H RBC 2.85 L Hgb 8.3 L D Hct 24.7 L MCV 87 D MCH 29.1 MCHC 33.6 RDW 16.4 H Plt Count 353 Seg Neutrophils % Not Reportable Sodium 133.2 L Potassium 4.1 Chloride 111 H Carbon Dioxide 9 L* Anion Gap 13 BUN 45 H Creatinine 1.61 H Est GFR ( Amer) 38 L Glucose 249 H Lactic Acid 0.7 Calcium 8.3 L 03/22/19 06:08 WBC RBC Hgb Hct MCV MCH MCHC RDW Plt Count Seg Neutrophils % Sodium 140.7 Potassium 3.9 Chloride 117 H Carbon Dioxide 15 L Anion Gap 9 BUN 38 H Creatinine 1.40 H Est GFR ( Amer) 44 L Glucose 118 H Lactic Acid Calcium 8.1 L Impressions: Chest X-Ray 03/21/19 00:00 IMPRESSION: Patchy left basilar pneumonia appears mildly worse. Patchy multifocal pneumonia noted bilaterally as well. Right IJ CVC is in place with no pneumothorax. KUB X-Ray 03/21/19 00:00 IMPRESSION: No evidence of intestinal obstruction or other acute process. Assessment and Plan - Diagnosis (1) Healthcare-associated pneumonia Is this a current diagnosis for this admission?: Yes Plan: 03/22/2019-currently on vancomycin and cefepime. Vancomycin dosing. (2) Bandemia Is this a current diagnosis for this admission?: Yes Plan: 1219-secondary to pneumonia (3) Acute renal failure superimposed on stage 3 chronic kidney disease Qualifiers: Acute renal failure type: with acute tubular necrosis Qualified Code(s): N17.0 - Acute kidney failure with tubular necrosis; N18.3 - Chronic kidney disease, stage 3 (moderate) Is this a current diagnosis for this admission?: Yes Plan: 03/22/2019-secondary to the pneumonia and likely dehydration. Continue to monitor renal function. Slightly improved. Will give 1 L of fluid gently and she should be back at baseline. (4) Hyperkalemia Is this a current diagnosis for this admission?: Yes Plan: 03/22/2019-resolved (5) COPD (chronic obstructive pulmonary disease) Qualifiers: COPD type: unspecified COPD Qualified Code(s): J44.9 - Chronic obstructive pulmonary disease, unspecified Is this a current diagnosis for this admission?: Yes Plan: 03/22/2019-nebulizer treatments and supplemental oxygen if needed. (6) Metabolic acidosis Is this a current diagnosis for this admission?: Yes Plan: 03/22/2019-combination of infection and underlying COPD. Resulting. (7) Urinary retention Is this a current diagnosis for this admission?: Yes Plan: Patient reports 1 week of intermittent difficulty urinating and dysuria. Noted to have acute urinary retention while in the emergency department. Urinalysis is negative for UTI. Urine culture is pending. Maintain Sequeira catheter while acutely ill 03/22/2019-this could be a result of the Bentyl. She is also on muscle relaxants. We will trial Sequeira catheter removal prior to discharge. We can also consider bethanechol. For today I will discontinue the Bentyl. - Time Time Spent with patient: 15-24 minutes Medications reviewed and adjusted accordingly: Yes Anticipated discharge: Home Within: within 48 hours
[2019-03-22] MEDS ORDERED: (PENDING PHARMACY ID) (Benzonatate [Benzonatate] 200 MG) PO SCH (18:00)
[2019-03-22] MEDS ORDERED: ALPRAZOLAM 0.25 MG TABLET PO ONE (18:15)
[2019-03-22] MEDS ORDERED: (PENDING PHARMACY ID) (Donepezil Hcl [Aricept] 10 MG) PO SCH (22:00)
[2019-03-22] MEDS: CLONAZEPAM 1 MG TABLET PO SCH (23:07)
[2019-03-22] MEDS: GABAPENTIN 100 MG CAPSULE PO SCH (23:07)
[2019-03-22] MEDS: TIZANIDINE HCL 4 MG TABLET PO SCH (23:07)
[2019-03-22] MEDS: TRAZODONE HCL 50 MG TABLET PO SCH (23:08)
[2019-03-22] MEDS: DONEPEZIL HCL 5 MG TABLET PO SCH (23:08)
[2019-03-22] MEDS: CEFEPIME 1 GM/D5W RTU 1 GM/50 ML RTUPB IV SCH (23:09)
[2019-03-23] MEDS: HEPARIN SOD (PORCINE) 5,000 UNIT/ML 1 ML VIAL SUBCUT SCH ×3 (06:55→21:19)
[2019-03-23] MEDS ORDERED: DICYCLOMINE HCL 10 MG CAPSULE PO SCH (08:00)
[2019-03-23] MEDS: DICYCLOMINE HCL 20 MG TABLET PO SCH ×2 (08:01→12:20)
[2019-03-23] MEDS ORDERED: METOPROLOL TARTRATE PF/INJ 5 MG/5 ML SDV IV ONE ×2 (08:31→08:50)
[2019-03-23] MEDS: SERTRALINE HCL 50 MG TABLET PO SCH (10:01)
[2019-03-23] MEDS: DIPHENOXYLATE HCL/ATROP SULF 2.5-0.025 MG TABLET PO SCH ×2 (10:01→17:13)
[2019-03-23] MEDS: CLONAZEPAM 1 MG TABLET PO SCH ×2 (10:01→21:21)
[2019-03-23] MEDS: BENZONATATE 100 MG CAPSULE PO SCH ×3 (10:02→17:14)
[2019-03-23] MEDS: FLUTICASONE NASAL SPRAY 50 MCG/SPRY 120 SPRAY/16 GM NASL SCH ×2 (10:02→21:22)
[2019-03-23] MEDS ORDERED: NORMAL SALINE 1000 ML 1,000 ML IV PRN (12:02)
[2019-03-23] MEDS ORDERED: APIXABAN 2.5 MG TABLET PO ONE (12:30)
[2019-03-23] MEDS ORDERED: METOPROLOL TARTRATE 25 MG TABLET PO ONE (12:30)
--- NOTE | 2019-03-23 12:36 | PDOC PROGRESS REPORT ---
Subjective Progress Note for:: 03/23/19 Subjective:: The patient is resting comfortably. Unfortunately she has had episodes of what appears to be paroxysmal atrial fibrillation through the night. Heart rates have gone as high as 150. When questioned she admits that she is not aware of a fast heartbeat. She feels no palpitations. She has not had any chest pain. Reason For Visit: PNUEMONIA Physical Exam Vital Signs: Temp Pulse Resp BP Pulse Ox 97.1 F 61 16 151/72 H 94 03/23/19 11:12 03/23/19 11:12 03/23/19 11:12 03/23/19 11:12 03/23/19 11:12 Intake & Output 03/22/19 03/23/19 03/24/19 06:59 06:59 06:59 Intake Total 3675 2913 Output Total 1075 950 Balance 2600 1963 Weight 42.4 kg 40.9 kg General appearance: PRESENT: no acute distress, cooperative, thin, well- developed Head exam: PRESENT: atraumatic, normocephalic Ear exam: PRESENT: normal external ear exam. ABSENT: bleeding, drainage Respiratory exam: PRESENT: clear to auscultation yamilet, symmetrical, unlabored, other - Limited inspiratory. ABSENT: rales, rhonchi, tachypnea, wheezes Cardiovascular exam: PRESENT: RRR, +S1, +S2, other - Currently in a regular rhythm by auscultation GI/Abdominal exam: PRESENT: normal bowel sounds, soft. ABSENT: distended, tenderness Rectal exam: PRESENT: deferred Extremities exam: ABSENT: pedal edema Musculoskeletal exam: PRESENT: other - Decreased muscle mass Neurological exam: PRESENT: alert, awake, oriented to person, oriented to place, oriented to situation Psychiatric exam: PRESENT: appropriate affect. ABSENT: agitated, anxious Focused psych exam: ABSENT: delusional, restlessness Results Laboratory Results: 03/22/19 06:08 03/22/19 06:08 03/20/19 23:04 Catheterized Urine Urine Culture - Final NO GROWTH 2 DAYS Impressions: Chest X-Ray 03/21/19 00:00 IMPRESSION: Patchy left basilar pneumonia appears mildly worse. Patchy multifocal pneumonia noted bilaterally as well. Right IJ CVC is in place with no pneumothorax. KUB X-Ray 03/21/19 00:00 IMPRESSION: No evidence of intestinal obstruction or other acute process. Assessment and Plan - Diagnosis (1) Healthcare-associated pneumonia Is this a current diagnosis for this admission?: Yes Plan: 03/22/2019-currently on vancomycin and cefepime. Vancomycin dosing. 03/23/2019-continue antibiotics as above. Patient will need several days of outpatient antibiotics to complete treatment. (2) Bandemia Is this a current diagnosis for this admission?: Yes Plan: 03/22/19-secondary to pneumonia 03/23/2019-white count is improving as is the bandemia. We will continue to monitor. (3) Acute renal failure superimposed on stage 3 chronic kidney disease Qualifiers: Acute renal failure type: with acute tubular necrosis Qualified Code(s): N17.0 - Acute kidney failure with tubular necrosis; N18.3 - Chronic kidney disease, stage 3 (moderate) Is this a current diagnosis for this admission?: Yes Plan: 03/22/2019-secondary to the pneumonia and likely dehydration. Continue to monit or renal function. Slightly improved. Will give 1 L of fluid gently and she should be back at baseline. 03/23/2019-creatinine is improving. The patient is likely at baseline. BUN is still slightly elevated. I will give 1 L of saline IV at 100 mL an hour and recheck labs tomorrow. (4) Hyperkalemia Is this a current diagnosis for this admission?: Yes Plan: 03/22/2019-resolved (5) COPD (chronic obstructive pulmonary disease) Qualifiers: COPD type: unspecified COPD Qualified Code(s): J44.9 - Chronic obstructive pulmonary disease, unspecified Is this a current diagnosis for this admission?: Yes Plan: 03/22/2019-nebulizer treatments and supplemental oxygen if needed. 03/23/2019-stable. Continue current regimen. (6) Metabolic acidosis Is this a current diagnosis for this admission?: Yes Plan: 03/22/2019-combination of infection and underlying COPD. Resulting. 03/23/2019-continues to improve. Will monitor. (7) Urinary retention Is this a current diagnosis for this admission?: Yes Plan: Patient reports 1 week of intermittent difficulty urinating and dysuria. Noted to have acute urinary retention while in the emergency department. Urinalysis is negative for UTI. Urine culture is pending. Maintain Sequeira catheter while acutely ill 03/22/2019-this could be a result of the Bentyl. She is also on muscle relaxants. We will trial Sequeira catheter removal prior to discharge. We can also consider bethanechol. For today I will discontinue the Bentyl. 03/23/2019-we will hold Bentyl. Will trial Sequeira catheter removal later today and consider Urecholine. (8) Paroxysmal atrial fibrillation Is this a current diagnosis for this admission?: Yes Plan: 03/23/2019-patient was found to have episodes of atrial fibrillation with pulse rates as high as 150. She was unaware of these episodes. She has no chest pain. She felt no palpitations. I called the patient's son. I explained that she will not discharge today. I will start her on metoprolol and anticoagulation. I reviewed her stability at home and he states that she is not a high fall risk to apixaban at 2.5 mg twice daily in consideration of her renal failure. - Time Time Spent with patient: 15-24 minutes Medications reviewed and adjusted accordingly: Yes Anticipated discharge: Home Within: within 24 hours
[2019-03-23] MEDS: APIXABAN 2.5 MG TABLET PO SCH (17:13)
[2019-03-23] MEDS: CEFEPIME 1 GM/D5W RTU 1 GM/50 ML RTUPB IV SCH (21:20)
[2019-03-23] MEDS: TIZANIDINE HCL 4 MG TABLET PO SCH (21:20)
[2019-03-23] MEDS: GABAPENTIN 100 MG CAPSULE PO SCH (21:20)
[2019-03-23] MEDS: DONEPEZIL HCL 5 MG TABLET PO SCH (21:22)
[2019-03-23] MEDS: METOPROLOL TARTRATE 25 MG TABLET PO SCH (21:22)
[2019-03-23] MEDS: TRAZODONE HCL 50 MG TABLET PO SCH (21:22)
[2019-03-24 07:00] LABS: HEMATOCRIT 26.4 % (36.0-47.0); HEMOGLOBIN 8.7 g/dL (12.0-15.5); MEAN CORPUSCULAR HGB CONC 33.1 g/dL (32.0-36.0); MEAN CORPUSCULAR VOLUME 88 fl (80-97); PLATELET COUNT 306 10^3/uL (150-450); RED BLOOD COUNT 3.01 10^6/uL (3.72-5.28); RED CELL DISTRIBUTION WIDTH 16.5 % (11.5-14.0); WHITE BLOOD COUNT 8.9 10^3/uL (4.0-10.5)
[2019-03-24 07:21] LABS: ANION GAP 9 (5-19); BLOOD UREA NITROGEN 24 mg/dL (7-20); CALCIUM 8.1 mg/dL (8.4-10.2); CARBON DIOXIDE 17 mmol/L (22-30); CHLORIDE 115 mmol/L (98-107); GLUCOSE 97 mg/dL (75-110); POTASSIUM 4.2 mmol/L (3.6-5.0)
[2019-03-24 07:32] LABS: ABSOLUTE LYMPHOCYTES# (MANUAL) 1.3 10^3/uL (0.5-4.7); ABSOLUTE MONOCYTES # (MANUAL) 0.6 10^3/uL (0.1-1.4); ANISOCYTOSIS 1+; BAND NEUTROPHILS % (MANUAL) 3 % (3-5); BASOPHILS % (MANUAL) 1 % (0-2); EOSINOPHILS % (MANUAL) 6 % (0-6); HYPOCHROMASIA SLIGHT; LYMPHOCYTES % (MANUAL) 14 % (13-45); MONOCYTES % (MANUAL) 7 % (3-13); OVALOCYTES 1+; PLATELET COMMENT ADEQUATE; SEGMENTED NEUTROPHILS % (MAN) 68 % (42-78); TEAR DROP CELLS SLIGHT; TOTAL CELLS COUNTED 100
[2019-03-24] MEDS: APIXABAN 2.5 MG TABLET PO SCH (09:40)
[2019-03-24] MEDS: CLONAZEPAM 1 MG TABLET PO SCH (09:40)
[2019-03-24] MEDS: BENZONATATE 100 MG CAPSULE PO SCH ×2 (09:41→13:50)
[2019-03-24] MEDS: FLUTICASONE NASAL SPRAY 50 MCG/SPRY 120 SPRAY/16 GM NASL SCH (09:41)
[2019-03-24] MEDS: METOPROLOL TARTRATE 25 MG TABLET PO SCH (09:41)
[2019-03-24] MEDS: SERTRALINE HCL 50 MG TABLET PO SCH (09:41)
[2019-03-24] MEDS: DIPHENOXYLATE HCL/ATROP SULF 2.5-0.025 MG TABLET PO SCH (09:41)
[2019-03-24] MEDS: VANCOMYCIN HCL 500 MG in DEXTROSE 5%-WATER 100 ML IV SCH (09:43)
[2019-03-24 12:08] VITALS: BP 159/70
--- NOTE | 2019-03-24 14:08 | PDOC DISCHARGE SUMMARY ---
Impression - Admit/DC Date/PCP Admission Date/Primary Care Provider: 03/21/19 00:12 BOBBI MACKAY DO Discharge Date: 03/24/19 - Discharge Diagnosis (1) Healthcare-associated pneumonia Is this a current diagnosis for this admission?: Yes (2) Bandemia Is this a current diagnosis for this admission?: Yes (3) Acute renal failure superimposed on stage 3 chronic kidney disease Is this a current diagnosis for this admission?: Yes (4) Hyperkalemia Is this a current diagnosis for this admission?: Yes (5) COPD (chronic obstructive pulmonary disease) Is this a current diagnosis for this admission?: Yes (6) Metabolic acidosis Is this a current diagnosis for this admission?: Yes (7) Urinary retention Is this a current diagnosis for this admission?: Yes (8) Paroxysmal atrial fibrillation Is this a current diagnosis for this admission?: Yes - Assessment Summary: Pleasant 78-year-old female admitted with community-acquired pneumonia. She does have mild dementia. She was improving but on the anticipated discharge today developed atrial fibrillation. She stabilized with the addition of metoprolol and anticoagulation. - Additional Information Resuscitation Status: Full Code Discharge Diet: Cardiac Discharge Activity: Activity As Tolerated Referrals: BOBBI MACKAY DO [Primary Care Provider] - 03/31/19 10:00 am Prescriptions: Cefuroxime Axetil [Ceftin 500 mg Tablet] 1 tab PO BID 8 Days #16 tablet Apixaban [Eliquis 2.5 mg Tablet] 2.5 mg PO BID 15 Days #30 tablet Metoprolol Succinate [Toprol Xl 25 mg Tab.sr] 25 mg PO DAILY 15 Days #15 tab.sr.24h Home Medications: Acetaminophen with Codeine [Tylenol #3 Tablet] 1 tab PO Q6HP PRN 03/21/19 Benzonatate 200 mg PO TID 03/21/19 Clonazepam [Klonopin 0.125 mg Tablet Rapid Dissolve] 0.125 mg PO Q12 03/21/19 Dicyclomine HCl [Bentyl 10 mg Capsule] 20 mg PO MEALS 03/21/19 Diphenoxylate HCl/Atropine [Lomotil 2.5-0.025 mg Tablet] 4 tab PO BID 03/21/19 Donepezil HCl [Aricept] 10 mg PO QHS 03/21/19 Gabapentin [Neurontin 100 mg Capsule] 100 mg PO QHS 03/21/19 Omeprazole 40 mg PO DAILY 03/21/19 Ramelteon [Rozerem] 8 mg PO HSP PRN 03/21/19 Sertraline HCl [Zoloft] 100 mg PO DAILY 03/21/19 Tizanidine HCl [Zanaflex 4 mg Tablet] 4 mg PO QHS 03/21/19 Apixaban [Eliquis 2.5 mg Tablet] 2.5 mg PO BID 15 Days #30 tablet 03/24/19 Cefuroxime Axetil [Ceftin 500 mg Tablet] 1 tab PO BID 8 Days #16 tablet 03/24/19 Metoprolol Succinate [Toprol Xl 25 mg Tab.sr] 25 mg PO DAILY 15 Days #15 tab.sr.24h 03/24/19 History of Present Illiness History of Present Illness: SHAKA GOMEZ is a 78 year old female with a past medical history of stage III chronic kidney disease, chronic pain, 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 She had 2 days of anorexia with increasing shortness of breath and nonproductive cough. She was transferred to the emergency department. She was found to be tachypneic with leukocytosis and bandemia. She had metabolic acidosis and her acute on chronic kidney failure. She was referred to the hospitalist service for admission for community acquired pneumonia. Hospital Course Hospital Course: Patient had unremarkable hospital course. Gentle fluids corrected her acute kidney injury and she improved with antibiotic therapy and nebulizer treatments. On the anticipated day of discharge she developed atrial fibrillation. This was successfully treated with metoprolol and apixaban and today she is ready for discharge. Physical Exam Vital Signs: Temp Pulse Resp BP Pulse Ox 97.4 F 46 L 16 159/70 H 94 03/24/19 11:06 03/24/19 11:06 03/24/19 11:06 03/24/19 11:06 03/24/19 11:06 Intake & Output 03/23/19 03/24/19 03/25/19 06:59 06:59 06:59 Intake Total 2963 580 100 Output Total 950 Balance 2012 580 100 Weight 40.9 kg 44.2 kg General appearance: PRESENT: no acute distress, thin, well-developed Head exam: PRESENT: atraumatic, normocephalic Ear exam: PRESENT: normal external ear exam. ABSENT: bleeding, drainage Respiratory exam: PRESENT: clear to auscultation yamilet, symmetrical, unlabored. ABSENT: rales, rhonchi, tachypnea, wheezes Cardiovascular exam: PRESENT: irregular rhythm GI/Abdominal exam: PRESENT: normal bowel sounds, soft. ABSENT: distended, tenderness Neurological exam: PRESENT: alert, awake, oriented to person, oriented to place, oriented to situation Psychiatric exam: PRESENT: appropriate affect. ABSENT: agitated, anxious Results Laboratory Results: WBC 8.9 10^3/uL (4.0-10.5) 03/24/19 06:39 RBC 3.01 10^6/uL (3.72-5.28) L 03/24/19 06:39 Hgb 8.7 g/dL (12.0-15.5) L 03/24/19 06:39 Hct 26.4 % (36.0-47.0) L 03/24/19 06:39 MCV 88 fl (80-97) 03/24/19 06:39 MCH 29.0 pg (27.0-33.4) 03/24/19 06:39 MCHC 33.1 g/dL (32.0-36.0) 03/24/19 06:39 RDW 16.5 % (11.5-14.0) H 03/24/19 06:39 Plt Count 306 10^3/uL (150-450) 03/24/19 06:39 Lymph % (Auto) Not Reportable 03/24/19 06:39 [place] % (Auto) Not Reportable 03/24/19 06:39 Eos % (Auto) Not Reportable 03/24/19 06:39 Baso % (Auto) Not Reportable 03/24/19 06:39 Absolute Neuts (auto) Not Reportable 03/24/19 06:39 Absolute Lymphs (auto) Not Reportable 03/24/19 06:39 Absolute Monos (auto) Not Reportable 03/24/19 06:39 Absolute Eos (auto) Not Reportable 03/24/19 06:39 Absolute Basos (auto) Not Reportable 03/24/19 06:39 Total Counted 100 03/24/19 06:39 Seg Neutrophils % Not Reportable 03/24/19 06:39 Seg Neuts % (Manual) 68 % (42-78) 03/24/19 06:39 Band Neutrophils % 3 % (3-5) 03/24/19 06:39 Lymphocytes % (Manual) 14 % (13-45) 03/24/19 06:39 Atypical Lymphs % 1 % (0) 03/24/19 06:39 Monocytes % (Manual) 7 % (3-13) 03/24/19 06:39 Eosinophils % (Manual) 6 % (0-6) 03/24/19 06:39 Basophils % (Manual) 1 % (0-2) 03/24/19 06:39 Abs Neuts (Manual) 6.3 10^3/uL (1.7-8.2) 03/24/19 06:39 Abs Lymphs (Manual) 1.3 10^3/uL (0.5-4.7) 03/24/19 06:39 Abs Monocytes (Manual) 0.6 10^3/uL (0.1-1.4) 03/24/19 06:39 Absolute Eos (Manual) 0.5 10^3/uL (0.0-0.6) 03/24/19 06:39 Abs Basophils (Manual) 0.1 10^3/uL (0.0-0.2) 03/24/19 06:39 Toxic Granulation 1+ 03/22/19 06:08 Toxic Vacuolation PRESENT 03/22/19 06:08 Platelet Comment ADEQUATE 03/24/19 06:39 Hypochromasia SLIGHT 03/24/19 06:39 Poikilocytosis 2+ 03/22/19 06:08 Anisocytosis 1+ 03/24/19 06:39 Tear Drop Cells SLIGHT 03/24/19 06:39 Ovalocytes 1+ 03/24/19 06:39 [place] Cells 2+ 03/22/19 06:08 Carbonic Acid 0.81 mmol/L (1.05-1.35) L 03/21/19 08:15 HCO3/H2CO3 Ratio 13:1 03/21/19 08:15 ABG pH 7.24 (7.35-7.45) L 03/21/19 08:15 ABG pCO2 27.0 mmHg (35-45) L 03/21/19 08:15 ABG pO2 92.7 mmHg (80-100) 03/21/19 08:15 ABG HCO3 11.2 mmol/L (20-24) L 03/21/19 08:15 ABG Total CO2 12.0 mmol/L (21-25) L 03/21/19 08:15 ABG O2 Saturation 95.9 % (94-98) 03/21/19 08:15 ABG Base Excess -14.8 mmol/L 03/21/19 08:15 VBG pH 7.14 (7.30-7.42) L* 03/20/19 21:30 VBG pCO2 32.8 mmHg (35-63) L 03/20/19 21:30 VBG HCO3 10.9 mmol/L (20-32) L 03/20/19 21:30 VBG Base Excess -16.9 mmol/L 03/20/19 21:30 FiO2 21% 03/21/19 08:15 Sodium 140.5 mmol/L (137-145) 03/24/19 06:39 Potassium 4.2 mmol/L (3.6-5.0) 03/24/19 06:39 Chloride 115 mmol/L (98-107) H 03/24/19 06:39 Carbon Dioxide 17 mmol/L (22-30) L 03/24/19 06:39 Anion Gap 9 (5-19) 03/24/19 06:39 BUN 24 mg/dL (7-20) H 03/24/19 06:39 Creatinine 1.24 mg/dL (0.52-1.25) 03/24/19 06:39 Est GFR ( Amer) 51 (>60) L 03/24/19 06:39 Est GFR (MDRD) Non-Af 42 (>60) L 03/24/19 06:39 Glucose 97 mg/dL (75-110) 03/24/19 06:39 Lactic Acid 0.7 mmol/L (0.7-2.1) 03/21/19 10:10 Calcium 8.1 mg/dL (8.4-10.2) L 03/24/19 06:39 Phosphorus 5.4 mg/dL (2.5-4.5) H 03/21/19 06:37 Magnesium 1.4 mg/dL (1.6-2.3) L 03/24/19 06:39 Total Bilirubin 0.5 mg/dL (0.2-1.3) 03/20/19 19:08 Direct Bilirubin 0.4 mg/dL (0.0-0.4) 03/20/19 19:08 Neonat Total Bilirubin Not Reportable 03/20/19 19:08 Neonat Direct Bilirubin Not Reportable 03/20/19 19:08 Neonat Indirect Bili Not Reportable 03/20/19 19:08 AST 22 U/L (14-36) 03/20/19 19:08 ALT 12 U/L (<35) 03/20/19 19:08 Alkaline Phosphatase 134 U/L (38-126) H 03/20/19 19:08 Total Protein 6.4 g/dL (6.3-8.2) 03/20/19 19:08 Albumin 3.1 g/dL (3.5-5.0) L 03/20/19 19:08 Lipase 192.1 U/L (23-300) 03/21/19 06:37 Urine Color YELLOW 03/20/19 23:04 Urine Appearance CLEAR 03/20/19 23:04 Urine pH 5.0 (5.0-9.0) 03/20/19 23:04 Ur Specific [place] 1.012 03/20/19 23:04 Urine Protein 30 mg/dL (NEGATIVE) H 03/20/19 23:04 Urine Glucose (UA) NEGATIVE mg/dL (NEGATIVE) 03/20/19 23:04 Urine Ketones TRACE mg/dL (NEGATIVE) H 03/20/19 23:04 Urine Blood SMALL (NEGATIVE) H 03/20/19 23:04 Urine Nitrite (Reflex) NEGATIVE (NEGATIVE) 03/20/19 23:04 Urine Bilirubin NEGATIVE (NEGATIVE) 03/20/19 23:04 Urine Urobilinogen NEGATIVE mg/dL (<2.0) 03/20/19 23:04 Leukocyte Esterase Rfl NEGATIVE (NEGATIVE) 03/20/19 23:04 Urine RBC (Auto) 1 /HPF 03/20/19 23:04 U Hyaline Cast (Auto) 9 /LPF 03/20/19 23:04 Urine Bacteria (Auto) TRACE /HPF 03/20/19 23:04 Urine WBC (Reflex) 1 /HPF 03/20/19 23:04 Urine Mucus (Auto) RARE /LPF 03/20/19 23:04 Urine Ascorbic Acid NEGATIVE (NEGATIVE) 03/20/19 23:04 Impressions: Chest X-Ray 03/20/19 18:04 IMPRESSION: There is evidence of bilateral perihilar interstitial and airspace type infiltrates which are compatible with pneumonia. COPD. Chest X-Ray 03/21/19 00:00 IMPRESSION: Patchy left basilar pneumonia appears mildly worse. Patchy multifocal pneumonia noted bilaterally as well. Right IJ CVC is in place with no pneumothorax. KUB X-Ray 03/21/19 00:00 IMPRESSION: No evidence of intestinal obstruction or other acute process. Plan Health Concerns: With her history of small bowel obstruction the Bentyl and Lomotil will decrease smooth muscle contraction and therefore well of benefit for crampy abdominal pain could contribute to decreased bowel motility. You could also put the patient at risk for urinary retention. The patient's primary care provider and/or post splitter should review these medications closely. Plan of Treatment: Complete antibiotics as an outpatient. Add apixaban and metoprolol to her regimen. Goals: Resolution of pneumonia. Time Spent: Greater than 30 Minutes Stroke Is this a Stroke Patient?: No Acute Heart Failure - Is this a Heart Failure Patient?: No
[2019-03-25] MEDS ORDERED: METOPROLOL SUCCINATE 25 MG TAB.SR.24H PO SCH (10:00)
== END 2019-03-24 16:28 | disposition home or self-care (01) | DRG 193 ==
LOC: ER 17:02 → EH 03-21 00:12 → 3W 03-21 02:30
PROVIDERS: ADMIT Internal Medicine; ATTEND Internal Medicine
PROC: 02HV33Z Insertion of Infusion Device into Superior Vena Cava, Percutaneous Approach (ICD-10-PCS; principal; 2019-03-21)
DX: J18.9 Pneumonia, unspecified organism (principal); N17.0 Acute kidney failure with tubular necrosis; E87.2 Acidosis; J44.0 Chronic obstructive pulmonary disease with (acute) lower respiratory infection; K56.600 Partial intestinal obstruction, unspecified as to cause; G89.29 Other chronic pain; I25.10 Atherosclerotic heart disease of native coronary artery without angina pectoris; I12.9 Hypertensive chronic kidney disease with stage 1 through stage 4 chronic kidney disease, or unspecified chronic kidney disease; Y95 Nosocomial condition; N18.3 Chronic kidney disease, stage 3 (moderate); E87.5 Hyperkalemia; R33.9 Retention of urine, unspecified; I48.0 Paroxysmal atrial fibrillation; F03.90 Unspecified dementia, unspecified severity, without behavioral disturbance, psychotic disturbance, mood disturbance, and anxiety; K21.9 Gastro-esophageal reflux disease without esophagitis; F32.9 Major depressive disorder, single episode, unspecified; D63.1 Anemia in chronic kidney disease; E86.0 Dehydration; Z79.899 Other long term (current) drug therapy; Z79.01 Long term (current) use of anticoagulants; Z93.2 Ileostomy status; Z90.49 Acquired absence of other specified parts of digestive tract; Z85.038 Personal history of other malignant neoplasm of large intestine; Z95.1 Presence of aortocoronary bypass graft; Z82.61 Family history of arthritis; Z82.49 Family history of ischemic heart disease and other diseases of the circulatory system; Z88.6 Allergy status to analgesic agent; Z88.3 Allergy status to other anti-infective agents; Z88.8 Allergy status to other drugs, medicaments and biological substances
CPT/HCPCS: 36415; 36600; 71045; 71046; 74018; 80048; 80053; 81001; 82803; 83605; 83690; 83735; 84100; 85025; 87040; 87086; 93005; 93010; 94640; 94667; 94668; 94799; 96365; 96366; 96368; 96375; 99285; A6266; J0456; J0610; J0692; J0696; J1642; J1644; J1815; J3370; J3490; J7030; J7060; J7620

== ENCOUNTER → 2019-05-12 | Outpatient (CLI) | payer MEDICARE, MEDICAID ==
[2019-05-12 08:09] LABS: ABSOLUTE EOSINOPHILS # (AUTO) 0.2 10^3/uL (0.0-0.6); HEMOGLOBIN 11.4 g/dL (12.0-15.5); PLATELET COUNT 215 10^3/uL (150-450); TOTAL CELLS COUNTED % (AUTO) 100 %
[2019-05-12 08:26] LABS: ABSOLUTE BASOPHILS # (AUTO) 0.1 10^3/uL (0.0-0.2); ABSOLUTE LYMPHOCYTES (AUTO) 1.4 10^3/uL (0.5-4.7); ABSOLUTE MONOCYTES (AUTO) 0.5 10^3/uL (0.1-1.4); BASOPHILS % (AUTO) 1.1 % (0-2); HEMATOCRIT 35.1 % (36.0-47.0); LYMPHOCYTES % (AUTO) 27.1 % (13-45); MEAN CORPUSCULAR HEMOGLOBIN 30.1 pg (27.0-33.4); MEAN CORPUSCULAR HGB CONC 32.6 g/dL (32.0-36.0); MEAN CORPUSCULAR VOLUME 92 fl (80-97); MONOCYTES % (AUTO) 9.8 % (3-13); RED CELL DISTRIBUTION WIDTH 17.9 % (11.5-14.0); WHITE BLOOD COUNT 5.1 10^3/uL (4.0-10.5)
[2019-05-12 08:39] LABS: ALBUMIN 4.1 g/dL (3.5-5.0); ALKALINE PHOSPHATASE 80 U/L (38-126); ANION GAP 12 (5-19); ASPARTATE AMINO TRANSFERASE 19 U/L (14-36); BILIRUBIN,DIRECT 0.2 mg/dL (0.0-0.4); BILIRUBIN,TOTAL 0.2 mg/dL (0.2-1.3); BLOOD UREA NITROGEN 22 mg/dL (7-20); CALCIUM 9.1 mg/dL (8.4-10.2); CARBON DIOXIDE 17 mmol/L (22-30); CHLORIDE 113 mmol/L (98-107); GLUCOSE 80 mg/dL (75-110); POTASSIUM 5.4 mmol/L (3.6-5.0); TOTAL PROTEIN 7.1 g/dL (6.3-8.2)
--- NOTE | 2019-05-12 10:34 | EKG REPORT ---
SEVERITY:- NORMAL ECG - SINUS RHYTHM : Confirmed by: Ron Tinsley MD 12-May-2019 10:34:07
--- NOTE | 2019-05-12 12:23 | RADIOLOGY REPORT (SQ) ---
EXAM DESCRIPTION: CHEST PA/LATERAL COMPLETED DATE/TIME: 05/12/2019 7:54 am REASON FOR STUDY: PNEUMONIA COMPARISON: 03/21/2019 EXAM PARAMETERS: NUMBER OF VIEWS: two views TECHNIQUE: Digital Frontal and Lateral radiographic views of the chest acquired. RADIATION DOSE: NA LIMITATIONS: none FINDINGS: LUNGS AND PLEURA: The lungs are hyperexpanded. There is no infiltrate, effusion, or mass. MEDIASTINUM AND HILAR STRUCTURES: No masses or contour abnormalities. HEART AND VASCULAR STRUCTURES: Heart normal size. No evidence for failure. BONES: No acute findings. HARDWARE: None in the chest. OTHER: No other significant finding. IMPRESSION: Chronic lung changes with no acute cardiopulmonary findings. TECHNICAL DOCUMENTATION: JOB ID: [id number] [employer]- All Rights Reserved Reading location - IP/workstation name: [email or web address]
== END ==
LOC: OD 07:08
PROVIDERS: ATTEND Student in an Organized Health Care Education/Training Program
DX: J18.9 Pneumonia, unspecified organism (principal); R73.9 Hyperglycemia, unspecified; I48.91 Unspecified atrial fibrillation; J96.00 Acute respiratory failure, unspecified whether with hypoxia or hypercapnia
CPT/HCPCS: 36415; 71046; 80053; 83036; 85025; 93005; 93010

== ENCOUNTER 2019-08-23 14:48 | Emergency (ER) | payer MEDICARE, MEDICAID ==
--- NOTE | 2019-08-23 15:06 | ER Document Report ---
ED Medical Screen (RME) - General TRAVEL OUTSIDE OF THE [place] IN LAST 30 DAYS: No - General Chief Complaint: Pain With Urination Stated Complaint: URINARY PROBLEM Time Seen by Provider: 08/23/19 15:02 Primary Care Provider: BOBBI MACKAY DO [Primary Care Provider] - Follow up as needed Notes: Patient reports dysuria symptoms for the past 2 months. Patient states that her doctor has been trying to treat her for UTI for the past 2 months without improvement. Patient denies any fever. Patient does report some nausea. Patient complains of lower abdominal pain. No flank tenderness at this time. I have greeted and performed a rapid initial assessment of this patient. A comprehensive ED assessment and evaluation of the patient, analysis of test results and completion of the medical decision making process will be conducted by additional ED providers. (RENEE MEJIA) - Related Data Allergies/Adverse Reactions: ciprofloxacin [From Cipro] Allergy (Verified 01/23/19 04:08) diltiazem HCl [From Cardizem] Allergy (Verified 01/23/19 04:08) Unknown reaction ketorolac tromethamine [From Toradol] Allergy (Verified 01/23/19 04:08) levofloxacin [From Levaquin] Allergy (Verified 01/23/19 04:08) meperidine HCl [From Demerol] Allergy (Verified 01/23/19 04:08) nitrofurantoin macrocrystalline [From Macrodantin] Allergy (Verified 01/23/19 04:08) propoxyphene napsylate [From Darvocet-N 100] Allergy (Verified 01/23/19 04:08) sumatriptan [From Imitrex] Allergy (Verified 01/23/19 04:08) Past Medical History - Social History Chew tobacco use (# tins/day): No Frequency of alcohol use: None Drug Abuse: None Family history: Reviewed & Not Pertinent - Past Medical History Cardiac Medical History: Reports: Hx Coronary Artery Disease, Hx Hypercholesterolemia, Hx Hypertension Pulmonary Medical History: Denies: Hx Asthma, Hx COPD, Hx Tuberculosis Neurological Medical History: Reports: Hx Migraine, Hx Seizures Endocrine Medical History: Denies: Hx Diabetes Mellitus Type 1, Hx Diabetes Mellitus Type 2, Hx Hyperthyroidism, Hx Hypothyroidism Renal/ Medical History: Reports: Hx Renal Insufficiency. Denies: Hx Peritoneal Dialysis Malignancy Medical History: Reports: Hx Colorectal Cancer - Had a total colectomy because there "was something wrong in her colon" GI Medical History: Reports: Hx Gastroesophageal Reflux Disease, Hx Irritable Bowel, Hx Colonoscopy, Hx Endoscopy. Denies: Hx Cirrhosis, Hx Hepatitis Musculoskeltal Medical History: Reports Hx Arthritis, Denies Hx Gout, Reports Hx Musculoskeletal Deformity, Reports Hx Musculoskeletal Trauma Skin Medical History: Denies Hx Eczema, Denies Hx Psoriasis Psychiatric Medical History: Reports: Hx Depression Traumatic Medical History: Reports: Hx Fractures - left shoulder Infectious Medical History: Denies: Hx Hepatitis Past Surgical History: Reports: Hx Appendectomy, Hx Bowel Surgery - 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 bowel injury, Hx Section, Hx Cholecystectomy, Hx Coronary Artery Bypass Graft, Hx Hysterectomy, Hx Ileostomy, Hx Orthopedic Surgery - left shoulder x2, Hx Tonsillectomy, Other - Total abdominal colectomy for ulcerative colitis - Immunizations Immunizations up to date: Yes Hx Diphtheria, Pertussis, Tetanus Vaccination: Yes - 2012 Physical Exam - Abdominal Tenderness: Tender - Lower pelvic Course - Laboratory Laboratory results interpreted by me: 08/23/19 15:30 Urine Nitrite POSITIVE H Urine Urobilinogen 2.0 H Doctor's Discharge - Discharge Clinical Impression: UTI (urinary tract infection) Qualifiers: Urinary tract infection type: site unspecified Hematuria presence: with hematuria Qualified Code(s): N39.0 - Urinary tract infection, site not specified; R31.9 - Hematuria, unspecified Condition: Good Disposition: HOME, SELF-CARE Instructions: Urinary Tract Infection ([facility]), Cephalexin ([facility]) Additional Instructions: Call your doctor in follow up and discuss follow up with a urologist for the recurrent urinary tract infections. Return here for problems or concerns including but not limited to fever, vomiting or inability to tolerate the medicine. Referrals: BOBBI MACKAY, [Primary Care Provider] - Follow up as needed
[2019-08-23 15:56] LABS: APPEARANCE,URINE CLEAR; BILIRUBIN,URINE NEGATIVE (NEGATIVE); COLOR,URINE AMBER; GLUCOSE, URINE NEGATIVE (NEGATIVE); KETONES,URINE NEGATIVE (NEGATIVE); LEUKOCYTE ESTERASE,URINE NEGATIVE (NEGATIVE); NITRITE,URINE POSITIVE (NEGATIVE); PROTEIN,URINE NEGATIVE (NEGATIVE); URINE SPECIFIC GRAVITY 1.015
[2019-08-23] MEDS ORDERED: CEPHALEXIN 500 MG CAPSULE PO ONE (16:17)
--- NOTE | 2019-08-23 16:22 | ER Document Report ---
Entered by ARTHUR BENSON SCRIBE 08/23/19 1616 Acting as scribe for:TORI BLOUNT DO ED General - General Chief Complaint: Pain With Urination Stated Complaint: URINARY PROBLEM Time Seen by Provider: 08/23/19 15:02 Primary Care Provider: BOBBI MACKAY DO [Primary Care Provider] - Follow up as needed Information source: Patient Notes: This 79-year-old female presents to the emergency department complaining of dysuria for the past two months. Patient explains that she has been seeing her PCP and prescribed three rounds of antibiotics with no relief. Patient states that she ran out of her Kelflex over the weekend. Patient denies having yeast infection problems. Patient denies fever. Patient reports "bladder pain". TRAVEL OUTSIDE OF THE [place] IN LAST 30 DAYS: No - Related Data Allergies/Adverse Reactions: ciprofloxacin [From Cipro] Allergy (Verified 01/23/19 04:08) diltiazem HCl [From Cardizem] Allergy (Verified 01/23/19 04:08) Unknown reaction ketorolac tromethamine [From Toradol] Allergy (Verified 01/23/19 04:08) levofloxacin [From Levaquin] Allergy (Verified 01/23/19 04:08) meperidine HCl [From Demerol] Allergy (Verified 01/23/19 04:08) nitrofurantoin macrocrystalline [From Macrodantin] Allergy (Verified 01/23/19 04:08) propoxyphene napsylate [From Darvocet-N 100] Allergy (Verified 01/23/19 04:08) sumatriptan [From Imitrex] Allergy (Verified 01/23/19 04:08) Past Medical History - General Information source: Patient - Social History Smoking Status: Never Smoker Cigarette use (# per day): No Chew tobacco use (# tins/day): No Frequency of alcohol use: None Drug Abuse: None Lives with: Family Family History: Arthritis, CAD, DM, Hyperlipidemia, Hypertension Patient has suicidal ideation: No Patient has homicidal ideation: No - Past Medical History Cardiac Medical History: Reports: Hx Coronary Artery Disease, Hx Hypercholesterolemia, Hx Hypertension Neurological Medical History: Reports: Hx Migraine, Hx Seizures Renal/ Medical History: Reports: Hx Renal Insufficiency Malignancy Medical History: Reports: Hx Colorectal Cancer - Had a total colectomy because there "was something wrong in her colon" GI Medical History: Reports: Hx Gastroesophageal Reflux Disease, Hx Irritable Bowel, Hx Colonoscopy, Hx Endoscopy Musculoskeletal Medical History: Reports Hx Arthritis, Reports Hx Musculoskeletal Deformity, Reports Hx Musculoskeletal Trauma Psychiatric Medical History: Reports: Hx Depression Traumatic Medical History: Reports: Hx Fractures - left shoulder Past Surgical History: Reports: Hx Appendectomy, Hx Bowel Surgery - 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 bowel injury, Hx Section, Hx Cholecystectomy, Hx Coronary Artery Bypass Graft, Hx Hysterectomy, Hx Ileostomy, Hx Orthopedic Surgery - left shoulder x2, Hx Tonsillectomy, Other - Total abdominal colectomy for ulcerative colitis - Immunizations Immunizations up to date: Yes Hx Diphtheria, Pertussis, Tetanus Vaccination: Yes - 2012 Hx Pneumococcal Vaccination: 05/11/11 Review of Systems - Review of Systems Constitutional: See HPI. denies: Fever EENT: No symptoms reported Cardiovascular: No symptoms reported Respiratory: No symptoms reported Gastrointestinal: See HPI, Abdominal pain. denies: Diarrhea, Vomiting Genitourinary: See HPI, Dysuria, Pain Female Genitourinary: No symptoms reported Musculoskeletal: No symptoms reported Skin: No symptoms reported Hematologic/Lymphatic: No symptoms reported Neurological/Psychological: No symptoms reported -: Yes All other systems reviewed and negative Physical Exam - Notes Notes: Physical Exam: General: Alert, appears well. HEENT: Normocephalic. Atraumatic. PERRL. Extraocular movements intact. Oropharynx clear. Neck: Supple. Non-tender. Respiratory: No respiratory distress. Clear and equal breath sounds bilaterally. Cardiovascular: Regular rate and rhythm. Abdominal: Normal Inspection. Non-tender. No distension. Normal Bowel Sounds. Back: No gross abnormalities. Extremities: Moves all four extremities. Upper extremities: Normal inspection. Normal ROM. Lower extremities: Normal inspection. No edema. Normal ROM. Neurological: Normal cognition. AAOx4. Normal speech. Psychological: Normal affect. Normal Mood. Skin: Warm. Dry. Normal color. Course - Laboratory Laboratory results interpreted by me: 08/23/19 15:30 Urine Nitrite POSITIVE H Urine Urobilinogen 2.0 H Discharge - Discharge Clinical Impression: UTI (urinary tract infection) Qualifiers: Urinary tract infection type: site unspecified Hematuria presence: with hematuria Qualified Code(s): N39.0 - Urinary tract infection, site not specified Condition: Good Disposition: HOME, SELF-CARE Instructions: Cephalexin ([facility]), Urinary Tract Infection ([facility]) Additional Instructions: Call your doctor in follow up and discuss follow up with a urologist for the recurrent urinary tract infections. Return here for problems or concerns including but not limited to fever, vomiting or inability to tolerate the medicine. Prescriptions: Cefdinir 300 mg PO BID #14 capsule Phenazopyridine HCl [Pyridium] 100 mg PO BID #4 tablet Referrals: BOBBI MACKAY, [Primary Care Provider] - Follow up as needed I personally performed the services described in the documentation, reviewed and edited the documentation which was dictated to the scribe in my presence, and it accurately records my words and actions.
[2019-08-23 16:44] VITALS: BP 159/92
== END 2019-08-23 16:44 | disposition home or self-care (01) ==
LOC: ER 14:48
DX: N39.0 Urinary tract infection, site not specified (principal); R30.0 Dysuria; I25.10 Atherosclerotic heart disease of native coronary artery without angina pectoris; E78.00 Pure hypercholesterolemia, unspecified; I10 Essential (primary) hypertension; Z90.49 Acquired absence of other specified parts of digestive tract; Z88.3 Allergy status to other anti-infective agents; Z95.1 Presence of aortocoronary bypass graft; Z90.710 Acquired absence of both cervix and uterus; Z93.2 Ileostomy status
CPT/HCPCS: 99283; 87086; 81001; A9270